=== PATIENT | male | born 1955 | race American Indian/Alaskan Native ===

== ENCOUNTER 2022-01-26 22:58 | Inpatient (IN) | payer BC ==
--- NOTE | 2022-01-26 23:25 | Emergency Department Report ---
ED Shortness of Breath HPI - General Chief Complaint: Dyspnea/Respdistress Stated Complaint: SOB Source: patient Mode of arrival: Ambulatory Limitations: No Limitations - History of Present Illness Initial Comments: Patient is a 66-year-old male with history of chronic kidney disease not on dialysis brought in by family for evaluation of worsening shortness of breath over the past several days. He denies fever or chills. No past history of respiratory or cardiac issues. Satting 78% in triage. - Related Data Allergies Allergy/AdvReac Type Severity Reaction Status Date / Time No Known Allergies Allergy Verified 01/26/22 23:12 ED Review of Systems ROS: Stated complaint: SOB Other details as noted in HPI Comment: All other systems reviewed and negative Constitutional: denies: chills, fever Respiratory: shortness of breath. denies: cough Cardiovascular: denies: chest pain, palpitations Gastrointestinal: denies: abdominal pain, nausea, diarrhea Genitourinary: denies: urgency, dysuria Musculoskeletal: denies: back pain, joint swelling, arthralgia Skin: denies: rash, lesions Neurological: denies: headache, weakness, paresthesias Psychiatric: as per HPI ED Past Medical Hx - Past Medical History Previous Medical History?: No - Surgical History Past Surgical History?: No - Social History Smoking Status: Never Smoker Substance Use Type: None ED Physical Exam - General Limitations: No Limitations General appearance: alert, other (Appears uncomfortable) - Head Head exam: Present: atraumatic, normocephalic - Respiratory Respiratory exam: Present: normal lung sounds bilaterally, respiratory distress (Mild respiratory distress/tachypnea). Absent: wheezes, rales, rhonchi, stridor - Cardiovascular Cardiovascular Exam: Present: regular rate, normal rhythm, normal heart sounds - GI/Abdominal GI/Abdominal exam: Present: soft. Absent: distended, tenderness - Rectal Rectal exam: Present: deferred - Extremities Exam Extremities exam: Present: normal inspection. Absent: pedal edema - Neurological Exam Neurological exam: Present: alert, oriented X3 - Psychiatric Psychiatric exam: Present: normal affect, normal mood - Skin Skin exam: Present: warm, dry, intact, normal color ED Course Vital Signs 01/26/22 01/26/22 01/26/22 23:01 23:15 23:16 Temperature Pulse Rate 83 74 Respiratory 26 H 24 Rate Blood Pressure Blood Pressure 200/110 102/70 [Left] O2 Sat by Pulse 78 L 98 98 Oximetry O2 Sat by Pulse Oximetry [ Bilateral] 01/27/22 01/27/22 01/27/22 01:05 03:20 04:25 Temperature 96.8 F L Pulse Rate 82 77 72 Respiratory 20 10 L Rate Blood Pressure 149/70 180/92 Blood Pressure 120/55 [Left] O2 Sat by Pulse 100 100 Oximetry O2 Sat by Pulse 100 Oximetry [ Bilateral] 01/27/22 01/27/22 01/27/22 04:30 04:45 05:00 Temperature 97.0 F L Pulse Rate 97 H 102 H 54 L Respiratory 10 L Rate Blood Pressure 197/100 115/62 65/45 Blood Pressure [Left] O2 Sat by Pulse Oximetry O2 Sat by Pulse 92 Oximetry [ Bilateral] - Central Line Placement Left IJ Consent Obtained: emergent situation Time Out Performed: Yes Patient Placed on Monitor/Pulse Ox: Yes MD Prep: mask, gown, gloves Central Line Prep: Chlorhexidine scrub Ultrasound Used for Placement: Yes Central Line Lumen Inserted: triple Reason for Insertion: Emergency Venous Access Bloods Obtained for Lab: No Central Line Position: good blood return, all ports aspirated, flus, sutured in place with 2-0 Dressing Applied: Tegaderm Post Procedure X-Ray: tip of catheter in good p Patient Tolerated Procedure: well, no complications - Intubation Time Out Performed: No (Emergent procedure) Sedative: Etomidate Mg Given: 20 Paralytic: Rocuronium Mg Given: 100 Laryngoscope: fiberoptic video scope Size: 4 ET Tube Size: 7.5 Tube Secured Depth (cm): 26 Tube Secured Location: lips Tube Placement Confirmation: visualized tube passing t Patient Tolerated Procedure: well, no complications ED Medical Decision Making - Lab Data Result diagrams: 01/26/22 23:28 01/26/22 23:28 - EKG Data -: EKG Interpreted by Me - Medical Decision Making Patient presenting with complaint of shortness of breath. Chest x-ray unremarkable. Satting 78% on arrival and placed on 5 L nasal cannula with increased to 95%. ABG shows significant respiratory acidosis. Decision was made to intubate. Serum potassium 9. Bicarb 3. Unable to establish peripheral IV access therefore central line was placed. I contacted on-call nephrology who agreed to perform emergent dialysis. ICU attending was also contacted to place Vas-Cath. Patient given Kayexalate through NG tube along with IV calcium gluconate, D50, insulin and sodium bicarb. Patient became hypotensive and bradycardic shortly after initiation of dialysis. Decision made to discontinue dialysis. I discussed patient's condition and prognosis with the who states that she does not want any CPR performed however is unsure about other critical care measures/treatment. States she will consult with her family and let us know. Will admit to hospitalist. Patient to receive ICU bed this morning. Critical Care Time: Yes Critical care time in (mins) excluding proc time.: 120 Critical care attestation.: If time is entered above; I have spent that time in minutes in the direct care of this critically ill patient, excluding procedure time. ED Disposition Clinical Impression: Acute respiratory failure, Acute on chronic kidney failure, Hyperkalemia Disposition: ADMITTED INPATIENT Is pt being admited?: Yes Condition: Stable Referrals: PRIMARY CARE, [Primary Care Provider] - 3-5 Days
[2022-01-27] LABS: Hematocrit 23.5 % (35.5-45.6); Hemoglobin 7.6 gm/dl (11.8-15.2); Mean Corpuscular HGB Conc 33 % (32-34); Mean Corpuscular Volume 90 fl (84-94); Platelet Count 269 K/mm3 (140-440); Red Blood Count 2.62 M/mm3 (3.65-5.03); Red Cell Distribution Width 14.2 % (13.2-15.2)
--- NOTE | 2022-01-27 00:33 | XRay Report ---
XR chest 1V ap INDICATION / CLINICAL INFORMATION: Dyspnea. COMPARISON: None available. FINDINGS: SUPPORT DEVICES: None. HEART /PULMONARY VASCULATURE: No significant abnormality. LUNGS / PLEURA: No significant pulmonary or pleural abnormality. No pneumothorax. ADDITIONAL FINDINGS: No significant additional findings. IMPRESSION: 1. No acute findings. Signer Name: Taye Poole MD Signed: 01/27/2022 12:24 AM Workstation Name: [id number]
[2022-01-27 01:12] LABS: Alanine Aminotransferase 19 units/L (7-56); Albumin 3.9 g/dL (3.9-5); Calcium 9.5 mg/dL (8.4-10.2); Hemolysis Index 0
[2022-01-27 01:14] LABS: Band Neutrophils # (Manual) 0.2 K/mm3; Basophils % (Manual) 0 % (0.0-1.8); Eosinophils % (Manual) 0 % (0.0-4.3); Myelocytes # (Manual) 0.1 K/mm3; Total Cells Counted 100
[2022-01-27 01:15] LABS: Hypochromasia 2+; Platelet Estimate Consistent w Auto; Target Cells Few
[2022-01-27 01:40] LABS: BUN/Creatinine Ratio 10; Blood Urea Nitrogen 308 mg/dL (9-20)
[2022-01-27] MEDS ORDERED: SODIUM POLYSTYRENE 15 GM/60 ML ORAL LIQD PO ONE (01:46)
[2022-01-27] MEDS ORDERED: DEXTROSE 50% IN WATER (25GM) 50 ML SYRINGE IV ONE (01:47)
[2022-01-27] MEDS ORDERED: INSULIN REGULAR, HUMAN 100 UNITS/1 ML IV ONE (01:47)
[2022-01-27] MEDS ORDERED: SODIUM BICARB 8.4% 50 MEQ/50 ML SYRINGE IV ONE (01:54)
[2022-01-27 01:55] LABS: ABG Base Excess -24.8 mmol/L (-2.0-3.0); ABG HCO3 2.7 mmol/L (20.0-26.0); ABG Methemoglobin 0.7 % (0.0-1.5); ABG Oxygen Saturation 98.6 % (95.0-99.0); ABG PCO2 9.1 mm Hg
[2022-01-27] MEDS ORDERED: EPOETIN ALFA-EPBX 10,000 UNIT/1 ML VIAL IV PRN (02:08)
[2022-01-27] MEDS ORDERED: SODIUM CHLORIDE 0.9% 100 ML IV PRN ×2 (02:08→12:25)
[2022-01-27] MEDS ORDERED: HEPARIN 10,000 UNIT/1 ML VIAL IV PRN (02:08)
[2022-01-27] MEDS: CALC GLUCONATE 1GM/NS 100 ML 1 GM/100 ML BAG IV SCH ×2 (02:10→18:42)
[2022-01-27 02:15] LABS: ABG PH 7.094 pH Units (7.350-7.450)
--- NOTE | 2022-01-27 02:17 | Event Note ---
Date: 01/27/22 Called about [facility] who presented in Kidney failure with Hyperkalemia with EKG changes. Medical management for hyperkalemia started but Patient also needs urgent dialysis. Will order dialtsis. ED Physician discussing with Meat Grading Machine Operator for Vas cath placement urgently. Will ask nursing staff to call in Dialysos team once line placed. Full consult to follow
[2022-01-27] MEDS ORDERED: ETOMIDATE 20 MG/10 ML INJ IV ONE (02:31)
[2022-01-27] MEDS ORDERED: ROCURONIUM 50 MG/5 ML INJ IV ONE (02:31)
--- NOTE | 2022-01-27 04:05 | Procedure Note ---
Date of procedure: 01/27/22 Pre-op diagnosis: Severe Hyperkalemia; SILVIA Post-op diagnosis: same Procedure: RIJ TRIALYSIS CATHETER PLACEMENT (Full dictation # [id number]) Please see dictated notes for full details
[2022-01-27 04:06] LABS: Hepatitis B Surface Antigen Non-Reactive (Negative); Hepatitis C Virus Antibody Reactive (NonReactive)
--- NOTE | 2022-01-27 04:18 | XRay Report ---
XR chest 1V ap INDICATION / CLINICAL INFORMATION: Tube/line placement. COMPARISON: 01/26/2022 FINDINGS: SUPPORT DEVICES: Right IJ central venous catheter projects over the SVC. Enteric catheter extends bel ow the diaphragm. Side-port is located at the GE junction. HEART /PULMONARY VASCULATURE: Stable. LUNGS / PLEURA: No acute pulmonary or pleural abnormality. No pneumothorax. ADDITIONAL FINDINGS: No significant additional findings. IMPRESSION: 1. Right IJ central venous catheter projects over the SVC. 2. Enteric catheter extends below the diaphragm. Side-port is located at the GE junction. Consider sl ight advancement for more optimal placement. 3. No acute chest findings. Signer Name: Taye Poole MD Signed: 01/27/2022 4:14 AM Workstation Name: [id number]
--- NOTE | 2022-01-27 04:29 | Operative Report ---
DATE OF SURGERY: 01/27/2022 PULMONARY PROCEDURE NOTE PROCEDURE: Right internal jugular Trialysis catheter placement. INDICATIONS: Acute kidney injury, acute hypoxemic respiratory failure, on mechanical ventilatory support. COMPLICATIONS: No immediate procedural complications. PROCEDURE DETAILS: As follows: This was done as an emergent procedure. The patient had come into the Emergency Room with shortness of breath, abnormal EKG changes consistent with severe hyperkalemia. Serum potassium came back at about 9.0 and a decision was made to emergently dialyze after consultation with the store lead. The area of the right upper anterior triangle of the neck was sterilely prepped and draped using chlorhexidine. Strict sterile technique was used throughout the procedure including sterile gloves, hat, mask, gown and full barrier drape. Generous local anesthetic agent was used. Ultrasound guidance was used for the procedure. After locating an easily compressible right internal jugular vein under ultrasound and after the application of local anesthesia, the central line needle provided was used to assess the right internal jugular vein under ultrasound guidance. The patient was in Trendelenburg position for the whole procedure. Good venous looking blood return was obtained. Wire was threaded through the needle. Catheter was then advanced over the wire after dilatation with dilators provided. Catheter was sutured in place after flushing the lines. Blood loss was minimal. Post-procedure chest x-ray shows adequate placement without any pneumothorax. Vas-Cath has been cleared to use. TID: [id number] RECEIPT: [id number] [id number]
[2022-01-27] MEDS ORDERED: NORepinephrine/NS 8 MG-250 ML 8 MG/250 ML INFUS..BTL IV ONE ×2 (04:46→18:11)
[2022-01-27] MEDS ORDERED: SODIUM CHLORIDE 0.9% 1000 ML 1,000 ML IV ONE ×2 (05:10)
[2022-01-27] MEDS ORDERED: MAGNESIUM HYDROXIDE (MOM) ORAL LIQD UDC PO PRN (05:44)
[2022-01-27] MEDS ORDERED: ACETAMINOPHEN 650 MG RECT SUPP PR PRN (05:44)
[2022-01-27] MEDS ORDERED: MORPHINE 4 MG/1 ML INJ IV PRN (05:44)
[2022-01-27] MEDS ORDERED: MORPHINE 2 MG/1 ML INJ IV PRN (05:44)
[2022-01-27] MEDS ORDERED: SODIUM CHLORIDE 0.9% 1000 ML 1,000 ML IV SCH (05:45)
[2022-01-27 05:50] LABS: ABG Base Excess -18.2 mmol/L (-2.0-3.0); ABG HCO3 6.6 mmol/L (20.0-26.0); ABG Methemoglobin 0.4 % (0.0-1.5); ABG Oxygen Saturation 99.6 % (95.0-99.0); ABG PCO2 13.4 mm Hg; ABG PH 7.312 pH Units (7.350-7.450)
--- NOTE | 2022-01-27 05:53 | History and Physical Report ---
History of Present Illness Date of examination: 01/27/22 Date of admission: 01/27/2022 Chief complaint: Shortness of breath History of present illness: 66-year-old -[place] male with known history of chronic kidney disease brought in by family today for evaluation of worsening shortness of breath which has been ongoing for the past few days. Patient is currently intubated and sedated and therefore most of the history was gotten by who was by the bed side. indicates that patient has not been following up regularly with any primary care physician or unit secy due to insurance issues. Upon arrival in the emergency room put on hold, work-up was significant for hyperkalemia of 9.0, CO2 of 3.0, BUN of 308 and creatinine of 31. 6. BNP of 10 829. Magnesium 2.6. EKG was significant for peaked T waves. [employer] Radar Operator/Navigator on-call was notified by the ER physician and dialysis was to be initiated. Patient became hypotensive during the course of dialysis and had to be put on hold. Clock And Watch Assembler and nephrology service has been promptly informed by the ER physician. Past History Past Medical History: other (Chronic kidney disease) Past Surgical History: No surgical history Social history: no significant social history Medications and Allergies Allergies Allergy/AdvReac Type Severity Reaction Status Date / Time No Known Allergies Allergy Verified 01/26/22 23:12 Active Meds: Active Medications Epoetin Connor-epbx (Epoetin Connor-Epbx 10,000 Unit/1 Ml Vial) 10,000 unit IV PATRICK PRN PRN Reason: hemodialysis Heparin Sodium (Porcine) (Heparin 10,000 Unit/1 Ml Vial) 5,000 unit IV PATRICK PRN PRN Reason: hemodialysis Sodium Chloride (Nacl 0.9%) 100 mls @ 999 mls/hr IV PATRICK PRN PRN Reason: Hypotension Sodium Bicarbonate 100 meq/ (Sterile Water) 1,100 mls @ 100 mls/hr IV DIRECT DOMINIC Sodium Chloride (Nacl 0.9% 1000 Ml) 1,000 mls @ 999 mls/hr IV BOLUS ONE Stop: 01/27/22 06:10 Sodium Chloride (Nacl 0.9% 1000 Ml) 1,000 mls @ 999 mls/hr IV BOLUS ONE Stop: 01/27/22 06:10 Sodium Bicarbonate 50 meq/ (Sodium Chloride) 1,050 mls @ 100 mls/hr IV DIRECT DOMINIC Review of Systems ROS unobtainable: due to endotracheal tube Exam - Constitutional Vitals: Temp Pulse Resp BP Pulse Ox 97.0 F L 54 L 10 L 65/45 92 01/27/22 05:00 01/27/22 05:00 01/27/22 05:00 01/27/22 05:00 01/27/22 05:00 General appearance: Present: well-nourished, other (Currently intubated and sedated) - EENT Eyes: Present: PERRL, EOM intact. Absent: scleral icterus ENT: hearing intact, clear oral mucosa, dentition normal - Neck Neck: Present: supple, normal ROM - Respiratory Respiratory effort: normal Respiratory: bilateral: CTA - Cardiovascular Rhythm: regular Heart Sounds: Present: S1 & S2. Absent: gallop, systolic murmur, diastolic murmur, rub, click - Extremities Extremities: no ischemia, pulses intact, pulses symmetrical, No edema, normal temperature, normal color, Full ROM Peripheral Pulses: within normal limits - Abdominal General gastrointestinal: Present: soft, non-tender, non-distended, normal bowel sounds. Absent: mass - Integumentary Integumentary: Present: clear, warm, dry, normal turgor. Absent: rash - Musculoskeletal Musculoskeletal: other (Intubated and sedated) - Psychiatric Psychiatric: cooperative - Neurologic Neurologic: no focal deficits, other (Patient currently intubated and sedated) HEART Score - HEART Score Troponin: Troponin T < 0.010 ng/mL (0.00-0.029) 01/26/22 23:28 Results - Labs CBC & Chem 7: 01/26/22 23:28 01/26/22 23:28 Labs: Abnormal lab results 01/26/22 01/26/22 01/26/22 Range/Units 01:45 23:28 23:28 RBC 2.62 L (3.65-5.03) M/mm3 Hgb 7.6 L (11.8-15.2) gm/dl Hct 23.5 L (35.5-45.6) % Seg Neuts % (Manual) 94.0 H (40.0-70.0) % Lymphocytes % (Manual) 2.0 L (13.4-35.0) % Nucleated RBC % 3.0 H (0.0-0.9) % Seg Neutrophils # Man 8.3 H (1.8-7.7) K/mm3 Lymphocytes # (Manual) 0.2 L (1.2-5.4) K/mm3 ABG pH 7.094 L* (7.350-7.450) pH Units ABG pO2 162.0 H (80.0-90.0) mm Hg ABG HCO3 2.7 L (20.0-26.0) mmol/L ABG Base Excess -24.8 L (-2.0-3.0) mmol/L ABG Hemoglobin 7.7 L (14.0-18.0) gm/dl Sodium 148 H (137-145) mmol/L Potassium 9.0 H* (3.6-5.0) mmol/L Chloride 113.1 H (98-107) mmol/L Carbon Dioxide 3 L* (22-30) mmol/L BUN 308 H (9-20) mg/dL Creatinine 31.6 H (0.8-1.3) mg/dL Glucose 104 H (75-100) mg/dL Magnesium (1.7-2.3) mg/dL NT-Pro-B Natriuret Pep (0-900) pg/mL Hepatitis C Antibody (NonReactive) 01/26/22 01/27/22 01/27/22 Range/Units 23:28 01:57 03:31 RBC (3.65-5.03) M/mm3 Hgb (11.8-15.2) gm/dl Hct (35.5-45.6) % Seg Neuts % (Manual) (40.0-70.0) % Lymphocytes % (Manual) (13.4-35.0) % Nucleated RBC % (0.0-0.9) % Seg Neutrophils # Man (1.8-7.7) K/mm3 Lymphocytes # (Manual) (1.2-5.4) K/mm3 ABG pH (7.350-7.450) pH Units ABG pO2 (80.0-90.0) mm Hg ABG HCO3 (20.0-26.0) mmol/L ABG Base Excess (-2.0-3.0) mmol/L ABG Hemoglobin (14.0-18.0) gm/dl Sodium (137-145) mmol/L Potassium (3.6-5.0) mmol/L Chloride (98-107) mmol/L Carbon Dioxide (22-30) mmol/L BUN (9-20) mg/dL Creatinine (0.8-1.3) mg/dL Glucose (75-100) mg/dL Magnesium 2.60 H (1.7-2.3) mg/dL NT-Pro-B Natriuret Pep 56621 H (0-900) pg/mL Hepatitis C Antibody Reactive A (NonReactive) Assessment and Plan Assessment: 1. Acute respiratory failure 2. Acute on chronic kidney failure 3. Hyperkalemia 4. Metabolic acidosis Plan: 1. Patient intubated and sedated 2. Patient will be undergoing dialysis. 3. Placed on sodium bicarbonate drip 4. Continue to monitor chemistry. DVT prophylaxis: Subcutaneous heparin CODE STATUS: Full code NB: Prognosis appears poor Condition regarding CODE STATUS discussed fully with who was by the bedside.
[2022-01-27] MEDS ORDERED: SODIUM BICARBONATE 50 MEQ in SODIUM CHLORIDE 0.9% 1000 ML 1,000 ML IV SCH (06:00)
[2022-01-27 06:03] LABS: ABG PO2 595.3 mm Hg (80.0-90.0)
[2022-01-27 08:14] LABS: Bacteria,Urine 1+ /HPF (Negative)
[2022-01-27 08:20] LABS: Color,Urine Yellow (Yellow)
[2022-01-27 08:21] LABS: Bilirubin,Urine Negative (Negative); Blood,Urine Large (Negative)
[2022-01-27 12:00] LABS: Creatinine,Urine 144.3 mg/dL (0.1-20.0)
[2022-01-27] MEDS: FAMOTIDINE 20 MG/2 ML INJ IV SCH (12:11)
--- NOTE | 2022-01-27 13:03 | Progress Note ---
<SHOBHA KENNEDY - Last Filed: 01/27/22 19:42> Assessment and Plan Assessment and plan: This is a 66-year-old male with known past medical history of HTN and chronic kidney disease admitted for severe metabolic acidosis 2/2 worsen chronic kidney disease and acute hypoxic respiratory failure requiring ventilatory support. Hospital Course to Date: 01/27: Intubated and responsive not on any sedation. Did not tolerated HD this am due to bradycardia and hypotension. Currently in SR with peak-T wave on the monitor, VSS. Patient received Kayexalate, IV calcium gluconate, D50, insulin and sodium bicarb in the ED. Stat BMP pending. Continue Bcarb gtt per CCM. Awaiting on Nephro final recommendations. Throughout discussion with patient's and son at the bedside. All questions and concerns were addressed at this time. Patient remains a FULL code status. Assessment and Plan #Acute Hypoxic Respiratory Failure - most like secondary to severe acidosis - Intubated on 01/27 in the ED - Vent setting: PRVC- 50%,6,30,450 - AM ABG noted - CCM consulted, appreciate recommendations - VAP bundle addressed - Aspiration precaution HOB above 30 - Daily SBT trials as tolerated - Daily ABG and CXR - Continue SPO2 monitoring for SPO2 goal above 92% #Acute on Chronic Kidney Injury #Hyperkalemia #Azotemia #Severe Metabolic Acidosis - reported that patient has not been following up regularly with any primary care physician or ems educator due to insurance issues - Presented with K of 9.0, BUN 308, and Scr. 31.2 - EKG was significant for peaked T waves. - Nephrology on consult, appreciated recommendation - Trialysis Cath inserted and iHD initiated - patient did not tolerate iHD due to bradycardia and hypotension - Kayexalate, IV calcium gluconate, D50, insulin and sodium bicarb in the ED. - Stat BMP pending - Currently on bcarb gtt - Strict intake and output - Avoid nephrotoxic medications; Renally dose medications - Roth in place - Monitor and replace electrolytes as needed #Acute Metabolic Encephalopathy - most likely secondary to azotemia - Intubated and unresponsive not on any sedation - Patient did not tolerate initial iHD this am - Continue HD per Nephro - Possible CT head if patient remains unresponsive and if stabilized - Avoid sedative agents - PRN Analgesia for CPOT greater than 3 - Maintenance of sleep-wake cycle #Anemia of Chronic Disease - most likely due to chronic kidney disease - H&H stable - Epogen with iHD per Nephro - Transfuse if Hgb less than 7 #Hypertension - BP stable - Resume home meds once list is available - Continue blood pressure monitor per protocol - Maintain SBP less than 160 #GI/DVT Prophylaxis - PPI- Pepcid - Heparin SubQ - SCDs to bilateral lower extremities while in bed #Advance Care Planning - Disease education data, care plan, diagnoses, and prognosis were discussed with patient's and son at the bedside. All questions and concerns were addressed at this time. Patient family acknowledged understanding and agreement with current care plan. Patient remains a FULL code status at this time +CCT 60minutes History Interval history: Patient seen and examined in the ED. Intubated and unresponsive, not on any sedation. Pupils are round and reactive, with weak cough/gag. Bicarb gtt running. Per nursing staff, patient did not toerlated HD this morning. Treatment was aborted due to bradycardia and hypotesion. SR with peak T-wave noted on the monitor, VSS. Patient not on any pressures Hospitalist Physical - Constitutional Vitals: Temp Pulse Resp BP Pulse Ox 97.0 F L 111 H 22 108/73 100 01/27/22 05:00 01/27/22 12:30 01/27/22 12:30 01/27/22 12:30 01/27/22 12:30 General appearance: Present: no acute distress, well-nourished, other (Intubated and unresponsive, not on any sedation) - EENT Eyes: Present: PERRL - Respiratory Respiratory effort: normal Respiratory: bilateral: diminished - Cardiovascular Rhythm: regular Heart Sounds: Present: S1 & S2 - Extremities Extremities: no ischemia, pulses intact, pulses symmetrical Peripheral Pulses: within normal limits - Abdominal General gastrointestinal: soft, non-distended, normal bowel sounds - Integumentary Integumentary: Present: warm, dry - Psychiatric Psychiatric: other (Intubated and unresponsive, not on any sedation) - Neurologic Neurologic: other (Intubated and unresponsive, not on any sedation) - Allied Health Allied health notes reviewed: nursing HEART Score - HEART Score Troponin: Troponin T < 0.010 ng/mL (0.00-0.029) 01/26/22 23:28 Results - Labs CBC & Chem 7: 01/26/22 23:28 01/27/22 Unknown Labs: Laboratory Last Values WBC 8.8 K/mm3 (4.5-11.0) 01/26/22 23: RBC 2.62 M/mm3 (3.65-5.03) L 01/26/22 23:28 Hgb 7.6 gm/dl (11.8-15.2) L 01/26/22 23: Hct 23.5 % (35.5-45.6) L 01/26/22 23: MCV 90 fl (84-94) 01/26/22 23: MCH 29 pg (28-32) 01/26/22 23: MCHC 33 % (32-34) 01/26/22 23: RDW 14.2 % (13.2-15.2) 01/26/22 23: Plt Count 269 K/mm3 (140-440) 01/26/22 23:28 Add Manual Diff Complete 01/26/22 23: Total Counted 100 01/26/22 23: Seg Neutrophils % Gas Pumper 01/26/22 23:28 Seg Neuts % (Manual) 94.0 % (40.0-70.0) H 01/26/22 23: Band Neutrophils % 2.0 % 01/26/22 23: Lymphocytes % (Manual) 2.0 % (13.4-35.0) L 01/26/22 23:28 Reactive Lymphs % (Man) 0 % 01/26/22 23: Monocytes % (Manual) 1.0 % (0.0-7.3) 01/26/22 23:28 Eosinophils % (Manual) 0 % (0.0-4.3) 01/26/22 23:28 Basophils % (Manual) 0 % (0.0-1.8) 01/26/22 23:28 Metamyelocytes % 0 % 01/26/22 23:28 Myelocytes % 1.0 % 01/26/22 23:28 Promyelocytes % 0 % 01/26/22 23:28 Blast Cells % 0 % 01/26/22 23:28 Nucleated RBC % 3.0 % (0.0-0.9) H 01/26/22 23:28 Seg Neutrophils # Man 8.3 K/mm3 (1.8-7.7) H 01/26/22 23:28 Band Neutrophils # 0.2 K/mm3 01/26/22 23:28 Lymphocytes # (Manual) 0.2 K/mm3 (1.2-5.4) L 01/26/22 23:28 Abs React Lymphs (Man) 0.0 K/mm3 01/26/22 23:28 Monocytes # (Manual) 0.1 K/mm3 (0.0-0.8) 01/26/22 23:28 Eosinophils # (Manual) 0.0 K/mm3 (0.0-0.4) 01/26/22 23:28 Basophils # (Manual) 0.0 K/mm3 (0.0-0.1) 01/26/22 23:28 Metamyelocytes # 0.0 K/mm3 01/26/22 23:28 Myelocytes # 0.1 K/mm3 01/26/22 23:28 Promyelocytes # 0.0 K/mm3 01/26/22 23:28 Blast Cells # 0.0 K/mm3 01/26/22 23:28 WBC Morphology Not Reportable 01/26/22 23:28 Hypersegmented Neuts Not Reportable 01/26/22 23:28 Hyposegmented Neuts Not Reportable 01/26/22 23:28 Hypogranular Neuts Not Reportable 01/26/22 23:28 Smudge Cells Not Reportable 01/26/22 23:28 Toxic Granulation Not Reportable 01/26/22 23:28 Toxic Vacuolation Not Reportable 01/26/22 23:28 Dohle Bodies Not Reportable 01/26/22 23:28 Pelger-Huet Anomaly Not Reportable 01/26/22 23:28 Sofia Rods Not Reportable 01/26/22 23:28 Platelet Estimate Consistent w auto 01/26/22 23:28 Clumped Platelets Not Reportable 01/26/22 23:28 Plt Clumps, EDTA Not Reportable 01/26/22 23:28 Large Platelets Not Reportable 01/26/22 23:28 Giant Platelets Not Reportable 01/26/22 23:28 Platelet Satelliting Not Reportable 01/26/22 23:28 Plt Morphology Comment Not Reportable 01/26/22 23:28 RBC Morphology Not Reportable 01/26/22 23:28 Dimorphic RBCs Not Reportable 01/26/22 23:28 Polychromasia Not Reportable 01/26/22 23:28 Hypochromasia 2+ 01/26/22 23:28 Poikilocytosis Not Reportable 01/26/22 23:28 Anisocytosis Not Reportable 01/26/22 23:28 Microcytosis Not Reportable 01/26/22 23:28 Macrocytosis Not Reportable 01/26/22 23:28 Spherocytes Not Reportable 01/26/22 23:28 Pappenheimer Bodies Not Reportable 01/26/22 23:28 Sickle Cells Not Reportable 01/26/22 23:28 Target Cells Few 01/26/22 23:28 Tear Drop Cells Not Reportable 01/26/22 23:28 Ovalocytes Not Reportable 01/26/22 23:28 Helmet Cells Not Reportable 01/26/22 23:28 [place] Bodies Not Reportable 01/26/22 23:28 [place] Rings Not Reportable 01/26/22 23:28 Kim Cells Not Reportable 01/26/22 23:28 Bite Cells Not Reportable 01/26/22 23:28 Crenated Cell Not Reportable 01/26/22 23:28 Elliptocytes Not Reportable 01/26/22 23:28 Acanthocytes (Spur) Not Reportable 01/26/22 23:28 Rouleaux Not Reportable 01/26/22 23:28 Hemoglobin C Crystals Not Reportable 01/26/22 23:28 Schistocytes Not Reportable 01/26/22 23:28 Malaria parasites Not Reportable 01/26/22 23:28 Jan Bodies Not Reportable 01/26/22 23:28 Hem Pathologist Commnt No 01/26/22 23:28 ABG pH 7.312 pH Units (7.350-7.450) L 01/27/22 05:30 ABG pCO2 13.4 mm Hg 01/27/22 05:30 ABG pO2 595.3 mm Hg (80.0-90.0) H 01/27/22 05:30 ABG HCO3 6.6 mmol/L (20.0-26.0) L 01/27/22 05:30 ABG O2 Saturation 99.6 % (95.0-99.0) H 01/27/22 05:30 ABG O2 Content 8.4 (0.0-44) 01/27/22 05:30 ABG Base Excess -18.2 mmol/L (-2.0-3.0) L 01/27/22 05:30 ABG Hemoglobin 5.0 gm/dl (14.0-18.0) L 01/27/22 05:30 ABG Carboxyhemoglobin 0.5 % (0.0-5.0) 01/27/22 05:30 ABG Methemoglobin 0.4 % (0.0-1.5) 01/27/22 05:30 Oxyhemoglobin 98.8 % (95.0-99.0) 01/27/22 05:30 FiO2 100 % 01/27/22 05:30 Sodium 147 mmol/L (137-145) H 01/27/22 Unknown Potassium 5.2 mmol/L (3.6-5.0) H D 01/27/22 Unknown Chloride 111.6 mmol/L (98-107) H 01/27/22 Unknown Carbon Dioxide 6 mmol/L (22-30) L* 01/27/22 Unknown Anion Gap 35 mmol/L 01/27/22 Unknown BUN 235 mg/dL (9-20) H 01/27/22 Unknown Creatinine 21.2 mg/dL (0.8-1.3) H 01/27/22 Unknown Estimated GFR 3 ml/min 01/27/22 Unknown BUN/Creatinine Ratio 11 % 01/27/22 Unknown Glucose 74 mg/dL (75-100) L 01/27/22 Unknown Calcium 8.0 mg/dL (8.4-10.2) L D 01/27/22 Unknown Magnesium 2.60 mg/dL (1.7-2.3) H 01/27/22 01:57 Total Bilirubin 0.40 mg/dL (0.1-1.2) 01/26/22 23:28 AST 21 units/L (5-40) 01/26/22 23:28 ALT 19 units/L (7-56) 01/26/22 23:28 Alkaline Phosphatase 64 units/L (35-129) 01/26/22 23:28 Troponin T < 0.010 ng/mL (0.00-0.029) 01/26/22 23:28 NT-Pro-B Natriuret Pep 32495 pg/mL (0-900) H 01/26/22 23:28 Total Protein 7.9 g/dL (6.3-8.2) 01/26/22 23:28 Albumin 3.9 g/dL (3.9-5) 01/26/22 23:28 Albumin/Globulin Ratio 1.0 % 01/26/22 23:28 Urine Color Yellow (Yellow) 01/27/22 07:45 Urine Turbidity Clear (Clear) 01/27/22 07:45 Urine pH 5.0 (5.0-7.0) 01/27/22 07:45 Ur Specific [place] 1.015 (1.003-1.030) 01/27/22 07:45 Urine Protein 100 mg/dl mg/dL (Negative) 01/27/22 07:45 Urine Glucose (UA) Negative mg/dL (Negative) 01/27/22 07:45 Urine Ketones Negative mg/dL (Negative) 01/27/22 07:45 Urine Blood Large (Negative) A 01/27/22 07:45 Urine Nitrite Negative (Negative) 01/27/22 07:45 Ur Reducing Substances Not Reportable 01/27/22 07:45 Urine Bilirubin Negative (Negative) 01/27/22 07:45 Urine Ictotest Not Reportable 01/27/22 07:45 Urine Urobilinogen 0.0 mg/dL (<2.0) 01/27/22 07:45 Ur Leukocyte Esterase Small (Negative) 01/27/22 07:45 Urine WBC (Auto) 11.0 /HPF (0.0-6.0) H 01/27/22 07:45 Urine RBC (Auto) 5.0 /HPF (0.0-6.0) 01/27/22 07:45 Urine Bacteria (Auto) 1+ /HPF (Negative) 01/27/22 07:45 Urine WBC Clumps Few /HPF 01/27/22 07:45 Urine Creatinine 144.3 mg/dL (0.1-20.0) H 01/27/22 07:45 Urine Sodium 36 mmol/L 01/27/22 07:45 Urine Total Protein 154 mg/dL (5-11.8) H 01/27/22 07:45 Hepatitis A IgM Ab Non-reactive (NonReactive) 01/27/22 03:31 Hep Bs Antigen Non-reactive (Negative) 01/27/22 03:31 Hep B Core IgM Ab Non-reactive (NonReactive) 01/27/22 03:31 Hepatitis C Antibody Reactive (NonReactive) A 01/27/22 03:31 Active Medications - Current Medications Current Medications: Generic Name Dose Route Start Last Admin Trade Name Freq PRN Reason Stop Dose Admin Acetaminophen 650 mg 01/27/22 05:44 Acetaminophen 650 Mg Rect Supp NC Q6H PRN Pain MILD(1-3)/Fever >100.5/WILLIAM Epoetin Connor-epbx 10,000 unit 01/27/22 02:08 Epoetin Connor-Epbx 10,000 Unit/1 Ml Vial IV PATRICK PRN hemodialysis Famotidine 20 mg 01/27/22 10:00 01/27/22 12:11 Famotidine 20 Mg/2 Ml Inj IV 20 mg QDAY DOMINIC Administration Heparin Sodium (Porcine) 5,000 unit 01/27/22 02:08 Heparin 10,000 Unit/1 Ml Vial IV PATRICK PRN hemodialysis Heparin Sodium (Porcine) 5,000 unit 01/27/22 06:00 Heparin 5,000 Unit/1 Ml Vial SUB-Q Q8HR [facility] Sodium Bicarbonate 100 meq/ 1,100 mls @ 100 mls/hr 01/27/22 03:00 Sterile Water IV DIRECT DOMINIC Sodium Chloride 100 mls @ 999 mls/hr 01/27/22 12:25 Nacl 0.9% IV PATRICK PRN Hypotension Magnesium Hydroxide 30 ml 01/27/22 05:44 Magnesium Hydroxide (Mom) Oral Liqd Udc PO Q4H PRN Constipation Morphine Sulfate 2 mg 01/27/22 05:44 Morphine 2 Mg/1 Ml Inj IV Q4H PRN Pain, Moderate (4-6) Morphine Sulfate 4 mg 01/27/22 05:44 Morphine 4 Mg/1 Ml Inj IV Q4H PRN Pain , Severe (7-10) Sodium Chloride 10 ml 01/27/22 10:00 01/27/22 11:23 Sodium Chloride 0.9% 10 Ml Flush Syringe IV 10 ml BID DOMINIC Administration Sodium Chloride 10 ml 01/27/22 05:44 Sodium Chloride 0.9% 10 Ml Flush Syringe IV PRN PRN LINE FLUSH <ALAYNA MARRERO - Last Filed: 01/28/22 07:17> Assessment and Plan Assessment and plan: I saw and evaluated the patient. I agree with the findings and the plan of care as documented in the Nurse Practitioner's~note, with the following corrections and additions. On my initial examination of the patient. He was breathing 45 breaths per minute and on BiPAP, was noxious with each removal of the BiPAP mask and desaturated. I discussed with the who told me that he has been in the situation for quite some time since presentation to the ED. We immediately contacted the trim sawyer and decision was made to intubate the patient. The ER physician was pressures enough to intubate the patient after fully explaining the risk and benefits to the family. Advanced care planning was discussed with the patient for 35 minutes. CODE STATUS remains full code. We also initiated diuresis for the patient while monitoring her renal function which had taken a slight bump. Cardiology was consulted with his primary fruit sorter and case was discussed with them. Patient's clinical condition remains guarded Hospitalist Physical - Constitutional Vitals: Temp Pulse Resp BP Pulse Ox 98.2 F 118 H 30 H 87/66 100 01/28/22 04:30 01/28/22 06:40 01/28/22 06:40 01/28/22 06:40 01/28/22 06:40 HEART Score - HEART Score Troponin: Troponin T < 0.010 ng/mL (0.00-0.029) 01/26/22 23:28 Results - Labs CBC & Chem 7: 01/28/22 04:00 01/28/22 04:00 Labs: Laboratory Last Values WBC 5.9 K/mm3 (4.5-11.0) 01/28/22 04:00 RBC 1.97 M/mm3 (3.65-5.03) L 01/28/22 04:00 Hgb 5.7 gm/dl (11.8-15.2) L* 01/28/22 04:00 Hct 16.7 % (35.5-45.6) L* D 01/28/22 04:00 MCV 85 fl (84-94) 01/28/22 04:00 MCH 29 pg (28-32) 01/28/22 04:00 MCHC 34 % (32-34) 01/28/22 04:00 RDW 13.6 % (13.2-15.2) 01/28/22 04:00 Plt Count 195 K/mm3 (140-440) 01/28/22 04:00 Lymph % (Auto) 6.1 % (13.4-35.0) L 01/28/22 04:00 Pender % (Auto) 9.0 % (0.0-7.3) H 01/28/22 04:00 Eos % (Auto) 0.0 % (0.0-4.3) 01/28/22 04:00 Baso % (Auto) 0.0 % (0.0-1.8) 01/28/22 04:00 Lymph # (Auto) 0.4 K/mm3 (1.2-5.4) L 01/28/22 04:00 Pender # (Auto) 0.5 K/mm3 (0.0-0.8) 01/28/22 04:00 Eos # (Auto) 0.0 K/mm3 (0.0-0.4) 01/28/22 04:00 Baso # (Auto) 0.0 K/mm3 (0.0-0.1) 01/28/22 04:00 Add Manual Diff Complete 01/26/22 23:28 Total Counted 100 01/26/22 23:28 Seg Neutrophils % 84.9 % (40.0-70.0) H 01/28/22 04:00 Seg Neuts % (Manual) 94.0 % (40.0-70.0) H 01/26/22 23:28 Band Neutrophils % 2.0 % 01/26/22 23:28 Lymphocytes % (Manual) 2.0 % (13.4-35.0) L 01/26/22 23:28 Reactive Lymphs % (Man) 0 % 01/26/22 23:28 Monocytes % (Manual) 1.0 % (0.0-7.3) 01/26/22 23:28 Eosinophils % (Manual) 0 % (0.0-4.3) 01/26/22 23:28 Basophils % (Manual) 0 % (0.0-1.8) 01/26/22 23:28 Metamyelocytes % 0 % 01/26/22 23:28 Myelocytes % 1.0 % 01/26/22 23:28 Promyelocytes % 0 % 01/26/22 23:28 Blast Cells % 0 % 01/26/22 23:28 Nucleated RBC % 3.0 % (0.0-0.9) H 01/26/22 23:28 Seg Neutrophils # 5.0 K/mm3 (1.8-7.7) 01/28/22 04:00 Seg Neutrophils # Man 8.3 K/mm3 (1.8-7.7) H 01/26/22 23:28 Band Neutrophils # 0.2 K/mm3 01/26/22 23:28 Lymphocytes # (Manual) 0.2 K/mm3 (1.2-5.4) L 01/26/22 23:28 Abs React Lymphs (Man) 0.0 K/mm3 01/26/22 23:28 Monocytes # (Manual) 0.1 K/mm3 (0.0-0.8) 01/26/22 23:28 Eosinophils # (Manual) 0.0 K/mm3 (0.0-0.4) 01/26/22 23:28 Basophils # (Manual) 0.0 K/mm3 (0.0-0.1) 01/26/22 23:28 Metamyelocytes # 0.0 K/mm3 01/26/22 23:28 Myelocytes # 0.1 K/mm3 01/26/22 23:28 Promyelocytes # 0.0 K/mm3 01/26/22 23:28 Blast Cells # 0.0 K/mm3 01/26/22 23:28 WBC Morphology Not Reportable 01/26/22 23:28 Hypersegmented Neuts Not Reportable 01/26/22 23:28 Hyposegmented Neuts Not Reportable 01/26/22 23:28 Hypogranular Neuts Not Reportable 01/26/22 23:28 Smudge Cells Not Reportable 01/26/22 23:28 Toxic Granulation Not Reportable 01/26/22 23:28 Toxic Vacuolation Not Reportable 01/26/22 23:28 Dohle Bodies Not Reportable 01/26/22 23:28 Pelger-Huet Anomaly Not Reportable 01/26/22 23:28 Sofia Rods Not Reportable 01/26/22 23:28 Platelet Estimate Consistent w auto 01/26/22 23:28 Clumped Platelets Not Reportable 01/26/22 23:28 Plt Clumps, EDTA Not Reportable 01/26/22 23:28 Large Platelets Not Reportable 01/26/22 23:28 Giant Platelets Not Reportable 01/26/22 23:28 Platelet Satelliting Not Reportable 01/26/22 23:28 Plt Morphology Comment Not Reportable 01/26/22 23:28 RBC Morphology Not Reportable 01/26/22 23:28 Dimorphic RBCs Not Reportable 01/26/22 23:28 Polychromasia Not Reportable 01/26/22 23:28 Hypochromasia 2+ 01/26/22 23:28 Poikilocytosis Not Reportable 01/26/22 23:28 Anisocytosis Not Reportable 01/26/22 23:28 Microcytosis Not Reportable 01/26/22 23:28 Macrocytosis Not Reportable 01/26/22 23:28 Spherocytes Not Reportable 01/26/22 23:28 Pappenheimer Bodies Not Reportable 01/26/22 23:28 Sickle Cells Not Reportable 01/26/22 23:28 Target Cells Few 01/26/22 23:28 Tear Drop Cells Not Reportable 01/26/22 23:28 Ovalocytes Not Reportable 01/26/22 23:28 Helmet Cells Not Reportable 01/26/22 23:28 [place] Bodies Not Reportable 01/26/22 23:28 [place] Rings Not Reportable 01/26/22 23:28 Kim Cells Not Reportable 01/26/22 23:28 Bite Cells Not Reportable 01/26/22 23:28 Crenated Cell Not Reportable 01/26/22 23:28 Elliptocytes Not Reportable 01/26/22 23:28 Acanthocytes (Spur) Not Reportable 01/26/22 23:28 Rouleaux Not Reportable 01/26/22 23:28 Hemoglobin C Crystals Not Reportable 01/26/22 23:28 Schistocytes Not Reportable 01/26/22 23:28 Malaria parasites Not Reportable 01/26/22 23:28 Jan Bodies Not Reportable 01/26/22 23:28 Hem Pathologist Commnt No 01/26/22 23:28 ABG pH 7.360 pH Units (7.350-7.450) 01/28/22 05:05 ABG pCO2 19.2 mm Hg 01/28/22 05:05 ABG pO2 197.7 mm Hg (80.0-90.0) H 01/28/22 05:05 ABG HCO3 10.6 mmol/L (20.0-26.0) L 01/28/22 05:05 ABG O2 Saturation 99.2 % (95.0-99.0) H 01/28/22 05:05 ABG O2 Content 7.9 (0.0-44) 01/28/22 05:05 ABG Base Excess -13.7 mmol/L (-2.0-3.0) L 01/28/22 05:05 ABG Hemoglobin 5.3 gm/dl (14.0-18.0) L 01/28/22 05:05 ABG Carboxyhemoglobin 0.7 % (0.0-5.0) 01/28/22 05:05 ABG Methemoglobin 0.4 % (0.0-1.5) 01/28/22 05:05 Oxyhemoglobin 98.2 % (95.0-99.0) 01/28/22 05:05 FiO2 40 % 01/28/22 05:05 Sodium 141 mmol/L (137-145) 01/28/22 04:00 Potassium 4.7 mmol/L (3.6-5.0) 01/28/22 04:00 Chloride 104.4 mmol/L (98-107) 01/28/22 04:00 Carbon Dioxide 12 mmol/L (22-30) L 01/28/22 04:00 Anion Gap 29 mmol/L 01/28/22 04:00 BUN 216 mg/dL (9-20) H 01/28/22 04:00 Creatinine 18.6 mg/dL (0.8-1.3) H 01/28/22 04:00 Estimated GFR 3 ml/min 01/28/22 04:00 BUN/Creatinine Ratio 12 % 01/28/22 04:00 Glucose 92 mg/dL (75-100) 01/28/22 04:00 POC Glucose 73 mg/dL (70-105) 01/28/22 04:40 Lactic Acid 1.40 mmol/L (0.7-2.0) 01/27/22 23:25 Calcium 7.1 mg/dL (8.4-10.2) L 01/28/22 04:00 Magnesium 2.60 mg/dL (1.7-2.3) H 01/27/22 01:57 Total Bilirubin 0.40 mg/dL (0.1-1.2) 01/26/22 23:28 AST 21 units/L (5-40) 01/26/22 23:28 ALT 19 units/L (7-56) 01/26/22 23:28 Alkaline Phosphatase 64 units/L (35-129) 01/26/22 23:28 Troponin T < 0.010 ng/mL (0.00-0.029) 01/26/22 23:28 NT-Pro-B Natriuret Pep 83320 pg/mL (0-900) H 01/26/22 23:28 Total Protein 7.9 g/dL (6.3-8.2) 01/26/22 23:28 Albumin 3.9 g/dL (3.9-5) 01/26/22 23:28 Albumin/Globulin Ratio 1.0 % 01/26/22 23:28 Urine Color Yellow (Yellow) 01/27/22 07:45 Urine Turbidity Clear (Clear) 01/27/22 07:45 Urine pH 5.0 (5.0-7.0) 01/27/22 07:45 Ur Specific [place] 1.015 (1.003-1.030) 01/27/22 07:45 Urine Protein 100 mg/dl mg/dL (Negative) 01/27/22 07:45 Urine Glucose (UA) Negative mg/dL (Negative) 01/27/22 07:45 Urine Ketones Negative mg/dL (Negative) 01/27/22 07:45 Urine Blood Large (Negative) A 01/27/22 07:45 Urine Nitrite Negative (Negative) 01/27/22 07:45 Ur Reducing Substances Not Reportable 01/27/22 07:45 Urine Bilirubin Negative (Negative) 01/27/22 07:45 Urine Ictotest Not Reportable 01/27/22 07:45 Urine Urobilinogen 0.0 mg/dL (<2.0) 01/27/22 07:45 Ur Leukocyte Esterase Small (Negative) 01/27/22 07:45 Urine WBC (Auto) 11.0 /HPF (0.0-6.0) H 01/27/22 07:45 Urine RBC (Auto) 5.0 /HPF (0.0-6.0) 01/27/22 07:45 Urine Bacteria (Auto) 1+ /HPF (Negative) 01/27/22 07:45 Urine WBC Clumps Few /HPF 01/27/22 07:45 Urine Creatinine 144.3 mg/dL (0.1-20.0) H 01/27/22 07:45 Urine Sodium 36 mmol/L 01/27/22 07:45 Urine Total Protein 154 mg/dL (5-11.8) H 01/27/22 07:45 Hepatitis A IgM Ab Non-reactive (NonReactive) 01/27/22 03:31 Hep Bs Antigen Non-reactive (Negative) 01/27/22 03:31 Hep B Core IgM Ab Non-reactive (NonReactive) 01/27/22 03:31 Hepatitis C Antibody Reactive (NonReactive) A 01/27/22 03:31 Blood Type A POSITIVE 01/28/22 06:00 Antibody Screen Negative 01/28/22 06:00 Crossmatch See Detail 01/28/22 06:00 Roth/IV: Voiding Method Indwelling Catheter Active Medications - Current Medications Current Medications: Generic Name Dose Route Start Last Admin Trade Name Freq PRN Reason Stop Dose Admin Acetaminophen 650 mg 01/27/22 05:44 Acetaminophen 650 Mg Rect Supp NC Q6H PRN Pain MILD(1-3)/Fever >100.5/WILLIAM Epoetin Connor-epbx 10,000 unit 01/27/22 02:08 Epoetin Connor-Epbx 10,000 Unit/1 Ml Vial IV PATRICK PRN hemodialysis Famotidine 20 mg 01/27/22 10:00 01/27/22 12:11 Famotidine 20 Mg/2 Ml Inj IV 20 mg QDAY DOMINIC Administration Fentanyl 50 mcg 01/27/22 18:00 Fentanyl 100 Mcg/2 Ml Inj IV Q10MIN PRN ANALGESIA Heparin Sodium (Porcine) 5,000 unit 01/27/22 02:08 Heparin 10,000 Unit/1 Ml Vial IV PATRICK PRN hemodialysis Heparin Sodium (Porcine) 5,000 unit 01/27/22 06:00 01/28/22 05:14 Heparin 5,000 Unit/1 Ml Vial SUB-Q 5,000 unit Q8HR DOMINIC Administration Hydrophilic Ointment 1 applic 01/27/22 18:00 Lip Therapy Vaseline TP Q2HR PRN Dry Lips Sodium Bicarbonate 100 meq/ 1,100 mls @ 100 mls/hr 01/27/22 03:00 01/28/22 03:53 Sterile Water IV 100 mls/hr DIRECT DOMINIC Administration Sodium Chloride 100 mls @ 999 mls/hr 01/27/22 12:25 Nacl 0.9% IV PATRICK PRN Hypotension Fentanyl Citrate 2,000 mcg in 100 mls @ 3.402 mls/hr 01/27/22 18:00 Fentanyl Drip Premix IV TITR DOMINIC Protocol 1 MCG/KG/HR Propofol 1,000 mg in 100 mls @ 2.041 mls/hr 01/27/22 18:00 01/28/22 04:40 Diprivan 10 Mg/Ml IV 25 mcg/kg/min TITR DOMINIC 10.206 mls/hr Administration Protocol 5 MCG/KG/MIN NORepinephrine/NS 8 MG-250 ML 8 mg in 250 mls @ 3.75 mls/hr 01/27/22 19:00 01/28/22 00:44 Norepinephrine/Ns 8 Mg-250 Ml (Double Conc) IV 14 mcg/min TITRATE DOMINIC 26.25 mls/hr Titration Protocol 2 MCG/MIN Magnesium Hydroxide 30 ml 01/27/22 05:44 Magnesium Hydroxide (Mom) Oral Liqd Udc PO Q4H PRN Constipation Morphine Sulfate 2 mg 01/27/22 05:44 Morphine 2 Mg/1 Ml Inj IV Q4H PRN Pain, Moderate (4-6) Morphine Sulfate 4 mg 01/27/22 05:44 Morphine 4 Mg/1 Ml Inj IV Q4H PRN Pain , Severe (7-10) Multi-Ingred Cream/Lotion/Oil/Oint 1 applic 01/27/22 18:00 Mineral Oil/Petrolatum, White Ophth Oint 3.5 Gm OU Q4HR PRN Dry Eye(s) Senna/Docusate Sodium 1 tab 01/27/22 22:00 01/27/22 22:56 Sennosides/Docusate Sodium 8.6/50 Mg Tab FEEDTUBE Not Given BID DOMINIC Sodium Chloride 10 ml 01/27/22 10:00 01/27/22 23:00 Sodium Chloride 0.9% 10 Ml Flush Syringe IV 10 ml BID DOMINIC Administration Sodium Chloride 10 ml 01/27/22 05:44 Sodium Chloride 0.9% 10 Ml Flush Syringe IV PRN PRN LINE FLUSH
--- NOTE | 2022-01-27 13:17 | Ultrasound Report ---
ULTRASOUND RENAL INDICATION / CLINICAL INFORMATION: Acute kidney injury. COMPARISON: None available. FINDINGS: RIGHT KIDNEY: Length = 9.2 cm. - Echogenicity: Moderately echogenic. - Parenchymal Thickness: Normal. - Hydronephrosis: None. - Cyst / Mass: There is a 9 mm complicated cyst in the upper pole of the right kidney. - Stones: None seen. LEFT KIDNEY: Length = 9 cm. - Echogenicity: Moderately echogenic. - Parenchymal Thickness: Normal. - Hydronephrosis: None. - Cyst / Mass: There are 2 cysts in the upper pole measuring 13 mm and 2.4 cm respectively. There is some mural calcification in the 2.4 cm cyst. - Stones: None seen. URINARY BLADDER: No significant abnormality. FREE FLUID: None. ADDITIONAL FINDINGS: None. IMPRESSION: 1. There is increased echogenicity in the kidneys characteristic of medical renal disease. There is n o hydronephrosis. 2. There is a 9 mm complicated cyst in the upper pole the right kidney. There are 2 cysts in the uppe r pole the left kidney. Signer Name: Jose Elias Bailon MD Signed: 01/27/2022 1:13 PM Workstation Name: [id number]
--- NOTE | 2022-01-27 14:06 | Consultation ---
History of Present Illness - Reason for Consult acute renal failure, hyperkalemia - History of Present Illness 66-year-old -[place] male with past medical history of hypertension and chronic kidney disease, presented to the emergency room department secondary to worsening shortness of breath and weakness over the last several weeks along with weight loss noted per who is at bedside at this time. Patient was emergently intubated because of worsening shortness of breath and mentation. Chest x-ray did not show any evidence of pulmonary edema. Labs were markedly abnormal including potassium of greater than 9 and significant renal failure. Nephrology was contacted yesterday and patient underwent emergent hemodialysis secondary to the hyperkalemia and EKG changes. He unfortunately only underwent dialysis for approximately 45 minutes after which treatment had to be terminated secondary to worsening hypotension and tachycardia. Per at bedside patient had seen a refrigerating machine operator in the past and was told in June because of worsening kidney injury that he likely required a kidney biopsy for further elucidation of renal insufficiency. He unfortunately, per did not follow- up with the refrigerating machine operator since then. Past History Past Medical History: other (Chronic kidney disease) Past Surgical History: No surgical history Social history: no significant social history Medications and Allergies Allergies Allergy/AdvReac Type Severity Reaction Status Date / Time No Known Allergies Allergy Verified 01/26/22 23:12 Active Meds: Active Medications Acetaminophen (Acetaminophen 650 Mg Rect Supp) 650 mg AL Q6H PRN PRN Reason: Pain MILD(1-3)/Fever >100.5/WILLIAM Epoetin Connor-epbx (Epoetin Connor-Epbx 10,000 Unit/1 Ml Vial) 10,000 unit IV PATRICK PRN PRN Reason: hemodialysis Famotidine (Famotidine 20 Mg/2 Ml Inj) 20 mg IV QDAY [facility] Last Admin: 01/27/22 12:11 Dose: 20 mg Heparin Sodium (Porcine) (Heparin 10,000 Unit/1 Ml Vial) 5,000 unit IV PATRICK PRN PRN Reason: hemodialysis Heparin Sodium (Porcine) (Heparin 5,000 Unit/1 Ml Vial) 5,000 unit SUB-Q Q8HR [facility] Sodium Bicarbonate 100 meq/ (Sterile Water) 1,100 mls @ 100 mls/hr IV DIRECT [facility] Sodium Chloride (Nacl 0.9%) 100 mls @ 999 mls/hr IV PATRICK PRN PRN Reason: Hypotension Magnesium Hydroxide (Magnesium Hydroxide (Mom) Oral Liqd Udc) 30 ml PO Q4H PRN PRN Reason: Constipation Morphine Sulfate (Morphine 2 Mg/1 Ml Inj) 2 mg IV Q4H PRN PRN Reason: Pain, Moderate (4-6) Morphine Sulfate (Morphine 4 Mg/1 Ml Inj) 4 mg IV Q4H PRN PRN Reason: Pain , Severe (7-10) Sodium Chloride (Sodium Chloride 0.9% 10 Ml Flush Syringe) 10 ml IV BID [facility]IN[facility] Last Admin: 01/27/22 11:23 Dose: 10 ml Sodium Chloride (Sodium Chloride 0.9% 10 Ml Flush Syringe) 10 ml IV PRN PRN PRN Reason: LINE FLUSH Review of Systems ROS unobtainable: due to endotracheal tube Exam - Vital Signs Vital signs: Vital Signs Pulse Resp BP Pulse Ox 83 26 H 200/110 78 L 01/26/22 23:01 01/26/22 23:01 01/26/22 23:01 01/26/22 23:01 - General Appearance General appearance: appears stated age, sedated on ventilator, intubated, comatose EENT: ATNC Neck: Present: neck supple Respiratory: Decreased Breath Sounds Heart: tachycardia Gastrointestinal: Present: normal Integumentary: no rash Musculoskeletal: Present: deferred Results - Lab Results 01/26/22 23:28 01/27/22 Unknown Most recent lab results ABG pH 7.312 pH Units (7.350-7.450) L 01/27/22 05:30 ABG pCO2 13.4 mm Hg 01/27/22 05:30 ABG pO2 595.3 mm Hg (80.0-90.0) H 01/27/22 05:30 ABG HCO3 6.6 mmol/L (20.0-26.0) L 01/27/22 05:30 ABG O2 Saturation 99.6 % (95.0-99.0) H 01/27/22 05:30 Calcium 8.0 mg/dL (8.4-10.2) L D 01/27/22 Unknown Magnesium 2.60 mg/dL (1.7-2.3) H 01/27/22 01:57 Urine Creatinine 144.3 mg/dL (0.1-20.0) H 01/27/22 07:45 Urine Sodium 36 mmol/L 01/27/22 07:45 Urine Total Protein 154 mg/dL (5-11.8) H 01/27/22 07:45 Assessment and Plan - Patient Problems (1) Hyperkalemia Current Visit: Yes Status: Acute Plan to address problem: we will correct hyperkalemia with hemodialysis. Serum potassium levels have improved this morning. (2) Acute on chronic kidney failure Current Visit: Yes Status: Acute Plan to address problem: unclear what his baseline kidney function is but per patient's at bedside he had been seeing a refrigerating machine operator. I am concerned that this is likely a worsening of his chronic kidney disease at this point. Symptoms are concerning for worsening uremia. Patient will be receiving dialysis today with goal of clearance. We will avoid fluid removal at this time. (3) Hypotension Current Visit: Yes Status: Acute Plan to address problem: unclear etiology of hypotension. May be secondary to underlying sepsis. discussed with primary team and pressors may need to be started for dialysis purposes. We will continue to monitor closely. Holding off on all blood pressu re medicine at this time. (4) Acute respiratory failure Current Visit: Yes Status: Acute Plan to address problem: ventilator management per ICU team..
[2022-01-27] MEDS: HEPARIN 5,000 UNIT/1 ML VIAL SUB-Q SCH ×3 (14:30→23:00)
--- NOTE | 2022-01-27 15:55 | Consultation ---
History of Present Illness Consult date: 01/27/22 Requesting physician: THOMAS LAGUNAS Reason for consult: other (Resp failure on MVS; severe hyperkalemia; uremia with acute metabolic encephalopathy; SILVIA on CKD) History of present illness: This is a 66-year-old male with known past medical history of HTN and chronic kidney disease admitted for severe metabolic acidosis , hyperkalemia and metabolic encephalopathy 2/2 worsening chronic kidney disease and acute hypoxic respiratory failure requiring ventilatory support. A critical care consult was placed. Patient was seen and examined. Vitals, albs, medications, chart and imaging reviewed. He is orally intubated, on Propofol, a RIJ Trialysis catheter. at the bedside when I saw the patient in the ED. History per medical records 66-year-old -[place] male with known history of chronic kidney disease brought in by family today for evaluation of worsening shortness of breath which has been ongoing for the past few days. Patient is currently intubated and sedated and therefore most of the history was gotten by who was by the bedside. indicates that patient has not been following up regularly with any primary care physician or elementary secretary due to insurance issues. Upon arrival in the emergency room put on hold, work-up was significant for hyperkalemia of 9.0, CO2 of 3.0, BUN of 308 and creatinine of 31. 6. BNP of 10 829. Magnesium 2.6. EKG was significant for peaked T waves. Sales Assistant [employer]plays on-call was notified by the ER physician and dialysis was to be initiated. Patient became hypotensive during the course of dialysis and had to be put on hold. Past History Past Medical History: other (Chronic kidney disease) Past Surgical History: No surgical history Social history: no significant social history Medications and Allergies Allergies Allergy/AdvReac Type Severity Reaction Status Date / Time No Known Allergies Allergy Verified 01/26/22 23:12 Home Medications Medication Instructions Recorded Confirmed Last Taken Type No Known Home Medications [No 01/27/22 01/27/22 Unknown History Reported Home Medications] Active Meds: Active Medications Acetaminophen (Acetaminophen 650 Mg Rect Supp) 650 mg AL Q6H PRN PRN Reason: Pain MILD(1-3)/Fever >100.5/WILLIAM Epoetin Connor-epbx (Epoetin Connor-Epbx 10,000 Unit/1 Ml Vial) 10,000 unit IV PATRICK PRN PRN Reason: hemodialysis Famotidine (Famotidine 20 Mg/2 Ml Inj) 20 mg IV QDAY [facility] Last Admin: 01/27/22 12:11 Dose: 20 mg Heparin Sodium (Porcine) (Heparin 10,000 Unit/1 Ml Vial) 5,000 unit IV PATRICK PRN PRN Reason: hemodialysis Heparin Sodium (Porcine) (Heparin 5,000 Unit/1 Ml Vial) 5,000 unit SUB-Q Q8HR [facility] Last Admin: 01/27/22 14:30 Dose: 5,000 unit Sodium Bicarbonate 100 meq/ (Sterile Water) 1,100 mls @ 100 mls/hr IV DIRECT [facility] Sodium Chloride (Nacl 0.9%) 100 mls @ 999 mls/hr IV PATRICK PRN PRN Reason: Hypotension Magnesium Hydroxide (Magnesium Hydroxide (Mom) Oral Liqd Udc) 30 ml PO Q4H PRN PRN Reason: Constipation Morphine Sulfate (Morphine 2 Mg/1 Ml Inj) 2 mg IV Q4H PRN PRN Reason: Pain, Moderate (4-6) Morphine Sulfate (Morphine 4 Mg/1 Ml Inj) 4 mg IV Q4H PRN PRN Reason: Pain , Severe (7-10) Sodium Chloride (Sodium Chloride 0.9% 10 Ml Flush Syringe) 10 ml IV BID [facility] Last Admin: 01/27/22 11:23 Dose: 10 ml Sodium Chloride (Sodium Chloride 0.9% 10 Ml Flush Syringe) 10 ml IV PRN PRN PRN Reason: LINE FLUSH Review of Systems ROS unobtainable: due to endotracheal tube, due to mental status Physical Examination Vital signs: Vital Signs Pulse Resp BP Pulse Ox 83 26 H 200/110 78 L 01/26/22 23:01 01/26/22 23:01 01/26/22 23:01 01/26/22 23:01 General appearance: Present: well-nourished, other (Currently intubated and sedated) - EENT Eyes: Present: PERRL, EOM intact. Absent: scleral icterus ENT: hearing intact, clear oral mucosa, dentition normal - Neck Neck: Present: supple, normal ROM - Respiratory Respiratory effort: normal Respiratory: bilateral: CTA - Cardiovascular Rhythm: regular Heart Sounds: Present: S1 & S2. Absent: gallop, systolic murmur, diastolic murmur, rub, click - Extremities Extremities: no ischemia, pulses intact, pulses symmetrical, No edema, normal temperature, normal color, Full ROM Peripheral Pulses: within normal limits - Abdominal General gastrointestinal: Present: soft, non-tender, non-distended, normal bowel sounds. Absent: mass - Integumentary Integumentary: Present: clear, warm, dry, normal turgor. Absent: rash - Musculoskeletal Musculoskeletal: other (Intubated and sedated) - Psychiatric Psychiatric: cooperative - Neurologic Neurologic: no focal deficits, other (Patient currently intubated and sedated) Results - Laboratory Findings CBC and BMP: 01/30/22 14:30 01/31/22 04:32 ABG ABG pH 7.312 pH Units (7.350-7.450) L 01/27/22 05:30 ABG pCO2 13.4 mm Hg 01/27/22 05:30 ABG pO2 595.3 mm Hg (80.0-90.0) H 01/27/22 05:30 ABG O2 Saturation 99.6 % (95.0-99.0) H 01/27/22 05:30 Abnormal lab findings: Abnormal Labs 01/26/22 01/26/22 01/26/22 01:45 23:28 23:28 RBC 2.62 L Hgb 7.6 L Hct 23.5 L Seg Neuts % (Manual) 94.0 H Lymphocytes % (Manual) 2.0 L Nucleated RBC % 3.0 H Seg Neutrophils # Man 8.3 H Lymphocytes # (Manual) 0.2 L ABG pH 7.094 L* ABG pO2 162.0 H ABG HCO3 2.7 L ABG O2 Saturation ABG Base Excess -24.8 L ABG Hemoglobin 7.7 L Sodium 148 H Potassium 9.0 H* Chloride 113.1 H Carbon Dioxide 3 L* BUN 308 H Creatinine 31.6 H Glucose 104 H Calcium Magnesium NT-Pro-B Natriuret Pep Urine Blood Urine WBC (Auto) Urine Creatinine Urine Total Protein Hepatitis C Antibody 01/26/22 01/27/22 01/27/22 23:28 01:57 03:31 RBC Hgb Hct Seg Neuts % (Manual) Lymphocytes % (Manual) Nucleated RBC % Seg Neutrophils # Man Lymphocytes # (Manual) ABG pH ABG pO2 ABG HCO3 ABG O2 Saturation ABG Base Excess ABG Hemoglobin Sodium Potassium Chloride Carbon Dioxide BUN Creatinine Glucose Calcium Magnesium 2.60 H NT-Pro-B Natriuret Pep 85586 H Urine Blood Urine WBC (Auto) Urine Creatinine Urine Total Protein Hepatitis C Antibody Reactive A 01/27/22 01/27/22 01/27/22 05:30 07:45 07:45 RBC Hgb Hct Seg Neuts % (Manual) Lymphocytes % (Manual) Nucleated RBC % Seg Neutrophils # Man Lymphocytes # (Manual) ABG pH 7.312 L ABG pO2 595.3 H ABG HCO3 6.6 L ABG O2 Saturation 99.6 H ABG Base Excess -18.2 L ABG Hemoglobin 5.0 L Sodium Potassium Chloride Carbon Dioxide BUN Creatinine Glucose Calcium Magnesium NT-Pro-B Natriuret Pep Urine Blood Large A Urine WBC (Auto) 11.0 H Urine Creatinine 144.3 H Urine Total Protein 154 H Hepatitis C Antibody 01/27/22 Unknown RBC Hgb Hct Seg Neuts % (Manual) Lymphocytes % (Manual) Nucleated RBC % Seg Neutrophils # Man Lymphocytes # (Manual) ABG pH ABG pO2 ABG HCO3 ABG O2 Saturation ABG Base Excess ABG Hemoglobin Sodium 147 H Potassium 5.2 H D Chloride 111.6 H Carbon Dioxide 6 L* BUN 235 H Creatinine 21.2 H Glucose 74 L Calcium 8.0 L D Magnesium NT-Pro-B Natriuret Pep Urine Blood Urine WBC (Auto) Urine Creatinine Urine Total Protein Hepatitis C Antibody - Diagnostic Findings Chest x-ray: image reviewed Assessment and Plan Acute Hypoxic Respiratory Failure on mVS Acute on Chronic Kidney Injury on HD -Presented with K of 9.0, BUN 308, and Scr. 31.2 Hyperkalemia Azotemia Severe Metabolic Acidosis Acute Metabolic Encephalopathy-improving Anemia of Chronic Disease Hypotension H/o Hypertension -Wean vasopressor support for MAP>65 -Titrate supplemetnal oxygen oxygen for SpO2 89-92% -Supportive HD by Renal service, patient did not tolerate it today secondary to hypotension and arrythmias -Medical management of hyperkalemia -Continue with bicarbonate infusion -Adjust minute ventilation for better gas exchange -Lung protective strategies,ARDS net protocol -Monitoring airway pressures -CXR, ABG as clinically indicated. -Daily assessment for readiness to wean. Daily SAT,SBT -Empiric antibiotics therapy, de-escalate based on culture data and clinical response -Propofol infusion, titrate to CPOT 0-3 -Monitoring renal function, hemodynamics and electrolyte profile -Roth catheter in this critically ill patient requiring strict intake and output monitoring. Daily assessment for ongoing need for Roth catheter -Replete electrolytes as clinically indicated -Accuchecks with glycemic control, target blood glucose 140-180 mg/dL. Avoid hypoglycemia -VTE prophylaxis- Heparin -Avoid nephrotoxins and renally dose all medications -Stress ulcer prophylaxis-Famotidine -Mobility, frequent turning, off loading per facility protocol to prevent pressure ulcers -Maintain sleep wake cycle, avoid benzodiazepines. -Limit delirium -Supportive blood transfusion, keep HgB>7g/dL Advance Care Planning - Disease education data, care plan, diagnoses, and prognosis were discussed with patient's at the bedside. All questions and concerns were addressed at this time. Patient family acknowledged understanding and agreement with current care plan. Patient remains a FULL code status at this time CONDITION:CRITICAL PROGNOSIS: GUARDED CODE STATUS; FULL CODE The high probability of a clinically significant, sudden or life threatening deterioration of the respiratory, cardiovascular, neurology and renal systems required my full and direct attention, intervention and personal management. The aggregate critical care time was [75] minutes. This time is in addition to time spent performing reported procedures but includes the following: [x] Data Review and interpretation [x] Patient assessment and monitoring of vital signs [x] Documentation [x] Medication orders and management
[2022-01-27] MEDS ORDERED: MINERAL OIL/PETROLATUM, WHITE OPHTH OINT 3.5 GM OU PRN (18:00)
[2022-01-27] MEDS ORDERED: LIP THERAPY VASELINE TP PRN (18:00)
[2022-01-27] MEDS ORDERED: fentaNYL DRIP Premix 2,000 MCG/100 ML BAG IV SCH (18:00)
[2022-01-27] MEDS: SODIUM BICARBONATE 100 MEQ in WATER FOR INJECTION (PF) 1,000 ML IV SCH (18:01)
[2022-01-27] MEDS: NORepinephrine/NS 8 MG-250 ML 8 MG/250 ML INFUS..BTL IV SCH (18:10)
[2022-01-27] MEDS ORDERED: NORepinephrine/NS 8 MG-250 ML 8 MG/250 ML INFUS..BTL IV SCH (19:00)
[2022-01-27] MEDS: SENNOSIDES/DOCUSATE SODIUM 8.6/50 MG TAB FEEDTUBE SCH (22:56)
[2022-01-28] MEDS ORDERED: SODIUM CHLORIDE 0.9% 250ML 250 ML IV ONE ×2 (01:00→11:15)
[2022-01-28] MEDS ORDERED: DEXTROSE 50% IN WATER (25GM) 50 ML SYRINGE IV STA (02:10)
[2022-01-28] MEDS ORDERED: ETOMIDATE 20 MG/10 ML INJ IV ONE (02:40)
[2022-01-28] MEDS ORDERED: ROCURONIUM 50 MG/5 ML INJ IV ONE (02:40)
[2022-01-28] MEDS: SODIUM BICARBONATE 100 MEQ in WATER FOR INJECTION (PF) 1,000 ML IV SCH ×2 (03:53→15:06)
[2022-01-28 04:53] LABS: Lymphocytes # (Auto) 0.4 K/mm3 (1.2-5.4); Lymphocytes % (Auto) 6.1 % (13.4-35.0); Mean Corpuscular HGB Conc 34 % (32-34); Mean Corpuscular Volume 85 fl (84-94); Monocytes # (Auto) 0.5 K/mm3 (0.0-0.8); Platelet Count 195 K/mm3 (140-440); Red Cell Distribution Width 13.6 % (13.2-15.2)
[2022-01-28 05:05] LABS: Red Blood Count 1.97 M/mm3 (3.65-5.03)
[2022-01-28 05:06] LABS: Calcium 7.1 mg/dL (8.4-10.2)
[2022-01-28 05:08] LABS: Hematocrit 16.7 % (35.5-45.6); Hemoglobin 5.7 gm/dl (11.8-15.2)
[2022-01-28] MEDS: HEPARIN 5,000 UNIT/1 ML VIAL SUB-Q SCH ×3 (05:14→21:43)
[2022-01-28] MEDS ORDERED: SODIUM CHLORIDE 0.9% 500 ML 500 ML IV ONE (05:22)
[2022-01-28 05:35] LABS: ABG Base Excess -13.7 mmol/L (-2.0-3.0); ABG HCO3 10.6 mmol/L (20.0-26.0); ABG Methemoglobin 0.4 % (0.0-1.5); ABG Oxygen Saturation 99.2 % (95.0-99.0); ABG PCO2 19.2 mm Hg; ABG PH 7.36 pH Units (7.350-7.450); ABG PO2 197.7 mm Hg (80.0-90.0)
[2022-01-28] MEDS ORDERED: SODIUM CHLORIDE 0.9% 500 ML 500 ML ONE ×2 (07:33→10:58)
--- NOTE | 2022-01-28 07:59 | Progress Note ---
Assessment and Plan - Patient Problems (1) Hyperkalemia Current Visit: Yes Status: Acute Plan to address problem: we will correct hyperkalemia with hemodialysis. Serum potassium levels have improved this morning. (2) Acute on chronic kidney failure Current Visit: Yes Status: Acute Plan to address problem: unclear what his baseline kidney function is but per patient's at bedside he had been seeing a private duty aide. I am concerned that this is likely a worsening of his chronic kidney disease at this point. Symptoms are concerning for worsening uremia. Patient will be receiving dialysis again today with goal of clearance. Difficult to remove fluid at this time given his tenuous hemodynamics. Her urine analysis studies are showing evidence of microscopic hematuria and proteinuria concerning for a glomerulonephritis process. He is too unstable for biopsy at this point. We will continue to monitor closely. We will add serologic studies to include PARKER, double-stranded DNA, complement levels, along with ANCA vasculitis studies. Given his severe acute kidney injury without previous baseline, will start on pulse dose steroids x3 doses. (3) Hypotension Current Visit: Yes Status: Acute Plan to address problem: unclear etiology of hypotension. May be secondary to underlying sepsis. discussed with primary team and pressors may need to be started for dialysis purposes. We will continue to monitor closely. Holding off on all blood pr essure medicine at this time. (4) Acute respiratory failure Current Visit: Yes Status: Acute Plan to address problem: ventilator management per ICU team.. (5) Anemia in CKD (chronic kidney disease) Current Visit: Yes Status: Acute Plan to address problem: Transfuse to maintain hemoglobin above 7. Subjective Date of service: 01/28/22 Interval history: Worsening hypotension and tachycardia prevented patient from receiving full dialysis treatment yesterday. Treatment had to be cut short and patient's pressor requirements have gone up as he is on an increased dose of Levophed this morning. Pending transfusion of 2 units of blood this morning. Will attempt hemodialysis later today after she receives her blood transfusions. Objective - Vital Signs Vital signs: Vital Signs - 12hr 01/27/22 01/27/22 01/27/22 20:00 20:10 20:14 Temperature 96.6 F L Pulse Rate 95 H 94 H Respiratory 30 H 30 H Rate Blood Pressure 102/73 92/61 O2 Sat by Pulse 100 100 Oximetry O2 Sat by Pulse Oximetry [ Bilateral] 01/27/22 01/27/2222 20:20 20:27 20:30 Temperature Pulse Rate 92 H 95 H 97 H Respiratory 27 H 32 H Rate Blood Pressure 96/67 98/67 98/67 O2 Sat by Pulse 100 100 100 Oximetry O2 Sat by Pulse Oximetry [ Bilateral] 01/27/22 01/27/22 01/27/22 20:40 20:50 21:00 Temperature Pulse Rate 92 H 96 H 97 H Respiratory 31 H 32 H 33 H Rate Blood Pressure 102/73 104/64 107/62 O2 Sat by Pulse 100 100 Oximetry O2 Sat by Pulse Oximetry [ Bilateral] 01/27/22 01/27/22 01/27/22 21:10 21:14 21:20 Temperature 96.6 F L Pulse Rate 100 H 101 H Respiratory 33 H 33 H Rate Blood Pressure 107/62 101/61 O2 Sat by Pulse 100 100 Oximetry O2 Sat by Pulse Oximetry [ Bilateral] 01/27/22 01/27/22 01/27/22 21:30 21:40 21:50 Temperature Pulse Rate 102 H 102 H 105 H Respiratory 30 H 32 H 36 H Rate Blood Pressure 109/67 109/67 97/64 O2 Sat by Pulse 100 100 100 Oximetry O2 Sat by Pulse Oximetry [ Bilateral] 01/27/22 01/27/22 01/27/22 22:00 22:10 22:20 Temperature Pulse Rate 106 H 107 H 108 H Respiratory 28 H 30 H 32 H Rate Blood Pressure 97/65 109/67 98/59 O2 Sat by Pulse 100 100 100 Oximetry O2 Sat by Pulse Oximetry [ Bilateral] 01/27/22 01/27/22 01/27/22 22:30 22:40 22:50 Temperature Pulse Rate 108 H 110 H 108 H Respiratory 31 H 34 H 48 H Rate Blood Pressure 96/59 96/59 99/67 O2 Sat by Pulse 100 100 100 Oximetry O2 Sat by Pulse Oximetry [ Bilateral] 01/27/22 01/27/22 01/27/22 23:00 23:10 23:14 Temperature 97.4 F L Pulse Rate 111 H 109 H Respiratory 41 H 49 H Rate Blood Pressure 98/65 96/65 O2 Sat by Pulse 100 100 Oximetry O2 Sat by Pulse Oximetry [ Bilateral] 01/27/22 01/27/22 01/27/22 23:20 23:30 23:40 Temperature Pulse Rate 111 H 109 H 109 H Respiratory 40 H 51 H 50 H Rate Blood Pressure 106/63 95/63 95/62 O2 Sat by Pulse 100 100 100 Oximetry O2 Sat by Pulse Oximetry [ Bilateral] 01/27/22 01/27/22 01/28/22 23:50 23:59 00:00 Temperature Pulse Rate 106 H 108 H 107 H Respiratory 45 H 50 H Rate Blood Pressure 89/56 99/60 99/60 O2 Sat by Pulse 100 100 100 Oximetry O2 Sat by Pulse Oximetry [ Bilateral] 01/28/22 01/28/22 01/28/22 00:10 00:14 00:20 Temperature 98.2 F Pulse Rate 106 H 106 H Respiratory 33 H 45 H Rate Blood Pressure 90/60 91/64 O2 Sat by Pulse 100 100 Oximetry O2 Sat by Pulse Oximetry [ Bilateral] 01/28/22 01/28/22 01/28/22 00:30 00:40 00:50 Temperature 99.5 F Pulse Rate 100 H 89 93 H Respiratory 36 H 38 H 38 H Rate Blood Pressure 93/54 67/36 76/48 O2 Sat by Pulse 100 100 100 Oximetry O2 Sat by Pulse 100 Oximetry [ Bilateral] 01/28/22 01/28/22 01/28/22 00:57 01:00 01:05 Temperature Pulse Rate 97 H 96 H 96 H Respiratory 34 H Rate Blood Pressure 117/63 117/63 107/67 O2 Sat by Pulse 100 Oximetry O2 Sat by Pulse Oximetry [ Bilateral] 01/28/22 01/28/22 01/28/22 01:10 01:15 01:20 Temperature 98.6 F Pulse Rate 91 H 149 H Respiratory 31 H 32 H 34 H Rate Blood Pressure 91/64 117/72 O2 Sat by Pulse 100 100 100 Oximetry O2 Sat by Pulse Oximetry [ Bilateral] 01/28/22 01/28/22 01/28/22 01:25 01:30 01:40 Temperature Pulse Rate 148 H 146 H 140 H Respiratory 36 H 36 H Rate Blood Pressure 115/75 118/76 114/75 O2 Sat by Pulse 100 100 Oximetry O2 Sat by Pulse Oximetry [ Bilateral] 01/28/22 01/28/22 01/28/22 01:50 02:00 02:10 Temperature Pulse Rate 144 H 133 H 141 H Respiratory 33 H 35 H 34 H Rate Blood Pressure 113/72 97/71 112/72 O2 Sat by Pulse 100 100 100 Oximetry O2 Sat by Pulse Oximetry [ Bilateral] 01/28/22 01/28/22 01/28/22 02:20 02:21 02:30 Temperature Pulse Rate 148 H 141 H 139 H Respiratory 31 H 32 H 22 Rate Blood Pressure 109/70 112/69 O2 Sat by Pulse 100 100 100 Oximetry O2 Sat by Pulse Oximetry [ Bilateral] 01/28/22 01/28/22 01/28/22 02:40 02:50 03:00 Temperature Pulse Rate 130 H 130 H 144 H Respiratory 30 H 30 H 30 H Rate Blood Pressure 106/68 95/62 89/60 O2 Sat by Pulse 100 100 Oximetry O2 Sat by Pulse Oximetry [ Bilateral] 01/28/22 01/28/22 01/28/22 03:10 03:20 03:30 Temperature Pulse Rate 131 H 133 H 124 H Respiratory 30 H 30 H 30 H Rate Blood Pressure 96/55 105/70 95/61 O2 Sat by Pulse 100 100 100 Oximetry O2 Sat by Pulse Oximetry [ Bilateral] 01/28/22 01/28/22 01/28/22 03:40 03:50 03:54 Temperature Pulse Rate 146 H 130 H 136 H Respiratory 30 H 30 H Rate Blood Pressure 93/59 95/51 95/59 O2 Sat by Pulse 100 100 100 Oximetry O2 Sat by Pulse Oximetry [ Bilateral] 01/28/22 01/28/22 01/28/22 04:00 04:10 04:20 Temperature Pulse Rate 127 H 131 H 128 H Respiratory 30 H 29 H 30 H Rate Blood Pressure 95/62 91/59 O2 Sat by Pulse 100 100 100 Oximetry O2 Sat by Pulse Oximetry [ Bilateral] 01/28/22 01/28/22 01/28/22 04:30 04:41 04:50 Temperature 98.2 F Pulse Rate 126 H 135 H 127 H Respiratory 31 H 30 H 30 H Rate Blood Pressure 91/60 95/59 101/62 O2 Sat by Pulse 100 100 100 Oximetry O2 Sat by Pulse Oximetry [ Bilateral] 01/28/22 01/28/22 01/28/22 05:00 05:10 05:20 Temperature Pulse Rate 132 H 124 H 129 H Respiratory 29 H 31 H 31 H Rate Blood Pressure 106/56 98/63 82/51 O2 Sat by Pulse 100 100 100 Oximetry O2 Sat by Pulse Oximetry [ Bilateral] 01/28/22 01/28/22 01/28/22 05:30 05:40 05:50 Temperature Pulse Rate 141 H 137 H 116 H Respiratory 30 H 20 29 H Rate Blood Pressure 101/63 105/68 101/59 O2 Sat by Pulse 100 100 100 Oximetry O2 Sat by Pulse Oximetry [ Bilateral] 01/28/22 01/28/22 01/28/22 05:56 06:00 06:01 Temperature Pulse Rate 126 H Respiratory 32 H 30 H Rate Blood Pressure 99/61 O2 Sat by Pulse 100 100 100 Oximetry O2 Sat by Pulse Oximetry [ Bilateral] 01/28/22 01/28/22 01/28/22 06:10 06:20 06:30 Temperature Pulse Rate 134 H 120 H 111 H Respiratory 30 H 30 H 31 H Rate Blood Pressure 96/64 100/63 98/58 O2 Sat by Pulse 100 100 100 Oximetry O2 Sat by Pulse Oximetry [ Bilateral] 01/28/22 01/28/22 01/28/22 06:40 06:50 07:00 Temperature Pulse Rate 118 H 122 H 111 H Respiratory 30 H 30 H 30 H Rate Blood Pressure 87/66 92/60 98/65 O2 Sat by Pulse 100 100 100 Oximetry O2 Sat by Pulse Oximetry [ Bilateral] 01/28/22 01/28/22 07:10 07:20 Temperature Pulse Rate 109 H 141 H Respiratory 30 H 30 H Rate Blood Pressure 96/59 89/62 O2 Sat by Pulse 100 100 Oximetry O2 Sat by Pulse Oximetry [ Bilateral] - General Appearance General appearance: sedated on ventilator, intubated, comatose EENT: ATNC Neck: no JVD, no thyromegaly Respiratory: Present: Clear to Ascultation Cardiology: regular Gastrointestinal: normal Integumentary: no rash Neurologic: other (Intubated and sedated at this time) Musculoskeletal: deferred - Lab 01/28/22 04:00 01/28/22 04:00 Most recent lab results ABG pH 7.360 pH Units (7.350-7.450) 01/28/22 05:05 ABG pCO2 19.2 mm Hg 01/28/22 05:05 ABG pO2 197.7 mm Hg (80.0-90.0) H 01/28/22 05:05 ABG HCO3 10.6 mmol/L (20.0-26.0) L 01/28/22 05:05 ABG O2 Saturation 99.2 % (95.0-99.0) H 01/28/22 05:05 Calcium 7.1 mg/dL (8.4-10.2) L 01/28/22 04:00 Magnesium 2.60 mg/dL (1.7-2.3) H 01/27/22 01:57 Urine Creatinine 144.3 mg/dL (0.1-20.0) H 01/27/22 07:45 Urine Sodium 36 mmol/L 01/27/22 07:45 Urine Total Protein 154 mg/dL (5-11.8) H 01/27/22 07:45 - Allied health notes Allied health notes reviewed: nursing Medications & Allergies - Medications Allergies/Adverse Reactions: Allergies No Known Allergies Allergy (Verified 01/26/22 23:12) Home Medications: Home Medications Medication Instructions Recorded Confirmed Last Taken Type No Known Home Medications [No 01/27/22 01/27/22 Unknown History Reported Home Medications] Active Medications: Generic Name Dose Route Start Last Admin Trade Name Freq PRN Reason Stop Dose Admin Acetaminophen 650 mg 01/27/22 05:44 Acetaminophen 650 Mg Rect Supp ND Q6H PRN Pain MILD(1-3)/Fever >100.5/WILLIAM Epoetin Connor-epbx 10,000 unit 01/27/22 02:08 Epoetin Connor-Epbx 10,000 Unit/1 Ml Vial IV PATRICK PRN hemodialysis Famotidine 20 mg 01/27/22 10:00 01/27/22 12:11 Famotidine 20 Mg/2 Ml Inj IV 20 mg QDAY DOMINIC Administration Fentanyl 50 mcg 01/27/22 18:00 Fentanyl 100 Mcg/2 Ml Inj IV Q10MIN PRN ANALGESIA Heparin Sodium (Porcine) 5,000 unit 01/27/22 02:08 Heparin 10,000 Unit/1 Ml Vial IV PATRICK PRN hemodialysis Heparin Sodium (Porcine) 5,000 unit 01/27/22 06:00 01/28/22 05:14 Heparin 5,000 Unit/1 Ml Vial SUB-Q 5,000 unit Q8HR DOMINIC Administration Hydrophilic Ointment 1 applic 01/27/22 18:00 Lip Therapy Vaseline TP Q2HR PRN Dry Lips Sodium Bicarbonate 100 meq/ 1,100 mls @ 100 mls/hr 01/27/22 03:00 01/28/22 03:53 Sterile Water IV 100 mls/hr DIRECT DOMINIC Administration Sodium Chloride 100 mls @ 999 mls/hr 01/27/22 12:25 Nacl 0.9% IV PATRICK PRN Hypotension Fentanyl Citrate 2,000 mcg in 100 mls @ 3.402 mls/hr 01/27/22 18:00 Fentanyl Drip Premix IV TITR DOMINIC Protocol 1 MCG/KG/HR Propofol 1,000 mg in 100 mls @ 2.041 mls/hr 01/27/22 18:00 01/28/22 04:40 Diprivan 10 Mg/Ml IV 25 mcg/kg/min TITR DOMINIC 10.206 mls/hr Administration Protocol 5 MCG/KG/MIN NORepinephrine/NS 8 MG-250 ML 8 mg in 250 mls @ 3.75 mls/hr 01/27/22 19:00 01/28/22 00:52 Norepinephrine/Ns 8 Mg-250 Ml (Double Conc) IV 12 mcg/min TITRATE DOMINIC 22.5 mls/hr Titration Protocol 2 MCG/MIN Magnesium Hydroxide 30 ml 01/27/22 05:44 Magnesium Hydroxide (Mom) Oral Liqd Udc PO Q4H PRN Constipation Morphine Sulfate 2 mg 01/27/22 05:44 Morphine 2 Mg/1 Ml Inj IV Q4H PRN Pain, Moderate (4-6) Morphine Sulfate 4 mg 01/27/22 05:44 Morphine 4 Mg/1 Ml Inj IV Q4H PRN Pain , Severe (7-10) Multi-Ingred Cream/Lotion/Oil/Oint 1 applic 01/27/22 18:00 Mineral Oil/Petrolatum, White Ophth Oint 3.5 Gm OU Q4HR PRN Dry Eye(s) Senna/Docusate Sodium 1 tab 01/27/22 22:00 01/27/22 22:56 Sennosides/Docusate Sodium 8.6/50 Mg Tab FEEDTUBE Not Given BID DOMINIC Sodium Chloride 10 ml 01/27/22 10:00 01/27/22 23:00 Sodium Chloride 0.9% 10 Ml Flush Syringe IV 10 ml BID DOMINIC Administration Sodium Chloride 10 ml 01/27/22 05:44 Sodium Chloride 0.9% 10 Ml Flush Syringe IV PRN PRN LINE FLUSH
[2022-01-28] MEDS ORDERED: SODIUM CHLORIDE 0.9% 100 ML IV PRN (08:04)
[2022-01-28] MEDS: NORepinephrine/NS 8 MG-250 ML 8 MG/250 ML INFUS..BTL IV SCH (08:09)
--- NOTE | 2022-01-28 09:15 | XRay Report ---
CHEST - 1 VIEW 0748 hours INDICATION: follow up respiratory failure COMPARISON: Yesterday FINDINGS: Support devices: Stable support device positioning. Heart: Stable cardiomediastinal silhouette. Lungs/pleura: The lungs are clear with no evidence for infiltrate, pleural effusion or pneumothorax. Additional findings: None. IMPRESSION: Unchanged exam. No acute process identified. Signer Name: Paras Hoff Jr, MD Signed: 01/28/2022 9:11 AM Workstation Name: [id number]
--- NOTE | 2022-01-28 09:16 | XRay Report ---
ABDOMEN 1 VIEW(S) INDICATION / CLINICAL INFORMATION: confirm oral gastric tube. COMPARISON: None available. FINDINGS: TUBES / LINES: The sidehole in distal tip of the nasogastric tube terminates in the mid stomach. BOWEL GAS PATTERN: No significant abnormality. FREE AIR / EXTRALUMINAL GAS: None seen. ADDITIONAL FINDINGS: No significant additional findings. IMPRESSION: Adequate nasogastric tube placement. Signer Name: Paras Hoff Jr, MD Signed: 01/28/2022 9:11 AM Workstation Name: [id number]
[2022-01-28] MEDS: FAMOTIDINE 20 MG/2 ML INJ IV SCH (10:38)
[2022-01-28] MEDS: SENNOSIDES/DOCUSATE SODIUM 8.6/50 MG TAB FEEDTUBE SCH ×2 (10:38→21:43)
[2022-01-28] MEDS: methylPREDNISolone Sod Suc 500 MG in SODIUM CHLORIDE 0.9% 100 ML IV SCH (10:38)
--- NOTE | 2022-01-28 12:59 | Progress Note ---
<SHOBHA KENNEDY - Last Filed: 01/28/22 20:51> Assessment and Plan Assessment and plan: This is a 66-year-old male with known past medical history of HTN and chronic kidney disease admitted for severe metabolic acidosis 2/2 worsen chronic kidney disease and acute hypoxic respiratory failure requiring ventilatory support. Hospital Course to Date: 01/27: Intubated and responsive not on any sedation. Did not tolerated HD this am due to bradycardia and hypotension. Currently in SR with peak-T wave on the monitor, VSS. Patient received Kayexalate, IV calcium gluconate, D50, insulin and sodium bicarb in the ED. Stat BMP pending. Continue Bcarb gtt per CCM. Awaiting on Nephro final recommendations. Throughout discussion with patient's and son at the bedside. All questions and concerns were addressed at this time. Patient remains a FULL code status. 01/28: Stable on the vent, on low dose sedation, following commands. iHD attempted overnight, aborted due to SVT and hypotension. ST, HR in the 140 noted on the monitor this am, probably due to hypovolemia. Low H&H this am, 2units of PRBCs, repeat H&H per protocol. Will check Echo to evaluate LV function and cardiology was also consulted. K normalized and renal function improved this am. 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 31.2 - Initial EKG was significant for peaked T waves. - S/p Kayexalate, IV calcium gluconate, D50, insulin and sodium bicarb in the ED. - Nephrology on consult, appreciated recommendation - Trialysis Cath inserted and iHD initiated - patient did not tolerate iHD due to SVT and hypotension overnight - K wnr this am, renal function imrpved - Currently on bcarb gtt - Continue HD per nephrp - Strict intake and output - Avoid nephrotoxic medications; Renally dose medications - Roth in place - Monitor and replace electrolytes as needed #Acute Metabolic Encephalopathy-improved - most likely secondary to azotemia - Intubated and on low sedation, following commands - Continue HD per Nephro - Possible CT head if patient remains unresponsive and if stabilized - Avoid sedative agents - PRN Analgesia for CPOT greater than 3 - Maintenance of sleep-wake cycle #Anemia of Chronic Disease - most likely due to chronic kidney disease - H&H dropped this am - No s/s of any active bleeding - 2units of PRBCs ordered - Epogen with iHD per Nephro - Transfuse if Hgb less than 7 #Hypotension #H/o Hypertension - Hypotensive this am, now on pressors - Probably 2/2 to hypovolemia, H&H dropped this am - Continue blood pressure monitor per protocol - Titrate pressors to maintain MAP above 65 - Resume home meds once list is available #GI/DVT Prophylaxis - PPI- Pepcid - Heparin SubQ - SCDs to bilateral lower extremities while in bed #Advance Care Planning - Disease education data, care plan, diagnoses, and prognosis were discussed with patient's and son at the bedside. All questions and concerns were addressed at this time. Patient family acknowledged understanding and agreement with current care plan. Patient remains a FULL code status at this time The high probability of a clinically significant, sudden or life threatening deterioration of the [multiple] system(s) required my full and direct attention, intervention and personal management. The aggregate critical care time was [60] minutes. This time is in addition to time spent performing reported procedures but includes the following: [x] Data Review and interpretation [x] Patient assessment and monitoring of vital signs [x] Documentation [x] Medication orders and management Disposition Plan: ICU Total Time Spent with Patient (Minutes): 60 History Interval history: Patient seen and examined in at the bedside. Intubated and on low dose sedation, following commands. Patient is currently on Levophed and Bicarb gtts. iHD attempted overnight but was aborted due to SVT, HR in the 160, with worsen hypotension. HR remains in the 140s this am, ST on the monitor. Low H&H this am, no s/s of any active bleeding, 2 units of PRBCs ordered. Hospitalist Physical - Constitutional Vitals: Temp Pulse Resp BP Pulse Ox 98.4 F 83 30 H 113/77 100 01/28/22 12:34 01/28/22 12:34 01/28/22 12:34 01/28/22 12:34 01/28/22 12:34 General appearance: Present: no acute distress, well-nourished, other (Intubated, on low sedation. Following simple commands) - EENT Eyes: Present: PERRL ENT: hearing intact - Respiratory Respiratory effort: normal Respiratory: bilateral: diminished - Cardiovascular Rhythm: regular Heart Sounds: Present: S1 & S2 - Extremities Extremities: no ischemia, pulses intact, pulses symmetrical Peripheral Pulses: within normal limits - Abdominal General gastrointestinal: soft, non-distended, normal bowel sounds - Integumentary Integumentary: Present: warm, dry - Psychiatric Psychiatric: other (Intubated, on low sedation. Following simple commands) - Neurologic Neurologic: moves all extremities, other (Intubated, on low sedation. Following simple commands) - Allied Health Allied health notes reviewed: nursing, case management HEART Score - HEART Score Troponin: Troponin T < 0.010 ng/mL (0.00-0.029) 01/26/22 23:28 Results - Labs CBC & Chem 7: 01/28/22 15:25 01/28/22 04:00 Labs: Laboratory Last Values WBC 5.9 K/mm3 (4.5-11.0) 01/28/22 04:00 RBC 1.97 M/mm3 (3.65-5.03) L 01/28/22 04:00 Hgb 5.7 gm/dl (11.8-15.2) L* 01/28/22 04:00 Hct 16.7 % (35.5-45.6) L* D 01/28/22 04:00 MCV 85 fl (84-94) 01/28/22 04:00 MCH 29 pg (28-32) 01/28/22 04:00 MCHC 34 % (32-34) 01/28/22 04:00 RDW 13.6 % (13.2-15.2) 01/28/22 04:00 Plt Count 195 K/mm3 (140-440) 01/28/22 04:00 Lymph % (Auto) 6.1 % (13.4-35.0) L 01/28/22 04:00 [place] % (Auto) 9.0 % (0.0-7.3) H 01/28/22 04:00 Eos % (Auto) 0.0 % (0.0-4.3) 01/28/22 04:00 Baso % (Auto) 0.0 % (0.0-1.8) 01/28/22 04:00 Lymph # (Auto) 0.4 K/mm3 (1.2-5.4) L 01/28/22 04:00 [place] # (Auto) 0.5 K/mm3 (0.0-0.8) 01/28/22 04:00 Eos # (Auto) 0.0 K/mm3 (0.0-0.4) 01/28/22 04:00 Baso # (Auto) 0.0 K/mm3 (0.0-0.1) 01/28/22 04:00 Add Manual Diff Complete 01/26/22 23:28 Total Counted 100 01/26/22 23:28 Seg Neutrophils % 84.9 % (40.0-70.0) H 01/28/22 04:00 Seg Neuts % (Manual) 94.0 % (40.0-70.0) H 01/26/22 23:28 Band Neutrophils % 2.0 % 01/26/22 23:28 Lymphocytes % (Manual) 2.0 % (13.4-35.0) L 01/26/22 23:28 Reactive Lymphs % (Man) 0 % 01/26/22 23:28 Monocytes % (Manual) 1.0 % (0.0-7.3) 01/26/22 23:28 Eosinophils % (Manual) 0 % (0.0-4.3) 01/26/22 23:28 Basophils % (Manual) 0 % (0.0-1.8) 01/26/22 23:28 Metamyelocytes % 0 % 01/26/22 23:28 Myelocytes % 1.0 % 01/26/22 23:28 Promyelocytes % 0 % 01/26/22 23:28 Blast Cells % 0 % 01/26/22 23:28 Nucleated RBC % 3.0 % (0.0-0.9) H 01/26/22 23:28 Seg Neutrophils # 5.0 K/mm3 (1.8-7.7) 01/28/22 04:00 Seg Neutrophils # Man 8.3 K/mm3 (1.8-7.7) H 01/26/22 23:28 Band Neutrophils # 0.2 K/mm3 01/26/22 23:28 Lymphocytes # (Manual) 0.2 K/mm3 (1.2-5.4) L 01/26/22 23:28 Abs React Lymphs (Man) 0.0 K/mm3 01/26/22 23:28 Monocytes # (Manual) 0.1 K/mm3 (0.0-0.8) 01/26/22 23:28 Eosinophils # (Manual) 0.0 K/mm3 (0.0-0.4) 01/26/22 23:28 Basophils # (Manual) 0.0 K/mm3 (0.0-0.1) 01/26/22 23:28 Metamyelocytes # 0.0 K/mm3 01/26/22 23:28 Myelocytes # 0.1 K/mm3 01/26/22 23:28 Promyelocytes # 0.0 K/mm3 01/26/22 23:28 Blast Cells # 0.0 K/mm3 01/26/22 23:28 WBC Morphology Not Reportable 01/26/22 23:28 Hypersegmented Neuts Not Reportable 01/26/22 23:28 Hyposegmented Neuts Not Reportable 01/26/22 23:28 Hypogranular Neuts Not Reportable 01/26/22 23:28 Smudge Cells Not Reportable 01/26/22 23:28 Toxic Granulation Not Reportable 01/26/22 23:28 Toxic Vacuolation Not Reportable 01/26/22 23:28 Dohle Bodies Not Reportable 01/26/22 23:28 Pelger-Huet Anomaly Not Reportable 01/26/22 23:28 Sofia Rods Not Reportable 01/26/22 23:28 Platelet Estimate Consistent w auto 01/26/22 23:28 Clumped Platelets Not Reportable 01/26/22 23:28 Plt Clumps, EDTA Not Reportable 01/26/22 23:28 Large Platelets Not Reportable 01/26/22 23:28 Giant Platelets Not Reportable 01/26/22 23:28 Platelet Satelliting Not Reportable 01/26/22 23:28 Plt Morphology Comment Not Reportable 01/26/22 23:28 RBC Morphology Not Reportable 01/26/22 23:28 Dimorphic RBCs Not Reportable 01/26/22 23:28 Polychromasia Not Reportable 01/26/22 23:28 Hypochromasia 2+ 01/26/22 23:28 Poikilocytosis Not Reportable 01/26/22 23:28 Anisocytosis Not Reportable 01/26/22 23:28 Microcytosis Not Reportable 01/26/22 23:28 Macrocytosis Not Reportable 01/26/22 23:28 Spherocytes Not Reportable 01/26/22 23:28 Pappenheimer Bodies Not Reportable 01/26/22 23:28 Sickle Cells Not Reportable 01/26/22 23:28 Target Cells Few 01/26/22 23:28 Tear Drop Cells Not Reportable 01/26/22 23:28 Ovalocytes Not Reportable 01/26/22 23:28 Helmet Cells Not Reportable 01/26/22 23:28 [place] Bodies Not Reportable 01/26/22 23:28 Panacea Rings Not Reportable 01/26/22 23:28 Pilot Cells Not Reportable 01/26/22 23:28 Bite Cells Not Reportable 01/26/22 23:28 Crenated Cell Not Reportable 01/26/22 23:28 Elliptocytes Not Reportable 01/26/22 23:28 Acanthocytes (Spur) Not Reportable 01/26/22 23:28 Rouleaux Not Reportable 01/26/22 23:28 Hemoglobin C Crystals Not Reportable 01/26/22 23:28 Schistocytes Not Reportable 01/26/22 23:28 Malaria parasites Not Reportable 01/26/22 23:28 Jan Bodies Not Reportable 01/26/22 23:28 Hem Pathologist Commnt No 01/26/22 23:28 ABG pH 7.360 pH Units (7.350-7.450) 01/28/22 05:05 ABG pCO2 19.2 mm Hg 01/28/22 05:05 ABG pO2 197.7 mm Hg (80.0-90.0) H 01/28/22 05:05 ABG HCO3 10.6 mmol/L (20.0-26.0) L 01/28/22 05:05 ABG O2 Saturation 99.2 % (95.0-99.0) H 01/28/22 05:05 ABG O2 Content 7.9 (0.0-44) 01/28/22 05:05 ABG Base Excess -13.7 mmol/L (-2.0-3.0) L 01/28/22 05:05 ABG Hemoglobin 5.3 gm/dl (14.0-18.0) L 01/28/22 05:05 ABG Carboxyhemoglobin 0.7 % (0.0-5.0) 01/28/22 05:05 ABG Methemoglobin 0.4 % (0.0-1.5) 01/28/22 05:05 Oxyhemoglobin 98.2 % (95.0-99.0) 01/28/22 05:05 FiO2 40 % 01/28/22 05:05 Sodium 141 mmol/L (137-145) 01/28/22 04:00 Potassium 4.7 mmol/L (3.6-5.0) 01/28/22 04:00 Chloride 104.4 mmol/L (98-107) 01/28/22 04:00 Carbon Dioxide 12 mmol/L (22-30) L 01/28/22 04:00 Anion Gap 29 mmol/L 01/28/22 04:00 BUN 216 mg/dL (9-20) H 01/28/22 04:00 Creatinine 18.6 mg/dL (0.8-1.3) H 01/28/22 04:00 Estimated GFR 3 ml/min 01/28/22 04:00 BUN/Creatinine Ratio 12 % 01/28/22 04:00 Glucose 92 mg/dL (75-100) 01/28/22 04:00 POC Glucose 73 mg/dL (70-105) 01/28/22 04:40 Lactic Acid 1.40 mmol/L (0.7-2.0) 01/27/22 23:25 Calcium 7.1 mg/dL (8.4-10.2) L 01/28/22 04:00 Magnesium 2.60 mg/dL (1.7-2.3) H 01/27/22 01:57 Total Bilirubin 0.40 mg/dL (0.1-1.2) 01/26/22 23:28 AST 21 units/L (5-40) 01/26/22 23:28 ALT 19 units/L (7-56) 01/26/22 23:28 Alkaline Phosphatase 64 units/L (35-129) 01/26/22 23:28 Troponin T < 0.010 ng/mL (0.00-0.029) 01/26/22 23:28 NT-Pro-B Natriuret Pep 72182 pg/mL (0-900) H 01/26/22 23:28 Total Protein 7.9 g/dL (6.3-8.2) 01/26/22 23:28 Albumin 3.9 g/dL (3.9-5) 01/26/22 23: Albumin/Globulin Ratio 1.0 % 01/26/22 23:28 Urine Color Yellow (Yellow) 01/27/22 07:45 Urine Turbidity Clear (Clear) 01/27/22 07:45 Urine pH 5.0 (5.0-7.0) 01/27/22 07:45 Ur Specific [place] 1.015 (1.003-1.030) 01/27/22 07:45 Urine Protein 100 mg/dl mg/dL (Negative) 01/27/22 07:45 Urine Glucose (UA) Negative mg/dL (Negative) 01/27/22 07:45 Urine Ketones Negative mg/dL (Negative) 01/27/22 07:45 Urine Blood Large (Negative) A 01/27/22 07:45 Urine Nitrite Negative (Negative) 01/27/22 07:45 Ur Reducing Substances Not Reportable 01/27/22 07:45 Urine Bilirubin Negative (Negative) 01/27/22 07:45 Urine Ictotest Not Reportable 01/27/22 07:45 Urine Urobilinogen 0.0 mg/dL (<2.0) 01/27/22 07:45 Ur Leukocyte Esterase Small (Negative) 01/27/22 07:45 Urine WBC (Auto) 11.0 /HPF (0.0-6.0) H 01/27/22 07:45 Urine RBC (Auto) 5.0 /HPF (0.0-6.0) 01/27/22 07:45 Urine Bacteria (Auto) 1+ /HPF (Negative) 01/27/22 07:45 Urine WBC Clumps Few /HPF 01/27/22 07:45 Urine Creatinine 144.3 mg/dL (0.1-20.0) H 01/27/22 07:45 Urine Sodium 36 mmol/L 01/27/22 07:45 Urine Total Protein 154 mg/dL (5-11.8) H 01/27/22 07:45 Hepatitis A IgM Ab Non-reactive (NonReactive) 01/27/22 03:31 Hep Bs Antigen Non-reactive (Negative) 01/27/22 03:31 Hep B Core IgM Ab Non-reactive (NonReactive) 01/27/22 03:31 Hepatitis C Antibody Reactive (NonReactive) A 01/27/22 03:31 Blood Type A POSITIVE 01/28/22 06:00 Antibody Screen Negative 01/28/22 06:00 Crossmatch See Detail 01/28/22 06:00 Roth/IV: Voiding Method Indwelling Catheter Active Medications - Current Medications Current Medications: Generic Name Dose Route Start Last Admin Trade Name Freq PRN Reason Stop Dose Admin Acetaminophen 650 mg 01/27/22 05:44 Acetaminophen 650 Mg Rect Supp VT Q6H PRN Pain MILD(1-3)/Fever >100.5/WILLIAM Epoetin Connor-epbx 10,000 unit 01/27/22 02:08 Epoetin Connor-Epbx 10,000 Unit/1 Ml Vial IV PATRICK PRN hemodialysis Famotidine 20 mg 01/27/22 10:00 01/28/22 10:38 Famotidine 20 Mg/2 Ml Inj IV 20 mg QDAY DOMINIC Administration Fentanyl 50 mcg 01/27/22 18:00 Fentanyl 100 Mcg/2 Ml Inj IV Q10MIN PRN ANALGESIA Heparin Sodium (Porcine) 5,000 unit 01/27/22 02:08 Heparin 10,000 Unit/1 Ml Vial IV PATRICK PRN hemodialysis Heparin Sodium (Porcine) 5,000 unit 01/27/22 06:00 01/28/22 05:14 Heparin 5,000 Unit/1 Ml Vial SUB-Q 5,000 unit Q8HR DOMINIC Administration Hydrophilic Ointment 1 applic 01/27/22 18:00 Lip Therapy Vaseline TP Q2HR PRN Dry Lips Sodium Bicarbonate 100 meq/ 1,100 mls @ 100 mls/hr 01/27/22 03:00 01/28/22 03:53 Sterile Water IV 100 mls/hr DIRECT DOMINIC Administration Fentanyl Citrate 2,000 mcg in 100 mls @ 3.402 mls/hr 01/27/22 18:00 Fentanyl Drip Premix IV TITR DOMINIC Protocol 1 MCG/KG/HR Propofol 1,000 mg in 100 mls @ 2.041 mls/hr 01/27/22 18:00 01/28/22 10:46 Diprivan 10 Mg/Ml IV 15 mcg/kg/min TITR DOMINIC 6.124 mls/hr Titration Protocol 5 MCG/KG/MIN NORepinephrine/NS 8 MG-250 ML 8 mg in 250 mls @ 3.75 mls/hr 01/27/22 19:00 01/28/22 11:03 Norepinephrine/Ns 8 Mg-250 Ml (Double Conc) IV 4 mcg/min TITRATE DOMINIC 7.5 mls/hr Titration Protocol 2 MCG/MIN Methylprednisolone Sodium 100 mls @ 200 mls/hr 01/28/22 10:00 01/28/22 12:19 Succinate 500 mg/ Sodium IV 01/30/22 10:29 Infused Chloride Q24HR DOMINIC Infusion Sodium Chloride 100 mls @ 999 mls/hr 01/28/22 08:04 Nacl 0.9% IV PATRICK PRN Hypotension Magnesium Hydroxide 30 ml 01/27/22 05:44 Magnesium Hydroxide (Mom) Oral Liqd Udc PO Q4H PRN Constipation Morphine Sulfate 2 mg 01/27/22 05:44 Morphine 2 Mg/1 Ml Inj IV Q4H PRN Pain, Moderate (4-6) Multi-Ingred Cream/Lotion/Oil/Oint 1 applic 01/27/22 18:00 Mineral Oil/Petrolatum, White Ophth Oint 3.5 Gm OU Q4HR PRN Dry Eye(s) Senna/Docusate Sodium 1 tab 01/27/22 22:00 01/28/22 10:38 Sennosides/Docusate Sodium 8.6/50 Mg Tab FEEDTUBE 1 tab BID DOMINIC Administration Sodium Chloride 10 ml 01/27/22 10:00 01/28/22 10:38 Sodium Chloride 0.9% 10 Ml Flush Syringe IV 10 ml BID DOMINIC Administration Sodium Chloride 10 ml 01/27/22 05:44 Sodium Chloride 0.9% 10 Ml Flush Syringe IV PRN PRN LINE FLUSH Nutrition/Malnutrition Assess - Dietary Evaluation Nutrition/Malnutrition Findings: Nutrition Notes Start: 01/28/22 12:15 Freq: Status: Active Protocol: Document 01/28/22 12:16 ROSELYN (Rec: 01/28/22 12:49 ROSELYN [id number]) Nutrition Notes Need for Assessment generated from: MD Order Initial or Follow up Assessment Current Diagnosis Acute Kidney Injury,CKD (stage V CKD),Hypertension, Respiratory Failure Other Pertinent Diagnosis Metabolic Acidosis, Hypotension, Tachycardia, Anemia. Current Diet NPO (since 01/27 05:47), TF- Nepro w/CARBSTEADY @ 45 ml/hr (from D 01/28). Labs/Tests 01/28: CO2 12, BUN 216, Crea 18.6, Ca 7.1. Pertinent Medications 01/28: Propofol @ 6.124 ml/hr (162 Kcal), others nutritionally unremarkable. Height 5 ft 11 in Weight 68 kg [place] Body Weight (kg) 78.18 BMI 20.9 Intake Prior to Admission Poor Weight change and time frame Pt denies having loss body weight [employer] T[employer]. Weight Status Appropriate Subjective/Other Information RD consult for evaluate nutritional intake and write/ manage TF. Pt currently on NPO. Pt is on Mechanical Ventilation, O2 saturation @ 100%, according to Physical Assessment History notes. Pt has missing teeth, according to Physical Assessment History notes. Pt presents sacral decubitus ulcer, according to Physical Assessment History notes. Procedure on 01/27: R-IJV dyalisis catheter placement, well tolerated, according to Operative Report notes. I will prescribe TF to provide Pt with energy/protein needs during LOS. Percent of energy/protein needs met: Pt currently on NPO. Prescribed TF-Nepro w/ CARBSTEADY @ 45 ml/hr provides for energy/protein needs (1, 946 Kcal/88 g) during LOS, 92% Kcal; 100% AA. Including 162 Kcal from Propofol, 100% Kcal; 100% AA. Burn Absent Trauma Absent GI Symptoms None Food Allergy No Skin Integrity/Comment Sacral decubitus ulcer. 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 As Evidenced by Signs and Symptoms Pt is currently on NPO. Is patient on ventilator? Yes Is Patient Ambulatory and/or Out of Bed No REE-([facility]-confined to bed) 1789.980 Kcal/Kg value to use for calculation 31 Approximate Energy Requirements Using 2108 kcal/Kg Calculation Used for Recommendations Kcal/kg Additional Notes Protein: >1.2 g/Kg ABW; >82 g/ day. Fluids: 1 ml/Kcal, or as per MD. Nutrition Intervention Nutrition Support: Start TF-Nepro w/CARBSTEADY @ 45 ml/hr. Flkush: 220 ml water Q 4 hr, or as per MD. Kcal 1,946 Protein (gm) 88 Carbohydrates (gm) 174 Fat (gm) 104 Fluid (mL) 786 Fiber (gm) 14 % RDI: 92% Kcal; 100% AA. Goal #1 Provide at least 75% of energy /protein needs through Enteral Feeding during LOS. Follow-Up By: 01/30/22 Additional Comments Start monitoring TF tolerance and BM. <ALAYNA MARRERO - Last Filed: 01/29/22 07:10> Assessment and Plan Assessment and plan: I saw and evaluated the patient. I agree with the findings and the plan of care as documented in the Nurse Practitioner's~note, with the following corrections and additions. Family updated on overall medical condition Hospitalist Physical - Constitutional Vitals: Temp Pulse Resp BP Pulse Ox 98.0 F 72 26 H 105/71 100 01/29/22 04:01 01/29/22 06:11 01/29/22 06:11 01/29/22 06:11 01/29/22 06:11 HEART Score - HEART Score Troponin: Troponin T < 0.010 ng/mL (0.00-0.029) 01/26/22 23:28 Results - Labs CBC & Chem 7: 01/29/22 03:50 01/29/22 03:50 Labs: Laboratory Last Values WBC 6.0 K/mm3 (4.5-11.0) 01/29/22 03:50 RBC 2.53 M/mm3 (3.65-5.03) L 01/29/22 03:50 Hgb 7.6 gm/dl (11.8-15.2) L 01/29/22 03:50 Hct 21.6 % (35.5-45.6) L 01/29/22 03:50 MCV 85 fl (84-94) 01/29/22 03:50 MCH 30 pg (28-32) 01/29/22 03:50 MCHC 35 % (32-34) H 01/29/22 03:50 RDW 14.1 % (13.2-15.2) 01/29/22 03:50 Plt Count 135 K/mm3 (140-440) L 01/29/22 03:50 Lymph % (Auto) 6.1 % (13.4-35.0) L 01/28/22 04:00 [place] % (Auto) 9.0 % (0.0-7.3) H 01/28/22 04:00 Eos % (Auto) 0.0 % (0.0-4.3) 01/28/22 04:00 Baso % (Auto) 0.0 % (0.0-1.8) 01/28/22 04:00 Lymph # (Auto) 0.4 K/mm3 (1.2-5.4) L 01/28/22 04:00 [place] # (Auto) 0.5 K/mm3 (0.0-0.8) 01/28/22 04:00 Eos # (Auto) 0.0 K/mm3 (0.0-0.4) 01/28/22 04:00 Baso # (Auto) 0.0 K/mm3 (0.0-0.1) 01/28/22 04:00 Add Manual Diff Complete 01/26/22 23:28 Total Counted 100 01/26/22 23:28 Seg Neutrophils % 84.9 % (40.0-70.0) H 01/28/22 04:00 Seg Neuts % (Manual) 94.0 % (40.0-70.0) H 01/26/22 23:28 Band Neutrophils % 2.0 % 01/26/22 23:28 Lymphocytes % (Manual) 2.0 % (13.4-35.0) L 01/26/22 23:28 Reactive Lymphs % (Man) 0 % 01/26/22 23:28 Monocytes % (Manual) 1.0 % (0.0-7.3) 01/26/22 23:28 Eosinophils % (Manual) 0 % (0.0-4.3) 01/26/22 23:28 Basophils % (Manual) 0 % (0.0-1.8) 01/26/22 23:28 Metamyelocytes % 0 % 01/26/22 23:28 Myelocytes % 1.0 % 01/26/22 23:28 Promyelocytes % 0 % 01/26/22 23:28 Blast Cells % 0 % 01/26/22 23:28 Nucleated RBC % 3.0 % (0.0-0.9) H 01/26/22 23:28 Seg Neutrophils # 5.0 K/mm3 (1.8-7.7) 01/28/22 04:00 Seg Neutrophils # Man 8.3 K/mm3 (1.8-7.7) H 01/26/22 23:28 Band Neutrophils # 0.2 K/mm3 01/26/22 23:28 Lymphocytes # (Manual) 0.2 K/mm3 (1.2-5.4) L 01/26/22 23:28 Abs React Lymphs (Man) 0.0 K/mm3 01/26/22 23:28 Monocytes # (Manual) 0.1 K/mm3 (0.0-0.8) 01/26/22 23:28 Eosinophils # (Manual) 0.0 K/mm3 (0.0-0.4) 01/26/22 23:28 Basophils # (Manual) 0.0 K/mm3 (0.0-0.1) 01/26/22 23:28 Metamyelocytes # 0.0 K/mm3 01/26/22 23:28 Myelocytes # 0.1 K/mm3 01/26/22 23:28 Promyelocytes # 0.0 K/mm3 01/26/22 23:28 Blast Cells # 0.0 K/mm3 01/26/22 23:28 WBC Morphology Not Reportable 01/26/22 23:28 Hypersegmented Neuts Not Reportable 01/26/22 23:28 Hyposegmented Neuts Not Reportable 01/26/22 23:28 Hypogranular Neuts Not Reportable 01/26/22 23:28 Smudge Cells Not Reportable 01/26/22 23:28 Toxic Granulation Not Reportable 01/26/22 23:28 Toxic Vacuolation Not Reportable 01/26/22 23:28 Dohle Bodies Not Reportable 01/26/22 23:28 Pelger-Huet Anomaly Not Reportable 01/26/22 23:28 Sofia Rods Not Reportable 01/26/22 23:28 Platelet Estimate Consistent w auto 01/26/22 23:28 Clumped Platelets Not Reportable 01/26/22 23:28 Plt Clumps, EDTA Not Reportable 01/26/22 23:28 Large Platelets Not Reportable 01/26/22 23:28 Giant Platelets Not Reportable 01/26/22 23:28 Platelet Satelliting Not Reportable 01/26/22 23:28 Plt Morphology Comment Not Reportable 01/26/22 23:28 RBC Morphology Not Reportable 01/26/22 23:28 Dimorphic RBCs Not Reportable 01/26/22 23:28 Polychromasia Not Reportable 01/26/22 23:28 Hypochromasia 2+ 01/26/22 23:28 Poikilocytosis Not Reportable 01/26/22 23:28 Anisocytosis Not Reportable 01/26/22 23:28 Microcytosis Not Reportable 01/26/22 23:28 Macrocytosis Not Reportable 01/26/22 23:28 Spherocytes Not Reportable 01/26/22 23:28 Pappenheimer Bodies Not Reportable 01/26/22 23:28 Sickle Cells Not Reportable 01/26/22 23:28 Target Cells Few 01/26/22 23:28 Tear Drop Cells Not Reportable 01/26/22 23:28 Ovalocytes Not Reportable 01/26/22 23:28 Helmet Cells Not Reportable 01/26/22 23:28 [place] Bodies Not Reportable 01/26/22 23:28 Panacea Rings Not Reportable 01/26/22 23:28 Ikm Cells Not Reportable 01/26/22 23:28 Bite Cells Not Reportable 01/26/22 23:28 Crenated Cell Not Reportable 01/26/22 23:28 Elliptocytes Not Reportable 01/26/22 23:28 Acanthocytes (Spur) Not Reportable 01/26/22 23:28 Rouleaux Not Reportable 01/26/22 23:28 Hemoglobin C Crystals Not Reportable 01/26/22 23:28 Schistocytes Not Reportable 01/26/22 23:28 Malaria parasites Not Reportable 01/26/22 23:28 Jan Bodies Not Reportable 01/26/22 23:28 Hem Pathologist Commnt No 01/26/22 23:28 ABG pH 7.582 pH Units (7.350-7.450) H 01/29/22 03:15 ABG pCO2 21.5 mm Hg 01/29/22 03:15 ABG pO2 142.5 mm Hg (80.0-90.0) H 01/29/22 03:15 ABG HCO3 19.7 mmol/L (20.0-26.0) L 01/29/22 03:15 ABG O2 Saturation 99.0 % (95.0-99.0) 01/29/22 03:15 ABG O2 Content 10.5 (0.0-44) 01/29/22 03:15 ABG Base Excess -1.6 mmol/L (-2.0-3.0) 01/29/22 03:15 ABG Hemoglobin 7.4 gm/dl (14.0-18.0) L 01/29/22 03:15 ABG Carboxyhemoglobin 0.7 % (0.0-5.0) 01/29/22 03:15 ABG Methemoglobin 0.4 % (0.0-1.5) 01/29/22 03:15 Oxyhemoglobin 97.9 % (95.0-99.0) 01/29/22 03:15 FiO2 30 % 01/29/22 03:15 Sodium 135 mmol/L (137-145) L 01/29/22 03:50 Potassium 3.5 mmol/L (3.6-5.0) L D 01/29/22 03:50 Chloride 98.0 mmol/L (98-107) 01/29/22 03:50 Carbon Dioxide 21 mmol/L (22-30) L D 01/29/22 03:50 Anion Gap 20 mmol/L 01/29/22 03:50 BUN 105 mg/dL (9-20) H 01/29/22 03:50 Creatinine 9.2 mg/dL (0.8-1.3) H D 01/29/22 03:50 Estimated GFR 7 ml/min 01/29/22 03:50 BUN/Creatinine Ratio 11 % 01/29/22 03:50 Glucose 164 mg/dL (75-100) H 01/29/22 03:50 POC Glucose 123 mg/dL (70-105) H 01/28/22 18:17 Lactic Acid 1.40 mmol/L (0.7-2.0) 01/27/22 23:25 Calcium 6.9 mg/dL (8.4-10.2) L 01/29/22 03:50 Magnesium 2.60 mg/dL (1.7-2.3) H 01/27/22 01:57 Total Bilirubin 0.40 mg/dL (0.1-1.2) 01/26/22 23:28 AST 21 units/L (5-40) 01/26/22 23:28 ALT 19 units/L (7-56) 01/26/22 23:28 Alkaline Phosphatase 64 units/L (35-129) 01/26/22 23:28 Lactate Dehydrogenase 233 units/L (91-180) H 01/28/22 15:25 Troponin T < 0.010 ng/mL (0.00-0.029) 01/26/22 23:28 NT-Pro-B Natriuret Pep 93545 pg/mL (0-900) H 01/26/22 23:28 Total Protein 7.9 g/dL (6.3-8.2) 01/26/22 23:28 Albumin 3.9 g/dL (3.9-5) 01/26/22 23:28 Albumin/Globulin Ratio 1.0 % 01/26/22 23:28 Urine Color Yellow (Yellow) 01/27/22 07:45 Urine Turbidity Clear (Clear) 01/27/22 07:45 Urine pH 5.0 (5.0-7.0) 01/27/22 07:45 Ur Specific [place] 1.015 (1.003-1.030) 01/27/22 07:45 Urine Protein 100 mg/dl mg/dL (Negative) 01/27/22 07:45 Urine Glucose (UA) Negative mg/dL (Negative) 01/27/22 07:45 Urine Ketones Negative mg/dL (Negative) 01/27/22 07:45 Urine Blood Large (Negative) A 01/27/22 07:45 Urine Nitrite Negative (Negative) 01/27/22 07:45 Ur Reducing Substances Not Reportable 01/27/22 07:45 Urine Bilirubin Negative (Negative) 01/27/22 07:45 Urine Ictotest Not Reportable 01/27/22 07:45 Urine Urobilinogen 0.0 mg/dL (<2.0) 01/27/22 07:45 Ur Leukocyte Esterase Small (Negative) 01/27/22 07:45 Urine WBC (Auto) 11.0 /HPF (0.0-6.0) H 01/27/22 07:45 Urine RBC (Auto) 5.0 /HPF (0.0-6.0) 01/27/22 07:45 Urine Bacteria (Auto) 1+ /HPF (Negative) 01/27/22 07:45 Urine WBC Clumps Few /HPF 01/27/22 07:45 Urine Creatinine 144.3 mg/dL (0.1-20.0) H 01/27/22 07:45 Urine Sodium 36 mmol/L 01/27/22 07:45 Urine Total Protein 154 mg/dL (5-11.8) H 01/27/22 07:45 Hepatitis A IgM Ab Non-reactive (NonReactive) 01/27/22 03:31 Hep Bs Antigen Non-reactive (Negative) 01/27/22 03:31 Hep B Core IgM Ab Non-reactive (NonReactive) 01/27/22 03:31 Hepatitis C Antibody Reactive (NonReactive) A 01/27/22 03:31 Blood Type A POSITIVE 01/28/22 06:00 Antibody Screen Negative 01/28/22 06:00 Crossmatch See Detail 01/28/22 06:00 Microbiology: Microbiology 01/28/22 15:25 Peripheral/Venous Blood Culture - Preliminary Culture in Progress 01/28/22 15:25 Peripheral/Venous Blood Culture - Preliminary Culture in Progress 01/27/22 07:45 Urine,Clean Catch Urine Culture - Preliminary NO GROWTH AFTER 24 HOURS Roth/IV: Voiding Method Indwelling Catheter Active Medications - Current Medications Current Medications: Generic Name Dose Route Start Last Admin Trade Name Freq PRN Reason Stop Dose Admin Acetaminophen 650 mg 01/27/22 05:44 Acetaminophen 650 Mg Rect Supp [place] Q6H PRN Pain MILD(1-3)/Fever >100.5/WILLIAM Epoetin Connor-epbx 10,000 unit 01/27/22 02:08 Epoetin Connor-Epbx 10,000 Unit/1 Ml Vial IV PATRICK PRN hemodialysis Famotidine 20 mg 01/27/22 10:00 01/28/22 10:38 Famotidine 20 Mg/2 Ml Inj IV 20 mg QDAY DOMINIC Administration Fentanyl 50 mcg 01/27/22 18:00 Fentanyl 100 Mcg/2 Ml Inj IV Q10MIN PRN ANALGESIA Heparin Sodium (Porcine) 5,000 unit 01/27/22 02:08 Heparin 10,000 Unit/1 Ml Vial IV PATRICK PRN hemodialysis Heparin Sodium (Porcine) 5,000 unit 01/27/22 06:00 01/29/22 05:30 Heparin 5,000 Unit/1 Ml Vial SUB-Q 5,000 unit Q8HR DOMINIC Administration Hydrophilic Ointment 1 applic 01/27/22 18:00 Lip Therapy Vaseline TP Q2HR PRN Dry Lips Sodium Bicarbonate 100 meq/ 1,100 mls @ 100 mls/hr 01/27/22 03:00 01/29/22 02:05 Sterile Water IV 100 mls/hr DIRECT DOMINIC Administration Fentanyl Citrate 2,000 mcg in 100 mls @ 3.402 mls/hr 01/27/22 18:00 Fentanyl Drip Premix IV TITR DOMINIC Protocol 1 MCG/KG/HR Propofol 1,000 mg in 100 mls @ 2.041 mls/hr 01/27/22 18:00 01/29/22 04:55 Diprivan 10 Mg/Ml IV 15 mcg/kg/min TITR DOMINIC 6.124 mls/hr Titration Protocol 5 MCG/KG/MIN NORepinephrine/NS 8 MG-250 ML 8 mg in 250 mls @ 3.75 mls/hr 01/27/22 19:00 01/28/22 14:23 Norepinephrine/Ns 8 Mg-250 Ml (Double Conc) IV 0 mcg/min TITRATE DOMINIC 0 mls/hr Titration Protocol 2 MCG/MIN Methylprednisolone Sodium 100 mls @ 200 mls/hr 01/28/22 10:00 01/28/22 12:19 Succinate 500 mg/ Sodium IV 01/30/22 10:29 Infused Chloride Q24HR DOMINIC Infusion Sodium Chloride 100 mls @ 999 mls/hr 01/28/22 08:04 Nacl 0.9% IV PATRICK PRN Hypotension Amiodarone HCl 900 mg/ 500 mls @ 33.333 mls/hr 01/28/22 20:00 01/29/22 01:48 Dextrose IV 0.5 mg/min DIRECT DOMINIC 16.667 mls/hr Infusion Protocol 1 MG/MIN AMIODARONE 150 MG/100 ML-ED 150 mg in 100 mls @ 400 mls/hr 01/28/22 20:00 01/28/22 19:29 Amiodarone 150 Mg/100 Ml-Ed Only IV 400 mls/hr ONCE DOMINIC Administration Magnesium Hydroxide 30 ml 01/27/22 05:44 Magnesium Hydroxide (Mom) Oral Liqd Udc PO Q4H PRN Constipation Morphine Sulfate 2 mg 01/27/22 05:44 01/29/22 00:58 Morphine 2 Mg/1 Ml Inj IV 2 mg Q4H PRN Administration Pain, Moderate (4-6) Multi-Ingred Cream/Lotion/Oil/Oint 1 applic 01/27/22 18:00 Mineral Oil/Petrolatum, White Ophth Oint 3.5 Gm OU Q4HR PRN Dry Eye(s) Senna/Docusate Sodium 1 tab 01/27/22 22:00 01/28/22 21:43 Sennosides/Docusate Sodium 8.6/50 Mg Tab FEEDTUBE 1 tab BID DOMINIC Administration Sodium Chloride 10 ml 01/27/22 10:00 01/28/22 21:43 Sodium Chloride 0.9% 10 Ml Flush Syringe IV 10 ml BID DOMINIC Administration Sodium Chloride 10 ml 01/27/22 05:44 01/29/22 00:59 Sodium Chloride 0.9% 10 Ml Flush Syringe IV 10 ml PRN PRN Administration LINE FLUSH Nutrition/Malnutrition Assess - Dietary Evaluation Nutrition/Malnutrition Findings: Nutrition Notes Start: 01/28/22 12:15 Freq: Status: Active Protocol: Document 01/28/22 12:16 ROSELYN (Rec: 01/28/22 12:49 ROSELYN [id number]) Nutrition Notes Need for Assessment generated from: MD Order Initial or Follow up Assessment Current Diagnosis Acute Kidney Injury,CKD (stage V CKD),Hypertension, Respiratory Failure Other Pertinent Diagnosis Metabolic Acidosis, Hypotension, Tachycardia, Anemia. Current Diet NPO (since 01/27 05:47), TF- Nepro w/CARBSTEADY @ 45 ml/hr (from D 01/28). Labs/Tests 01/28: CO2 12, BUN 216, Crea 18.6, Ca 7.1. Pertinent Medications 01/28: Propofol @ 6.124 ml/hr (162 Kcal), others nutritionally unremarkable. Height 5 ft 11 in Weight 68 kg [place] Body Weight (kg) 78.18 BMI 20.9 Intake Prior to Admission Poor Weight change and time frame Pt denies having loss body weight [employer]. Weight Status Appropriate Subjective/Other Information RD consult for evaluate nutritional intake and write/ manage TF. Pt currently on NPO. Pt is on Mechanical Ventilation, O2 saturation @ 100%, according to Physical Assessment History notes. Pt has missing teeth, according to Physical Assessment History notes. Pt presents sacral decubitus ulcer, according to Physical Assessment History notes. Procedure on 01/27: R-IJV dyalisis catheter placement, well tolerated, according to Operative Report notes. I will prescribe TF to provide Pt with energy/protein needs during LOS. Percent of energy/protein needs met: Pt currently on NPO. Prescribed TF-Nepro w/ CARBSTEADY @ 45 ml/hr provides for energy/protein needs (1, 946 Kcal/88 g) during LOS, 92% Kcal; 100% AA. Including 162 Kcal from Propofol, 100% Kcal; 100% AA. Burn Absent Trauma Absent GI Symptoms None Food Allergy No Skin Integrity/Comment Sacral decubitus ulcer. 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 As Evidenced by Signs and Symptoms Pt is currently on NPO. Is patient on ventilator? Yes Is Patient Ambulatory and/or Out of Bed No REE-([facility] [place]-confined to bed) [phone] Kcal/Kg value to use for calculation 31 Approximate Energy Requirements Using 2108 kcal/Kg Calculation Used for Recommendations Kcal/kg Additional Notes Protein: >1.2 g/Kg ABW; >82 g/ day. Fluids: 1 ml/Kcal, or as per MD. Nutrition Intervention Nutrition Support: Start TF-Nepro w/CARBSTEADY @ 45 ml/hr. Flkush: 220 ml water Q 4 hr, or as per MD. Kcal 1,946 Protein (gm) 88 Carbohydrates (gm) 174 Fat (gm) 104 Fluid (mL) 786 Fiber (gm) 14 % RDI: 92% Kcal; 100% AA. Goal #1 Provide at least 75% of energy /protein needs through Enteral Feeding during LOS. Follow-Up By: 01/30/22 Additional Comments Start monitoring TF tolerance and BM.
--- NOTE | 2022-01-28 13:57 | Consultation ---
History of Present Illness Consult date: 01/28/22 Consult reason: arrhythmia History of present illness: Patient is a 66-year-old admitted 2 days ago with end-stage renal failure, vo lume overload, severe hyperkalemia and sepsis. He is currently unresponsive, on the vent in the ICU. Additional findings of severe anemia. During his course in the ICU, he has been noted with a recurrent, narrow complex tachycardia. A review of the telemetry strips and EKGs show likely atrial flutter with 2-1 AV conduction. ECG is when he returns to sinus rhythm show early repolarization ST changes, with no acute ischemia or infarction. My review of the chart does not reveal any significant past cardiac history. Chest x-ray on presentation does show a mild to moderate cardiomegaly, but clear lungs. Echocardiogram has been ordered and is pending. Past History Past Medical History: other (Chronic kidney disease) Past Surgical History: No surgical history Social history: no significant social history Medications and Allergies Allergies Allergy/AdvReac Type Severity Reaction Status Date / Time No Known Allergies Allergy Verified 01/26/22 23:12 Home Medications Medication Instructions Recorded Confirmed Last Taken Type No Known Home Medications [No 01/27/22 01/27/22 Unknown History Reported Home Medications] Active Meds: Active Medications Acetaminophen (Acetaminophen 650 Mg Rect Supp) 650 mg [place] Q6H PRN PRN Reason: Pain MILD(1-3)/Fever >100.5/WILLIAM Epoetin Connor-epbx (Epoetin Connor-Epbx 10,000 Unit/1 Ml Vial) 10,000 unit IV PTARICK PRN PRN Reason: hemodialysis Famotidine (Famotidine 20 Mg/2 Ml Inj) 20 mg IV QDAY [facility] Last Admin: 01/28/22 10:38 Dose: 20 mg Fentanyl (Fentanyl 100 Mcg/2 Ml Inj) 50 mcg IV Q10MIN PRN PRN Reason: ANALGESIA Heparin Sodium (Porcine) (Heparin 10,000 Unit/1 Ml Vial) 5,000 unit IV PATRICK PRN PRN Reason: hemodialysis Heparin Sodium (Porcine) (Heparin 5,000 Unit/1 Ml Vial) 5,000 unit SUB-Q Q8HR [facility] Last Admin: 01/28/22 13:46 Dose: 5,000 unit Hydrophilic Ointment (Lip Therapy Vaseline) 1 applic TP Q2HR PRN PRN Reason: Dry Lips Sodium Bicarbonate 100 meq/ (Sterile Water) 1,100 mls @ 100 mls/hr IV DIRECT DOMINIC Last Admin: 01/28/22 03:53 Dose: 100 mls/hr Fentanyl Citrate (Fentanyl Drip Premix) 2,000 mcg in 100 mls @ 3.402 mls/hr IV TITR DOMINIC; Protocol Propofol (Diprivan 10 Mg/Ml) 1,000 mg in 100 mls @ 2.041 mls/hr IV TITR DOMINIC; Protocol Last Titration: 01/28/22 13:49 Dose: 10 mcg/kg/min, 4.082 mls/hr NORepinephrine/NS 8 MG-250 ML (Norepinephrine/Ns 8 Mg-250 Ml (Double Conc)) 8 mg in 250 mls @ 3.75 mls/hr IV TITRATE DOMINIC; Protocol Last Titration: 01/28/22 13:49 Dose: 2 mcg/min, 3.75 mls/hr Methylprednisolone Sodium Succinate 500 mg/ Sodium Chloride 100 mls @ 200 mls/hr IV Q24HR DOMINIC Stop: 01/30/22 10:29 Last Infusion: 01/28/22 12:19 Dose: Infused Sodium Chloride (Nacl 0.9%) 100 mls @ 999 mls/hr IV PATRICK PRN PRN Reason: Hypotension Magnesium Hydroxide (Magnesium Hydroxide (Mom) Oral Liqd Udc) 30 ml PO Q4H PRN PRN Reason: Constipation Morphine Sulfate (Morphine 2 Mg/1 Ml Inj) 2 mg IV Q4H PRN PRN Reason: Pain, Moderate (4-6) Multi-Ingred Cream/Lotion/Oil/Oint (Mineral Oil/Petrolatum, White Ophth Oint 3.5 Gm) 1 applic OU Q4HR PRN PRN Reason: Dry Eye(s) Senna/Docusate Sodium (Sennosides/Docusate Sodium 8.6/50 Mg Tab) 1 tab FEEDTUBE BID DOMINIC Last Admin: 01/28/22 10:38 Dose: 1 tab Sodium Chloride (Sodium Chloride 0.9% 10 Ml Flush Syringe) 10 ml IV BID DOMINIC Last Admin: 01/28/22 10:38 Dose: 10 ml Sodium Chloride (Sodium Chloride 0.9% 10 Ml Flush Syringe) 10 ml IV PRN PRN PRN Reason: LINE FLUSH Review of Systems ROS unobtainable: due to endotracheal tube, due to mental status Physical Examination Vital Signs Pulse Resp BP Pulse Ox 83 26 H 200/110 78 L 01/26/22 23:01 01/26/22 23:01 01/26/22 23:01 01/26/22 23:01 General appearance: other (Unresponsive, on the vent) HEENT: Positive: Other (Pupils fixed) Neck: Positive: neck supple Cardiac: Positive: Reg Rate and Rhythm Lungs: Positive: Decreased Breath Sounds Neuro: Positive: Weakness (Unresponsive, on the vent) Abdomen: Positive: Soft Male genitourinary: Positive: deferred Skin: Positive: Clear Extremities: Absent: edema Results 01/28/22 15:25 01/28/22 04:00 CBC 01/28/22 Range/Units 04:00 WBC 5.9 (4.5-11.0) K/mm3 RBC 1.97 L (3.65-5.03) M/mm3 Hgb 5.7 L* (11.8-15.2) gm/dl Hct 16.7 L* D (35.5-45.6) % Plt Count 195 (140-440) K/mm3 Lymph # (Auto) 0.4 L (1.2-5.4) K/mm3 [place] # (Auto) 0.5 (0.0-0.8) K/mm3 Eos # (Auto) 0.0 (0.0-0.4) K/mm3 Baso # (Auto) 0.0 (0.0-0.1) K/mm3 Comprehensive Metabolic Panel 01/28/22 Range/Units 04:00 Sodium 141 (137-145) mmol/L Potassium 4.7 (3.6-5.0) mmol/L Chloride 104.4 (98-107) mmol/L Carbon Dioxide 12 L (22-30) mmol/L BUN 216 H (9-20) mg/dL Creatinine 18.6 H (0.8-1.3) mg/dL Glucose 92 (75-100) mg/dL Calcium 7.1 L (8.4-10.2) mg/dL EKG interpretations - Telemetry EKG Rhythm: Atrial Flutter (With 2-1 AV conduction) Assessment and Plan - Patient Problems (1) Paroxysmal atrial flutter Current Visit: Yes Status: Acute Plan to address problem: Patient admitted with acute renal failure, hyperkalemia, sepsis and severe anemia. In the setting of severe electrolyte and acid-base imbalance, he has developed paroxysmal atrial flutter. We will start amiodarone for management of paroxysmal atrial flutter. An echocardiogram is pending for left ventricular function assessment.
[2022-01-28 15:57] LABS: Hematocrit 24.3 % (35.5-45.6); Hemoglobin 8.3 gm/dl (11.8-15.2)
--- NOTE | 2022-01-28 17:00 | Progress Note ---
Assessment and Plan Acute Hypoxic Respiratory Failure on mVS Acute on Chronic Kidney Injury on HD -Presented with K of 9.0, BUN 308, and Scr. 31.2 Hyperkalemia Azotemia Severe Metabolic Acidosis Acute Metabolic Encephalopathy-improving Anemia of Chronic Disease Hypotension H/o Hypertension -Daily assessment for readiness to wean. Daily SAT,SBT- will conduct SBT today -continue to wean vasopressor support for MAP>65 -Titrate supplemental oxygen oxygen for SpO2 89-92% -Supportive HD by Renal service, on Solumedrol per Renal -continue with medical management of hyperkalemia -Continue with bicarbonate infusion -Lung protective strategies,ARDS net protocol -Monitoring airway pressures -CXR, ABG as clinically indicated. -Empiric antibiotics therapy, de-escalate based on culture data and clinical response( Levofloxacin) -Propofol infusion, titrate to CPOT 0-3 -Monitoring renal function, hemodynamics and electrolyte profile -Roth catheter in this critically ill patient requiring strict intake and output monitoring. Daily assessment for ongoing need for Roth catheter -Replete electrolytes as clinically indicated -Accuchecks with glycemic control, target blood glucose 140-180 mg/dL. Avoid hypoglycemia -VTE prophylaxis- Heparin -Avoid nephrotoxins and renally dose all medications -Stress ulcer prophylaxis-Famotidine -Mobility, frequent turning, off loading per facility protocol to prevent pressure ulcers -Maintain sleep wake cycle, avoid benzodiazepines. -Limit delirium -Supportive blood transfusion, keep HgB>7g/dL- transfuse 2 units PRBC today fro HgB 5 CONDITION:CRITICAL PROGNOSIS: GUARDED CODE STATUS; FULL CODE Discussed in interdisciplinary rounds The high probability of a clinically significant, sudden or life threatening deterioration of the respiratory, cardiovascular, neurology and renal systems required my full and direct attention, intervention and personal management. The aggregate critical care time was [35] minutes. This time is in addition to time spent performing reported procedures but includes the following: [x] Data Review and interpretation [x] Patient assessment and monitoring of vital signs [x] Documentation [x] Medication orders and management Subjective Date of service: 01/28/22 Interval history: F/UP for acute hypoxemic resp failure; severe hyperkalemia; SILVIA on CKD; Acute metabolic encephalopathy; Tachyarrthymia Seen and examined. Vitals, labs, medications, chart and imaging reviewed. No adverse overnight events reported. On going need for MVS, remains on vasopressor support. Discussed with respiratory and nursing care staff. MVS: PEEP +6/40% ; On Propofol iHD attempted overnight, aborted due to SVT and hypotension. ST, Tachycardia on cardiac telemetry Low H&H this am, 2units of PRBCs ordered Objective Vital Signs - 12hr 01/28/22 01/28/22 01/28/22 05:10 05:20 05:30 Temperature Pulse Rate 124 H 129 H 141 H Pulse Rate [ From Monitor] Respiratory 31 H 31 H 30 H Rate Blood Pressure 98/63 82/51 101/63 O2 Sat by Pulse 100 100 100 Oximetry 01/28/22 01/28/22 01/28/22 05:40 05:50 05:56 Temperature Pulse Rate 137 H 116 H Pulse Rate [ From Monitor] Respiratory 20 29 H 32 H Rate Blood Pressure 105/68 101/59 O2 Sat by Pulse 100 100 100 Oximetry 01/28/22 01/28/22 01/28/22 06:00 06:01 06:10 Temperature Pulse Rate 126 H 134 H Pulse Rate [ From Monitor] Respiratory 30 H 30 H Rate Blood Pressure 99/61 96/64 O2 Sat by Pulse 100 100 100 Oximetry 01/28/22 01/28/22 01/28/22 06:20 06:30 06:40 Temperature Pulse Rate 120 H 111 H 118 H Pulse Rate [ From Monitor] Respiratory 30 H 31 H 30 H Rate Blood Pressure 100/63 98/58 87/66 O2 Sat by Pulse 100 100 100 Oximetry 01/28/22 01/28/22 01/28/22 06:50 07:00 07:10 Temperature Pulse Rate 122 H 111 H 109 H Pulse Rate [ 141 H From Monitor] Respiratory 30 H 30 H 30 H Rate Blood Pressure 92/60 98/65 96/59 O2 Sat by Pulse 100 100 100 Oximetry 01/28/22 01/28/22 01/28/22 07:20 07:29 07:30 Temperature Pulse Rate 141 H 141 H 141 H Pulse Rate [ From Monitor] Respiratory 30 H 30 H 30 H Rate Blood Pressure 89/62 87/60 90/69 O2 Sat by Pulse 100 100 100 Oximetry 01/28/22 01/28/22 01/28/22 07:40 07:50 08:00 Temperature Pulse Rate 143 H 145 H 126 H Pulse Rate [ From Monitor] Respiratory 30 H 20 29 H Rate Blood Pressure 99/65 97/70 101/73 O2 Sat by Pulse 100 100 100 Oximetry 01/28/22 01/28/22 01/28/22 08:03 08:04 08:11 Temperature 97.7 F 97.9 F Pulse Rate 143 H 140 H Pulse Rate [ From Monitor] Respiratory 30 H 30 H Rate Blood Pressure 101/73 94/71 O2 Sat by Pulse 100 100 Oximetry 01/28/22 01/28/22 01/28/22 08:18 08:21 08:30 Temperature 97.9 F Pulse Rate 141 H 141 H 142 H Pulse Rate [ From Monitor] Respiratory 30 H 30 H 30 H Rate Blood Pressure 104/74 104/74 97/69 O2 Sat by Pulse 100 100 100 Oximetry 01/28/22 01/28/22 01/28/22 08:41 08:48 08:51 Temperature 98.4 F Pulse Rate 142 H 139 H 140 H Pulse Rate [ From Monitor] Respiratory 30 H 30 H 28 H Rate Blood Pressure 97/69 96/68 96/68 O2 Sat by Pulse 100 100 100 Oximetry 01/28/22 01/28/22 01/28/22 09:00 09:11 09:16 Temperature 98.6 F Pulse Rate 142 H 133 H 139 H Pulse Rate [ From Monitor] Respiratory 30 H 30 H 30 H Rate Blood Pressure 101/63 101/63 101/67 O2 Sat by Pulse 100 100 100 Oximetry 01/28/22 01/28/22 01/28/22 09:21 09:30 09:41 Temperature 98.4 F Pulse Rate 156 H 91 H 104 H Pulse Rate [ From Monitor] Respiratory 30 H 30 H 20 Rate Blood Pressure 101/67 113/75 113/75 O2 Sat by Pulse 100 100 100 Oximetry 01/28/22 01/28/22 01/28/22 09:48 09:51 10:00 Temperature 98.3 F Pulse Rate 91 H 91 H 95 H Pulse Rate [ From Monitor] Respiratory 30 H 29 H 29 H Rate Blood Pressure 117/77 117/77 117/82 O2 Sat by Pulse 100 100 Oximetry 01/28/22 01/28/22 01/28/22 10:11 10:18 10:21 Temperature 98.1 F Pulse Rate 97 H 95 H 95 H Pulse Rate [ From Monitor] Respiratory 31 H 30 H 30 H Rate Blood Pressure 117/82 117/77 117/77 O2 Sat by Pulse 100 100 100 Oximetry 01/28/22 01/28/22 01/28/22 10:30 10:41 10:48 Temperature 98.2 F Pulse Rate 97 H 137 H 145 H Pulse Rate [ From Monitor] Respiratory 31 H 14 30 H Rate Blood Pressure 120/75 120/75 117/81 O2 Sat by Pulse 100 100 100 Oximetry 01/28/22 01/28/22 01/28/22 10:51 11:01 11:11 Temperature Pulse Rate 150 H 149 H 143 H Pulse Rate [ From Monitor] Respiratory 30 H 29 H 29 H Rate Blood Pressure 117/81 78/42 78/42 O2 Sat by Pulse 100 100 100 Oximetry 01/28/22 01/28/22 01/28/22 11:21 11:30 11:41 Temperature Pulse Rate 145 H 146 H 146 H Pulse Rate [ From Monitor] Respiratory 30 H 29 H 22 Rate Blood Pressure 92/68 106/58 106/58 O2 Sat by Pulse 100 100 100 Oximetry 01/28/22 01/28/22 01/28/22 11:49 11:51 12:00 Temperature 98.2 F 98.1 F Pulse Rate 145 H 146 H 140 H Pulse Rate [ 146 H From Monitor] Respiratory 30 H 26 H 20 Rate Blood Pressure 109/71 109/71 105/76 O2 Sat by Pulse 100 100 100 Oximetry 01/28/22 01/28/22 01/28/22 12:04 12:11 12:21 Temperature 98.4 F Pulse Rate 148 H 147 H 146 H Pulse Rate [ From Monitor] Respiratory 30 H 16 30 H Rate Blood Pressure 113/77 114/74 103/73 O2 Sat by Pulse 100 100 100 Oximetry 01/28/22 01/28/22 01/28/22 12:30 12:34 12:41 Temperature 98.4 F Pulse Rate 84 83 82 Pulse Rate [ From Monitor] Respiratory 30 H 30 H 29 H Rate Blood Pressure 113/77 113/77 113/77 O2 Sat by Pulse 100 100 100 Oximetry 01/28/22 01/28/22 01/28/22 12:51 13:00 13:04 Temperature 98.4 F Pulse Rate 122 H 129 H 140 H Pulse Rate [ From Monitor] Respiratory 30 H 29 H 30 H Rate Blood Pressure 115/79 105/76 105/76 O2 Sat by Pulse 100 100 100 Oximetry 01/28/22 01/28/2201/28/22 13:11 13:21 13:30 Temperature Pulse Rate 139 H 141 H 120 H Pulse Rate [ From Monitor] Respiratory 30 H 30 H 30 H Rate Blood Pressure 105/76 113/72 109/72 O2 Sat by Pulse 100 100 100 Oximetry 01/28/22 01/28/22 01/28/22 13:34 13:41 13:50 Temperature 98.6 F 98.6 F Pulse Rate 115 H 121 H 95 H Pulse Rate [ From Monitor] Respiratory 30 H 30 H 30 H Rate Blood Pressure 109/72 109/72 113/78 O2 Sat by Pulse 100 100 100 Oximetry 01/28/22 01/28/22 01/28/22 13:51 14:00 14:11 Temperature Pulse Rate 109 H 114 H 80 Pulse Rate [ From Monitor] Respiratory 30 H 30 H 30 H Rate Blood Pressure 113/78 96/71 96/71 O2 Sat by Pulse 100 100 100 Oximetry 01/28/22 01/28/22 01/28/22 14:21 14:30 14:41 Temperature Pulse Rate 81 80 79 Pulse Rate [ From Monitor] Respiratory 29 H 30 H 15 Rate Blood Pressure 114/79 102/72 102/72 O2 Sat by Pulse 100 100 Oximetry 01/28/22 01/28/22 01/28/22 14:51 15:00 15:11 Temperature Pulse Rate 80 81 82 Pulse Rate [ From Monitor] Respiratory 30 H 30 H 30 H Rate Blood Pressure 100/72 103/73 103/73 O2 Sat by Pulse 100 100 100 Oximetry 01/28/22 01/28/22 01/28/22 15:21 15:30 15:41 Temperature Pulse Rate 81 78 80 Pulse Rate [ From Monitor] Respiratory 30 H 30 H 30 H Rate Blood Pressure 109/70 108/75 108/75 O2 Sat by Pulse 100 100 Oximetry 01/28/22 01/28/22 01/28/22 15:51 16:00 16:33 Temperature 98.1 F Pulse Rate 77 78 83 Pulse Rate [ 122 H From Monitor] Respiratory 30 H 30 H 30 H Rate Blood Pressure 105/72 111/72 111/72 O2 Sat by Pulse 100 100 100 Oximetry Constitutional: no acute distress, other (orally intuabted ETT at 26cm at the lip) Eyes: non-icteric ENT: oropharynx moist Neck: supple, no lymphadenopathy, other (RIJ HD catheter) Effort: mildly labored Ascultation: Bilateral: clear, diminished breath sounds Cardiovascular: regular rate and rhythm, other (Tachycardia) Gastrointestinal: normoactive bowel sounds, soft, non-tender, non-distended, other (Roth catheter) Integumentary: normal Extremities: no cyanosis, no edema Neurologic: non-focal exam (moves all extemities), other (follows simple commands) Psychiatric: mood appropriate, affect normal CBC and BMP: 01/30/22 14:30 01/31/22 04:32 ABG, PT/INR, D-dimer: ABG ABG pH 7.360 pH Units (7.350-7.450) 01/28/22 05:05 ABG pCO2 19.2 mm Hg 01/28/22 05:05 ABG pO2 197.7 mm Hg (80.0-90.0) H 01/28/22 05:05 ABG O2 Saturation 99.2 % (95.0-99.0) H 01/28/22 05:05 Abnormal lab findings: Abnormal Labs 01/26/22 01/26/22 01/26/22 01:45 23:28 23:28 RBC 2.62 L Hgb 7.6 L Hct 23.5 L Lymph % (Auto) Emanuel % (Auto) Lymph # (Auto) Seg Neutrophils % Seg Neuts % (Manual) 94.0 H Lymphocytes % (Manual) 2.0 L Nucleated RBC % 3.0 H Seg Neutrophils # Man 8.3 H Lymphocytes # (Manual) 0.2 L ABG pH 7.094 L* ABG pO2 162.0 H ABG HCO3 2.7 L ABG O2 Saturation ABG Base Excess -24.8 L ABG Hemoglobin 7.7 L Sodium 148 H Potassium 9.0 H* Chloride 113.1 H Carbon Dioxide 3 L* BUN 308 H Creatinine 31.6 H Glucose 104 H POC Glucose Calcium Magnesium Lactate Dehydrogenase NT-Pro-B Natriuret Pep Urine Blood Urine WBC (Auto) Urine Creatinine Urine Total Protein Hepatitis C Antibody Crossmatch 01/26/22 01/27/22 01/27/22 23:28 01:57 03:31 RBC Hgb Hct Lymph % (Auto) Emanuel % (Auto) Lymph # (Auto) Seg Neutrophils % Seg Neuts % (Manual) Lymphocytes % (Manual) Nucleated RBC % Seg Neutrophils # Man Lymphocytes # (Manual) ABG pH ABG pO2 ABG HCO3 ABG O2 Saturation ABG Base Excess ABG Hemoglobin Sodium Potassium Chloride Carbon Dioxide BUN Creatinine Glucose POC Glucose Calcium Magnesium 2.60 H Lactate Dehydrogenase NT-Pro-B Natriuret Pep 11952 H Urine Blood Urine WBC (Auto) Urine Creatinine Urine Total Protein Hepatitis C Antibody Reactive A Crossmatch 01/27/22 01/27/22 01/27/22 05:30 07:45 07:45 RBC Hgb Hct Lymph % (Auto) Emanuel % (Auto) Lymph # (Auto) Seg Neutrophils % Seg Neuts % (Manual) Lymphocytes % (Manual) Nucleated RBC % Seg Neutrophils # Man Lymphocytes # (Manual) ABG pH 7.312 L ABG pO2 595.3 H ABG HCO3 6.6 L ABG O2 Saturation 99.6 H ABG Base Excess -18.2 L ABG Hemoglobin 5.0 L Sodium Potassium Chloride Carbon Dioxide BUN Creatinine Glucose POC Glucose Calcium Magnesium Lactate Dehydrogenase NT-Pro-B Natriuret Pep Urine Blood Large A Urine WBC (Auto) 11.0 H Urine Creatinine 144.3 H Urine Total Protein 154 H Hepatitis C Antibody Crossmatch 01/27/22 01/28/22 01/28/22 Unknown 02:08 04:00 RBC 1.97 L Hgb 5.7 L* Hct 16.7 L* D Lymph % (Auto) 6.1 L Emanuel % (Auto) 9.0 H Lymph # (Auto) 0.4 L Seg Neutrophils % 84.9 H Seg Neuts % (Manual) Lymphocytes % (Manual) Nucleated RBC % Seg Neutrophils # Man Lymphocytes # (Manual) ABG pH ABG pO2 ABG HCO3 ABG O2 Saturation ABG Base Excess ABG Hemoglobin Sodium 147 H Potassium 5.2 H D Chloride 111.6 H Carbon Dioxide 6 L* BUN 235 H Creatinine 21.2 H Glucose 74 L POC Glucose 60 L Calcium 8.0 L D Magnesium Lactate Dehydrogenase NT-Pro-B Natriuret Pep Urine Blood Urine WBC (Auto) Urine Creatinine Urine Total Protein Hepatitis C Antibody Crossmatch 01/28/22 01/28/22 01/28/22 04:00 05:05 06:00 RBC Hgb Hct Lymph % (Auto) Emanuel % (Auto) Lymph # (Auto) Seg Neutrophils % Seg Neuts % (Manual) Lymphocytes % (Manual) Nucleated RBC % Seg Neutrophils # Man Lymphocytes # (Manual) ABG pH ABG pO2 197.7 H ABG HCO3 10.6 L ABG O2 Saturation 99.2 H ABG Base Excess -13.7 L ABG Hemoglobin 5.3 L Sodium Potassium Chloride Carbon Dioxide 12 L BUN 216 H Creatinine 18.6 H Glucose POC Glucose Calcium 7.1 L Magnesium Lactate Dehydrogenase NT-Pro-B Natriuret Pep Urine Blood Urine WBC (Auto) Urine Creatinine Urine Total Protein Hepatitis C Antibody Crossmatch See Detail 01/28/22 01/28/22 15:25 15:25 RBC Hgb 8.3 L Hct 24.3 L D Lymph % (Auto) Emanuel % (Auto) Lymph # (Auto) Seg Neutrophils % Seg Neuts % (Manual) Lymphocytes % (Manual) Nucleated RBC % Seg Neutrophils # Man Lymphocytes # (Manual) ABG pH ABG pO2 ABG HCO3 ABG O2 Saturation ABG Base Excess ABG Hemoglobin Sodium Potassium Chloride Carbon Dioxide BUN Creatinine Glucose POC Glucose Calcium Magnesium Lactate Dehydrogenase 233 H NT-Pro-B Natriuret Pep Urine Blood Urine WBC (Auto) Urine Creatinine Urine Total Protein Hepatitis C Antibody Crossmatch Chest x-ray: image reviewed Allied health notes reviewed: nursing
--- NOTE | 2022-01-28 17:42 | Electrocardiograph Report ---
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
--- NOTE | 2022-01-28 17:58 | Electrocardiograph Report ---
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
[2022-01-28] MEDS ORDERED: SODIUM CHLORIDE 0.9% 1000 ML 1,000 ML IV ONE (18:16)
[2022-01-28] MEDS ORDERED: AMIODARONE 150 MG in DEXTROSE 5% IN WATER 97 ML IV ONE (19:06)
[2022-01-28] MEDS: AMIODARONE 900 MG in DEXTROSE 5% IN WATER 482 ML IV SCH (19:48)
[2022-01-28] MEDS ORDERED: AMIODARONE 150 MG/100 ML-ED 150 MG/100 ML BAG IV SCH (20:00)
[2022-01-29] MEDS: SODIUM BICARBONATE 100 MEQ in WATER FOR INJECTION (PF) 1,000 ML IV SCH ×2 (02:05→12:46)
[2022-01-29 03:37] LABS: ABG Base Excess -1.6 mmol/L (-2.0-3.0); ABG HCO3 19.7 mmol/L (20.0-26.0); ABG Methemoglobin 0.4 % (0.0-1.5); ABG PCO2 21.5 mm Hg; ABG PH 7.582 pH Units (7.350-7.450); ABG PO2 142.5 mm Hg (80.0-90.0)
[2022-01-29 04:05] LABS: Hematocrit 21.6 % (35.5-45.6); Hemoglobin 7.6 gm/dl (11.8-15.2); Mean Corpuscular HGB Conc 35 % (32-34); Mean Corpuscular Volume 85 fl (84-94); Platelet Count 135 K/mm3 (140-440); Red Blood Count 2.53 M/mm3 (3.65-5.03); Red Cell Distribution Width 14.1 % (13.2-15.2)
[2022-01-29 04:26] LABS: Calcium 6.9 mg/dL (8.4-10.2)
--- NOTE | 2022-01-29 05:28 | XRay Report ---
XR chest 1V ap INDICATION / CLINICAL INFORMATION: follow up respiratory failure. COMPARISON: Radiograph from yesterday. FINDINGS: SUPPORT DEVICES: Stable support device positioning. HEART /PULMONARY VASCULATURE: Unchanged. LUNGS / PLEURA: Lungs are clear. No pleural effusion. No pneumothorax. IMPRESSION: 1. No significant interval change. No acute findings. Signer Name: Taye Poole MD Signed: 01/29/2022 5:24 AM Workstation Name: [id number]
[2022-01-29] MEDS: HEPARIN 5,000 UNIT/1 ML VIAL SUB-Q SCH ×3 (05:30→21:17)
[2022-01-29] MEDS ORDERED: SODIUM CHLORIDE 0.9% 100 ML IV PRN (08:21)
--- NOTE | 2022-01-29 08:59 | Progress Note ---
Assessment and Plan Acute Hypoxic Respiratory Failure on mVS Acute on Chronic Kidney Injury on HD -Presented with K of 9.0, BUN 308, and Scr. 31.2 Hyperkalemia Azotemia Severe Metabolic Acidosis Acute Metabolic Encephalopathy-improving Anemia of Chronic Disease Hypotension H/o Hypertension Tolerating SBT, will get weaning parameters with goal to liberate if his parameters are within acceptable range -Titrate supplemental oxygen oxygen for SpO2 89-92% -Supportive HD by Renal service, on Solumedrol per Renal to complete 3 doses -Lung protective strategies,ARDS net protocol -CXR, ABG as clinically indicated. -Monitoring renal function, hemodynamics and electrolyte profile -Roth catheter in this critically ill patient requiring strict intake and output monitoring. Daily assessment for ongoing need for Roth catheter -Replete electrolytes as clinically indicated -Accuchecks with glycemic control, target blood glucose 140-180 mg/dL. Avoid hypoglycemia -VTE prophylaxis- Heparin -Avoid nephrotoxins and renally dose all medications -Stress ulcer prophylaxis-Famotidine -Mobility, frequent turning, off loading per facility protocol to prevent pressure ulcers -Maintain sleep wake cycle, avoid benzodiazepines. -Limit delirium -Supportive blood transfusion, keep HgB>7g/dL-s/p 2 units PRBC with stable hemoglobin CONDITION:CRITICAL PROGNOSIS: GUARDED CODE STATUS; FULL CODE Discussed in interdisciplinary rounds The high probability of a clinically significant, sudden or life threatening deterioration of the respiratory, cardiovascular, neurology and renal systems required my full and direct attention, intervention and personal management. The aggregate critical care time was [33] minutes. This time is in addition to time spent performing reported procedures but includes the following: [x] Data Review and interpretation [x] Patient assessment and monitoring of vital signs [x] Documentation [x] Medication orders and management Subjective Date of service: 01/29/22 Interval history: F/UP for acute hypoxemic resp failure; severe hyperkalemia; SILVIA on CKD; Acute metabolic encephalopathy; Tachyarrthymia Seen and examined. Vitals, labs, medications, chart and imaging reviewed. No adverse overnight events reported. On going need for MVS, off vasopressor support. Discussed with respiratory and nursing care staff. MVS: PEEP +6/40% ; On Propofol 6/7 Tolerating SBT this am. Amiodarone infusion Objective - Exam Narrative Exam: Constitutional: no acute distress, other (orally intuabted ETT at 26cm at the lip) Eyes: non-icteric ENT: oropharynx moist Neck: supple, no lymphadenopathy, other (RIJ HD catheter) Effort: mildly labored Ascultation: Bilateral: clear, diminished breath sounds Cardiovascular: regular rate and rhythm, other (Tachycardia) Gastrointestinal: normoactive bowel sounds, soft, non-tender, non-distended, other (Roth catheter) Integumentary: normal Extremities: no cyanosis, no edema Neurologic: non-focal exam (moves all extemities), other (follows simple commands) Psychiatric: mood appropriate, affect normal Vital Signs - 12hr 01/28/22 01/28/22 01/28/22 21:00 21:11 21:15 Temperature Pulse Rate 73 71 74 Respiratory 27 H 30 H Rate Blood Pressure 106/74 108/75 109/76 O2 Sat by Pulse 100 100 Oximetry O2 Sat by Pulse Oximetry [ Bilateral] 01/28/22 01/28/22 01/28/22 21:21 21:30 21:40 Temperature Pulse Rate 71 72 Respiratory 22 20 30 H Rate Blood Pressure 109/76 104/74 O2 Sat by Pulse 100 100 Oximetry O2 Sat by Pulse Oximetry [ Bilateral] 01/28/22 01/28/22 01/28/22 21:41 21:45 21:51 Temperature Pulse Rate 71 76 75 Respiratory 22 20 Rate Blood Pressure 109/76 113/78 113/78 O2 Sat by Pulse 100 100 Oximetry O2 Sat by Pulse Oximetry [ Bilateral] 01/28/22 01/28/22 01/28/22 22:00 22:11 22:15 Temperature 97.2 F L Pulse Rate 80 83 82 Respiratory 19 26 H Rate Blood Pressure 126/80 104/74 117/78 O2 Sat by Pulse 100 Oximetry O2 Sat by Pulse 100 Oximetry [ Bilateral] 01/28/22 01/28/22 01/28/22 22:21 22:30 22:40 Temperature Pulse Rate 82 82 84 Respiratory 30 H 27 H 28 H Rate Blood Pressure 117/78 111/85 111/85 O2 Sat by Pulse 100 100 Oximetry O2 Sat by Pulse Oximetry [ Bilateral] 01/28/22 01/28/22 01/28/22 22:45 22:50 22:51 Temperature Pulse Rate 83 81 84 Respiratory 29 H Rate Blood Pressure 116/85 125/83 O2 Sat by Pulse 100 Oximetry O2 Sat by Pulse Oximetry [ Bilateral] 01/28/22 01/28/22 01/28/22 23:00 23:10 23:11 Temperature 97.0 F L Pulse Rate 81 82 Respiratory 28 H 30 H 21 Rate Blood Pressure 126/80 116/85 O2 Sat by Pulse 100 100 100 Oximetry O2 Sat by Pulse Oximetry [ Bilateral] 01/28/22 01/28/22 01/28/22 23:21 23:30 23:39 Temperature Pulse Rate 78 80 79 Respiratory 23 18 Rate Blood Pressure 124/89 125/90 125/90 O2 Sat by Pulse 100 100 100 Oximetry O2 Sat by Pulse Oximetry [ Bilateral] 01/28/22 01/28/22 01/29/22 23:41 23:51 00:00 Temperature Pulse Rate 79 81 78 Respiratory 20 17 28 H Rate Blood Pressure 125/90 126/87 131/81 O2 Sat by Pulse 100 100 100 Oximetry O2 Sat by Pulse Oximetry [ Bilateral] 01/29/22 01/29/22 01/29/22 00:11 00:21 00:30 Temperature Pulse Rate 80 79 79 Respiratory 16 24 30 H Rate Blood Pressure 131/81 136/84 128/83 O2 Sat by Pulse 100 100 100 Oximetry O2 Sat by Pulse Oximetry [ Bilateral] 01/29/22 01/29/22 01/29/22 00:41 00:51 00:53 Temperature 98.2 F Pulse Rate 78 78 78 Respiratory 30 H 30 H 30 H Rate Blood Pressure 128/83 123/84 O2 Sat by Pulse 100 100 100 Oximetry O2 Sat by Pulse Oximetry [ Bilateral] 01/29/22 01/29/22 01/29/22 00:58 01:00 01:11 Temperature Pulse Rate 75 78 Respiratory 30 H 30 H 30 H Rate Blood Pressure 125/80 123/84 O2 Sat by Pulse 100 Oximetry O2 Sat by Pulse Oximetry [ Bilateral] 01/29/22 01/29/22 01/29/22 01:21 01:28 01:30 Temperature Pulse Rate 80 78 Respiratory 29 H 30 H 30 H Rate Blood Pressure 114/78 111/76 O2 Sat by Pulse 100 Oximetry O2 Sat by Pulse Oximetry [ Bilateral] 01/29/22 01/29/22 01/29/22 01:41 01:45 01:51 Temperature Pulse Rate 76 76 Respiratory 30 H 30 H 30 H Rate Blood Pressure 114/78 109/74 O2 Sat by Pulse 100 100 100 Oximetry O2 Sat by Pulse Oximetry [ Bilateral] 01/29/22 01/29/22 01/29/22 02:00 02:11 02:21 Temperature Pulse Rate 73 76 76 Respiratory 30 H 30 H 26 H Rate Blood Pressure 115/79 115/79 120/78 O2 Sat by Pulse 100 100 100 Oximetry O2 Sat by Pulse Oximetry [ Bilateral] 01/29/22 01/29/22 01/29/22 02:31 02:41 02:50 Temperature 98.0 F Pulse Rate 78 79 Respiratory 13 10 L 30 H Rate Blood Pressure 102/69 102/69 O2 Sat by Pulse 100 100 100 Oximetry O2 Sat by Pulse Oximetry [ Bilateral] 01/29/22 01/29/22 01/29/22 02:51 03:01 03:11 Temperature Pulse Rate 76 102 H 74 Respiratory 30 H 30 H 30 H Rate Blood Pressure 120/82 104/77 104/77 O2 Sat by Pulse 100 100 100 Oximetry O2 Sat by Pulse Oximetry [ Bilateral] 01/29/22 01/29/22 01/29/22 03:21 03:30 03:41 Temperature Pulse Rate 73 74 71 Respiratory 30 H 30 H 30 H Rate Blood Pressure 121/84 116/80 116/80 O2 Sat by Pulse 100 99 99 Oximetry O2 Sat by Pulse Oximetry [ Bilateral] 01/29/22 01/29/22 01/29/22 03:51 04:00 04:01 Temperature 98.0 F Pulse Rate 72 71 Respiratory 30 H 30 H Rate Blood Pressure 116/79 113/77 O2 Sat by Pulse 99 Oximetry O2 Sat by Pulse Oximetry [ Bilateral] 01/29/22 01/29/22 01/29/22 04:02 04:11 04:16 Temperature Pulse Rate 71 91 H 91 H Respiratory 30 H 30 H Rate Blood Pressure 113/77 113/77 O2 Sat by Pulse 100 99 99 Oximetry O2 Sat by Pulse Oximetry [ Bilateral] 01/29/22 01/29/22 01/29/22 04:21 04:31 04:41 Temperature Pulse Rate 104 H 68 73 Respiratory 30 H 30 H 26 H Rate Blood Pressure 117/73 108/74 108/74 O2 Sat by Pulse 99 100 99 Oximetry O2 Sat by Pulse Oximetry [ Bilateral] 01/29/22 01/29/22 01/29/22 04:51 05:00 05:11 Temperature Pulse Rate 74 72 73 Respiratory 26 H 26 H 26 H Rate Blood Pressure 117/73 107/76 107/76 O2 Sat by Pulse 100 100 Oximetry O2 Sat by Pulse Oximetry [ Bilateral] 01/29/22 01/29/22 01/29/22 05:21 05:30 05:39 Temperature Pulse Rate 73 72 72 Respiratory 26 H 26 H 30 H Rate Blood Pressure 104/73 105/72 O2 Sat by Pulse 100 100 Oximetry O2 Sat by Pulse Oximetry [ Bilateral] 01/29/22 01/29/22 01/29/22 05:41 05:51 06:00 Temperature Pulse Rate 72 72 70 Respiratory 26 H 26 H 26 H Rate Blood Pressure 105/72 107/76 105/71 O2 Sat by Pulse 100 100 Oximetry O2 Sat by Pulse Oximetry [ Bilateral] 01/29/22 06:11 Temperature Pulse Rate 72 Respiratory 26 H Rate Blood Pressure 105/71 O2 Sat by Pulse 100 Oximetry O2 Sat by Pulse Oximetry [ Bilateral] CBC and BMP: 01/30/22 14:30 01/31/22 04:32 ABG, PT/INR, D-dimer: ABG ABG pH 7.582 pH Units (7.350-7.450) H 01/29/22 03:15 ABG pCO2 21.5 mm Hg 01/29/22 03:15 ABG pO2 142.5 mm Hg (80.0-90.0) H 01/29/22 03:15 ABG O2 Saturation 99.0 % (95.0-99.0) 01/29/22 03:15 Abnormal lab findings: Abnormal Labs 01/26/22 01/26/22 01/26/22 01:45 23:28 23:28 RBC 2.62 L Hgb 7.6 L Hct 23.5 L MCHC Plt Count Lymph % (Auto) Reagan % (Auto) Lymph # (Auto) Seg Neutrophils % Seg Neuts % (Manual) 94.0 H Lymphocytes % (Manual) 2.0 L Nucleated RBC % 3.0 H Seg Neutrophils # Man 8.3 H Lymphocytes # (Manual) 0.2 L ABG pH 7.094 L* ABG pO2 162.0 H ABG HCO3 2.7 L ABG O2 Saturation ABG Base Excess -24.8 L ABG Hemoglobin 7.7 L Sodium 148 H Potassium 9.0 H* Chloride 113.1 H Carbon Dioxide 3 L* BUN 308 H Creatinine 31.6 H Glucose 104 H POC Glucose Calcium Magnesium Lactate Dehydrogenase NT-Pro-B Natriuret Pep Urine Blood Urine WBC (Auto) Urine Creatinine Urine Total Protein Hepatitis C Antibody Crossmatch 01/26/22 01/27/22 01/27/22 23:28 01:57 03:31 RBC Hgb Hct MCHC Plt Count Lymph % (Auto) Reagan % (Auto) Lymph # (Auto) Seg Neutrophils % Seg Neuts % (Manual) Lymphocytes % (Manual) Nucleated RBC % Seg Neutrophils # Man Lymphocytes # (Manual) ABG pH ABG pO2 ABG HCO3 ABG O2 Saturation ABG Base Excess ABG Hemoglobin Sodium Potassium Chloride Carbon Dioxide BUN Creatinine Glucose POC Glucose Calcium Magnesium 2.60 H Lactate Dehydrogenase NT-Pro-B Natriuret Pep 18218 H Urine Blood Urine WBC (Auto) Urine Creatinine Urine Total Protein Hepatitis C Antibody Reactive A Crossmatch 01/27/22 01/27/22 01/27/22 05:30 07:45 07:45 RBC Hgb Hct MCHC Plt Count Lymph % (Auto) Reagan % (Auto) Lymph # (Auto) Seg Neutrophils % Seg Neuts % (Manual) Lymphocytes % (Manual) Nucleated RBC % Seg Neutrophils # Man Lymphocytes # (Manual) ABG pH 7.312 L ABG pO2 595.3 H ABG HCO3 6.6 L ABG O2 Saturation 99.6 H ABG Base Excess -18.2 L ABG Hemoglobin 5.0 L Sodium Potassium Chloride Carbon Dioxide BUN Creatinine Glucose POC Glucose Calcium Magnesium Lactate Dehydrogenase NT-Pro-B Natriuret Pep Urine Blood Large A Urine WBC (Auto) 11.0 H Urine Creatinine 144.3 H Urine Total Protein 154 H Hepatitis C Antibody Crossmatch 01/27/22 01/28/22 01/28/22 Unknown 02:08 04:00 RBC 1.97 L Hgb 5.7 L* Hct 16.7 L* D MCHC Plt Count Lymph % (Auto) 6.1 L Reagan % (Auto) 9.0 H Lymph # (Auto) 0.4 L Seg Neutrophils % 84.9 H Seg Neuts % (Manual) Lymphocytes % (Manual) Nucleated RBC % Seg Neutrophils # Man Lymphocytes # (Manual) ABG pH ABG pO2 ABG HCO3 ABG O2 Saturation ABG Base Excess ABG Hemoglobin Sodium 147 H Potassium 5.2 H D Chloride 111.6 H Carbon Dioxide 6 L* BUN 235 H Creatinine 21.2 H Glucose 74 L POC Glucose 60 L Calcium 8.0 L D Magnesium Lactate Dehydrogenase NT-Pro-B Natriuret Pep Urine Blood Urine WBC (Auto) Urine Creatinine Urine Total Protein Hepatitis C Antibody Crossmatch 01/28/22 01/28/22 01/28/22 04:00 05:05 06:00 RBC Hgb Hct MCHC Plt Count Lymph % (Auto) Reagan % (Auto) Lymph # (Auto) Seg Neutrophils % Seg Neuts % (Manual) Lymphocytes % (Manual) Nucleated RBC % Seg Neutrophils # Man Lymphocytes # (Manual) ABG pH ABG pO2 197.7 H ABG HCO3 10.6 L ABG O2 Saturation 99.2 H ABG Base Excess -13.7 L ABG Hemoglobin 5.3 L Sodium Potassium Chloride Carbon Dioxide 12 L BUN 216 H Creatinine 18.6 H Glucose POC Glucose Calcium 7.1 L Magnesium Lactate Dehydrogenase NT-Pro-B Natriuret Pep Urine Blood Urine WBC (Auto) Urine Creatinine Urine Total Protein Hepatitis C Antibody Crossmatch See Detail 01/28/22 01/28/22 01/28/22 15:25 15:25 18:17 RBC Hgb 8.3 L Hct 24.3 L D MCHC Plt Count Lymph % (Auto) Reagan % (Auto) Lymph # (Auto) Seg Neutrophils % Seg Neuts % (Manual) Lymphocytes % (Manual) Nucleated RBC % Seg Neutrophils # Man Lymphocytes # (Manual) ABG pH ABG pO2 ABG HCO3 ABG O2 Saturation ABG Base Excess ABG Hemoglobin Sodium Potassium Chloride Carbon Dioxide BUN Creatinine Glucose POC Glucose 123 H Calcium Magnesium Lactate Dehydrogenase 233 H NT-Pro-B Natriuret Pep Urine Blood Urine WBC (Auto) Urine Creatinine Urine Total Protein Hepatitis C Antibody Crossmatch 01/29/22 01/29/22 01/29/22 03:15 03:50 03:50 RBC 2.53 L Hgb 7.6 L Hct 21.6 L MCHC 35 H Plt Count 135 L Lymph % (Auto) Reagan % (Auto) Lymph # (Auto) Seg Neutrophils % Seg Neuts % (Manual) Lymphocytes % (Manual) Nucleated RBC % Seg Neutrophils # Man Lymphocytes # (Manual) ABG pH 7.582 H ABG pO2 142.5 H ABG HCO3 19.7 L ABG O2 Saturation ABG Base Excess ABG Hemoglobin 7.4 L Sodium 135 L Potassium 3.5 L D Chloride Carbon Dioxide 21 L D BUN 105 H Creatinine 9.2 H D Glucose 164 H POC Glucose Calcium 6.9 L Magnesium Lactate Dehydrogenase NT-Pro-B Natriuret Pep Urine Blood Urine WBC (Auto) Urine Creatinine Urine Total Protein Hepatitis C Antibody Crossmatch Chest x-ray: image reviewed Allied health notes reviewed: RT
--- NOTE | 2022-01-29 09:52 | Progress Note ---
Assessment and Plan - Patient Problems (1) Hyperkalemia Current Visit: Yes Status: Acute Plan to address problem: we will correct hyperkalemia with hemodialysis. Serum potassium levels have improved this morning. 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 I am concerned that this is likely a worsening of his chronic kidney disease at this point. Symptoms are concerning for worsening uremia. Patient will be receiving dialysis again today with goal of clearance. Difficult to remove fluid at this time given his tenuous hemodynamics. Her urine analysis studies are showing evidence of microscopic hematuria and proteinuria concerning for a glomerulonephritis process. He is too unstable for biopsy at this point. We will continue to monitor closely. We will add serologic studies to include PARKER, double-stranded DNA, complement levels, along with ANCA vasculitis studies. Given his severe acute kidney injury without previous baseline, we start on pulse dose steroids x3 doses, with his second dose due today. When more stable I do think he would benefit from a kidney biopsy. Pending serologic studies that were drawn yesterday. Plan for another dialysis treatment today. (3) Hypotension Current Visit: Yes Status: Acute Plan to address problem: unclear etiology of hypotension. May be secondary to underlying sepsis. discussed with primary team and pressors requirements have decreased and in fact he has been taken off all pressors at this time. (4) Acute respiratory failure Current Visit: Yes Status: Acute Plan to address problem: ventilator management per ICU team.. (5) Anemia in CKD (chronic kidney disease) Current Visit: Yes Status: Acute Plan to address problem: Transfuse to maintain hemoglobin above 7. Subjective Date of service: 01/29/22 Interval history: No acute issues overnight. Patient was able to have full dialysis treatment yesterday without any issues. Off pressor support at this time. Did receive two units of PRBC. Serologic studies are pending. Received first dose of pulse dose steroids yesterday, due for 2 more doses as we await lab results. If more stable, may need to consider a kidney biopsy. Objective - Vital Signs Vital signs: Vital Signs - 12hr 01/28/22 01/28/22 01/28/22 21:51 22:00 22:11 Temperature 97.2 F L Pulse Rate 75 80 83 Respiratory 20 19 26 H Rate Blood Pressure 113/78 126/80 104/74 O2 Sat by Pulse 100 100 Oximetry O2 Sat by Pulse 100 Oximetry [ Bilateral] 01/28/22 01/28/22 01/28/22 22:15 22:21 22:30 Temperature Pulse Rate 82 82 82 Respiratory 30 H 27 H Rate Blood Pressure 117/78 117/78 111/85 O2 Sat by Pulse 100 Oximetry O2 Sat by Pulse Oximetry [ Bilateral] 01/28/22 01/28/22 01/28/22 22:40 22:45 22:50 Temperature Pulse Rate 84 83 81 Respiratory 28 H Rate Blood Pressure 111/85 116/85 125/83 O2 Sat by Pulse 100 Oximetry O2 Sat by Pulse Oximetry [ Bilateral] 01/28/22 01/28/22 01/28/22 22:51 23:00 23:10 Temperature 97.0 F L Pulse Rate 84 81 Respiratory 29 H 28 H 30 H Rate Blood Pressure 126/80 O2 Sat by Pulse 100 100 100 Oximetry O2 Sat by Pulse Oximetry [ Bilateral] 01/28/22 01/28/22 01/28/22 23:11 23:21 23:30 Temperature Pulse Rate 82 78 80 Respiratory 21 23 18 Rate Blood Pressure 116/85 124/89 125/90 O2 Sat by Pulse 100 100 100 Oximetry O2 Sat by Pulse Oximetry [ Bilateral] 01/28/22 01/28/22 01/28/22 23:39 23:41 23:51 Temperature Pulse Rate 79 79 81 Respiratory 20 17 Rate Blood Pressure 125/90 125/90 126/87 O2 Sat by Pulse 100 100 100 Oximetry O2 Sat by Pulse Oximetry [ Bilateral] 01/29/22 01/29/22 01/29/22 00:00 00:11 00:21 Temperature Pulse Rate 78 80 79 Respiratory 28 H 16 24 Rate Blood Pressure 131/81 131/81 136/84 O2 Sat by Pulse 100 100 100 Oximetry O2 Sat by Pulse Oximetry [ Bilateral] 01/29/22 01/29/22 01/29/22 00:30 00:41 00:51 Temperature Pulse Rate 79 78 78 Respiratory 30 H 30 H 30 H Rate Blood Pressure 128/83 128/83 123/84 O2 Sat by Pulse 100 100 100 Oximetry O2 Sat by Pulse Oximetry [ Bilateral] 01/29/22 01/29/22 01/29/22 00:53 00:58 01:00 Temperature 98.2 F Pulse Rate 78 75 Respiratory 30 H 30 H 30 H Rate Blood Pressure 125/80 O2 Sat by Pulse 100 Oximetry O2 Sat by Pulse Oximetry [ Bilateral] 01/29/22 01/29/22 01/29/22 01:11 01:21 01:28 Temperature Pulse Rate 78 80 Respiratory 30 H 29 H 30 H Rate Blood Pressure 123/84 114/78 O2 Sat by Pulse 100 100 Oximetry O2 Sat by Pulse Oximetry [ Bilateral] 01/29/22 01/29/22 01/29/22 01:30 01:41 01:45 Temperature Pulse Rate 78 76 Respiratory 30 H 30 H 30 H Rate Blood Pressure 111/76 114/78 O2 Sat by Pulse 100 100 Oximetry O2 Sat by Pulse Oximetry [ Bilateral] 01/29/22 01/29/22 01/29/22 01:51 02:00 02:11 Temperature Pulse Rate 76 73 76 Respiratory 30 H 30 H 30 H Rate Blood Pressure 109/74 115/79 115/79 O2 Sat by Pulse 100 100 100 Oximetry O2 Sat by Pulse Oximetry [ Bilateral] 01/29/22 01/29/22 01/29/22 02:21 02:31 02:41 Temperature Pulse Rate 76 78 79 Respiratory 26 H 13 10 L Rate Blood Pressure 120/78 102/69 102/69 O2 Sat by Pulse 100 100 100 Oximetry O2 Sat by Pulse Oximetry [ Bilateral] 01/29/22 01/29/22 01/29/22 02:50 02:51 03:01 Temperature 98.0 F Pulse Rate 76 102 H Respiratory 30 H 30 H 30 H Rate Blood Pressure 120/82 104/77 O2 Sat by Pulse 100 100 100 Oximetry O2 Sat by Pulse Oximetry [ Bilateral] 01/29/22 01/29/22 01/29/22 03:11 03:21 03:30 Temperature Pulse Rate 74 73 74 Respiratory 30 H 30 H 30 H Rate Blood Pressure 104/77 121/84 116/80 O2 Sat by Pulse 100 100 99 Oximetry O2 Sat by Pulse Oximetry [ Bilateral] 01/29/22 01/29/22 01/29/22 03:41 03:51 04:00 Temperature Pulse Rate 71 72 71 Respiratory 30 H 30 H 30 H Rate Blood Pressure 116/80 116/79 113/77 O2 Sat by Pulse 99 99 Oximetry O2 Sat by Pulse Oximetry [ Bilateral] 01/29/22 01/29/22 01/29/22 04:01 04:02 04:11 Temperature 98.0 F Pulse Rate 71 91 H Respiratory 30 H 30 H Rate Blood Pressure 113/77 O2 Sat by Pulse 100 99 Oximetry O2 Sat by Pulse Oximetry [ Bilateral] 01/29/22 01/29/22 01/29/22 04:16 04:21 04:31 Temperature Pulse Rate 91 H 104 H 68 Respiratory 30 H 30 H Rate Blood Pressure 113/77 117/73 108/74 O2 Sat by Pulse 99 99 100 Oximetry O2 Sat by Pulse Oximetry [ Bilateral] 01/29/22 01/29/22 01/29/22 04:41 04:51 05:00 Temperature Pulse Rate 73 74 72 Respiratory 26 H 26 H 26 H Rate Blood Pressure 108/74 117/73 107/76 O2 Sat by Pulse 99 100 Oximetry O2 Sat by Pulse Oximetry [ Bilateral] 01/29/22 01/29/22 01/29/22 05:11 05:21 05:30 Temperature Pulse Rate 73 73 72 Respiratory 26 H 26 H 26 H Rate Blood Pressure 107/76 104/73 105/72 O2 Sat by Pulse 100 100 Oximetry O2 Sat by Pulse Oximetry [ Bilateral] 01/29/22 01/29/22 01/29/22 05:39 05:41 05:51 Temperature Pulse Rate 72 72 72 Respiratory 30 H 26 H 26 H Rate Blood Pressure 105/72 107/76 O2 Sat by Pulse 100 100 100 Oximetry O2 Sat by Pulse Oximetry [ Bilateral] 01/29/22 01/29/22 01/29/22 06:00 06:11 09:23 Temperature Pulse Rate 70 72 75 Respiratory 26 H 26 H Rate Blood Pressure 105/71 105/71 119/82 O2 Sat by Pulse 100 100 Oximetry O2 Sat by Pulse Oximetry [ Bilateral] 01/29/22 09:28 Temperature Pulse Rate 77 Respiratory 14 Rate Blood Pressure 119/82 O2 Sat by Pulse 110 H Oximetry O2 Sat by Pulse Oximetry [ Bilateral] - General Appearance General appearance: intubated EENT: ATNC Neck: no JVD, no thyromegaly Respiratory: Present: Clear to Ascultation Cardiology: regular Gastrointestinal: normal Integumentary: no rash Musculoskeletal: deferred Psychiatric: cooperative - Lab 01/29/22 03:50 01/29/22 03:50 Most recent lab results ABG pH 7.582 pH Units (7.350-7.450) H 01/29/22 03:15 ABG pCO2 21.5 mm Hg 01/29/22 03:15 ABG pO2 142.5 mm Hg (80.0-90.0) H 01/29/22 03:15 ABG HCO3 19.7 mmol/L (20.0-26.0) L 01/29/22 03:15 ABG O2 Saturation 99.0 % (95.0-99.0) 01/29/22 03:15 Calcium 6.9 mg/dL (8.4-10.2) L 01/29/22 03:50 Magnesium 2.60 mg/dL (1.7-2.3) H 01/27/22 01:57 Urine Creatinine 144.3 mg/dL (0.1-20.0) H 01/27/22 07:45 Urine Sodium 36 mmol/L 01/27/22 07:45 Urine Total Protein 154 mg/dL (5-11.8) H 01/27/22 07:45 - Imaging Chest x-ray: report reviewed, image reviewed - Allied health notes Allied health notes reviewed: nursing Medications & Allergies - Medications Allergies/Adverse Reactions: Allergies No Known Allergies Allergy (Verified 01/26/22 23:12) Home Medications: Home Medications Medication Instructions Recorded Confirmed Last Taken Type No Known Home Medications [No 01/27/22 01/27/22 Unknown History Reported Home Medications] Active Medications: Generic Name Dose Route Start Last Admin Trade Name Freq PRN Reason Stop Dose Admin Acetaminophen 650 mg 01/27/22 05:44 Acetaminophen 650 Mg Rect Supp OR Q6H PRN Pain MILD(1-3)/Fever >100.5/WILLIAM Epoetin Connor-epbx 10,000 unit 01/27/22 02:08 Epoetin Connor-Epbx 10,000 Unit/1 Ml Vial IV PATRICK PRN hemodialysis Famotidine 20 mg 01/27/22 10:00 01/28/22 10:38 Famotidine 20 Mg/2 Ml Inj IV 20 mg QDAY DOMINIC Administration Fentanyl 50 mcg 01/27/22 18:00 Fentanyl 100 Mcg/2 Ml Inj IV Q10MIN PRN ANALGESIA Heparin Sodium (Porcine) 5,000 unit 01/27/22 02:08 Heparin 10,000 Unit/1 Ml Vial IV PATRICK PRN hemodialysis Heparin Sodium (Porcine) 5,000 unit 01/27/22 06:00 01/29/22 05:30 Heparin 5,000 Unit/1 Ml Vial SUB-Q 5,000 unit Q8HR DOMINIC Administration Hydrophilic Ointment 1 applic 01/27/22 18:00 Lip Therapy Vaseline TP Q2HR PRN Dry Lips Sodium Bicarbonate 100 meq/ 1,100 mls @ 100 mls/hr 01/27/22 03:00 01/29/22 02:05 Sterile Water IV 100 mls/hr DIRECT DOMINIC Administration Fentanyl Citrate 2,000 mcg in 100 mls @ 3.402 mls/hr 01/27/22 18:00 Fentanyl Drip Premix IV TITR DOMINIC Protocol 1 MCG/KG/HR Propofol 1,000 mg in 100 mls @ 2.041 mls/hr 01/27/22 18:00 01/29/22 08:53 Diprivan 10 Mg/Ml IV 10 mcg/kg/min TITR DOMINIC 4.082 mls/hr Titration Protocol 5 MCG/KG/MIN NORepinephrine/NS 8 MG-250 ML 8 mg in 250 mls @ 3.75 mls/hr 01/27/22 19:00 01/28/22 14:23 Norepinephrine/Ns 8 Mg-250 Ml (Double Conc) IV 0 mcg/min TITRATE DOMINIC 0 mls/hr Titration Protocol 2 MCG/MIN Methylprednisolone Sodium 100 mls @ 200 mls/hr 01/28/22 10:00 01/28/22 12:19 Succinate 500 mg/ Sodium IV 01/30/22 10:29 Infused Chloride Q24HR DOMINIC Infusion Sodium Chloride 100 mls @ 999 mls/hr 01/28/22 08:04 Nacl 0.9% IV PATRICK PRN Hypotension Amiodarone HCl 900 mg/ 500 mls @ 33.333 mls/hr 01/28/22 20:00 01/29/22 01:48 Dextrose IV 0.5 mg/min DIRECT DOMINIC 16.667 mls/hr Infusion Protocol 1 MG/MIN AMIODARONE 150 MG/100 ML-ED 150 mg in 100 mls @ 400 mls/hr 01/28/22 20:00 01/28/22 19:29 Amiodarone 150 Mg/100 Ml-Ed Only IV 400 mls/hr ONCE DOMINIC Administration Sodium Chloride 100 mls @ 999 mls/hr 01/29/22 08:21 Nacl 0.9% IV PATRICK PRN Hypotension Magnesium Hydroxide 30 ml 01/27/22 05:44 Magnesium Hydroxide (Mom) Oral Liqd Udc PO Q4H PRN Constipation Morphine Sulfate 2 mg 01/27/22 05:44 01/29/22 00:58 Morphine 2 Mg/1 Ml Inj IV 2 mg Q4H PRN Administration Pain, Moderate (4-6) Multi-Ingred Cream/Lotion/Oil/Oint 1 applic 01/27/22 18:00 Mineral Oil/Petrolatum, White Ophth Oint 3.5 Gm OU Q4HR PRN Dry Eye(s) Senna/Docusate Sodium 1 tab 01/27/22 22:00 01/28/22 21:43 Sennosides/Docusate Sodium 8.6/50 Mg Tab FEEDTUBE 1 tab BID DOMINIC Administration Sodium Chloride 10 ml 01/27/22 10:00 01/28/22 21:43 Sodium Chloride 0.9% 10 Ml Flush Syringe IV 10 ml BID DOMINIC Administration Sodium Chloride 10 ml 01/27/22 05:44 01/29/22 00:59 Sodium Chloride 0.9% 10 Ml Flush Syringe IV 10 ml PRN PRN Administration LINE FLUSH
[2022-01-29] MEDS: SENNOSIDES/DOCUSATE SODIUM 8.6/50 MG TAB FEEDTUBE SCH ×2 (09:58→22:20)
[2022-01-29] MEDS: methylPREDNISolone Sod Suc 500 MG in SODIUM CHLORIDE 0.9% 100 ML IV SCH (09:58)
[2022-01-29] MEDS: FAMOTIDINE 20 MG/2 ML INJ IV SCH (09:58)
--- NOTE | 2022-01-29 11:35 | Progress Note ---
<SHOBHA KENNEDY - Last Filed: 01/29/22 17:18> Assessment and Plan Assessment and plan: This is a 66-year-old male with known past medical history of HTN and chronic kidney disease admitted for severe metabolic acidosis 2/2 worsen chronic kidney disease and acute hypoxic respiratory failure requiring ventilatory support. Hospital Course to Date: 01/27: Intubated and responsive not on any sedation. Did not tolerated HD this am due to bradycardia and hypotension. Currently in SR with peak-T wave on the monitor, VSS. Patient received Kayexalate, IV calcium gluconate, D50, insulin and sodium bicarb in the ED. Stat BMP pending. Continue Bcarb gtt per CCM. Awaiting on Nephro final recommendations. Throughout discussion with patient's and son at the bedside. All questions and concerns were addressed at this time. Patient remains a FULL code status. 01/28: Stable on the vent, on low dose sedation, following commands. iHD attempted overnight, aborted due to SVT and hypotension. ST, HR in the 140 noted on the monitor this am, probably due to hypovolemia. Low H&H this am, 2units of PRBCs, repeat H&H per protocol. Will check Echo to evaluate LV function and cardiology was also consulted. K normalized and renal function improved this am. Nephrology is following. 01/29: Tolerating PST this am. Continue vent wean as tolerated for possible extubation per CCM. Off pressors this am, now on Amiodarone gtt per Cardio for Aflutter. H&H stable this morning, continue to trend CBC. Plan for HD today per Nephro. 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 31.2 - Initial EKG was significant for peaked T waves. - S/p Kayexalate, IV calcium gluconate, D50, insulin and sodium bicarb in the ED. - Nephrology on consult, appreciated recommendation - Trialysis Cath inserted and iHD initiated - patient did not tolerate iHD due to SVT and hypotension overnight - K wnr this am, renal function imrpved - Currently on bcarb gtt - Continue HD per nephrp - Strict intake and output - Avoid nephrotoxic medications; Renally dose medications - Roth in place - Monitor and replace electrolytes as needed #Supraventricular Tachycardia - HR as high as 160 - [address], with no significant ST-changes - Cardiology consulted, appreciated recommendations - Per Cardio initial ECG showed narrow complex tachycardia - Amiodarone gtt initiated - SR noted on the monitor, HR 80-90s - On VTE phrop- Heparin SubQ #Acute Metabolic Encephalopathy-improved - most likely secondary to azotemia - Intubated and on low sedation, following commands - Continue HD per Nephro - Possible CT head if patient remains unresponsive and if stabilized - Avoid sedative agents - PRN Analgesia for CPOT greater than 3 - Maintenance of sleep-wake cycle #Anemia of Chronic Disease - most likely due to chronic kidney disease - S/p 2units of PRBCs - H&H stable this am - No s/s of any active bleeding - Epogen with iHD per Nephro - Transfuse if Hgb less than 7 #Hypotension-improved #H/o Hypertension - s/p vasopressors, off this a, - Probably 2/2 to hypovolemia, H&H dropped this am - Continue blood pressure monitor per protocol - Titrate pressors to maintain MAP above 65 - Hold home meds for now #GI/DVT Prophylaxis - PPI- Pepcid - Heparin SubQ - SCDs to bilateral lower extremities while in bed #Advance Care Planning - Disease education data, care plan, diagnoses, and prognosis were discussed with patient's and son at the bedside. All questions and concerns were addressed at this time. Patient family acknowledged understanding and agreement with current care plan. Patient remains a FULL code status at this time The high probability of a clinically significant, sudden or life threatening de terioration of the [multiple] system(s) required my full and direct attention, intervention and personal management. The aggregate critical care time was [60] minutes. This time is in addition to time spent performing reported procedures but includes the following: [x] Data Review and interpretation [x] Patient assessment and monitoring of vital signs [x] Documentation [x] Medication orders and management Disposition Plan: ICU Total Time Spent with Patient (Minutes): 60 History Interval history: Patient seen and examined in at the bedside. Remains stable on the vent, on low dose sedation. Tolerating PSV trial this am. Awake and following commands. Off pressors this am, remains on bcarb gtt now on Amiodarone gtt per Cardio for Aflutter. SR noted on the monitor this am, HR in the 80-90s. LILA overnight Hospitalist Physical - Constitutional Vitals: Temp Pulse Resp BP Pulse Ox 97.5 F L 93 H 24 131/78 98 01/29/22 10:35 01/29/22 11:30 01/29/22 10:35 01/29/22 11:30 01/29/22 10:35 General appearance: Present: no acute distress, well-nourished, other (Intubated, on low sedation. Following simple commands) - EENT Eyes: Present: PERRL ENT: hearing intact - Neck Neck: Present: normal ROM - Respiratory Respiratory effort: normal Respiratory: bilateral: rhonchi - Cardiovascular Rhythm: regular Heart Sounds: Present: S1 & S2 - Extremities Extremities: no ischemia, pulses intact, pulses symmetrical Peripheral Pulses: within normal limits - Abdominal General gastrointestinal: soft, non-distended, normal bowel sounds - Integumentary Integumentary: Present: warm, dry - Psychiatric Psychiatric: appropriate mood/affect, cooperative, other (Intubated, on low sedation. Following simple commands) - Neurologic Neurologic: moves all extremities, other (Intubated, on low sedation. Following simple commands) - Allied Health Allied health notes reviewed: nursing, case management HEART Score - HEART Score Troponin: Troponin T < 0.010 ng/mL (0.00-0.029) 01/26/22 23:28 Results - Labs CBC & Chem 7: 01/29/22 03:50 01/29/22 03:50 Labs: Laboratory Last Values WBC 6.0 K/mm3 (4.5-11.0) 01/29/22 03:50 RBC 2.53 M/mm3 (3.65-5.03) L 01/29/22 03:50 Hgb 7.6 gm/dl (11.8-15.2) L 01/29/22 03:50 Hct 21.6 % (35.5-45.6) L 01/29/22 03:50 MCV 85 fl (84-94) 01/29/22 03:50 MCH 30 pg (28-32) 01/29/22 03:50 MCHC 35 % (32-34) H 01/29/22 03:50 RDW 14.1 % (13.2-15.2) 01/29/22 03:50 Plt Count 135 K/mm3 (140-440) L 01/29/22 03:50 Lymph % (Auto) 6.1 % (13.4-35.0) L 01/28/22 04:00 Cocke % (Auto) 9.0 % (0.0-7.3) H 01/28/22 04:00 Eos % (Auto) 0.0 % (0.0-4.3) 01/28/22 04:00 Baso % (Auto) 0.0 % (0.0-1.8) 01/28/22 04:00 Lymph # (Auto) 0.4 K/mm3 (1.2-5.4) L 01/28/22 04:00 Cocke # (Auto) 0.5 K/mm3 (0.0-0.8) 01/28/22 04:00 Eos # (Auto) 0.0 K/mm3 (0.0-0.4) 01/28/22 04:00 Baso # (Auto) 0.0 K/mm3 (0.0-0.1) 01/28/22 04:00 Add Manual Diff Complete 01/26/22 23:28 Total Counted 100 01/26/22 23:28 Seg Neutrophils % 84.9 % (40.0-70.0) H 01/28/22 04:00 Seg Neuts % (Manual) 94.0 % (40.0-70.0) H 01/26/22 23:28 Band Neutrophils % 2.0 % 01/26/22 23:28 Lymphocytes % (Manual) 2.0 % (13.4-35.0) L 01/26/22 23:28 Reactive Lymphs % (Man) 0 % 01/26/22 23:28 Monocytes % (Manual) 1.0 % (0.0-7.3) 01/26/22 23:28 Eosinophils % (Manual) 0 % (0.0-4.3) 01/26/22 23:28 Basophils % (Manual) 0 % (0.0-1.8) 01/26/22 23:28 Metamyelocytes % 0 % 01/26/22 23:28 Myelocytes % 1.0 % 01/26/22 23:28 Promyelocytes % 0 % 01/26/22 23:28 Blast Cells % 0 % 01/26/22 23:28 Nucleated RBC % 3.0 % (0.0-0.9) H 01/26/22 23:28 Seg Neutrophils # 5.0 K/mm3 (1.8-7.7) 01/28/22 04:00 Seg Neutrophils # Man 8.3 K/mm3 (1.8-7.7) H 01/26/22 23:28 Band Neutrophils # 0.2 K/mm3 01/26/22 23:28 Lymphocytes # (Manual) 0.2 K/mm3 (1.2-5.4) L 01/26/22 23:28 Abs React Lymphs (Man) 0.0 K/mm3 01/26/22 23:28 Monocytes # (Manual) 0.1 K/mm3 (0.0-0.8) 01/26/22 23:28 Eosinophils # (Manual) 0.0 K/mm3 (0.0-0.4) 01/26/22 23:28 Basophils # (Manual) 0.0 K/mm3 (0.0-0.1) 01/26/22 23:28 Metamyelocytes # 0.0 K/mm3 01/26/22 23:28 Myelocytes # 0.1 K/mm3 01/26/22 23:28 Promyelocytes # 0.0 K/mm3 01/26/22 23:28 Blast Cells # 0.0 K/mm3 01/26/22 23:28 WBC Morphology Not Reportable 01/26/22 23:28 Hypersegmented Neuts Not Reportable 01/26/22 23:28 Hyposegmented Neuts Not Reportable 01/26/22 23:28 Hypogranular Neuts Not Reportable 01/26/22 23:28 Smudge Cells Not Reportable 01/26/22 23:28 Toxic Granulation Not Reportable 01/26/22 23:28 Toxic Vacuolation Not Reportable 01/26/22 23:28 Dohle Bodies Not Reportable 01/26/22 23:28 Pelger-Huet Anomaly Not Reportable 01/26/22 23:28 Sofia Rods Not Reportable 01/26/22 23:28 Platelet Estimate Consistent w auto 01/26/22 23:28 Clumped Platelets Not Reportable 01/26/22 23:28 Plt Clumps, EDTA Not Reportable 01/26/22 23:28 Large Platelets Not Reportable 01/26/22 23:28 Giant Platelets Not Reportable 01/26/22 23:28 Platelet Satelliting Not Reportable 01/26/22 23:28 Plt Morphology Comment Not Reportable 01/26/22 23:28 RBC Morphology Not Reportable 01/26/22 23:28 Dimorphic RBCs Not Reportable 01/26/22 23:28 Polychromasia Not Reportable 01/26/22 23:28 Hypochromasia 2+ 01/26/22 23:28 Poikilocytosis Not Reportable 01/26/22 23:28 Anisocytosis Not Reportable 01/26/22 23:28 Microcytosis Not Reportable 01/26/22 23:28 Macrocytosis Not Reportable 01/26/22 23:28 Spherocytes Not Reportable 01/26/22 23:28 Pappenheimer Bodies Not Reportable 01/26/22 23:28 Sickle Cells Not Reportable 01/26/22 23:28 Target Cells Few 01/26/22 23:28 Tear Drop Cells Not Reportable 01/26/22 23:28 Ovalocytes Not Reportable 01/26/22 23:28 Helmet Cells Not Reportable 01/26/22 23:28 [place] Bodies Not Reportable 01/26/22 23:28 [place] Rings Not Reportable 01/26/22 23:28 Kim Cells Not Reportable 01/26/22 23:28 Bite Cells Not Reportable 01/26/22 23:28 Crenated Cell Not Reportable 01/26/22 23:28 Elliptocytes Not Reportable 01/26/22 23:28 Acanthocytes (Spur) Not Reportable 01/26/22 23:28 Rouleaux Not Reportable 01/26/22 23:28 Hemoglobin C Crystals Not Reportable 01/26/22 23:28 Schistocytes Not Reportable 01/26/22 23:28 Malaria parasites Not Reportable 01/26/22 23:28 Jan Bodies Not Reportable 01/26/22 23:28 Hem Pathologist Commnt No 01/26/22 23:28 ABG pH 7.582 pH Units (7.350-7.450) H 01/29/22 03:15 ABG pCO2 21.5 mm Hg 01/29/22 03:15 ABG pO2 142.5 mm Hg (80.0-90.0) H 01/29/22 03:15 ABG HCO3 19.7 mmol/L (20.0-26.0) L 01/29/22 03:15 ABG O2 Saturation 99.0 % (95.0-99.0) 01/29/22 03:15 ABG O2 Content 10.5 (0.0-44) 01/29/22 03:15 ABG Base Excess -1.6 mmol/L (-2.0-3.0) 01/29/22 03:15 ABG Hemoglobin 7.4 gm/dl (14.0-18.0) L 01/29/22 03:15 ABG Carboxyhemoglobin 0.7 % (0.0-5.0) 01/29/22 03:15 ABG Methemoglobin 0.4 % (0.0-1.5) 01/29/22 03:15 Oxyhemoglobin 97.9 % (95.0-99.0) 01/29/22 03:15 FiO2 30 % 01/29/22 03:15 Sodium 135 mmol/L (137-145) L 01/29/22 03:50 Potassium 3.5 mmol/L (3.6-5.0) L D 01/29/22 03:50 Chloride 98.0 mmol/L (98-107) 01/29/22 03:50 Carbon Dioxide 21 mmol/L (22-30) L D 01/29/22 03:50 Anion Gap 20 mmol/L 01/29/22 03:50 BUN 105 mg/dL (9-20) H 01/29/22 03:50 Creatinine 9.2 mg/dL (0.8-1.3) H D 01/29/22 03:50 Estimated GFR 7 ml/min 01/29/22 03:50 BUN/Creatinine Ratio 11 % 01/29/22 03:50 Glucose 164 mg/dL (75-100) H 01/29/22 03:50 POC Glucose 123 mg/dL (70-105) H 01/28/22 18:17 Lactic Acid 1.40 mmol/L (0.7-2.0) 01/27/22 23:25 Calcium 6.9 mg/dL (8.4-10.2) L 01/29/22 03:50 Magnesium 2.60 mg/dL (1.7-2.3) H 01/27/22 01:57 Total Bilirubin 0.40 mg/dL (0.1-1.2) 01/26/22 23:28 AST 21 units/L (5-40) 01/26/22 23:28 ALT 19 units/L (7-56) 01/26/22 23:28 Alkaline Phosphatase 64 units/L (35-129) 01/26/22 23:28 Lactate Dehydrogenase 233 units/L (91-180) H 01/28/22 15:25 Troponin T < 0.010 ng/mL (0.00-0.029) 01/26/22 23:28 NT-Pro-B Natriuret Pep 54868 pg/mL (0-900) H 01/26/22 23:28 Total Protein 7.9 g/dL (6.3-8.2) 01/26/22 23:28 Albumin 3.9 g/dL (3.9-5) 01/26/22 23:28 Albumin/Globulin Ratio 1.0 % 01/26/22 23:28 Urine Color Yellow (Yellow) 01/27/22 07:45 Urine Turbidity Clear (Clear) 01/27/22 07:45 Urine pH 5.0 (5.0-7.0) 01/27/22 07:45 Ur Specific [place] 1.015 (1.003-1.030) 01/27/22 07:45 Urine Protein 100 mg/dl mg/dL (Negative) 01/27/22 07:45 Urine Glucose (UA) Negative mg/dL (Negative) 01/27/22 07:45 Urine Ketones Negative mg/dL (Negative) 01/27/22 07:45 Urine Blood Large (Negative) A 01/27/22 07:45 Urine Nitrite Negative (Negative) 01/27/22 07:45 Ur Reducing Substances Not Reportable 01/27/22 07:45 Urine Bilirubin Negative (Negative) 01/27/22 07:45 Urine Ictotest Not Reportable 01/27/22 07:45 Urine Urobilinogen 0.0 mg/dL (<2.0) 01/27/22 07:45 Ur Leukocyte Esterase Small (Negative) 01/27/22 07:45 Urine WBC (Auto) 11.0 /HPF (0.0-6.0) H 01/27/22 07:45 Urine RBC (Auto) 5.0 /HPF (0.0-6.0) 01/27/22 07:45 Urine Bacteria (Auto) 1+ /HPF (Negative) 01/27/22 07:45 Urine WBC Clumps Few /HPF 01/27/22 07:45 Urine Creatinine 144.3 mg/dL (0.1-20.0) H 01/27/22 07:45 Urine Sodium 36 mmol/L 01/27/22 07:45 Urine Total Protein 154 mg/dL (5-11.8) H 01/27/22 07:45 Hepatitis A IgM Ab Non-reactive (NonReactive) 01/27/22 03:31 Hep Bs Antigen Non-reactive (Negative) 01/27/22 03:31 Hep B Core IgM Ab Non-reactive (NonReactive) 01/27/22 03:31 Hepatitis C Antibody Reactive (NonReactive) A 01/27/22 03:31 Blood Type A POSITIVE 01/28/22 06:00 Antibody Screen Negative 01/28/22 06:00 Crossmatch See Detail 01/28/22 06:00 Microbiology: Microbiology 01/28/22 15:25 Peripheral/Venous Blood Culture - Preliminary Culture in Progress 01/28/22 15:25 Peripheral/Venous Blood Culture - Preliminary Culture in Progress 01/27/22 07:45 Urine,Clean Catch Urine Culture - Preliminary NO GROWTH AFTER 24 HOURS Roth/IV: Voiding Method Indwelling Catheter Active Medications - Current Medications Current Medications: Generic Name Dose Route Start Last Admin Trade Name Freq PRN Reason Stop Dose Admin Acetaminophen 650 mg 01/27/22 05:44 Acetaminophen 650 Mg Rect Supp OR Q6H PRN Pain MILD(1-3)/Fever >100.5/WILLIAM Epoetin Connor-epbx 10,000 unit 01/27/22 02:08 Epoetin Connor-Epbx 10,000 Unit/1 Ml Vial IV PATRICK PRN hemodialysis Famotidine 20 mg 01/30/22 10:00 Famotidine 20 Mg Tab FEEDTUBE DAILY DOMINIC Fentanyl 50 mcg 01/27/22 18:00 Fentanyl 100 Mcg/2 Ml Inj IV Q10MIN PRN ANALGESIA Heparin Sodium (Porcine) 5,000 unit 01/27/22 02:08 Heparin 10,000 Unit/1 Ml Vial IV PATRICK PRN hemodialysis Heparin Sodium (Porcine) 5,000 unit 01/27/22 06:00 01/29/22 05:30 Heparin 5,000 Unit/1 Ml Vial SUB-Q 5,000 unit Q8HR DOMINIC Administration Hydrophilic Ointment 1 applic 01/27/22 18:00 Lip Therapy Vaseline TP Q2HR PRN Dry Lips Sodium Bicarbonate 100 meq/ 1,100 mls @ 100 mls/hr 01/27/22 03:00 01/29/22 02:05 Sterile Water IV 100 mls/hr DIRECT DOMINIC Administration Fentanyl Citrate 2,000 mcg in 100 mls @ 3.402 mls/hr 01/27/22 18:00 Fentanyl Drip Premix IV TITR DOMINIC Protocol 1 MCG/KG/HR Propofol 1,000 mg in 100 mls @ 2.041 mls/hr 01/27/22 18:00 01/29/22 08:53 Diprivan 10 Mg/Ml IV 10 mcg/kg/min TITR DOMINIC 4.082 mls/hr Titration Protocol 5 MCG/KG/MIN NORepinephrine/NS 8 MG-250 ML 8 mg in 250 mls @ 3.75 mls/hr 01/27/22 19:00 01/28/22 14:23 Norepinephrine/Ns 8 Mg-250 Ml (Double Conc) IV 0 mcg/min TITRATE DOMINIC 0 mls/hr Titration Protocol 2 MCG/MIN Methylprednisolone Sodium 100 mls @ 200 mls/hr 01/28/22 10:00 01/29/22 09:58 Succinate 500 mg/ Sodium IV 01/30/22 10:29 200 mls/hr Chloride Q24HR DOMINIC Administration Amiodarone HCl 900 mg/ 500 mls @ 33.333 mls/hr 01/28/22 20:00 01/29/22 01:48 Dextrose IV 0.5 mg/min DIRECT DOMINIC 16.667 mls/hr Infusion Protocol 1 MG/MIN Sodium Chloride 100 mls @ 999 mls/hr 01/29/22 08:21 Nacl 0.9% IV PATRICK PRN Hypotension Magnesium Hydroxide 30 ml 01/27/22 05:44 Magnesium Hydroxide (Mom) Oral Liqd Udc PO Q4H PRN Constipation Morphine Sulfate 2 mg 01/27/22 05:44 01/29/22 00:58 Morphine 2 Mg/1 Ml Inj IV 2 mg Q4H PRN Administration Pain, Moderate (4-6) Multi-Ingred Cream/Lotion/Oil/Oint 1 applic 01/27/22 18:00 Mineral Oil/Petrolatum, White Ophth Oint 3.5 Gm OU Q4HR PRN Dry Eye(s) Senna/Docusate Sodium 1 tab 01/27/22 22:00 01/29/22 09:58 Sennosides/Docusate Sodium 8.6/50 Mg Tab FEEDTUBE 1 tab BID DOMINIC Administration Sodium Chloride 10 ml 01/27/22 10:00 01/29/22 09:58 Sodium Chloride 0.9% 10 Ml Flush Syringe IV 10 ml BID DOMINIC Administration Sodium Chloride 10 ml 01/27/22 05:44 01/29/22 00:59 Sodium Chloride 0.9% 10 Ml Flush Syringe IV 10 ml PRN PRN Administration LINE FLUSH Nutrition/Malnutrition Assess - Dietary Evaluation Nutrition/Malnutrition Findings: Nutrition Notes Start: 01/28/22 12:15 Freq: Status: Active Protocol: Document 01/28/22 12:16 ROSELYN (Rec: 01/28/22 12:49 ROSELYN [id number]) Nutrition Notes Need for Assessment generated from: MD Order Initial or Follow up Assessment Current Diagnosis Acute Kidney Injury,CKD (stage V CKD),Hypertension, Respiratory Failure Other Pertinent Diagnosis Metabolic Acidosis, Hypotension, Tachycardia, Anemia. Current Diet NPO (since 01/27 05:47), TF- Nepro w/CARBSTEADY @ 45 ml/hr (from D 01/28). Labs/Tests 01/28: CO2 12, BUN 216, Crea 18.6, Ca 7.1. Pertinent Medications 01/28: Propofol @ 6.124 ml/hr (162 Kcal), others nutritionally unremarkable. Height 5 ft 11 in Weight 68 kg Finger Body Weight (kg) 78.18 BMI 20.9 Intake Prior to Admission Poor Weight change and time frame Pt denies having loss body weight [employer]. Weight Status Appropriate Subjective/Other Information RD consult for evaluate nutritional intake and write/ manage TF. Pt currently on NPO. Pt is on Mechanical Ventilation, O2 saturation @ 100%, according to Physical Assessment History notes. Pt has missing teeth, according to Physical Assessment History notes. Pt presents sacral decubitus ulcer, according to Physical Assessment History notes. Procedure on 01/27: R-IJV dyalisis catheter placement, well tolerated, according to Operative Report notes. I will prescribe TF to provide Pt with energy/protein needs during LOS. Percent of energy/protein needs met: Pt currently on NPO. Prescribed TF-Nepro w/ CARBSTEADY @ 45 ml/hr provides for energy/protein needs (1, 946 Kcal/88 g) during LOS, 92% Kcal; 100% AA. Including 162 Kcal from Propofol, 100% Kcal; 100% AA. Burn Absent Trauma Absent GI Symptoms None Food Allergy No Skin Integrity/Comment Sacral decubitus ulcer. Current % PO Other Minimum of two criteria No Fluid Accumulation N/A Reduced Defect Cutter Strength N/A (non-severe) Protein-Calorie Malnutrition N\A #1 Nutrition Diagnosis Inadequate oral intake Etiology Pt is on Mechanical Ventilation. As Evidenced by Signs and Symptoms Pt is currently on NPO. Is patient on ventilator? Yes Is Patient Ambulatory and/or Out of Bed No REE-([facility]-confined to bed) 1789.980 Kcal/Kg value to use for calculation 31 Approximate Energy Requirements Using 2108 kcal/Kg Calculation Used for Recommendations Kcal/kg Additional Notes Protein: >1.2 g/Kg ABW; >82 g/ day. Fluids: 1 ml/Kcal, or as per MD. Nutrition Intervention Nutrition Support: Start TF-Nepro w/CARBSTEADY @ 45 ml/hr. Flkush: 220 ml water Q 4 hr, or as per MD. Kcal 1,946 Protein (gm) 88 Carbohydrates (gm) 174 Fat (gm) 104 Fluid (mL) 786 Fiber (gm) 14 % RDI: 92% Kcal; 100% AA. Goal #1 Provide at least 75% of energy /protein needs through Enteral Feeding during LOS. Follow-Up By: 01/30/22 Additional Comments Start monitoring TF tolerance and BM. <ALAYNA MARRERO E - Last Filed: 01/30/22 07:05> Assessment and Plan Assessment and plan: I saw and evaluated the patient. I agree with the findings and the plan of care as documented in the Nurse Practitioner's~note, with the following corrections and additions. Hospitalist Physical - Constitutional Vitals: Temp Pulse Resp BP Pulse Ox 98.0 F 66 20 128/79 100 01/30/22 06:41 01/30/22 07:00 01/30/22 07:00 01/30/22 07:00 01/30/22 07:00 HEART Score - HEART Score Troponin: Troponin T < 0.010 ng/mL (0.00-0.029) 01/26/22 23:28 Results - Labs CBC & Chem 7: 01/30/22 04:00 01/30/22 04:00 Labs: Laboratory Last Values WBC 7.1 K/mm3 (4.5-11.0) 01/30/22 04:00 RBC 2.27 M/mm3 (3.65-5.03) L 01/30/22 04:00 Hgb 6.8 gm/dl (11.8-15.2) L 01/30/22 04:00 Hct 19.9 % (35.5-45.6) L* 01/30/22 04:00 MCV 88 fl (84-94) 01/30/22 04:00 MCH 30 pg (28-32) 01/30/22 04:00 MCHC 34 % (32-34) 01/30/22 04:00 RDW 13.9 % (13.2-15.2) 01/30/22 04:00 Plt Count 131 K/mm3 (140-440) L 01/30/22 04:00 Lymph % (Auto) 6.1 % (13.4-35.0) L 01/28/22 04:00 [place] % (Auto) 9.0 % (0.0-7.3) H 01/28/22 04:00 Eos % (Auto) 0.0 % (0.0-4.3) 01/28/22 04:00 Baso % (Auto) 0.0 % (0.0-1.8) 01/28/22 04:00 Lymph # (Auto) 0.4 K/mm3 (1.2-5.4) L 01/28/22 04:00 [place] # (Auto) 0.5 K/mm3 (0.0-0.8) 01/28/22 04:00 Eos # (Auto) 0.0 K/mm3 (0.0-0.4) 01/28/22 04:00 Baso # (Auto) 0.0 K/mm3 (0.0-0.1) 01/28/22 04:00 Add Manual Diff Complete 01/26/22 23:28 Total Counted 100 01/26/22 23:28 Seg Neutrophils % 84.9 % (40.0-70.0) H 01/28/22 04:00 Seg Neuts % (Manual) 94.0 % (40.0-70.0) H 01/26/22 23:28 Band Neutrophils % 2.0 % 01/26/22 23:28 Lymphocytes % (Manual) 2.0 % (13.4-35.0) L 01/26/22 23:28 Reactive Lymphs % (Man) 0 % 01/26/22 23:28 Monocytes % (Manual) 1.0 % (0.0-7.3) 01/26/22 23:28 Eosinophils % (Manual) 0 % (0.0-4.3) 01/26/22 23:28 Basophils % (Manual) 0 % (0.0-1.8) 01/26/22 23:28 Metamyelocytes % 0 % 01/26/22 23:28 Myelocytes % 1.0 % 01/26/22 23:28 Promyelocytes % 0 % 01/26/22 23:28 Blast Cells % 0 % 01/26/22 23:28 Nucleated RBC % 3.0 % (0.0-0.9) H 01/26/22 23:28 Seg Neutrophils # 5.0 K/mm3 (1.8-7.7) 01/28/22 04:00 Seg Neutrophils # Man 8.3 K/mm3 (1.8-7.7) H 01/26/22 23:28 Band Neutrophils # 0.2 K/mm3 01/26/22 23:28 Lymphocytes # (Manual) 0.2 K/mm3 (1.2-5.4) L 01/26/22 23:28 Abs React Lymphs (Man) 0.0 K/mm3 01/26/22 23:28 Monocytes # (Manual) 0.1 K/mm3 (0.0-0.8) 01/26/22 23:28 Eosinophils # (Manual) 0.0 K/mm3 (0.0-0.4) 01/26/22 23:28 Basophils # (Manual) 0.0 K/mm3 (0.0-0.1) 01/26/22 23:28 Metamyelocytes # 0.0 K/mm3 01/26/22 23:28 Myelocytes # 0.1 K/mm3 01/26/22 23:28 Promyelocytes # 0.0 K/mm3 01/26/22 23:28 Blast Cells # 0.0 K/mm3 01/26/22 23:28 WBC Morphology Not Reportable 01/26/22 23:28 Hypersegmented Neuts Not Reportable 01/26/22 23:28 Hyposegmented Neuts Not Reportable 01/26/22 23:28 Hypogranular Neuts Not Reportable 01/26/22 23:28 Smudge Cells Not Reportable 01/26/22 23:28 Toxic Granulation Not Reportable 01/26/22 23:28 Toxic Vacuolation Not Reportable 01/26/22 23:28 Dohle Bodies Not Reportable 01/26/22 23:28 Pelger-Huet Anomaly Not Reportable 01/26/22 23:28 Sofia Rods Not Reportable 01/26/22 23:28 Platelet Estimate Consistent w auto 01/26/22 23:28 Clumped Platelets Not Reportable 01/26/22 23:28 Plt Clumps, EDTA Not Reportable 01/26/22 23:28 Large Platelets Not Reportable 01/26/22 23:28 Giant Platelets Not Reportable 01/26/22 23:28 Platelet Satelliting Not Reportable 01/26/22 23:28 Plt Morphology Comment Not Reportable 01/26/22 23:28 RBC Morphology Not Reportable 01/26/22 23:28 Dimorphic RBCs Not Reportable 01/26/22 23:28 Polychromasia Not Reportable 01/26/22 23:28 Hypochromasia 2+ 01/26/22 23:28 Poikilocytosis Not Reportable 01/26/22 23:28 Anisocytosis Not Reportable 01/26/22 23:28 Microcytosis Not Reportable 01/26/22 23:28 Macrocytosis Not Reportable 01/26/22 23:28 Spherocytes Not Reportable 01/26/22 23:28 Pappenheimer Bodies Not Reportable 01/26/22 23:28 Sickle Cells Not Reportable 01/26/22 23:28 Target Cells Few 01/26/22 23:28 Tear Drop Cells Not Reportable 01/26/22 23:28 Ovalocytes Not Reportable 01/26/22 23:28 Helmet Cells Not Reportable 01/26/22 23:28 [place] Bodies Not Reportable 01/26/22 23:28 [place] Rings Not Reportable 01/26/22 23:28 Kim Cells Not Reportable 01/26/22 23:28 Bite Cells Not Reportable 01/26/22 23:28 Crenated Cell Not Reportable 01/26/22 23:28 Elliptocytes Not Reportable 01/26/22 23:28 Acanthocytes (Spur) Not Reportable 01/26/22 23:28 Rouleaux Not Reportable 01/26/22 23:28 Hemoglobin C Crystals Not Reportable 01/26/22 23:28 Schistocytes Not Reportable 01/26/22 23:28 Malaria parasites Not Reportable 01/26/22 23:28 Jan Bodies Not Reportable 01/26/22 23:28 Hem Pathologist Commnt No 01/26/22 23:28 ABG pH 7.586 pH Units (7.350-7.450) H 01/30/22 04:00 ABG pCO2 27.3 mm Hg 01/30/22 04:00 ABG pO2 103.6 mm Hg (80.0-90.0) H 01/30/22 04:00 ABG HCO3 25.3 mmol/L (20.0-26.0) 01/30/22 04:00 ABG O2 Saturation 98.2 % (95.0-99.0) 01/30/22 04:00 ABG O2 Content 9.1 (0.0-44) 01/30/22 04:00 ABG Base Excess 3.3 mmol/L (-2.0-3.0) H 01/30/22 04:00 ABG Hemoglobin 6.5 gm/dl (14.0-18.0) L 01/30/22 04:00 ABG Carboxyhemoglobin 0.9 % (0.0-5.0) 01/30/22 04:00 ABG Methemoglobin 0.3 % (0.0-1.5) 01/30/22 04:00 Oxyhemoglobin 97.1 % (95.0-99.0) 01/30/22 04:00 FiO2 28 % 01/30/22 04:00 Sodium 133 mmol/L (137-145) L 01/30/22 04:00 Potassium 3.9 mmol/L (3.6-5.0) 01/30/22 04:00 Chloride 93.3 mmol/L (98-107) L 01/30/22 04:00 Carbon Dioxide 25 mmol/L (22-30) 01/30/22 04:00 Anion Gap 19 mmol/L 01/30/22 04:00 BUN 75 mg/dL (9-20) H 01/30/22 04:00 Creatinine 5.9 mg/dL (0.8-1.3) H 01/30/22 04:00 Estimated GFR 12 ml/min 01/30/22 04:00 BUN/Creatinine Ratio 13 % 01/30/22 04:00 Glucose 149 mg/dL (75-100) H 01/30/22 04:00 POC Glucose 155 mg/dL (70-105) H 01/30/22 05:48 Lactic Acid 1.40 mmol/L (0.7-2.0) 01/27/22 23:25 Calcium 7.2 mg/dL (8.4-10.2) L 01/30/22 04:00 Phosphorus 4.20 mg/dL (2.5-4.5) 01/30/22 04:00 Magnesium 1.50 mg/dL (1.7-2.3) L 01/30/22 04:00 Total Bilirubin 0.40 mg/dL (0.1-1.2) 01/26/22 23:28 AST 21 units/L (5-40) 01/26/22 23:28 ALT 19 units/L (7-56) 01/26/22 23:28 Alkaline Phosphatase 64 units/L (35-129) 01/26/22 23:28 Lactate Dehydrogenase 233 units/L (91-180) H 01/28/22 15:25 Troponin T < 0.010 ng/mL (0.00-0.029) 01/26/22 23:28 NT-Pro-B Natriuret Pep 44472 pg/mL (0-900) H 01/26/22 23:28 Total Protein 7.9 g/dL (6.3-8.2) 01/26/22 23:28 Albumin 3.9 g/dL (3.9-5) 01/26/22 23:28 Albumin/Globulin Ratio 1.0 % 01/26/22 23:28 Urine Color Yellow (Yellow) 01/27/22 07:45 Urine Turbidity Clear (Clear) 01/27/22 07:45 Urine pH 5.0 (5.0-7.0) 01/27/22 07:45 Ur Specific [place] 1.015 (1.003-1.030) 01/27/22 07:45 Urine Protein 100 mg/dl mg/dL (Negative) 01/27/22 07:45 Urine Glucose (UA) Negative mg/dL (Negative) 01/27/22 07:45 Urine Ketones Negative mg/dL (Negative) 01/27/22 07:45 Urine Blood Large (Negative) A 01/27/22 07:45 Urine Nitrite Negative (Negative) 01/27/22 07:45 Ur Reducing Substances Not Reportable 01/27/22 07:45 Urine Bilirubin Negative (Negative) 01/27/22 07:45 Urine Ictotest Not Reportable 01/27/22 07:45 Urine Urobilinogen 0.0 mg/dL (<2.0) 01/27/22 07:45 Ur Leukocyte Esterase Small (Negative) 01/27/22 07:45 Urine WBC (Auto) 11.0 /HPF (0.0-6.0) H 01/27/22 07:45 Urine RBC (Auto) 5.0 /HPF (0.0-6.0) 01/27/22 07:45 Urine Bacteria (Auto) 1+ /HPF (Negative) 01/27/22 07:45 Urine WBC Clumps Few /HPF 01/27/22 07:45 Urine Creatinine 144.3 mg/dL (0.1-20.0) H 01/27/22 07:45 Urine Sodium 36 mmol/L 01/27/22 07:45 Urine Total Protein 154 mg/dL (5-11.8) H 01/27/22 07:45 Coronavirus (PCR) Negative (Negative) 01/28/22 16:48 Hepatitis A IgM Ab Non-reactive (NonReactive) 01/27/22 03:31 Hep Bs Antigen Non-reactive (Negative) 01/27/22 03:31 Hep B Core IgM Ab Non-reactive (NonReactive) 01/27/22 03:31 Hepatitis C Antibody Reactive (NonReactive) A 01/27/22 03:31 Blood Type A POSITIVE 01/28/22 06:00 Antibody Screen Negative 01/28/22 06:00 Crossmatch See Detail 01/28/22 06:00 Microbiology: Microbiology 01/28/22 15:25 Peripheral/Venous Blood Culture - Preliminary NO GROWTH AFTER 24 HOURS 01/28/22 15:25 Peripheral/Venous Blood Culture - Preliminary NO GROWTH AFTER 24 HOURS 01/27/22 07:45 Urine,Clean Catch Urine Culture - Final NO GROWTH AFTER 48 HOURS Roth/IV: Voiding Method Indwelling Catheter Active Medications - Current Medications Current Medications: Generic Name Dose Route Start Last Admin Trade Name Freq PRN Reason Stop Dose Admin Acetaminophen 650 mg 01/27/22 05:44 Acetaminophen 650 Mg Rect Supp OR Q6H PRN Pain MILD(1-3)/Fever >100.5/WILLIAM Epoetin Connor-epbx 10,000 unit 01/27/22 02:08 Epoetin Connor-Epbx 10,000 Unit/1 Ml Vial IV PATRICK PRN hemodialysis Famotidine 20 mg 01/30/22 10:00 Famotidine 20 Mg Tab FEEDTUBE DAILY DOMINIC Fentanyl 50 mcg 01/27/22 18:00 01/30/22 02:12 Fentanyl 100 Mcg/2 Ml Inj IV 50 mcg Q10MIN PRN Administration ANALGESIA Heparin Sodium (Porcine) 5,000 unit 01/27/22 02:08 Heparin 10,000 Unit/1 Ml Vial IV PATRICK PRN hemodialysis Heparin Sodium (Porcine) 5,000 unit 01/27/22 06:00 01/30/22 05:58 Heparin 5,000 Unit/1 Ml Vial SUB-Q 5,000 unit Q8HR DOMINIC Administration Hydrophilic Ointment 1 applic 01/27/22 18:00 Lip Therapy Vaseline TP Q2HR PRN Dry Lips Sodium Bicarbonate 100 meq/ 1,100 mls @ 100 mls/hr 01/27/22 03:00 01/29/22 12:46 Sterile Water IV 100 mls/hr DIRECT DOMINIC Administration Fentanyl Citrate 2,000 mcg in 100 mls @ 3.402 mls/hr 01/27/22 18:00 Fentanyl Drip Premix IV TITR DOMINIC Protocol 1 MCG/KG/HR Propofol 1,000 mg in 100 mls @ 2.041 mls/hr 01/27/22 18:00 01/30/22 05:58 Diprivan 10 Mg/Ml IV 15 mcg/kg/min TITR DOMINIC 6.124 mls/hr Administration Protocol 5 MCG/KG/MIN NORepinephrine/NS 8 MG-250 ML 8 mg in 250 mls @ 3.75 mls/hr 01/27/22 19:00 01/29/22 16:32 Norepinephrine/Ns 8 Mg-250 Ml (Double Conc) IV 0 mcg/min TITRATE DOMINIC 0 mls/hr Titration Protocol 2 MCG/MIN Methylprednisolone Sodium 100 mls @ 200 mls/hr 01/28/22 10:00 01/29/22 09:58 Succinate 500 mg/ Sodium IV 01/30/22 10:29 200 mls/hr Chloride Q24HR DOMINIC Administration Amiodarone HCl 900 mg/ 500 mls @ 33.333 mls/hr 01/28/22 20:00 01/29/22 17:45 Dextrose IV 0.5 mg/min DIRECT DOMINIC 16.667 mls/hr Administration Protocol 1 MG/MIN Sodium Chloride 100 mls @ 999 mls/hr 01/29/22 08:21 Nacl 0.9% IV PATRICK PRN Hypotension Insulin Human Lispro 0 unit 01/29/22 18:45 01/30/22 06:26 Insulin Lispro 100 Unit/Ml SUB-Q 1 unit Q6HR DOMINIC Administration Protocol Magnesium Hydroxide 30 ml 01/27/22 05:44 Magnesium Hydroxide (Mom) Oral Liqd Udc PO Q4H PRN Constipation Morphine Sulfate 2 mg 01/27/22 05:44 01/29/22 00:58 Morphine 2 Mg/1 Ml Inj IV 2 mg Q4H PRN Administration Pain, Moderate (4-6) Multi-Ingred Cream/Lotion/Oil/Oint 1 applic 01/27/22 18:00 Mineral Oil/Petrolatum, White Ophth Oint 3.5 Gm OU Q4HR PRN Dry Eye(s) Senna/Docusate Sodium 1 tab 01/27/22 22:00 01/29/22 22:20 Sennosides/Docusate Sodium 8.6/50 Mg Tab FEEDTUBE Not Given BID DOMINIC Sodium Chloride 10 ml 01/27/22 10:00 01/29/22 21:17 Sodium Chloride 0.9% 10 Ml Flush Syringe IV 10 ml BID DOMINIC Administration Sodium Chloride 10 ml 01/27/22 05:44 01/29/22 00:59 Sodium Chloride 0.9% 10 Ml Flush Syringe IV 10 ml PRN PRN Administration LINE FLUSH Nutrition/Malnutrition Assess - Dietary Evaluation Nutrition/Malnutrition Findings: Nutrition Notes Start: 01/28/22 12:15 Freq: Status: Active Protocol: Document 01/28/22 12:16 ROSELYN (Rec: 01/28/22 12:49 ROSELYN [id number]) Nutrition Notes Need for Assessment generated from: MD Order Initial or Follow up Assessment Current Diagnosis Acute Kidney Injury,CKD (stage V CKD),Hypertension, Respiratory Failure Other Pertinent Diagnosis Metabolic Acidosis, Hypotension, Tachycardia, Anemia. Current Diet NPO (since 01/27 05:47), TF- Nepro w/CARBSTEADY @ 45 ml/hr (from D 01/28). Labs/Tests 01/28: CO2 12, BUN 216, Crea 18.6, Ca 7.1. Pertinent Medications 01/28: Propofol @ 6.124 ml/hr (162 Kcal), others nutritionally unremarkable. Height 5 ft 11 in Weight 68 kg Finger Body Weight (kg) 78.18 BMI 20.9 Intake Prior to Admission Poor Weight change and time frame Pt denies having loss body weight [employer]. Weight Status Appropriate Subjective/Other Information RD consult for evaluate nutritional intake and write/ manage TF. Pt currently on NPO. Pt is on Mechanical Ventilation, O2 saturation @ 100%, according to Physical Assessment History notes. Pt has missing teeth, according to Physical Assessment History notes. Pt presents sacral decubitus ulcer, according to Physical Assessment History notes. Procedure on 01/27: R-IJV dyalisis catheter placement, well tolerated, according to Operative Report notes. I will prescribe TF to provide Pt with energy/protein needs during LOS. Percent of energy/protein needs met: Pt currently on NPO. Prescribed TF-Nepro w/ CARBSTEADY @ 45 ml/hr provides for energy/protein needs (1, 946 Kcal/88 g) during LOS, 92% Kcal; 100% AA. Including 162 Kcal from Propofol, 100% Kcal; 100% AA. Burn Absent Trauma Absent GI Symptoms None Food Allergy No Skin Integrity/Comment Sacral decubitus ulcer. Current % PO Other Minimum of two criteria No Fluid Accumulation N/A Reduced Defect Cutter Strength N/A (non-severe) Protein-Calorie Malnutrition N\A #1 Nutrition Diagnosis Inadequate oral intake Etiology Pt is on Mechanical Ventilation. As Evidenced by Signs and Symptoms Pt is currently on NPO. Is patient on ventilator? Yes Is Patient Ambulatory and/or Out of Bed No REE-([place]-confined to bed) 1789.980 Kcal/Kg value to use for calculation 31 Approximate Energy Requirements Using 2108 kcal/Kg Calculation Used for Recommendations Kcal/kg Additional Notes Protein: >1.2 g/Kg ABW; >82 g/ day. Fluids: 1 ml/Kcal, or as per MD. Nutrition Intervention Nutrition Support: Start TF-Nepro w/CARBSTEADY @ 45 ml/hr. Flkush: 220 ml water Q 4 hr, or as per MD. Kcal 1,946 Protein (gm) 88 Carbohydrates (gm) 174 Fat (gm) 104 Fluid (mL) 786 Fiber (gm) 14 % RDI: 92% Kcal; 100% AA. Goal #1 Provide at least 75% of energy /protein needs through Enteral Feeding during LOS. Follow-Up By: 01/30/22 Additional Comments Start monitoring TF tolerance and BM.
[2022-01-29] MEDS: NORepinephrine/NS 8 MG-250 ML 8 MG/250 ML INFUS..BTL IV SCH (12:38)
--- NOTE | 2022-01-29 13:32 | Progress Note ---
Assessment and Plan - Patient Problems (1) Paroxysmal atrial flutter Current Visit: Yes Status: Acute Plan to address problem: Patient admitted with acute renal failure, hyperkalemia, sepsis and severe anemia. In the setting of severe electrolyte and acid-base imbalance, he has developed paroxysmal atrial flutter. We will continue intravenous amiodarone for management of paroxysmal atrial flutter. An echocardiogram is pending for left ventricular function assessment. Subjective Date of service: 01/29/22 Principal diagnosis: Paroxysmal atrial flutter Interval history: Patient is sedated, on the vent. Currently undergoing dialysis. On quality assurance monitor final, there is a stable sinus rhythm at 99. Patient is tolerating intravenous amiodarone. Objective Vital Signs Temp Pulse Pulse Resp BP Pulse Ox Pulse Ox 01/29/22 13:15 102 H 154/91 01/29/22 13:00 100 H 30 H 146/83 98 01/29/22 12:51 97 H 24 133/85 97 01/29/22 12:45 96 H 133/85 01/29/22 12:41 85 26 H 87/57 92 01/29/22 12:30 83 26 H 85/55 93 01/29/22 12:21 90 25 H 114/74 91 01/29/22 12:15 94 H 114/74 01/29/22 12:11 98 H 30 H 133/85 97 01/29/22 12:00 98.1 F 104 H 29 H 133/85 95 01/29/22 11:51 104 H 29 H 149/86 98 01/29/22 11:45 102 H 149/86 01/29/22 11:41 98 H 16 131/78 99 01/29/22 11:30 94 H 24 131/78 96 01/29/22 11:21 93 H 26 H 130/82 96 01/29/22 11:15 94 H 130/82 01/29/22 11:11 91 H 27 H 138/85 98 01/29/22 11:01 100 H 26 H 138/85 98 01/29/22 11:00 100 H 138/85 01/29/22 10:51 99 H 28 H 134/87 96 01/29/22 10:45 100 H 134/87 01/29/22 10:41 97 H 18 132/87 97 01/29/22 10:35 97.5 F L 97 H 24 132/87 98 01/29/22 10:31 97 H 27 H 132/87 98 01/29/22 10:21 92 H 24 133/73 99 01/29/22 10:11 94 H 28 H 112/79 100 01/29/22 10:01 88 22 121/81 100 01/29/22 09:51 85 23 121/81 99 01/29/22 09:41 82 17 115/77 99 01/29/22 09:30 78 12 115/77 99 01/29/22 09:28 77 14 119/82 110 H 01/29/22 09:23 75 119/82 100 01/29/22 09:21 81 16 119/82 100 01/29/22 09:11 81 11 L 99/68 100 01/29/22 09:00 70 26 H 99/68 01/29/22 08:51 69 26 H 102/66 98 01/29/22 08:41 70 26 H 98/66 98 01/29/22 08:30 70 26 H 98/66 01/29/22 08:21 70 26 H 97/66 98 01/29/22 08:11 70 26 H 102/68 98 01/29/22 08:00 97.4 F L 69 69 26 H 102/68 98 01/29/22 07:51 70 26 H 97/67 98 01/29/22 07:41 70 26 H 102/70 98 01/29/22 07:30 69 26 H 102/70 01/29/22 07:21 70 26 H 106/70 98 01/29/22 07:11 71 26 H 103/71 99 01/29/22 07:00 70 26 H 103/71 01/29/22 06:51 71 26 H 101/71 98 01/29/22 06:41 72 26 H 101/72 98 07 06:30 71 26 H 101/72 07 06:21 74 19 107/73 100 01/29/22 06:11 72 26 H 105/71 100 01/29/22 06:00 70 26 H 105/71 01/29/22 05:51 72 26 H 107/76 100 01/29/22 05:41 72 26 H 105/72 100 01/29/22 05:39 72 30 H 100 01/29/22 05:30 72 26 H 105/72 01/29/22 05:21 73 26 H 104/73 100 01/29/22 05:11 73 26 H 107/76 100 01/29/22 05:00 72 26 H 107/76 01/29/22 04:51 74 26 H 117/73 100 01/29/22 04:41 73 26 H 108/74 99 01/29/22 04:31 68 30 H 108/74 100 01/29/22 04:21 104 H 30 H 117/73 99 01/29/22 04:16 91 H 113/77 99 01/29/22 04:11 91 H 30 H 113/77 99 01/29/22 04:02 71 30 H 100 01/29/22 04:01 98.0 F 01/29/22 04:00 71 30 H 113/77 01/29/22 03:51 72 30 H 116/79 99 01/29/22 03:41 71 30 H 116/80 99 01/29/22 03:30 74 30 H 116/80 99 01/29/22 03:21 73 30 H 121/84 100 01/29/22 03:11 74 30 H 104/77 100 01/29/22 03:01 102 H 30 H 104/77 100 01/29/22 02:51 76 30 H 120/82 100 01/29/22 02:50 98.0 F 30 H 100 01/29/22 02:41 79 10 L 102/69 100 01/29/22 02:31 78 13 102/69 100 01/29/22 02:21 76 26 H 120/78 100 01/29/22 02:11 76 30 H 115/79 100 01/29/22 02:00 73 30 H 115/79 100 01/29/22 01:51 76 30 H 109/74 100 01/29/22 01:45 30 H 100 01/29/22 01:41 76 30 H 114/78 100 01/29/22 01:30 78 30 H 111/76 01/29/22 01:28 30 H 01/29/22 01:21 80 29 H 114/78 100 01/29/22 01:11 78 30 H 123/84 100 01/29/22 01:00 75 30 H 125/80 01/29/22 00:58 30 H 01/29/22 00:53 98.2 F 78 30 H 100 01/29/22 00:51 78 30 H 123/84 100 01/29/22 00:41 78 30 H 128/83 100 01/29/22 00:30 79 30 H 128/83 100 01/29/22 00:21 79 24 136/84 100 01/29/22 00:11 80 16 131/81 100 01/29/22 00:00 78 28 H 131/81 100 01/28/22 23:51 81 17 126/87 100 01/28/22 23:41 79 20 125/90 100 01/28/22 23:39 79 125/90 100 01/28/22 23:30 80 18 125/90 100 01/28/22 23:21 78 23 124/89 100 01/28/22 23:11 82 21 116/85 100 01/28/22 23:10 97.0 F L 30 H 100 01/28/22 23:00 81 28 H 126/80 100 01/28/22 22:51 84 29 H 100 01/28/22 22:50 81 125/83 01/28/22 22:45 83 116/85 01/28/22 22:40 84 28 H 111/85 100 01/28/22 22:30 82 27 H 111/85 01/28/22 22:21 82 30 H 117/78 100 01/28/22 22:15 82 117/78 01/28/22 22:11 83 26 H 104/74 100 01/28/22 22:00 97.2 F L 80 19 126/80 100 01/28/22 21:51 75 20 113/78 100 01/28/22 21:45 76 113/78 01/28/22 21:41 71 22 109/76 100 01/28/22 21:40 30 H 100 01/28/22 21:30 72 20 104/74 01/28/22 21:21 71 22 109/76 100 01/28/22 21:15 74 109/76 01/28/22 21:11 71 30 H 108/75 100 01/28/22 21:00 73 27 H 106/74 100 01/28/22 20:51 75 30 H 108/75 100 01/28/22 20:45 75 108/75 01/28/22 20:41 79 30 H 107/75 100 01/28/22 20:35 75 01/28/22 20:34 97.4 F L 01/28/22 20:30 74 27 H 104/74 100 01/28/22 20:21 70 30 H 107/75 100 01/28/22 20:15 70 107/75 01/28/22 20:11 70 30 H 104/76 100 01/28/22 20:00 97.3 F L 69 30 H 104/76 100 100 01/28/22 19:51 88 30 H 96/67 100 01/28/22 19:41 85 30 H 111/70 100 01/28/22 19:30 129 H 30 H 111/70 100 01/28/22 19:21 116 H 19 106/70 100 01/28/22 19:20 97.4 F L 129 H 30 H 100 01/28/22 19:11 96 H 30 H 105/67 100 01/28/22 19:00 117 H 30 H 105/67 100 01/28/22 18:51 118 H 21 91/70 100 01/28/22 18:41 79 19 89/74 100 01/28/22 18:30 135 H 17 89/74 100 01/28/22 18:21 117 H 24 98/66 100 01/28/22 18:11 116 H 28 H 103/71 100 01/28/22 18:00 121 H 18 103/71 100 01/28/22 17:51 112 H 13 113/70 100 01/28/22 17:41 80 18 105/79 100 01/28/22 17:30 143 H 22 105/79 100 01/28/22 17:21 86 16 112/76 100 01/28/22 17:11 83 12 107/75 100 01/28/22 17:00 80 30 H 107/75 01/28/22 16:51 78 27 H 109/73 100 01/28/22 16:41 78 30 H 107/71 100 01/28/22 16:33 83 30 H 111/72 100 01/28/22 16:30 82 30 H 107/71 100 01/28/22 16:21 83 30 H 104/73 100 01/28/22 16:11 81 30 H 111/72 100 01/28/22 16:00 98.1 F 78 122 H 30 H 111/72 100 01/28/22 15:51 77 30 H 105/72 100 01/28/22 15:41 80 30 H 108/75 100 01/28/22 15:30 78 30 H 108/75 01/28/22 15:21 81 30 H 109/70 01/28/22 15:11 82 30 H 103/73 100 01/28/22 15:00 81 30 H 103/73 01/28/22 14:51 80 30 H 100/72 01/28/22 14:41 79 15 102/72 01/28/22 14:30 80 30 H 102/72 01/28/22 14:21 81 29 H 114/79 01/28/22 14:11 80 30 H 96/71 01/28/22 14:00 114 H 30 H 96/71 01/28/22 13:51 109 H 30 H 113/78 01/28/22 13:50 98.6 F 95 H 30 H 113/78 01/28/22 13:41 121 H 30 H 109/72 01/28/22 13:34 98.6 F 115 H 30 H 109/72 100 - Physical Examination General: Other (Unresponsive, on the vent) HEENT: Positive: Other (Pupils fixed) Neck: Positive: neck supple Cardiac: Positive: Reg Rate and Rhythm Lungs: Positive: Decreased Breath Sounds Neuro: Positive: Weakness (Unresponsive, on the vent) Abdomen: Positive: Soft Skin: Positive: Clear Extremities: Absent: edema - Labs and Meds Cardiac Enzymes 01/28/22 Range/Units 15:25 Lactate Dehydrogenase 233 H (91-180) units/L CBC 01/28/22 01/29/22 Range/Units 15:25 03:50 WBC 6.0 (4.5-11.0) K/mm3 RBC 2.53 L (3.65-5.03) M/mm3 Hgb 8.3 L 7.6 L (11.8-15.2) gm/dl Hct 24.3 L D 21.6 L (35.5-45.6) % Plt Count 135 L (140-440) K/mm3 Comprehensive Metabolic Panel 01/29/22 Range/Units 03:50 Sodium 135 L (137-145) mmol/L Potassium 3.5 L D (3.6-5.0) mmol/L Chloride 98.0 (98-107) mmol/L Carbon Dioxide 21 L D (22-30) mmol/L BUN 105 H (9-20) mg/dL Creatinine 9.2 H D (0.8-1.3) mg/dL Glucose 164 H (75-100) mg/dL Calcium 6.9 L (8.4-10.2) mg/dL - Allied health notes Allied health notes reviewed: nursing
[2022-01-29] MEDS: fentaNYL 100 MCG/2 ML INJ IV PRN ×2 (17:42→21:17)
[2022-01-29] MEDS: AMIODARONE 900 MG in DEXTROSE 5% IN WATER 482 ML IV SCH (17:45)
[2022-01-29] MEDS: INSULIN LISPRO 100 UNIT/ML SUB-Q SCH (18:55)
[2022-01-30] MEDS: INSULIN LISPRO 100 UNIT/ML SUB-Q SCH ×4 (00:20→18:05)
[2022-01-30] MEDS: fentaNYL 100 MCG/2 ML INJ IV PRN ×3 (02:12→09:37)
[2022-01-30 04:17] LABS: Hemoglobin 6.8 gm/dl (11.8-15.2); Mean Corpuscular HGB Conc 34 % (32-34); Mean Corpuscular Volume 88 fl (84-94); Platelet Count 131 K/mm3 (140-440); Red Blood Count 2.27 M/mm3 (3.65-5.03); Red Cell Distribution Width 13.9 % (13.2-15.2)
[2022-01-30 04:19] LABS: Hematocrit 19.9 % (35.5-45.6)
[2022-01-30] MEDS ORDERED: SODIUM CHLORIDE 0.9% 500 ML 500 ML IV ONE (04:23)
[2022-01-30 04:37] LABS: Calcium 7.2 mg/dL (8.4-10.2)
[2022-01-30 04:39] LABS: ABG Base Excess 3.3 mmol/L (-2.0-3.0); ABG HCO3 25.3 mmol/L (20.0-26.0); ABG Methemoglobin 0.3 % (0.0-1.5); ABG Oxygen Saturation 98.2 % (95.0-99.0); ABG PCO2 27.3 mm Hg; ABG PH 7.586 pH Units (7.350-7.450); ABG PO2 103.6 mm Hg (80.0-90.0)
[2022-01-30] MEDS: HEPARIN 5,000 UNIT/1 ML VIAL SUB-Q SCH ×2 (05:58→14:31)
--- NOTE | 2022-01-30 07:04 | XRay Report ---
XR chest 1V ap INDICATION / CLINICAL INFORMATION: follow up respiratory failure. COMPARISON: Radiograph from yesterday. FINDINGS: SUPPORT DEVICES: Unchanged. HEART /PULMONARY VASCULATURE: Unchanged. LUNGS / PLEURA: Lungs are clear. No pleural effusion. No pneumothorax. IMPRESSION: 1. No significant interval change. No acute findings. Signer Name: Taye Poole MD Signed: 01/30/2022 6:59 AM Workstation Name: [id number]
--- NOTE | 2022-01-30 08:43 | Progress Note ---
Assessment and Plan - Patient Problems (1) Hyperkalemia Current Visit: Yes Status: Acute Plan to address problem: we will correct hyperkalemia with hemodialysis. Serum potassium levels have improved this morning. 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 I am concerned that this is likely a worsening of his chronic kidney disease at this point. Symptoms are concerning for worsening uremia. Patient will be receiving dialysis again today with goal of clearance. Difficult to remove fluid at this time given his tenuous hemodynamics. Her urine analysis studies are showing evidence of microscopic hematuria and proteinuria concerning for a glomerulonephritis process. He is too unstable for biopsy at this point. We will continue to monitor closely. We will add serologic studies to include PARKER, double-stranded DNA, complement levels, along with ANCA vasculitis studies. Given his severe acute kidney injury without previous baseline, we started on pulse dose steroids x3 doses, with his third dose due today. When more stable I do think he would benefit from a kidney biopsy. Pending serologic studies that have been drawn. Tolerated HD well yesterday without any issues. Plan for next HD session tomorrow. (3) Hypotension Current Visit: Yes Status: Acute Plan to address problem: unclear etiology of hypotension. May be secondary to underlying sepsis. discussed with primary team and pressors requirements have decreased and in fact he has been taken off all pressors at this time. (4) Acute respiratory failure Current Visit: Yes Status: Acute Plan to address problem: ventilator management per ICU team.. (5) Anemia in CKD (chronic kidney disease) Current Visit: Yes Status: Acute Plan to address problem: Transfuse to maintain hemoglobin above 7. Subjective Date of service: 01/30/22 Principal diagnosis: Paroxysmal atrial flutter Interval history: No acute changes, minimal vent settings. Remains oliguric. Tolerated HD treatment yesterday without any issues. Objective - Vital Signs Vital signs: Vital Signs - 12hr 01/29/22 01/29/22 01/29/22 20:51 21:00 21:11 Temperature Pulse Rate 95 H 97 H 87 Pulse Rate [ From Monitor] Respiratory 29 H 30 H 26 H Rate Blood Pressure 143/92 154/95 154/95 O2 Sat by Pulse 100 100 100 Oximetry 01/29/22 01/29/22 01/29/22 21:21 21:30 21:41 Temperature Pulse Rate 76 75 75 Pulse Rate [ From Monitor] Respiratory 26 H 26 H 26 H Rate Blood Pressure 119/66 94/61 143/92 O2 Sat by Pulse 100 100 100 Oximetry 01/29/22 01/29/22 01/29/22 21:51 22:00 22:11 Temperature Pulse Rate 73 74 71 Pulse Rate [ From Monitor] Respiratory 26 H 26 H 26 H Rate Blood Pressure 99/64 103/65 103/65 O2 Sat by Pulse 100 100 100 Oximetry 01/29/22 01/29/22 01/29/22 22:21 22:30 22:41 Temperature Pulse Rate 84 71 70 Pulse Rate [ From Monitor] Respiratory 15 26 H 26 H Rate Blood Pressure 100/64 109/67 109/67 O2 Sat by Pulse 100 100 100 Oximetry 01/29/22 01/29/22 01/29/22 22:51 23:00 23:11 Temperature Pulse Rate 70 71 70 Pulse Rate [ From Monitor] Respiratory 26 H 26 H 26 H Rate Blood Pressure 99/65 103/67 103/67 O2 Sat by Pulse 100 100 Oximetry 01/29/22 01/29/22 01/29/22 23:21 23:30 23:41 Temperature Pulse Rate 69 84 88 Pulse Rate [ From Monitor] Respiratory 26 H 20 25 H Rate Blood Pressure 105/67 114/76 114/76 O2 Sat by Pulse 100 100 100 Oximetry 01/29/22 01/29/22 01/29/22 23:51 23:56 23:57 Temperature 98.4 F Pulse Rate 74 74 Pulse Rate [ From Monitor] Respiratory 26 H Rate Blood Pressure 124/78 124/78 O2 Sat by Pulse 100 100 Oximetry 01/30/22 01/30/22 01/30/22 00:00 00:11 00:21 Temperature Pulse Rate 74 73 71 Pulse Rate [ 93 H From Monitor] Respiratory 26 H 24 24 Rate Blood Pressure 107/71 107/71 107/70 O2 Sat by Pulse 100 100 100 Oximetry 01/30/22 01/30/22 01/30/22 00:30 00:41 00:51 Temperature Pulse Rate 78 91 H 94 H Pulse Rate [ From Monitor] Respiratory 24 22 23 Rate Blood Pressure 116/75 116/75 121/82 O2 Sat by Pulse 100 100 Oximetry 01/30/22 01/30/2201/30/22 01:00 01:11 01:21 Temperature Pulse Rate 72 71 73 Pulse Rate [ From Monitor] Respiratory 24 24 24 Rate Blood Pressure 104/68 116/75 100/66 O2 Sat by Pulse 100 100 100 Oximetry 01/30/22 01/30/22 01/30/22 01:30 01:41 01:51 Temperature Pulse Rate 77 89 94 H Pulse Rate [ From Monitor] Respiratory 25 H 18 22 Rate Blood Pressure 107/71 107/71 123/84 O2 Sat by Pulse 100 100 100 Oximetry 01/30/22 01/30/22 01/30/22 02:01 02:11 02:21 Temperature Pulse Rate 91 H 95 H 74 Pulse Rate [ From Monitor] Respiratory 25 H 17 18 Rate Blood Pressure 130/82 123/84 106/72 O2 Sat by Pulse 100 100 100 Oximetry 01/30/22 01/30/22 01/30/22 02:30 02:41 02:51 Temperature Pulse Rate 72 71 69 Pulse Rate [ From Monitor] Respiratory 24 24 24 Rate Blood Pressure 102/67 106/72 97/65 O2 Sat by Pulse 99 99 Oximetry 01/30/22 01/30/22 01/30/22 03:00 03:11 03:21 Temperature Pulse Rate 71 68 69 Pulse Rate [ From Monitor] Respiratory 24 24 24 Rate Blood Pressure 97/62 97/65 97/62 O2 Sat by Pulse 98 98 Oximetry 01/30/22 01/30/22 01/30/22 03:31 03:41 03:51 Temperature Pulse Rate 83 67 70 Pulse Rate [ From Monitor] Respiratory 16 24 24 Rate Blood Pressure 95/62 97/62 96/62 O2 Sat by Pulse 99 100 100 Oximetry 01/30/22 01/30/22 01/30/22 04:00 04:11 04:21 Temperature 98.4 F Pulse Rate 79 67 70 Pulse Rate [ 93 H From Monitor] Respiratory 20 24 24 Rate Blood Pressure 96/62 103/68 95/61 O2 Sat by Pulse 99 100 100 Oximetry 01/30/22 01/30/22 01/30/22 04:30 04:41 04:51 Temperature Pulse Rate 71 78 68 Pulse Rate [ From Monitor] Respiratory 24 14 24 Rate Blood Pressure 96/66 96/66 106/71 O2 Sat by Pulse 100 100 Oximetry 01/30/22 01/30/22 01/30/22 04:55 05:00 05:11 Temperature Pulse Rate 70 71 70 Pulse Rate [ From Monitor] Respiratory 20 20 Rate Blood Pressure 106/71 89/61 89/61 O2 Sat by Pulse 100 98 99 Oximetry 01/30/22 01/30/22 01/30/22 05:21 05:26 05:30 Temperature 98.2 F Pulse Rate 68 70 70 Pulse Rate [ From Monitor] Respiratory 20 20 20 Rate Blood Pressure 92/59 92/89 91/58 O2 Sat by Pulse 99 99 98 Oximetry 01/30/22 01/30/22 01/30/22 05:41 05:51 06:00 Temperature 97.9 F Pulse Rate 80 67 66 Pulse Rate [ From Monitor] Respiratory 26 H 20 20 Rate Blood Pressure 91/58 109/89 135/79 O2 Sat by Pulse 100 98 97 Oximetry 01/30/22 01/30/22 01/30/22 06:11 06:21 06:30 Temperature 97.7 F Pulse Rate 67 65 68 Pulse Rate [ From Monitor] Respiratory 20 20 20 Rate Blood Pressure 135/79 109/89 128/76 O2 Sat by Pulse 99 100 99 Oximetry 01/30/22 01/30/22 01/30/22 06:41 06:51 07:00 Temperature 98.0 F Pulse Rate 67 66 66 Pulse Rate [ From Monitor] Respiratory 20 20 20 Rate Blood Pressure 128/76 126/80 128/79 O2 Sat by Pulse 100 99 100 Oximetry 01/30/22 01/30/22 01/30/22 07:11 07:13 07:21 Temperature 97.4 F L 97.9 F Pulse Rate 82 75 Pulse Rate [ From Monitor] Respiratory 16 20 Rate Blood Pressure 128/79 130/78 O2 Sat by Pulse 100 99 Oximetry 01/30/22 01/30/22 01/30/22 07:30 07:41 07:51 Temperature Pulse Rate 67 65 66 Pulse Rate [ From Monitor] Respiratory 20 20 20 Rate Blood Pressure 122/75 122/75 126/77 O2 Sat by Pulse 98 99 99 Oximetry 01/30/22 08:00 Temperature Pulse Rate 66 Pulse Rate [ 68 From Monitor] Respiratory 20 Rate Blood Pressure 119/73 O2 Sat by Pulse 99 Oximetry - General Appearance General appearance: sedated on ventilator, intubated EENT: ATNC Neck: no JVD Respiratory: Present: Clear to Ascultation Cardiology: regular Gastrointestinal: normal Integumentary: no rash Musculoskeletal: deferred - Lab 01/30/22 04:00 01/30/22 04:00 Most recent lab results ABG pH 7.586 pH Units (7.350-7.450) H 01/30/22 04:00 ABG pCO2 27.3 mm Hg 01/30/22 04:00 ABG pO2 103.6 mm Hg (80.0-90.0) H 01/30/22 04:00 ABG HCO3 25.3 mmol/L (20.0-26.0) 01/30/22 04:00 ABG O2 Saturation 98.2 % (95.0-99.0) 01/30/22 04:00 Calcium 7.2 mg/dL (8.4-10.2) L 01/30/22 04:00 Phosphorus 4.20 mg/dL (2.5-4.5) 01/30/22 04:00 Magnesium 1.50 mg/dL (1.7-2.3) L 01/30/22 04:00 Urine Creatinine 144.3 mg/dL (0.1-20.0) H 01/27/22 07:45 Urine Sodium 36 mmol/L 01/27/22 07:45 Urine Total Protein 154 mg/dL (5-11.8) H 01/27/22 07:45 - Allied health notes Allied health notes reviewed: nursing Medications & Allergies - Medications Allergies/Adverse Reactions: Allergies No Known Allergies Allergy (Verified 01/26/22 23:12) Home Medications: Home Medications Medication Instructions Recorded Confirmed Last Taken Type No Known Home Medications [No 01/27/22 01/27/22 Unknown History Reported Home Medications] Active Medications: Generic Name Dose Route Start Last Admin Trade Name Freq PRN Reason Stop Dose Admin Acetaminophen 650 mg 01/27/22 05:44 Acetaminophen 650 Mg Rect Supp MO Q6H PRN Pain MILD(1-3)/Fever >100.5/WILLIAM Epoetin Connor-epbx 10,000 unit 01/27/22 02:08 Epoetin Connor-Epbx 10,000 Unit/1 Ml Vial IV PATRICK PRN hemodialysis Famotidine 20 mg 01/30/22 10:00 Famotidine 20 Mg Tab FEEDTUBE DAILY DOMINIC Fentanyl 50 mcg 01/27/22 18:00 01/30/22 07:20 Fentanyl 100 Mcg/2 Ml Inj IV 50 mcg Q10MIN PRN Administration ANALGESIA Heparin Sodium (Porcine) 5,000 unit 01/27/22 02:08 Heparin 10,000 Unit/1 Ml Vial IV PATRICK PRN hemodialysis Heparin Sodium (Porcine) 5,000 unit 01/27/22 06:00 01/30/22 05:58 Heparin 5,000 Unit/1 Ml Vial SUB-Q 5,000 unit Q8HR DOMINIC Administration Hydrophilic Ointment 1 applic 01/27/22 18:00 Lip Therapy Vaseline TP Q2HR PRN Dry Lips Fentanyl Citrate 2,000 mcg in 100 mls @ 3.402 mls/hr 01/27/22 18:00 Fentanyl Drip Premix IV TITR DOMINIC Protocol 1 MCG/KG/HR Propofol 1,000 mg in 100 mls @ 2.041 mls/hr 01/27/22 18:00 01/30/22 07:30 Diprivan 10 Mg/Ml IV 20 mcg/kg/min TITR DOMINIC 8.165 mls/hr Titration Protocol 5 MCG/KG/MIN NORepinephrine/NS 8 MG-250 ML 8 mg in 250 mls @ 3.75 mls/hr 01/27/22 19:00 01/29/22 16:32 Norepinephrine/Ns 8 Mg-250 Ml (Double Conc) IV 0 mcg/min TITRATE DOMINIC 0 mls/hr Titration Protocol 2 MCG/MIN Methylprednisolone Sodium 100 mls @ 200 mls/hr 01/28/22 10:00 01/29/22 10:28 Succinate 500 mg/ Sodium IV 01/30/22 10:29 Infused Chloride Q24HR DOMINIC Infusion Amiodarone HCl 900 mg/ 500 mls @ 33.333 mls/hr 01/28/22 20:00 01/29/22 17:45 Dextrose IV 0.5 mg/min DIRECT DOMINIC 16.667 mls/hr Administration Protocol 1 MG/MIN Sodium Chloride 100 mls @ 999 mls/hr 01/29/22 08:21 Nacl 0.9% IV PATRICK PRN Hypotension Sodium Chloride 1,000 mls @ 75 mls/hr 01/30/22 08:45 Nacl 0.9% 1000 Ml IV DIRECT DOMINIC Insulin Human Lispro 0 unit 01/29/22 18:45 01/30/22 06:26 Insulin Lispro 100 Unit/Ml SUB-Q 1 unit Q6HR DOMINIC Administration Protocol Magnesium Hydroxide 30 ml 01/27/22 05:44 Magnesium Hydroxide (Mom) Oral Liqd Udc PO Q4H PRN Constipation Morphine Sulfate 2 mg 01/27/22 05:44 01/29/22 00:58 Morphine 2 Mg/1 Ml Inj IV 2 mg Q4H PRN Administration Pain, Moderate (4-6) Multi-Ingred Cream/Lotion/Oil/Oint 1 applic 01/27/22 18:00 Mineral Oil/Petrolatum, White Ophth Oint 3.5 Gm OU Q4HR PRN Dry Eye(s) Senna/Docusate Sodium 1 tab 01/27/22 22:00 01/29/22 22:20 Sennosides/Docusate Sodium 8.6/50 Mg Tab FEEDTUBE Not Given BID DOMINIC Sodium Chloride 10 ml 01/27/22 10:00 01/29/22 21:17 Sodium Chloride 0.9% 10 Ml Flush Syringe IV 10 ml BID DOMINIC Administration Sodium Chloride 10 ml 01/27/22 05:44 01/29/22 00:59 Sodium Chloride 0.9% 10 Ml Flush Syringe IV 10 ml PRN PRN Administration LINE FLUSH
[2022-01-30] MEDS ORDERED: SODIUM CHLORIDE 0.9% 1000 ML 1,000 ML IV SCH (09:00)
[2022-01-30] MEDS ORDERED: SODIUM CHLORIDE 0.9% 100 ML IV PRN (09:00)
[2022-01-30] MEDS ORDERED: MAGNESIUM SULFATE 4 GM/100 ML BAG IV ONE (09:30)
[2022-01-30] MEDS: methylPREDNISolone Sod Suc 500 MG in SODIUM CHLORIDE 0.9% 100 ML IV SCH (09:38)
[2022-01-30] MEDS: FAMOTIDINE 20 MG TAB FEEDTUBE SCH (09:43)
[2022-01-30] MEDS: SENNOSIDES/DOCUSATE SODIUM 8.6/50 MG TAB FEEDTUBE SCH ×2 (09:43→22:59)
--- NOTE | 2022-01-30 10:30 | Progress Note ---
<SHOBHA KENNEDY - Last Filed: 01/30/22 17:12> Assessment and Plan Assessment and plan: This is a 66-year-old male with known past medical history of HTN and chronic kidney disease admitted for severe metabolic acidosis 2/2 worsen chronic kidney disease and acute hypoxic respiratory failure requiring ventilatory support. Hospital Course to Date: 01/27: Intubated and responsive not on any sedation. Did not tolerated HD this am due to bradycardia and hypotension. Currently in SR with peak-T wave on the monitor, VSS. Patient received Kayexalate, IV calcium gluconate, D50, insulin and sodium bicarb in the ED. Stat BMP pending. Continue Bcarb gtt per CCM. Awaiting on Nephro final recommendations. Throughout discussion with patient's and son at the bedside. All questions and concerns were addressed at this time. Patient remains a FULL code status. 01/28: Stable on the vent, on low dose sedation, following commands. iHD attempted overnight, aborted due to SVT and hypotension. ST, HR in the 140 noted on the monitor this am, probably due to hypovolemia. Low H&H this am, 2units of PRBCs, repeat H&H per protocol. Will check Echo to evaluate LV function and cardiology was also consulted. K normalized and renal function improved this am. Nephrology is following. 01/29: Tolerating PST this am. Continue vent wean as tolerated for possible extubation per CCM. Off pressors this am, now on Amiodarone gtt per Cardio for Aflutter. H&H stable this morning, continue to trend CBC. Plan for HD today per Nephro. 01/30: Tolerated HD overnight, required short duration of pressor during HD. Pres sor is off this morning. Plan for PSV trial again today for possible extubation. Remains on Amio gtt, d/w Cardio plan to transition to D/C amio gtt today and transition on PO amio and low dose BB. Low H&H again this am, no s/s of any active bleeding. 1unit of PRBCs given overnight. Will check occult stools and hold AC-Heparin SubQ for now, continue to trend H&H. Renal function continue to improve, monitor and replete electrolytes. Assessment and Plan #Acute Hypoxic Respiratory Failure - most like secondary to severe acidosis - Intubated on 01/27 in the ED - Vent setting:PRVC-28%,6,20,450 - AM ABG noted - CCM consulted, appreciate recommendations - VAP bundle addressed - Aspiration precaution HOB above 30 - Daily SBT trials as tolerated - Plan for PSV trial again today for possible extubation. 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 31.2 - Initial EKG was significant for peaked T waves. - S/p Kayexalate, IV calcium gluconate, D50, insulin and sodium bicarb in the ED. - Nephrology on consult, appreciated recommendation - Trialysis Cath inserted and iHD initiated - K wnr this am, renal function imrpved - Continue HD per nephrp - Strict intake and output - Avoid nephrotoxic medications; Renally dose medications - Roth in place - Monitor and replace electrolytes as needed #Paroxysmal Atrial Flutter #Supraventricular Tachycardia - HR as high as 160 - [address], with no significant ST-changes - Cardiology consulted, appreciated recommendations - Per Cardio initial ECG showed narrow complex tachycardia - On Amiodarone gtt - SR noted on the monitor, HR 80-90s - d/w Cardio plan to transition to D/C amio gtt today and transition on PO amio and low dose BB - Heparin SubQ held due to anemia #Acute Metabolic Encephalopathy-improved - most likely secondary to azotemia - Intubated and on low sedation, following commands - Continue HD per Nephro - Possible CT head if patient remains unresponsive and if stabilized - Avoid sedative agents - PRN Analgesia for CPOT greater than 3 - Maintenance of sleep-wake cycle #Anemia of Chronic Disease - most likely due to chronic kidney disease - S/p 2units of PRBCs - H&H dropped again today, 1unit of PRBCs given - No s/s of any active bleeding - Epogen with iHD per Nephro - Transfuse if Hgb less than 7 - Will hold AC for now - stool occult pending #Hypotension-improved #H/o Hypertension - s/p vasopressors - Probably 2/2 to hypovolemia, H&H dropped this am - Continue blood pressure monitor per protocol - Maintain MAP above 65 - Hold home meds for now #GI/DVT Prophylaxis - PPI- Pepcid - SCDs to bilateral lower extremities while in bed #Advance Care Planning - Disease education data, care plan, diagnoses, and prognosis were discussed with patient's and son at the bedside. All questions and concerns were addressed at this time. Patient family acknowledged understanding and agreement with current care plan. Patient remains a FULL code status at this time The high probability of a clinically significant, sudden or life threatening deterioration of the [multiple] system(s) required my full and direct attention, intervention and personal management. The aggregate critical care time was [60] minutes. This time is in addition to time spent performing reported procedures but includes the following: [x] Data Review and interpretation [x] Patient assessment and monitoring of vital signs [x] Documentation [x] Medication orders and management Disposition Plan: ICU Total Time Spent with Patient (Minutes): 60 History Interval history: Patient seen and examined in at the bedside. Remains stable on the vent, on low dose sedation. Remains on Amiodarone gtt. SR noted on the monitor this am, HR in the 80-90s. Patient tolerated HD overnight, required short duration of pressors during HD. Pressor off this morning. LILA overnight Hospitalist Physical - Constitutional Vitals: Temp Pulse Resp BP Pulse Ox 97.9 F 67 20 107/67 98 01/30/22 07:13 01/30/22 10:00 01/30/22 10:00 01/30/22 10:00 01/30/22 10:00 General appearance: Present: no acute distress, well-nourished, other (Intubated, on low sedation. ) - EENT Eyes: Present: PERRL ENT: hearing intact - Neck Neck: Present: normal ROM - Respiratory Respiratory effort: normal Respiratory: bilateral: rhonchi - Cardiovascular Rhythm: regular Heart Sounds: Present: S1 & S2 - Extremities Extremities: no ischemia, pulses intact, pulses symmetrical Peripheral Pulses: within normal limits - Abdominal General gastrointestinal: soft, non-distended, normal bowel sounds - Integumentary Integumentary: Present: warm, dry - Psychiatric Psychiatric: other (Intubated, on low sedation. Restless) - Neurologic Neurologic: moves all extremities, other (Intubated, on low sedation. Restless) - Allied Health Allied health notes reviewed: nursing, case management HEART Score - HEART Score Troponin: Troponin T < 0.010 ng/mL (0.00-0.029) 01/26/22 23:28 Results - Labs CBC & Chem 7: 01/30/22 04:00 01/30/22 04:00 Labs: Laboratory Last Values WBC 7.1 K/mm3 (4.5-11.0) 01/30/22 04:00 RBC 2.27 M/mm3 (3.65-5.03) L 01/30/22 04:00 Hgb 6.8 gm/dl (11.8-15.2) L 01/30/22 04:00 Hct 19.9 % (35.5-45.6) L* 01/30/22 04:00 MCV 88 fl (84-94) 01/30/22 04:00 MCH 30 pg (28-32) 01/30/22 04:00 MCHC 34 % (32-34) 01/30/22 04:00 RDW 13.9 % (13.2-15.2) 01/30/22 04:00 Plt Count 131 K/mm3 (140-440) L 01/30/22 04:00 Lymph % (Auto) 6.1 % (13.4-35.0) L 01/28/22 04:00 [place] % (Auto) 9.0 % (0.0-7.3) H 01/28/22 04:00 Eos % (Auto) 0.0 % (0.0-4.3) 01/28/22 04:00 Baso % (Auto) 0.0 % (0.0-1.8) 01/28/22 04:00 Lymph # (Auto) 0.4 K/mm3 (1.2-5.4) L 01/28/22 04:00 [place] # (Auto) 0.5 K/mm3 (0.0-0.8) 01/28/22 04:00 Eos # (Auto) 0.0 K/mm3 (0.0-0.4) 01/28/22 04:00 Baso # (Auto) 0.0 K/mm3 (0.0-0.1) 01/28/22 04:00 Add Manual Diff Complete 01/26/22 23:28 Total Counted 100 01/26/22 23:28 Seg Neutrophils % 84.9 % (40.0-70.0) H 01/28/22 04:00 Seg Neuts % (Manual) 94.0 % (40.0-70.0) H 01/26/22 23:28 Band Neutrophils % 2.0 % 01/26/22 23:28 Lymphocytes % (Manual) 2.0 % (13.4-35.0) L 01/26/22 23:28 Reactive Lymphs % (Man) 0 % 01/26/22 23:28 Monocytes % (Manual) 1.0 % (0.0-7.3) 01/26/22 23:28 Eosinophils % (Manual) 0 % (0.0-4.3) 01/26/22 23: Basophils % (Manual) 0 % (0.0-1.8) 01/26/22 23: Metamyelocytes % 0 % 01/26/22 23: Myelocytes % 1.0 % 01/26/22 23: Promyelocytes % 0 % 01/26/22 23: Blast Cells % 0 % 01/26/22 23: Nucleated RBC % 3.0 % (0.0-0.9) H 01/26/22 23:28 Seg Neutrophils # 5.0 K/mm3 (1.8-7.7) 01/28/22 04:00 Seg Neutrophils # Man 8.3 K/mm3 (1.8-7.7) H 01/26/22 23:28 Band Neutrophils # 0.2 K/mm3 01/26/22 23:28 Lymphocytes # (Manual) 0.2 K/mm3 (1.2-5.4) L 01/26/22 23:28 Abs React Lymphs (Man) 0.0 K/mm3 01/26/22 23:28 Monocytes # (Manual) 0.1 K/mm3 (0.0-0.8) 01/26/22 23:28 Eosinophils # (Manual) 0.0 K/mm3 (0.0-0.4) 01/26/22 23:28 Basophils # (Manual) 0.0 K/mm3 (0.0-0.1) 01/26/22 23:28 Metamyelocytes # 0.0 K/mm3 01/26/22 23:28 Myelocytes # 0.1 K/mm3 01/26/22 23:28 Promyelocytes # 0.0 K/mm3 01/26/22 23:28 Blast Cells # 0.0 K/mm3 01/26/22 23:28 WBC Morphology Not Reportable 01/26/22 23:28 Hypersegmented Neuts Not Reportable 01/26/22 23:28 Hyposegmented Neuts Not Reportable 01/26/22 23:28 Hypogranular Neuts Not Reportable 01/26/22 23:28 Smudge Cells Not Reportable 01/26/22 23:28 Toxic Granulation Not Reportable 01/26/22 23:28 Toxic Vacuolation Not Reportable 01/26/22 23:28 Dohle Bodies Not Reportable 01/26/22 23:28 Pelger-Huet Anomaly Not Reportable 01/26/22 23:28 Sofia Rods Not Reportable 01/26/22 23:28 Platelet Estimate Consistent w auto 01/26/22 23:28 Clumped Platelets Not Reportable 01/26/22 23:28 Plt Clumps, EDTA Not Reportable 01/26/22 23:28 Large Platelets Not Reportable 01/26/22 23:28 Giant Platelets Not Reportable 01/26/22 23:28 Platelet Satelliting Not Reportable 01/26/22 23:28 Plt Morphology Comment Not Reportable 01/26/22 23:28 RBC Morphology Not Reportable 01/26/22 23:28 Dimorphic RBCs Not Reportable 01/26/22 23:28 Polychromasia Not Reportable 01/26/22 23:28 Hypochromasia 2+ 01/26/22 23:28 Poikilocytosis Not Reportable 01/26/22 23:28 Anisocytosis Not Reportable 01/26/22 23:28 Microcytosis Not Reportable 01/26/22 23:28 Macrocytosis Not Reportable 01/26/22 23:28 Spherocytes Not Reportable 01/26/22 23:28 Pappenheimer Bodies Not Reportable 01/26/22 23:28 Sickle Cells Not Reportable 01/26/22 23:28 Target Cells Few 01/26/22 23:28 Tear Drop Cells Not Reportable 01/26/22 23:28 Ovalocytes Not Reportable 01/26/22 23:28 Helmet Cells Not Reportable 01/26/22 23:28 Ly-Unicoi Bodies Not Reportable 01/26/22 23:28 [place] Rings Not Reportable 01/26/22 23:28 Kim Cells Not Reportable 01/26/22 23:28 Bite Cells Not Reportable 01/26/22 23:28 Crenated Cell Not Reportable 01/26/22 23:28 Elliptocytes Not Reportable 01/26/22 23:28 Acanthocytes (Spur) Not Reportable 01/26/22 23:28 Rouleaux Not Reportable 01/26/22 23:28 Hemoglobin C Crystals Not Reportable 01/26/22 23:28 Schistocytes Not Reportable 01/26/22 23:28 Malaria parasites Not Reportable 01/26/22 23:28 Jan Bodies Not Reportable 01/26/22 23:28 Hem Pathologist Commnt No 01/26/22 23:28 ABG pH 7.586 pH Units (7.350-7.450) H 01/30/22 04:00 ABG pCO2 27.3 mm Hg 01/30/22 04:00 ABG pO2 103.6 mm Hg (80.0-90.0) H 01/30/22 04:00 ABG HCO3 25.3 mmol/L (20.0-26.0) 01/30/22 04:00 ABG O2 Saturation 98.2 % (95.0-99.0) 01/30/22 04:00 ABG O2 Content 9.1 (0.0-44) 01/30/22 04:00 ABG Base Excess 3.3 mmol/L (-2.0-3.0) H 01/30/22 04:00 ABG Hemoglobin 6.5 gm/dl (14.0-18.0) L 01/30/22 04:00 ABG Carboxyhemoglobin 0.9 % (0.0-5.0) 01/30/22 04:00 ABG Methemoglobin 0.3 % (0.0-1.5) 01/30/22 04:00 Oxyhemoglobin 97.1 % (95.0-99.0) 01/30/22 04:00 FiO2 28 % 01/30/22 04:00 Sodium 133 mmol/L (137-145) L 01/30/22 04:00 Potassium 3.9 mmol/L (3.6-5.0) 01/30/22 04:00 Chloride 93.3 mmol/L (98-107) L 01/30/22 04:00 Carbon Dioxide 25 mmol/L (22-30) 01/30/22 04:00 Anion Gap 19 mmol/L 01/30/22 04:00 BUN 75 mg/dL (9-20) H 01/30/22 04:00 Creatinine 5.9 mg/dL (0.8-1.3) H 01/30/22 04:00 Estimated GFR 12 ml/min 01/30/22 04:00 BUN/Creatinine Ratio 13 % 01/30/22 04:00 Glucose 149 mg/dL (75-100) H 01/30/22 04:00 POC Glucose 155 mg/dL (70-105) H 01/30/22 05:48 Lactic Acid 1.40 mmol/L (0.7-2.0) 01/27/22 23:25 Calcium 7.2 mg/dL (8.4-10.2) L 01/30/22 04:00 Phosphorus 4.20 mg/dL (2.5-4.5) 01/30/22 04:00 Magnesium 1.50 mg/dL (1.7-2.3) L 01/30/22 04:00 Total Bilirubin 0.40 mg/dL (0.1-1.2) 01/26/22 23:28 AST 21 units/L (5-40) 01/26/22 23:28 ALT 19 units/L (7-56) 01/26/22 23:28 Alkaline Phosphatase 64 units/L (35-129) 01/26/22 23:28 Lactate Dehydrogenase 233 units/L (91-180) H 01/28/22 15:25 Troponin T < 0.010 ng/mL (0.00-0.029) 01/26/22 23:28 NT-Pro-B Natriuret Pep 69776 pg/mL (0-900) H 01/26/22 23:28 Total Protein 7.9 g/dL (6.3-8.2) 01/26/22 23:28 Albumin 3.9 g/dL (3.9-5) 01/26/22 23:28 Albumin/Globulin Ratio 1.0 % 01/26/22 23:28 Urine Color Yellow (Yellow) 01/27/22 07:45 Urine Turbidity Clear (Clear) 01/27/22 07:45 Urine pH 5.0 (5.0-7.0) 01/27/22 07:45 Ur Specific [place] 1.015 (1.003-1.030) 01/27/22 07:45 Urine Protein 100 mg/dl mg/dL (Negative) 01/27/22 07:45 Urine Glucose (UA) Negative mg/dL (Negative) 01/27/22 07:45 Urine Ketones Negative mg/dL (Negative) 01/27/22 07:45 Urine Blood Large (Negative) A 01/27/22 07:45 Urine Nitrite Negative (Negative) 01/27/22 07:45 Ur Reducing Substances Not Reportable 01/27/22 07:45 Urine Bilirubin Negative (Negative) 01/27/22 07:45 Urine Ictotest Not Reportable 01/27/22 07:45 Urine Urobilinogen 0.0 mg/dL (<2.0) 01/27/22 07:45 Ur Leukocyte Esterase Small (Negative) 01/27/22 07:45 Urine WBC (Auto) 11.0 /HPF (0.0-6.0) H 01/27/22 07:45 Urine RBC (Auto) 5.0 /HPF (0.0-6.0) 01/27/22 07:45 Urine Bacteria (Auto) 1+ /HPF (Negative) 01/27/22 07:45 Urine WBC Clumps Few /HPF 01/27/22 07:45 Urine Creatinine 144.3 mg/dL (0.1-20.0) H 01/27/22 07:45 Urine Sodium 36 mmol/L 01/27/22 07:45 Urine Total Protein 154 mg/dL (5-11.8) H 01/27/22 07:45 Coronavirus (PCR) Negative (Negative) 01/28/22 16:48 Hepatitis A IgM Ab Non-reactive (NonReactive) 01/27/22 03:31 Hep Bs Antigen Non-reactive (Negative) 01/27/22 03:31 Hep B Core IgM Ab Non-reactive (NonReactive) 01/27/22 03:31 Hepatitis C Antibody Reactive (NonReactive) A 01/27/22 03:31 Blood Type A POSITIVE 01/28/22 06:00 Antibody Screen Negative 01/28/22 06:00 Crossmatch See Detail 01/28/22 06:00 Microbiology: Microbiology 01/28/22 15:25 Peripheral/Venous Blood Culture - Preliminary NO GROWTH AFTER 24 HOURS 01/28/22 15:25 Peripheral/Venous Blood Culture - Preliminary NO GROWTH AFTER 24 HOURS 01/27/22 07:45 Urine,Clean Catch Urine Culture - Final NO GROWTH AFTER 48 HOURS Roth/IV: Voiding Method Indwelling Catheter Active Medications - Current Medications Current Medications: Generic Name Dose Route Start Last Admin Trade Name Freq PRN Reason Stop Dose Admin Acetaminophen 650 mg 01/27/22 05:44 Acetaminophen 650 Mg Rect Supp MI Q6H PRN Pain MILD(1-3)/Fever >100.5/WILLIAM Epoetin Connor-epbx 10,000 unit 01/27/22 02:08 Epoetin Connor-Epbx 10,000 Unit/1 Ml Vial IV PATRICK PRN hemodialysis Famotidine 20 mg 01/30/22 10:00 01/30/22 09:43 Famotidine 20 Mg Tab FEEDTUBE 20 mg DAILY DOMINIC Administration Heparin Sodium (Porcine) 5,000 unit 01/27/22 02:08 Heparin 10,000 Unit/1 Ml Vial IV PATRICK PRN hemodialysis Heparin Sodium (Porcine) 5,000 unit 01/27/22 06:00 01/30/22 05:58 Heparin 5,000 Unit/1 Ml Vial SUB-Q 5,000 unit Q8HR DOMINIC Administration Hydrophilic Ointment 1 applic 01/27/22 18:00 Lip Therapy Vaseline TP Q2HR PRN Dry Lips Fentanyl Citrate 2,000 mcg in 100 mls @ 3.402 mls/hr 01/27/22 18:00 Fentanyl Drip Premix IV TITR DOMINIC Protocol 1 MCG/KG/HR Propofol 1,000 mg in 100 mls @ 2.041 mls/hr 01/27/22 18:00 01/30/22 07:30 Diprivan 10 Mg/Ml IV 20 mcg/kg/min TITR DOMINIC 8.165 mls/hr Titration Protocol 5 MCG/KG/MIN NORepinephrine/NS 8 MG-250 ML 8 mg in 250 mls @ 3.75 mls/hr 01/27/22 19:00 01/29/22 16:32 Norepinephrine/Ns 8 Mg-250 Ml (Double Conc) IV 0 mcg/min TITRATE DOMINIC 0 mls/hr Titration Protocol 2 MCG/MIN Amiodarone HCl 900 mg/ 500 mls @ 33.333 mls/hr 01/28/22 20:00 01/29/22 17:45 Dextrose IV 0.5 mg/min DIRECT DOMINIC 16.667 mls/hr Administration Protocol 1 MG/MIN Sodium Chloride 1,000 mls @ 75 mls/hr 01/30/22 09:00 01/30/22 09:43 Nacl 0.9% 1000 Ml IV 75 mls/hr DIRECT DOMINIC Administration Magnesium Sulfate 4 gm in 100 mls @ 25 mls/hr 01/30/22 09:30 01/30/22 09:43 Magnesium Sulfate 4gm/100ml IV 01/30/22 13:29 25 mls/hr ONCE ONE Administration Sodium Chloride 100 mls @ 999 mls/hr 01/30/22 09:00 Nacl 0.9% IV PATRICK PRN Hypotension Insulin Human Lispro 0 unit 01/29/22 18:45 01/30/22 06:26 Insulin Lispro 100 Unit/Ml SUB-Q 1 unit Q6HR DOMINIC Administration Protocol Magnesium Hydroxide 30 ml 01/27/22 05:44 Magnesium Hydroxide (Mom) Oral Liqd Udc PO Q4H PRN Constipation Morphine Sulfate 2 mg 01/27/22 05:44 01/29/22 00:58 Morphine 2 Mg/1 Ml Inj IV 2 mg Q4H PRN Administration Pain, Moderate (4-6) Multi-Ingred Cream/Lotion/Oil/Oint 1 applic 01/27/22 18:00 Mineral Oil/Petrolatum, White Ophth Oint 3.5 Gm OU Q4HR PRN Dry Eye(s) Senna/Docusate Sodium 1 tab 01/27/22 22:00 01/30/22 09:43 Sennosides/Docusate Sodium 8.6/50 Mg Tab FEEDTUBE 1 tab BID DOMINIC Administration Sodium Chloride 10 ml 01/27/22 10:00 01/29/22 21:17 Sodium Chloride 0.9% 10 Ml Flush Syringe IV 10 ml BID DOMINIC Administration Sodium Chloride 10 ml 01/27/22 05:44 01/29/22 00:59 Sodium Chloride 0.9% 10 Ml Flush Syringe IV 10 ml PRN PRN Administration LINE FLUSH Nutrition/Malnutrition Assess - Dietary Evaluation Nutrition/Malnutrition Findings: Nutrition Notes Start: 01/28/22 12:15 Freq: Status: Active Protocol: Document 01/28/22 12:16 ROSELYN (Rec: 01/28/22 12:49 ROSELYN [id number]) Nutrition Notes Need for Assessment generated from: MD Order Initial or Follow up Assessment Current Diagnosis Acute Kidney Injury,CKD (stage V CKD),Hypertension, Respiratory Failure Other Pertinent Diagnosis Metabolic Acidosis, Hypotension, Tachycardia, Anemia. Current Diet NPO (since 01/27 05:47), TF- Nepro w/CARBSTEADY @ 45 ml/hr (from D 01/28). Labs/Tests 01/28: CO2 12, BUN 216, Crea 18.6, Ca 7.1. Pertinent Medications 01/28: Propofol @ 6.124 ml/hr (162 Kcal), others nutritionally unremarkable. 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 Weight Status Appropriate Subjective/Other Information RD consult for evaluate nutritional intake and write/ manage TF. Pt currently on NPO. Pt is on Mechanical Ventilation, O2 saturation @ 100%, according to Physical Assessment History notes. Pt has missing teeth, according to Physical Assessment History notes. Pt presents sacral decubitus ulcer, according to Physical Assessment History notes. Procedure on 01/27: R-IJV dyalisis catheter placement, well tolerated, according to Operative Report notes. I will prescribe TF to provide Pt with energy/protein needs during LOS. Percent of energy/protein needs met: Pt currently on NPO. Prescribed TF-Nepro w/ CARBSTEADY @ 45 ml/hr provides for energy/protein needs (1, 946 Kcal/88 g) during LOS, 92% Kcal; 100% AA. Including 162 Kcal from Propofol, 100% Kcal; 100% AA. Burn Absent Trauma Absent GI Symptoms None Food Allergy No Skin Integrity/Comment Sacral decubitus ulcer. 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 As Evidenced by Signs and Symptoms Pt is currently on NPO. Is patient on ventilator? Yes Is Patient Ambulatory and/or Out of Bed No REE-([place]-confined to bed) 1789.980 Kcal/Kg value to use for calculation 31 Approximate Energy Requirements Using 2108 kcal/Kg Calculation Used for Recommendations Kcal/kg Additional Notes Protein: >1.2 g/Kg ABW; >82 g/ day. Fluids: 1 ml/Kcal, or as per MD. Nutrition Intervention Nutrition Support: Start TF-Nepro w/CARBSTEADY @ 45 ml/hr. Flkush: 220 ml water Q 4 hr, or as per MD. Kcal 1,946 Protein (gm) 88 Carbohydrates (gm) 174 Fat (gm) 104 Fluid (mL) 786 Fiber (gm) 14 % RDI: 92% Kcal; 100% AA. Goal #1 Provide at least 75% of energy /protein needs through Enteral Feeding during LOS. Follow-Up By: 01/30/22 Additional Comments Start monitoring TF tolerance and BM. <ALAYNA MARRERO - Last Filed: 02/03/22 07:23> Assessment and Plan Assessment and plan: I saw and evaluated the patient. I agree with the findings and the plan of care as documented in the Nurse Practitioner's~note, with the following corrections a nd additions. Hospitalist Physical - Constitutional Vitals: Temp Pulse Resp BP Pulse Ox 98.7 F 91 H 16 128/87 95 02/03/22 03:48 02/03/22 05:50 02/03/22 03:48 02/03/22 05:50 02/03/22 03:48 HEART Score - HEART Score Troponin: Troponin T < 0.010 ng/mL (0.00-0.029) 01/26/22 23:28 Results - Labs CBC & Chem 7: 02/01/22 04:04 02/01/22 04:04 Labs: Laboratory Last Values WBC 8.3 K/mm3 (4.5-11.0) 02/01/22 04:04 RBC 2.98 M/mm3 (3.65-5.03) L 02/01/22 04:04 Hgb 9.0 gm/dl (11.8-15.2) L 02/01/22 04:04 Hct 27.2 % (35.5-45.6) L 02/01/22 04:04 MCV 91 fl (84-94) 02/01/22 04:04 MCH 30 pg (28-32) 02/01/22 04:04 MCHC 33 % (32-34) 02/01/22 04:04 RDW 14.5 % (13.2-15.2) 02/01/22 04:04 Plt Count 131 K/mm3 (140-440) L 02/01/22 04:04 Lymph % (Auto) 6.1 % (13.4-35.0) L 01/28/22 04:00 [place] % (Auto) 9.0 % (0.0-7.3) H 01/28/22 04:00 Eos % (Auto) 0.0 % (0.0-4.3) 01/28/22 04:00 Baso % (Auto) 0.0 % (0.0-1.8) 01/28/22 04:00 Lymph # (Auto) 0.4 K/mm3 (1.2-5.4) L 01/28/22 04:00 [place] # (Auto) 0.5 K/mm3 (0.0-0.8) 01/28/22 04:00 Eos # (Auto) 0.0 K/mm3 (0.0-0.4) 01/28/22 04:00 Baso # (Auto) 0.0 K/mm3 (0.0-0.1) 01/28/22 04:00 Add Manual Diff Complete 01/26/22 23:28 Total Counted 100 01/26/22 23:28 Seg Neutrophils % 84.9 % (40.0-70.0) H 01/28/22 04:00 Seg Neuts % (Manual) 94.0 % (40.0-70.0) H 01/26/22 23:28 Band Neutrophils % 2.0 % 01/26/22 23:28 Lymphocytes % (Manual) 2.0 % (13.4-35.0) L 01/26/22 23:28 Reactive Lymphs % (Man) 0 % 01/26/22 23:28 Monocytes % (Manual) 1.0 % (0.0-7.3) 01/26/22 23:28 Eosinophils % (Manual) 0 % (0.0-4.3) 01/26/22 23:28 Basophils % (Manual) 0 % (0.0-1.8) 01/26/22 23:28 Metamyelocytes % 0 % 01/26/22 23:28 Myelocytes % 1.0 % 01/26/22 23:28 Promyelocytes % 0 % 01/26/22 23:28 Blast Cells % 0 % 01/26/22 23:28 Nucleated RBC % 3.0 % (0.0-0.9) H 01/26/22 23:28 Seg Neutrophils # 5.0 K/mm3 (1.8-7.7) 01/28/22 04:00 Seg Neutrophils # Man 8.3 K/mm3 (1.8-7.7) H 01/26/22 23:28 Band Neutrophils # 0.2 K/mm3 01/26/22 23:28 Lymphocytes # (Manual) 0.2 K/mm3 (1.2-5.4) L 01/26/22 23:28 Abs React Lymphs (Man) 0.0 K/mm3 01/26/22 23:28 Monocytes # (Manual) 0.1 K/mm3 (0.0-0.8) 01/26/22 23:28 Eosinophils # (Manual) 0.0 K/mm3 (0.0-0.4) 01/26/22 23:28 Basophils # (Manual) 0.0 K/mm3 (0.0-0.1) 01/26/22 23:28 Metamyelocytes # 0.0 K/mm3 01/26/22 23:28 Myelocytes # 0.1 K/mm3 01/26/22 23:28 Promyelocytes # 0.0 K/mm3 01/26/22 23:28 Blast Cells # 0.0 K/mm3 01/26/22 23:28 WBC Morphology Not Reportable 01/26/22 23:28 Hypersegmented Neuts Not Reportable 01/26/22 23:28 Hyposegmented Neuts Not Reportable 01/26/22 23:28 Hypogranular Neuts Not Reportable 01/26/22 23:28 Smudge Cells Not Reportable 01/26/22 23:28 Toxic Granulation Not Reportable 01/26/22 23:28 Toxic Vacuolation Not Reportable 01/26/22 23:28 Dohle Bodies Not Reportable 01/26/22 23:28 Pelger-Huet Anomaly Not Reportable 01/26/22 23:28 Sofia Rods Not Reportable 01/26/22 23:28 Platelet Estimate Consistent w auto 01/26/22 23:28 Clumped Platelets Not Reportable 01/26/22 23:28 Plt Clumps, EDTA Not Reportable 01/26/22 23:28 Large Platelets Not Reportable 01/26/22 23:28 Giant Platelets Not Reportable 01/26/22 23:28 Platelet Satelliting Not Reportable 01/26/22 23:28 Plt Morphology Comment Not Reportable 01/26/22 23:28 RBC Morphology Not Reportable 01/26/22 23:28 Dimorphic RBCs Not Reportable 01/26/22 23:28 Polychromasia Not Reportable 01/26/22 23:28 Hypochromasia 2+ 01/26/22 23:28 Poikilocytosis Not Reportable 01/26/22 23:28 Anisocytosis Not Reportable 01/26/22 23:28 Microcytosis Not Reportable 01/26/22 23:28 Macrocytosis Not Reportable 01/26/22 23:28 Spherocytes Not Reportable 01/26/22 23:28 Pappenheimer Bodies Not Reportable 01/26/22 23:28 Sickle Cells Not Reportable 01/26/22 23:28 Target Cells Few 01/26/22 23:28 Tear Drop Cells Not Reportable 01/26/22 23:28 Ovalocytes Not Reportable 01/26/22 23:28 Helmet Cells Not Reportable 01/26/22 23:28 Ly-[place]i Bodies Not Reportable 01/26/22 23:28 [place] Rings Not Reportable 01/26/22 23:28 Kim Cells Not Reportable 01/26/22 23:28 Bite Cells Not Reportable 01/26/22 23:28 Crenated Cell Not Reportable 01/26/22 23:28 Elliptocytes Not Reportable 01/26/22 23:28 Acanthocytes (Spur) Not Reportable 01/26/22 23:28 Rouleaux Not Reportable 01/26/22 23:28 Hemoglobin C Crystals Not Reportable 01/26/22 23:28 Schistocytes Not Reportable 01/26/22 23:28 Malaria parasites Not Reportable 01/26/22 23:28 Jan Bodies Not Reportable 01/26/22 23:28 Haptoglobin 186 mg/dL (43-212) 01/28/22 15:25 Hem Pathologist Commnt No 01/26/22 23:28 ABG pH 7.586 pH Units (7.350-7.450) H 01/30/22 04:00 ABG pCO2 27.3 mm Hg 01/30/22 04:00 ABG pO2 103.6 mm Hg (80.0-90.0) H 01/30/22 04:00 ABG HCO3 25.3 mmol/L (20.0-26.0) 01/30/22 04:00 ABG O2 Saturation 98.2 % (95.0-99.0) 01/30/22 04:00 ABG O2 Content 9.1 (0.0-44) 01/30/22 04:00 ABG Base Excess 3.3 mmol/L (-2.0-3.0) H 01/30/22 04:00 ABG Hemoglobin 6.5 gm/dl (14.0-18.0) L 01/30/22 04:00 ABG Carboxyhemoglobin 0.9 % (0.0-5.0) 01/30/22 04:00 ABG Methemoglobin 0.3 % (0.0-1.5) 01/30/22 04:00 Oxyhemoglobin 97.1 % (95.0-99.0) 01/30/22 04:00 FiO2 28 % 01/30/22 04:00 Sodium 140 mmol/L (137-145) 02/01/22 04:04 Potassium 4.0 mmol/L (3.6-5.0) 02/01/22 04:04 Chloride 104.1 mmol/L (98-107) 02/01/22 04:04 Carbon Dioxide 26 mmol/L (22-30) 02/01/22 04:04 Anion Gap 14 mmol/L 02/01/22 04:04 BUN 53 mg/dL (9-20) H 02/01/22 04:04 Creatinine 3.9 mg/dL (0.8-1.3) H 02/01/22 04:04 Estimated GFR 19 ml/min 02/01/22 04:04 BUN/Creatinine Ratio 14 % 02/01/22 04:04 Glucose 82 mg/dL (75-100) 02/01/22 04:04 POC Glucose 74 mg/dL (70-105) 02/03/22 05:45 Lactic Acid 1.40 mmol/L (0.7-2.0) 01/27/22 23:25 Calcium 7.6 mg/dL (8.4-10.2) L 02/01/22 04:04 Phosphorus 5.70 mg/dL (2.5-4.5) H D 01/31/22 04:32 Magnesium 2.20 mg/dL (1.7-2.3) 01/31/22 04:32 Total Bilirubin 0.40 mg/dL (0.1-1.2) 01/26/22 23:28 AST 21 units/L (5-40) 01/26/22 23:28 ALT 19 units/L (7-56) 01/26/22 23:28 Alkaline Phosphatase 64 units/L (35-129) 01/26/22 23:28 Lactate Dehydrogenase 233 units/L (91-180) H 01/28/22 15:25 Troponin T < 0.010 ng/mL (0.00-0.029) 01/26/22 23:28 NT-Pro-B Natriuret Pep 65152 pg/mL (0-900) H 01/26/22 23:28 Total Protein 7.9 g/dL (6.3-8.2) 01/26/22 23:28 Albumin 3.9 g/dL (3.9-5) 01/26/22 23:28 Albumin/Globulin Ratio 1.0 % 01/26/22 23:28 TSH 1.090 mlU/mL (0.270-4.200) 01/31/22 18:40 Urine Color Yellow (Yellow) 01/27/22 07:45 Urine Turbidity Clear (Clear) 01/27/22 07:45 Urine pH 5.0 (5.0-7.0) 01/27/22 07:45 Ur Specific Union 1.015 (1.003-1.030) 01/27/22 07:45 Urine Protein 100 mg/dl mg/dL (Negative) 01/27/22 07:45 Urine Glucose (UA) Negative mg/dL (Negative) 01/27/22 07:45 Urine Ketones Negative mg/dL (Negative) 01/27/22 07:45 Urine Blood Large (Negative) A 01/27/22 07:45 Urine Nitrite Negative (Negative) 01/27/22 07:45 Ur Reducing Substances Not Reportable 01/27/22 07:45 Urine Bilirubin Negative (Negative) 01/27/22 07:45 Urine Ictotest Not Reportable 01/27/22 07:45 Urine Urobilinogen 0.0 mg/dL (<2.0) 01/27/22 07:45 Ur Leukocyte Esterase Small (Negative) 01/27/22 07:45 Urine WBC (Auto) 11.0 /HPF (0.0-6.0) H 01/27/22 07:45 Urine RBC (Auto) 5.0 /HPF (0.0-6.0) 01/27/22 07:45 Urine Bacteria (Auto) 1+ /HPF (Negative) 01/27/22 07:45 Urine WBC Clumps Few /HPF 01/27/22 07:45 Urine Creatinine 144.3 mg/dL (0.1-20.0) H 01/27/22 07:45 Urine Sodium 36 mmol/L 01/27/22 07:45 Urine Total Protein 154 mg/dL (5-11.8) H 01/27/22 07:45 Complement C3 69 mg/dL (82-185) L 01/28/22 15:25 Complement C4 29 mg/dL (15-53) 01/28/22 15:25 Coronavirus (PCR) Negative (Negative) 01/28/22 16:48 Hepatitis A IgM Ab Non-reactive (NonReactive) 01/27/22 03:31 Hep Bs Antigen Non-reactive (Negative) 01/27/22 03:31 Hep B Core IgM Ab Non-reactive (NonReactive) 01/27/22 03:31 Hepatitis C Antibody Reactive (NonReactive) A 01/27/22 03:31 Blood Type A POSITIVE 01/28/22 06:00 Antibody Screen Negative 01/28/22 06:00 Crossmatch See Detail 01/28/22 06:00 Microbiology: Microbiology 01/28/22 15:25 Peripheral/Venous Blood Culture - Final NO GROWTH AFTER 5 DAYS 01/28/22 15:25 Peripheral/Venous Blood Culture - Final NO GROWTH AFTER 5 DAYS Roth/IV: Voiding Method Condom Catheter Active Medications - Current Medications Current Medications: Generic Name Dose Route Start Last Admin Trade Name Freq PRN Reason Stop Dose Admin Acetaminophen 650 mg 01/27/22 05:44 Acetaminophen 650 Mg Rect Supp MI Q6H PRN Pain MILD(1-3)/Fever >100.5/WILLIAM Amiodarone HCl 200 mg 01/31/22 10:00 02/02/22 10:45 Amiodarone 200 Mg Tab PO 200 mg QDAY DOMINIC Administration Epoetin Connor-epbx 10,000 unit 01/27/22 02:08 Epoetin Connor-Epbx 10,000 Unit/1 Ml Vial IV PATRICK PRN hemodialysis Famotidine 20 mg 01/30/22 10:00 02/02/22 10:50 Famotidine 20 Mg Tab FEEDTUBE 20 mg DAILY DOMINIC Administration Heparin Sodium (Porcine) 5,000 unit 01/27/22 02:08 Heparin 10,000 Unit/1 Ml Vial IV PATRICK PRN hemodialysis Hydrophilic Ointment 1 applic 01/27/22 18:00 Lip Therapy Vaseline TP Q2HR PRN Dry Lips Sodium Chloride 100 mls @ 999 mls/hr 01/30/22 09:00 Nacl 0.9% IV PATRICK PRN Hypotension Ceftriaxone Sodium 1 gm in 50 mls @ 100 mls/hr 02/02/22 18:00 02/02/22 19:35 Rocephin/Ns 1 Gm/50 Ml IV 100 mls/hr Q24H [facility] Administration Protocol Insulin Human Lispro 0 unit 01/29/22 18:45 02/03/22 05:52 Insulin Lispro 100 Unit/Ml SUB-Q Not Given Q6HR [facility] Protocol Magnesium Hydroxide 30 ml 01/27/22 05:44 Magnesium Hydroxide (Mom) Oral Liqd Udc PO Q4H PRN Constipation Metoprolol Tartrate 25 mg 01/30/22 22:00 02/03/22 05:50 Metoprolol Tartrate 25 Mg Tab PO 25 mg Q8HR DOMINIC Administration Morphine Sulfate 2 mg 01/27/22 05:44 01/29/22 00:58 Morphine 2 Mg/1 Ml Inj IV 2 mg Q4H PRN Administration Pain, Moderate (4-6) Multi-Ingred Cream/Lotion/Oil/Oint 1 applic 01/27/22 18:00 Mineral Oil/Petrolatum, White Ophth Oint 3.5 Gm OU Q4HR PRN Dry Eye(s) Senna/Docusate Sodium 1 tab 01/27/22 22:00 02/02/22 23:00 Sennosides/Docusate Sodium 8.6/50 Mg Tab FEEDTUBE 1 tab BID DOMINIC Administration Sodium Chloride 10 ml 01/27/22 10:00 02/02/22 23:00 Sodium Chloride 0.9% 10 Ml Flush Syringe IV 10 ml BID DOMINIC Administration Sodium Chloride 10 ml 01/27/22 05:44 01/29/22 00:59 Sodium Chloride 0.9% 10 Ml Flush Syringe IV 10 ml PRN PRN Administration LINE FLUSH Nutrition/Malnutrition Assess - Dietary Evaluation Nutrition/Malnutrition Findings: Nutrition Notes Start: 01/28/22 12:15 Freq: Status: Active Protocol: Document 02/02/22 13:28 ROSA (Rec: 02/02/22 13:32 ROSA [id number]) Nutrition Notes Initial or Follow up Reassessment Other Pertinent Diagnosis Acute on chronic renal failure , Anemia Current Diet Regular Labs/Tests Reviewed Pertinent Medications Reviewed Height 5 ft 11 in Weight 68 kg [place] Body Weight (kg) 78.18 BMI 20.9 Weight Status Underweight Subjective/Other Information 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 Burn Absent Trauma Absent Minimum of two criteria No #1 Nutrition Diagnosis Inadequate oral intake As Evidenced by Signs and Symptoms diet advanced and pt tolerating PO intake Diagnosis Progress(for reassessment Improved documentation) Is patient on ventilator? No Is Patient Ambulatory and/or Out of Bed No REE-([facility]-confined to bed) 1789.980 Kcal/Kg value to use for calculation 30 Approximate Energy Requirements Using 2040 kcal/Kg Calculation Used for Recommendations Kcal/kg Additional Notes Pro needs >1.2g/kg: >82g/day Fluid needs 1-1.5L/day Nutrition Intervention Change Diet Order: Change diet order to Renal Goal #1 PO intake to meet at least 75% energy and pro needs Goal #2 Wt maintenance and/or gain Follow-Up By: 02/05/22 Additional Comments F/U: intakes, need for ONS
--- NOTE | 2022-01-30 14:08 | Progress Note ---
Assessment and Plan - Patient Problems (1) Paroxysmal atrial flutter Current Visit: Yes Status: Acute Plan to address problem: Patient admitted with acute renal failure, hyperkalemia, sepsis and severe anemia. In the setting of severe electrolyte and acid-base imbalance, he has developed paroxysmal atrial flutter, which prompted cardiac consultation. We have stabilized sinus rhythm with intravenous amiodarone, and will switch to oral amiodarone and metoprolol. Not a candidate for antiplatelet therapy or anticoagulation due to presenting severe anemia. Notably, the echocardiogram showed normal left ventricular systolic function, ejection fraction 55%, with increased calcification of the aortic valve apparatus and transaortic mean gradient of 9.9 mmHg consistent with mild aortic stenosis. The appearance of the aortic valve suggested a possible biopr osthesis, but the patient has no evidence of thoracotomy in the chest x-ray, and no suggestion of a transaortic valve replacement in his records. Continue conservative cardiac management. Subjective Date of service: 01/30/22 Principal diagnosis: Paroxysmal atrial flutter Interval history: Patient was extubated this morning, appears comfortable, awake, breathing room air. On personnel monitor, he has a stable sinus rhythm at 70. Notably, the echocardiogram showed normal left ventricular systolic function, ejection fraction 55%, with increased calcification of the aortic valve apparatus and transaortic mean gradient of 9.9 mmHg consistent with mild aortic stenosis. The appearance of the aortic valve suggested a possible bioprosthesis, but the patient has no evidence of thoracotomy in the chest x-ray, and no suggestion of a transaortic valve replacement in his records. Objective Vital Signs Temp Pulse Pulse Resp BP Pulse Ox 01/30/22 14:00 78 24 106/69 94 01/30/22 13:51 77 21 104/68 93 01/30/22 13:41 80 24 106/68 92 01/30/22 13:30 76 22 106/68 01/30/22 13:21 78 23 110/67 96 01/30/22 13:11 79 21 107/68 95 01/30/22 13:00 97.8 F 80 23 107/68 01/30/22 12:51 82 22 113/69 95 01/30/22 12:41 83 24 120/76 94 01/30/22 12:30 87 22 120/76 96 01/30/22 12:21 97 H 21 150/92 100 01/30/22 12:13 94 H 141/83 100 01/30/22 12:11 95 H 16 141/83 97 01/30/22 12:00 93 H 19 151/124 97 01/30/22 11:55 98.6 F 01/30/22 11:51 91 H 24 149/99 98 01/30/22 11:41 90 19 126/84 97 01/30/22 11:31 89 13 126/84 96 01/30/22 11:21 84 21 110/68 99 01/30/22 11:19 86 25 H 110/68 99 01/30/22 11:14 68 20 99 01/30/22 11:13 68 01/30/22 11:11 69 20 106/46 98 01/30/22 11:01 80 13 106/46 95 01/30/22 10:51 71 18 95/58 99 01/30/22 10:41 65 20 103/61 97 01/30/22 10:30 65 20 103/61 96 01/30/22 10:21 66 20 100/63 98 01/30/22 10:11 68 21 107/67 99 01/30/22 10:00 67 20 107/67 98 01/30/22 09:51 71 20 120/72 99 01/30/22 09:41 77 20 143/86 99 01/30/22 09:30 87 20 143/86 97 01/30/22 09:21 89 19 139/85 99 01/30/22 09:11 79 21 117/69 99 01/30/22 09:00 66 20 117/69 01/30/22 08:51 66 20 116/69 98 01/30/22 08:41 67 20 120/73 98 01/30/22 08:30 67 20 120/73 98 0822 08:21 67 20 123/75 98 08 08:11 67 20 119/73 98 08 08:00 65 68 20 116/69 98 08 07:51 66 20 126/77 99 08 07:41 65 20 122/75 99 0822 07:30 67 20 122/75 98 08 07:21 75 20 130/78 99 08 07:13 97.9 F 01/30/22 07:11 97.4 F L 82 16 128/79 100 01/30/22 07:00 66 20 128/79 100 01/30/22 06:51 66 20 126/80 99 01/30/22 06:41 98.0 F 67 20 128/76 100 08 06:30 68 20 128/76 99 01/30/22 06:21 65 20 109/89 100 01/30/22 06:11 97.7 F 67 20 135/79 99 08 06:00 66 20 135/79 97 08 05:51 67 20 109/89 98 01/30/22 05:41 97.9 F 80 26 H 91/58 100 01/30/22 05:30 70 20 91/58 98 01/30/22 05:26 98.2 F 70 20 92/89 99 01/30/22 05:21 68 20 92/59 99 01/30/22 05:11 70 20 89/61 99 01/30/22 05:00 71 20 89/61 98 01/30/22 04:55 70 106/71 100 01/30/22 04:51 68 24 106/71 100 01/30/22 04:41 78 14 96/66 100 01/30/22 04:30 71 24 96/66 01/30/22 04:21 70 24 95/61 100 01/30/22 04:11 67 24 103/68 100 01/30/22 04:00 98.4 F 79 93 H 20 96/62 99 01/30/22 03:51 70 24 96/62 100 01/30/22 03:41 67 24 97/62 100 01/30/22 03:31 83 16 95/62 99 01/30/22 03:21 69 24 97/62 98 01/30/22 03:11 68 24 97/65 98 01/30/22 03:00 71 24 97/62 01/30/22 02:51 69 24 97/65 99 01/30/22 02:41 71 24 106/72 99 01/30/22 02:30 72 24 102/67 01/30/22 02:21 74 18 106/72 100 01/30/22 02:11 95 H 17 123/84 100 01/30/22 02:01 91 H 25 H 130/82 100 01/30/22 01:51 94 H 22 123/84 100 01/30/22 01:41 89 18 107/71 100 01/30/22 01:30 77 25 H 107/71 100 01/30/22 01:21 73 24 100/66 100 01/30/22 01:11 71 24 116/75 100 01/30/22 01:00 72 24 104/68 100 01/30/22 00:51 94 H 23 121/82 100 01/30/22 00:41 91 H 22 116/75 100 01/30/22 00:30 78 24 116/75 01/30/22 00:21 71 24 107/70 100 01/30/22 00:11 73 24 107/71 100 01/30/22 00:00 74 93 H 26 H 107/71 100 01/29/22 23:57 98.4 F 01/29/22 23:56 74 124/78 100 01/29/22 23:51 74 26 H 124/78 100 01/29/22 23:41 88 25 H 114/76 100 01/29/22 23:30 84 20 114/76 100 01/29/22 23:21 69 26 H 105/67 100 01/29/22 23:11 70 26 H 103/67 100 01/29/22 23:00 71 26 H 103/67 01/29/22 22:51 70 26 H 99/65 100 01/29/22 22:41 70 26 H 109/67 100 01/29/22 22:30 71 26 H 109/67 100 01/29/22 22:21 84 15 100/64 100 01/29/22 22:11 71 26 H 103/65 100 01/29/22 22:00 74 26 H 103/65 100 01/29/22 21:51 73 26 H 99/64 100 01/29/22 21:41 75 26 H 143/92 100 01/29/22 21:30 75 26 H 94/61 100 01/29/22 21:21 76 26 H 119/66 100 01/29/22 21:11 87 26 H 154/95 100 01/29/22 21:00 97 H 30 H 154/95 100 01/29/22 20:51 95 H 29 H 143/92 100 01/29/22 20:40 96 H 25 H 126/87 100 01/29/22 20:30 94 H 19 126/87 100 01/29/22 20:21 89 22 126/82 100 01/29/22 20:11 87 26 H 123/77 100 01/29/22 20:07 85 103/68 100 01/29/22 20:00 99.3 F 73 93 H 26 H 103/68 99 01/29/22 19:51 76 26 H 105/67 100 01/29/22 19:41 75 26 H 107/67 100 01/29/22 19:31 86 22 123/77 100 01/29/22 19:21 75 26 H 107/67 100 01/29/22 19:11 74 26 H 116/73 100 01/29/22 19:00 81 26 H 116/73 97 01/29/22 18:51 73 26 H 85/51 96 01/29/22 18:41 75 26 H 85/50 97 01/29/22 18:30 75 26 H 85/50 97 01/29/22 18:21 75 26 H 76/48 98 01/29/22 18:11 76 26 H 86/54 98 01/29/22 18:01 77 26 H 86/54 99 01/29/22 17:51 86 26 H 163/90 100 01/29/22 17:41 100 H 17 161/99 100 01/29/22 17:30 95 H 36 H 147/95 100 01/29/22 17:21 102 H 15 161/99 100 01/29/22 17:11 103 H 19 161/99 97 01/29/22 17:01 99 H 29 H 161/99 98 01/29/22 16:51 102 H 23 144/99 100 01/29/22 16:41 102 H 17 149/101 100 01/29/22 16:30 103 H 28 H 149/101 100 01/29/22 16:21 101 H 16 149/91 100 01/29/22 16:11 94 H 20 151/89 100 01/29/22 16:00 99.1 F 91 H 93 H 26 H 151/89 99 01/29/22 15:51 91 H 27 H 149/92 99 01/29/22 15:41 91 H 26 H 142/89 100 01/29/22 15:30 84 26 H 142/89 100 01/29/22 15:21 77 26 H 126/79 97 01/29/22 15:11 75 26 H 121/77 98 01/29/22 15:00 74 26 H 121/77 01/29/22 14:51 75 26 H 127/77 97 01/29/22 14:41 78 26 H 134/83 97 01/29/22 14:30 85 26 H 134/83 95 01/29/22 14:21 93 H 25 H 145/87 98 01/29/22 14:11 92 H 19 157/94 97 - Physical Examination General: No Apparent Distress HEENT: Positive: Other (Pupils fixed) Neck: Positive: neck supple Cardiac: Positive: Reg Rate and Rhythm Lungs: Positive: Decreased Breath Sounds Neuro: Positive: Grossly Intact Abdomen: Positive: Soft Skin: Positive: Clear Extremities: Absent: edema - Labs and Meds CBC 01/30/22 Range/Units 04:00 WBC 7.1 (4.5-11.0) K/mm3 RBC 2.27 L (3.65-5.03) M/mm3 Hgb 6.8 L (11.8-15.2) gm/dl Hct 19.9 L* (35.5-45.6) % Plt Count 131 L (140-440) K/mm3 Comprehensive Metabolic Panel 01/30/22 Range/Units 04:00 Sodium 133 L (137-145) mmol/L Potassium 3.9 (3.6-5.0) mmol/L Chloride 93.3 L (98-107) mmol/L Carbon Dioxide 25 (22-30) mmol/L BUN 75 H (9-20) mg/dL Creatinine 5.9 H (0.8-1.3) mg/dL Glucose 149 H (75-100) mg/dL Calcium 7.2 L (8.4-10.2) mg/dL - Allied health notes Allied health notes reviewed: nursing
[2022-01-30 17:28] LABS: Hematocrit 25.4 % (35.5-45.6); Hemoglobin 8.5 gm/dl (11.8-15.2); Mean Corpuscular HGB Conc 33 % (32-34); Mean Corpuscular Volume 89 fl (84-94); Platelet Count 134 K/mm3 (140-440); Red Blood Count 2.86 M/mm3 (3.65-5.03)
--- NOTE | 2022-01-30 19:06 | Progress Note ---
Assessment and Plan Acute Hypoxic Respiratory Failure on mVS Acute on Chronic Kidney Injury on HD -Presented with K of 9.0, BUN 308, and Scr. 31.2 Hyperkalemia Azotemia Severe Metabolic Acidosis Acute Metabolic Encephalopathy-improving Anemia of Chronic Disease Hypotension H/o Hypertension Tolerating SBT, will get weaning parameters with goal to liberate if his parameters are within acceptable range Stop Propofol, 10 minutes prior to extubation- he is restless but is tolerating SBT on 10 mcg of Propofol Transfuse 1 unit PRBC, send stool for FOBT Stop antibiotics Updated his at the bedside Discussed with renal service, discussed wiht primary service -Titrate supplemental oxygen oxygen for SpO2 89-92% -Supportive HD by Renal service -Lung protective strategies,ARDS net protocol -CXR, ABG as clinically indicated. -Monitoring renal function, hemodynamics and electrolyte profile -Roth catheter in this critically ill patient requiring strict intake and output monitoring. Daily assessment for ongoing need for Roth catheter -Replete electrolytes as clinically indicated -Accuchecks with glycemic control, target blood glucose 140-180 mg/dL. Avoid hypoglycemia -VTE prophylaxis- Heparin -Avoid nephrotoxins and renally dose all medications -Stress ulcer prophylaxis-Famotidine -Mobility, frequent turning, off loading per facility protocol to prevent pressure ulcers -Maintain sleep wake cycle, avoid benzodiazepines. -Limit delirium -Enteric nutritional support at goal -Supportive blood transfusion, keep HgB>7g/dL-s/p 2 units PRBC with stable hemoglobin CONDITION:CRITICAL PROGNOSIS: GUARDED CODE STATUS; FULL CODE Discussed in interdisciplinary rounds The high probability of a clinically significant, sudden or life threatening deterioration of the respiratory, cardiovascular, neurology and renal systems required my full and direct attention, intervention and personal management. The aggregate critical care time was [33] minutes. This time is in addition to time spent performing reported procedures but includes the following: [x] Data Review and interpretation [x] Patient assessment and monitoring of vital signs [x] Documentation [x] Medication orders and management Subjective Date of service: 01/30/22 Principal diagnosis: Paroxysmal atrial flutter Interval history: F/UP for acute hypoxemic resp failure; severe hyperkalemia; SILVIA on CKD; Acute metabolic encephalopathy; Tachyarrthymia Seen and examined. Vitals, labs, medications, chart and imaging reviewed. No adverse overnight events reported. On going need for MVS, off vasopressor support. Discussed with respiratory and nursing care staff. MVS: PEEP +6/40% ; On Propofol 12/30 Tolerating SBT this am. Amiodarone infusion 12/31 Tolerated HD overnight, required short duration of intradialysis vasop ressor support Low hemoglobin Objective - Exam Narrative Exam: Constitutional: no acute distress, other (orally intuabted ETT at 26cm at the lip) Eyes: non-icteric ENT: oropharynx moist Neck: supple, no lymphadenopathy, other (RIJ HD catheter) Effort: mildly labored Ascultation: Bilateral: clear, diminished breath sounds Cardiovascular: regular rate and rhythm, other (Tachycardia) Gastrointestinal: normoactive bowel sounds, soft, non-tender, non-distended, other (Roth catheter) Integumentary: normal Extremities: no cyanosis, no edema Neurologic: non-focal exam (moves all extremities), other (follows simple commands) Psychiatric: mood appropriate, affect normal Vital Signs - 12hr 01/30/22 01/30/22 01/30/22 07:11 07:13 07:21 Temperature 97.4 F L 97.9 F Pulse Rate 82 75 Pulse Rate [ From Monitor] Respiratory 16 20 Rate Blood Pressure 128/79 130/78 O2 Sat by Pulse 100 99 Oximetry O2 Sat by Pulse Oximetry [ Bilateral] 01/30/22 01/30/22 01/30/22 07:30 07:41 07:51 Temperature Pulse Rate 67 65 66 Pulse Rate [ From Monitor] Respiratory 20 20 20 Rate Blood Pressure 122/75 122/75 126/77 O2 Sat by Pulse 98 99 99 Oximetry O2 Sat by Pulse Oximetry [ Bilateral] 01/30/22 01/30/22 01/30/22 08:00 08:11 08:21 Temperature Pulse Rate 65 67 67 Pulse Rate [ 68 From Monitor] Respiratory 20 20 20 Rate Blood Pressure 116/69 119/73 123/75 O2 Sat by Pulse 98 98 98 Oximetry O2 Sat by Pulse Oximetry [ Bilateral] 01/30/22 01/30/22 01/30/22 08:30 08:41 08:51 Temperature Pulse Rate 67 67 66 Pulse Rate [ From Monitor] Respiratory 20 20 20 Rate Blood Pressure 120/73 120/73 116/69 O2 Sat by Pulse 98 98 98 Oximetry O2 Sat by Pulse Oximetry [ Bilateral] 01/30/22 01/30/22 01/30/22 09:00 09:11 09:21 Temperature Pulse Rate 66 79 89 Pulse Rate [ From Monitor] Respiratory 20 21 19 Rate Blood Pressure 117/69 117/69 139/85 O2 Sat by Pulse 99 99 Oximetry O2 Sat by Pulse Oximetry [ Bilateral] 01/30/22 01/30/22 01/30/22 09:30 09:41 09:51 Temperature Pulse Rate 87 77 71 Pulse Rate [ From Monitor] Respiratory 20 20 20 Rate Blood Pressure 143/86 143/86 120/72 O2 Sat by Pulse 97 99 99 Oximetry O2 Sat by Pulse Oximetry [ Bilateral] 01/30/22 01/30/22 01/30/22 10:00 10:11 10:21 Temperature Pulse Rate 67 68 66 Pulse Rate [ From Monitor] Respiratory 20 21 20 Rate Blood Pressure 107/67 107/67 100/63 O2 Sat by Pulse 98 99 98 Oximetry O2 Sat by Pulse Oximetry [ Bilateral] 01/30/22 01/30/22 01/30/22 10:30 10:41 10:51 Temperature Pulse Rate 65 65 71 Pulse Rate [ From Monitor] Respiratory 20 20 18 Rate Blood Pressure 103/61 103/61 95/58 O2 Sat by Pulse 96 97 99 Oximetry O2 Sat by Pulse Oximetry [ Bilateral] 01/30/22 01/30/22 01/30/22 11:01 11:11 11:13 Temperature Pulse Rate 80 69 68 Pulse Rate [ From Monitor] Respiratory 13 20 Rate Blood Pressure 106/46 106/46 O2 Sat by Pulse 95 98 Oximetry O2 Sat by Pulse Oximetry [ Bilateral] 01/30/22 01/30/22 01/30/22 11:14 11:19 11:21 Temperature Pulse Rate 86 84 Pulse Rate [ 68 From Monitor] Respiratory 20 25 H 21 Rate Blood Pressure 110/68 110/68 O2 Sat by Pulse 99 99 99 Oximetry O2 Sat by Pulse Oximetry [ Bilateral] 01/30/22 01/30/22 01/30/22 11:31 11:41 11:51 Temperature Pulse Rate 89 90 91 H Pulse Rate [ From Monitor] Respiratory 13 19 24 Rate Blood Pressure 126/84 126/84 149/99 O2 Sat by Pulse 96 97 98 Oximetry O2 Sat by Pulse Oximetry [ Bilateral] 01/30/22 01/30/22 01/30/22 11:55 12:00 12:11 Temperature 98.6 F Pulse Rate 93 H 95 H Pulse Rate [ From Monitor] Respiratory 19 16 Rate Blood Pressure 151/124 141/83 O2 Sat by Pulse 97 97 Oximetry O2 Sat by Pulse Oximetry [ Bilateral] 01/30/22 01/30/22 01/30/22 12:13 12:21 12:30 Temperature Pulse Rate 94 H 97 H 87 Pulse Rate [ From Monitor] Respiratory Rate Blood Pressure 141/83 150/92 120/76 O2 Sat by Pulse 100 100 96 Oximetry O2 Sat by Pulse Oximetry [ Bilateral] 01/30/22 01/30/22 01/30/22 12:41 12:51 13:00 Temperature 97.8 F Pulse Rate 83 82 80 Pulse Rate [ From Monitor] Respiratory 23 Rate Blood Pressure 120/76 113/69 107/68 O2 Sat by Pulse 94 95 Oximetry O2 Sat by Pulse Oximetry [ Bilateral] 01/30/22 01/30/22 01/30/22 13:11 13:21 13:30 Temperature Pulse Rate 79 78 76 Pulse Rate [ From Monitor] Respiratory Rate Blood Pressure 107/68 110/67 106/68 O2 Sat by Pulse 95 96 Oximetry O2 Sat by Pulse Oximetry [ Bilateral] 01/30/22 01/30/22 01/30/22 13:41 13:51 14:00 Temperature Pulse Rate 80 77 78 Pulse Rate [ From Monitor] Respiratory 24 24 Rate Blood Pressure 106/68 104/68 106/69 O2 Sat by Pulse 92 93 94 Oximetry O2 Sat by Pulse Oximetry [ Bilateral] 01/30/22 01/30/22 01/30/22 14:11 14:21 14:30 Temperature Pulse Rate 75 75 77 Pulse Rate [ From Monitor] Respiratory 22 21 20 Rate Blood Pressure 106/69 109/67 112/73 O2 Sat by Pulse 96 97 97 Oximetry O2 Sat by Pulse Oximetry [ Bilateral] 01/30/22 01/30/22 01/30/22 14:41 14:51 15:00 Temperature Pulse Rate 74 73 73 Pulse Rate [ From Monitor] Respiratory 23 21 Rate Blood Pressure 112/73 110/74 115/74 O2 Sat by Pulse 98 98 Oximetry O2 Sat by Pulse Oximetry [ Bilateral] 01/30/22 01/30/22 01/30/22 15:11 15:21 15:24 Temperature 98.1 F Pulse Rate 72 74 Pulse Rate [ From Monitor] Respiratory 20 21 Rate Blood Pressure 115/74 114/70 O2 Sat by Pulse 99 98 Oximetry O2 Sat by Pulse Oximetry [ Bilateral] 01/30/22 01/30/22 01/30/22 15:30 15:41 15:51 Temperature Pulse Rate 78 81 78 Pulse Rate [ From Monitor] Respiratory 22 Rate Blood Pressure 117/75 117/75 114/72 O2 Sat by Pulse 99 98 Oximetry O2 Sat by Pulse Oximetry [ Bilateral] 01/30/22 01/30/22 01/30/22 15:54 16:00 16:11 Temperature Pulse Rate 79 78 76 Pulse Rate [ 78 From Monitor] Respiratory 22 Rate Blood Pressure 120/75 120/75 O2 Sat by Pulse 98 98 Oximetry O2 Sat by Pulse Oximetry [ Bilateral] 01/30/22 01/30/22 01/30/22 16:21 16:30 16:40 Temperature 98.1 F Pulse Rate 78 77 77 Pulse Rate [ From Monitor] Respiratory 24 22 20 Rate Blood Pressure 114/74 120/76 120/76 O2 Sat by Pulse 98 Oximetry O2 Sat by Pulse 100 Oximetry [ Bilateral] 01/30/22 01/30/22 01/30/22 16:41 16:45 16:51 Temperature Pulse Rate 79 80 78 Pulse Rate [ From Monitor] Respiratory 18 22 Rate Blood Pressure 120/76 124/77 124/77 O2 Sat by Pulse 97 98 Oximetry O2 Sat by Pulse Oximetry [ Bilateral] 01/30/22 01/30/22 01/30/22 17:00 17:10 17:15 Temperature Pulse Rate 74 73 74 Pulse Rate [ From Monitor] Respiratory 22 20 Rate Blood Pressure 118/78 119/74 119/74 O2 Sat by Pulse 99 100 Oximetry O2 Sat by Pulse Oximetry [ Bilateral] 01/30/22 01/30/22 01/30/22 17:20 17:30 17:40 Temperature Pulse Rate 75 75 74 Pulse Rate [ From Monitor] Respiratory 20 21 19 Rate Blood Pressure 123/74 112/69 112/71 O2 Sat by Pulse 99 Oximetry O2 Sat by Pulse Oximetry [ Bilateral] 01/30/22 01/30/22 01/30/22 17:45 17:50 18:00 Temperature Pulse Rate 76 76 78 Pulse Rate [ From Monitor] Respiratory 20 20 Rate Blood Pressure 120/77 120/77 133/79 O2 Sat by Pulse 100 Oximetry O2 Sat by Pulse Oximetry [ Bilateral] 01/30/22 01/30/22 18:15 18:30 Temperature Pulse Rate 78 76 Pulse Rate [ From Monitor] Respiratory Rate Blood Pressure 131/81 131/79 O2 Sat by Pulse Oximetry O2 Sat by Pulse Oximetry [ Bilateral] CBC and BMP: 01/30/22 14:30 01/31/22 04:32 ABG, PT/INR, D-dimer: ABG ABG pH 7.586 pH Units (7.350-7.450) H 01/30/22 04:00 ABG pCO2 27.3 mm Hg 01/30/22 04:00 ABG pO2 103.6 mm Hg (80.0-90.0) H 01/30/22 04:00 ABG O2 Saturation 98.2 % (95.0-99.0) 01/30/22 04:00 Abnormal lab findings: Abnormal Labs 01/26/22 01/26/22 01/26/22 01:45 23:28 23:28 RBC 2.62 L Hgb 7.6 L Hct 23.5 L MCHC Plt Count Lymph % (Auto) [place] % (Auto) Lymph # (Auto) Seg Neutrophils % Seg Neuts % (Manual) 94.0 H Lymphocytes % (Manual) 2.0 L Nucleated RBC % 3.0 H Seg Neutrophils # Man 8.3 H Lymphocytes # (Manual) 0.2 L ABG pH 7.094 L* ABG pO2 162.0 H ABG HCO3 2.7 L ABG O2 Saturation ABG Base Excess -24.8 L ABG Hemoglobin 7.7 L Sodium 148 H Potassium 9.0 H* Chloride 113.1 H Carbon Dioxide 3 L* BUN 308 H Creatinine 31.6 H Glucose 104 H POC Glucose Calcium Magnesium Lactate Dehydrogenase NT-Pro-B Natriuret Pep Urine Blood Urine WBC (Auto) Urine Creatinine Urine Total Protein Hepatitis C Antibody Crossmatch 01/26/22 01/27/22 01/27/22 23:28 01:57 03:31 RBC Hgb Hct MCHC Plt Count Lymph % (Auto) [place] % (Auto) Lymph # (Auto) Seg Neutrophils % Seg Neuts % (Manual) Lymphocytes % (Manual) Nucleated RBC % Seg Neutrophils # Man Lymphocytes # (Manual) ABG pH ABG pO2 ABG HCO3 ABG O2 Saturation ABG Base Excess ABG Hemoglobin Sodium Potassium Chloride Carbon Dioxide BUN Creatinine Glucose POC Glucose Calcium Magnesium 2.60 H Lactate Dehydrogenase NT-Pro-B Natriuret Pep 77281 H Urine Blood Urine WBC (Auto) Urine Creatinine Urine Total Protein Hepatitis C Antibody Reactive A Crossmatch 01/27/22 01/27/22 01/27/22 05:30 07:45 07:45 RBC Hgb Hct MCHC Plt Count Lymph % (Auto) [place] % (Auto) Lymph # (Auto) Seg Neutrophils % Seg Neuts % (Manual) Lymphocytes % (Manual) Nucleated RBC % Seg Neutrophils # Man Lymphocytes # (Manual) ABG pH 7.312 L ABG pO2 595.3 H ABG HCO3 6.6 L ABG O2 Saturation 99.6 H ABG Base Excess -18.2 L ABG Hemoglobin 5.0 L Sodium Potassium Chloride Carbon Dioxide BUN Creatinine Glucose POC Glucose Calcium Magnesium Lactate Dehydrogenase NT-Pro-B Natriuret Pep Urine Blood Large A Urine WBC (Auto) 11.0 H Urine Creatinine 144.3 H Urine Total Protein 154 H Hepatitis C Antibody Crossmatch 01/27/22 01/28/22 01/28/22 Unknown 02:08 04:00 RBC 1.97 L Hgb 5.7 L* Hct 16.7 L* D MCHC Plt Count Lymph % (Auto) 6.1 L [place] % (Auto) 9.0 H Lymph # (Auto) 0.4 L Seg Neutrophils % 84.9 H Seg Neuts % (Manual) Lymphocytes % (Manual) Nucleated RBC % Seg Neutrophils # Man Lymphocytes # (Manual) ABG pH ABG pO2 ABG HCO3 ABG O2 Saturation ABG Base Excess ABG Hemoglobin Sodium 147 H Potassium 5.2 H D Chloride 111.6 H Carbon Dioxide 6 L* BUN 235 H Creatinine 21.2 H Glucose 74 L POC Glucose 60 L Calcium 8.0 L D Magnesium Lactate Dehydrogenase NT-Pro-B Natriuret Pep Urine Blood Urine WBC (Auto) Urine Creatinine Urine Total Protein Hepatitis C Antibody Crossmatch 01/28/22 01/28/22 01/28/22 04:00 05:05 06:00 RBC Hgb Hct MCHC Plt Count Lymph % (Auto) [place] % (Auto) Lymph # (Auto) Seg Neutrophils % Seg Neuts % (Manual) Lymphocytes % (Manual) Nucleated RBC % Seg Neutrophils # Man Lymphocytes # (Manual) ABG pH ABG pO2 197.7 H ABG HCO3 10.6 L ABG O2 Saturation 99.2 H ABG Base Excess -13.7 L ABG Hemoglobin 5.3 L Sodium Potassium Chloride Carbon Dioxide 12 L BUN 216 H Creatinine 18.6 H Glucose POC Glucose Calcium 7.1 L Magnesium Lactate Dehydrogenase NT-Pro-B Natriuret Pep Urine Blood Urine WBC (Auto) Urine Creatinine Urine Total Protein Hepatitis C Antibody Crossmatch See Detail 01/28/22 01/28/22 01/28/22 15:25 15:25 18:17 RBC Hgb 8.3 L Hct 24.3 L D MCHC Plt Count Lymph % (Auto) [place] % (Auto) Lymph # (Auto) Seg Neutrophils % Seg Neuts % (Manual) Lymphocytes % (Manual) Nucleated RBC % Seg Neutrophils # Man Lymphocytes # (Manual) ABG pH ABG pO2 ABG HCO3 ABG O2 Saturation ABG Base Excess ABG Hemoglobin Sodium Potassium Chloride Carbon Dioxide BUN Creatinine Glucose POC Glucose 123 H Calcium Magnesium Lactate Dehydrogenase 233 H NT-Pro-B Natriuret Pep Urine Blood Urine WBC (Auto) Urine Creatinine Urine Total Protein Hepatitis C Antibody Crossmatch 01/29/22 01/29/22 01/29/22 03:15 03:50 03:50 RBC 2.53 L Hgb 7.6 L Hct 21.6 L MCHC 35 H Plt Count 135 L Lymph % (Auto) [place] % (Auto) Lymph # (Auto) Seg Neutrophils % Seg Neuts % (Manual) Lymphocytes % (Manual) Nucleated RBC % Seg Neutrophils # Man Lymphocytes # (Manual) ABG pH 7.582 H ABG pO2 142.5 H ABG HCO3 19.7 L ABG O2 Saturation ABG Base Excess ABG Hemoglobin 7.4 L Sodium 135 L Potassium 3.5 L D Chloride Carbon Dioxide 21 L D BUN 105 H Creatinine 9.2 H D Glucose 164 H POC Glucose Calcium 6.9 L Magnesium Lactate Dehydrogenase NT-Pro-B Natriuret Pep Urine Blood Urine WBC (Auto) Urine Creatinine Urine Total Protein Hepatitis C Antibody Crossmatch 01/30/22 01/30/22 01/30/22 04:00 04:00 04:00 RBC 2.27 L Hgb 6.8 L Hct 19.9 L* MCHC Plt Count 131 L Lymph % (Auto) [place] % (Auto) Lymph # (Auto) Seg Neutrophils % Seg Neuts % (Manual) Lymphocytes % (Manual) Nucleated RBC % Seg Neutrophils # Man Lymphocytes # (Manual) ABG pH 7.586 H ABG pO2 103.6 H ABG HCO3 ABG O2 Saturation ABG Base Excess 3.3 H ABG Hemoglobin 6.5 L Sodium 133 L Potassium Chloride 93.3 L Carbon Dioxide BUN 75 H Creatinine 5.9 H Glucose 149 H POC Glucose Calcium 7.2 L Magnesium 1.50 L Lactate Dehydrogenase NT-Pro-B Natriuret Pep Urine Blood Urine WBC (Auto) Urine Creatinine Urine Total Protein Hepatitis C Antibody Crossmatch 01/30/22 01/30/22 01/30/22 05:48 12:48 14:30 RBC 2.86 L Hgb 8.5 L Hct 25.4 L MCHC Plt Count 134 L Lymph % (Auto) [place] % (Auto) Lymph # (Auto) Seg Neutrophils % Seg Neuts % (Manual) Lymphocytes % (Manual) Nucleated RBC % Seg Neutrophils # Man Lymphocytes # (Manual) ABG pH ABG pO2 ABG HCO3 ABG O2 Saturation ABG Base Excess ABG Hemoglobin Sodium Potassium Chloride Carbon Dioxide BUN Creatinine Glucose POC Glucose 155 H 160 H Calcium Magnesium Lactate Dehydrogenase NT-Pro-B Natriuret Pep Urine Blood Urine WBC (Auto) Urine Creatinine Urine Total Protein Hepatitis C Antibody Crossmatch 01/30/22 16:28 RBC Hgb Hct MCHC Plt Count Lymph % (Auto) [place] % (Auto) Lymph # (Auto) Seg Neutrophils % Seg Neuts % (Manual) Lymphocytes % (Manual) Nucleated RBC % Seg Neutrophils # Man Lymphocytes # (Manual) ABG pH ABG pO2 ABG HCO3 ABG O2 Saturation ABG Base Excess ABG Hemoglobin Sodium Potassium Chloride Carbon Dioxide BUN Creatinine Glucose POC Glucose 143 H Calcium Magnesium Lactate Dehydrogenase NT-Pro-B Natriuret Pep Urine Blood Urine WBC (Auto) Urine Creatinine Urine Total Protein Hepatitis C Antibody Crossmatch Chest x-ray: image reviewed Allied health notes reviewed: RT
[2022-01-30] MEDS: METOPROLOL TARTRATE 25 MG TAB PO SCH (22:59)
[2022-01-31] MEDS: INSULIN LISPRO 100 UNIT/ML SUB-Q SCH ×4 (00:17→17:20)
[2022-01-31 06:03] LABS: Calcium 8.2 mg/dL (8.4-10.2)
[2022-01-31] MEDS: METOPROLOL TARTRATE 25 MG TAB PO SCH ×3 (06:31→23:40)
--- NOTE | 2022-01-31 08:21 | XRay Report ---
CHEST 1 VIEW 01/31/2022 7:45 AM INDICATION / CLINICAL INFORMATION: follow up respiratory failure. COMPARISON: One view of the chest from 01/30/2022. FINDINGS: SUPPORT DEVICES: Unchanged right internal jugular vein Vas-Cath. The esophagogastric tube has been re moved. HEART / MEDIASTINUM: Stable. LUNGS / PLEURA: There are increased bibasilar opacities. No other significant pulmonary abnormality. No significant pleural effusion. No pneumothorax. ADDITIONAL FINDINGS: No significant additional findings. IMPRESSION: 1. Interval removal of the esophagogastric tube with increased probable bibasilar atelectasis. 2. No other significant interval changes. Signer Name: Shankar Seymour MD Signed: 01/31/2022 8:17 AM Workstation Name: [id number]
[2022-01-31] MEDS: SENNOSIDES/DOCUSATE SODIUM 8.6/50 MG TAB FEEDTUBE SCH ×2 (10:17→23:41)
[2022-01-31] MEDS: FAMOTIDINE 20 MG TAB FEEDTUBE SCH (10:17)
[2022-01-31] MEDS: AMIODARONE 200 MG TAB PO SCH (10:17)
--- NOTE | 2022-01-31 12:19 | Progress Note ---
Assessment and Plan Assessment and plan: This is a 66-year-old male with known past medical history of HTN and chronic kidney disease admitted for severe metabolic acidosis 2/2 worsen chronic kidney disease and acute hypoxic respiratory failure requiring ventilatory support. Hospital Course to Date: 01/27: Intubated and responsive not on any sedation. Did not tolerated HD this am due to bradycardia and hypotension. Currently in SR with peak-T wave on the monitor, VSS. Patient received Kayexalate, IV calcium gluconate, D50, insulin and sodium bicarb in the ED. Stat BMP pending. Continue Bcarb gtt per CCM. Awaiting on Nephro final recommendations. Throughout discussion with patient's and son at the bedside. All questions and concerns were addressed at this time. Patient remains a FULL code status. 01/28: Stable on the vent, on low dose sedation, following commands. iHD attempted overnight, aborted due to SVT and hypotension. ST, HR in the 140 noted on the monitor this am, probably due to hypovolemia. Low H&H this am, 2units of PRBCs, repeat H&H per protocol. Will check Echo to evaluate LV function and cardiology was also consulted. K normalized and renal function improved this am. Nephrology is following. 01/29: Tolerating PST this am. Continue vent wean as tolerated for possible extubation per CCM. Off pressors this am, now on Amiodarone gtt per Cardio for Aflutter. H&H stable this morning, continue to trend CBC. Plan for HD today per Nephro. 01/30: Tolerated HD overnight, required short duration of pressor during HD. Pressor is off this morning. Plan for PSV trial again today for possible e xtubation. Remains on Amio gtt, d/w Cardio plan to transition to D/C amio gtt today and transition on PO amio and low dose BB. Low H&H again this am, no s/s of any active bleeding. 1unit of PRBCs given overnight. Will check occult stools and hold AC-Heparin SubQ for now, continue to trend H&H. Renal function continue to improve, monitor and replete electrolytes. 01/31: s/p extubation, AAO and stable on RA this am. Remains in SR, VSS, on PO Amio and BB. Renal function continue to improved, continue HD per Nephro. Patient is stable for transfer to the floor. 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 31.2 - Initial EKG was significant for peaked T waves. - S/p Kayexalate, IV calcium gluconate, D50, insulin and sodium bicarb in the ED. - Nephrology on consult, appreciated recommendation - Trialysis Cath inserted and iHD initiated - Continue HD per nephrp - Strict intake and output - Avoid nephrotoxic medications; Renally dose medications - Monitor and replace electrolytes as needed #Paroxysmal Atrial Flutter #Supraventricular Tachycardia - HR as high as 160 - [address], with no significant ST-changes - Cardiology consulted, appreciated recommendations - Per Cardio initial ECG showed narrow complex tachycardia - s/p Amiodarone gtt. SR noted on the monitor, HR 80-90s - on PO amio and BB - Heparin SubQ held due to anemia #Acute Metabolic Encephalopathy-resolved - most likely secondary to azotemia - Continue HD per Nephro - Avoid sedative agents - PRN Analgesia for CPOT greater than 3 - Maintenance of sleep-wake cycle #Anemia of Chronic Disease - most likely due to chronic kidney disease - S/p 3 units of PRBCs - H&H stable this am - No s/s of any active bleeding - Epogen with iHD per Nephro - Transfuse if Hgb less than 7 - Will hold AC for now - stool occult pending #Hypotension-improved #H/o Hypertension - s/p vasopressors - Probably 2/2 to hypovolemia, H&H dropped this am - Continue blood pressure monitor per protocol - Maintain MAP above 65 - Hold home meds for now #GI/DVT Prophylaxis - PPI- Pepcid - SCDs to bilateral lower extremities while in bed #Advance Care Planning - Disease education data, care plan, diagnoses, and prognosis were discussed with patient at the bedside. All questions and concerns were addressed at this time. Patient acknowledged understanding and agreement with current care plan. Patient remains a FULL code status at this time The high probability of a clinically significant, sudden or life threatening deterioration of the [multiple] system(s) required my full and direct attention, intervention and personal management. The aggregate critical care time was [60] minutes. This time is in addition to time spent performing reported procedures but includes the following: [x] Data Review and interpretation [x] Patient assessment and monitoring of vital signs [x] Documentation [x] Medication orders and management Disposition Plan: ICU Total Time Spent with Patient (Minutes): 60 History Interval history: Patient seen and examined in at the bedside. S/p Extubation, AAO, stable on RA. VSS. LILA overnight Hospitalist Physical - Constitutional Vitals: Temp Pulse Resp BP Pulse Ox 97.9 F 69 12 125/80 98 01/31/22 10:31 01/31/22 12:00 01/31/22 10:31 01/31/22 12:00 01/31/22 10:31 General appearance: Present: no acute distress, well-nourished, obese - EENT Eyes: Present: PERRL, EOM intact ENT: hearing intact - Neck Neck: Present: normal ROM - Respiratory Respiratory effort: normal Respiratory: bilateral: diminished - Cardiovascular Rhythm: regular Heart Sounds: Present: S1 & S2 - Extremities Extremities: no ischemia, pulses intact, pulses symmetrical Peripheral Pulses: within normal limits - Abdominal General gastrointestinal: soft, non-distended, normal bowel sounds - Integumentary Integumentary: Present: warm, dry - Psychiatric Psychiatric: appropriate mood/affect, cooperative - Neurologic Neurologic: moves all extremities - Allied Health Allied health notes reviewed: nursing, case management HEART Score - HEART Score Troponin: Troponin T < 0.010 ng/mL (0.00-0.029) 01/26/22 23:28 Results - Labs CBC & Chem 7: 01/30/22 14:30 01/31/22 04:32 Labs: Laboratory Last Values WBC 6.9 K/mm3 (4.5-11.0) 01/30/22 14:30 RBC 2.86 M/mm3 (3.65-5.03) L 01/30/22 14:30 Hgb 8.5 gm/dl (11.8-15.2) L 01/30/22 14:30 Hct 25.4 % (35.5-45.6) L 01/30/22 14:30 MCV 89 fl (84-94) 01/30/22 14:30 MCH 30 pg (28-32) 01/30/22 14:30 MCHC 33 % (32-34) 01/30/22 14:30 RDW 14.0 % (13.2-15.2) 01/30/22 14:30 Plt Count 134 K/mm3 (140-440) L 01/30/22 14:30 Lymph % (Auto) 6.1 % (13.4-35.0) L 01/28/22 04:00 [place] % (Auto) 9.0 % (0.0-7.3) H 01/28/22 04:00 Eos % (Auto) 0.0 % (0.0-4.3) 01/28/22 04:00 Baso % (Auto) 0.0 % (0.0-1.8) 01/28/22 04:00 Lymph # (Auto) 0.4 K/mm3 (1.2-5.4) L 01/28/22 04:00 [place] # (Auto) 0.5 K/mm3 (0.0-0.8) 01/28/22 04:00 Eos # (Auto) 0.0 K/mm3 (0.0-0.4) 01/28/22 04:00 Baso # (Auto) 0.0 K/mm3 (0.0-0.1) 01/28/22 04:00 Add Manual Diff Complete 01/26/22 23:28 Total Counted 100 01/26/22 23:28 Seg Neutrophils % 84.9 % (40.0-70.0) H 01/28/22 04:00 Seg Neuts % (Manual) 94.0 % (40.0-70.0) H 01/26/22 23:28 Band Neutrophils % 2.0 % 01/26/22 23:28 Lymphocytes % (Manual) 2.0 % (13.4-35.0) L 01/26/22 23:28 Reactive Lymphs % (Man) 0 % 01/26/22 23:28 Monocytes % (Manual) 1.0 % (0.0-7.3) 01/26/22 23:28 Eosinophils % (Manual) 0 % (0.0-4.3) 01/26/22 23:28 Basophils % (Manual) 0 % (0.0-1.8) 01/26/22 23:28 Metamyelocytes % 0 % 01/26/22 23:28 Myelocytes % 1.0 % 01/26/22 23:28 Promyelocytes % 0 % 01/26/22 23:28 Blast Cells % 0 % 01/26/22 23:28 Nucleated RBC % 3.0 % (0.0-0.9) H 01/26/22 23:28 Seg Neutrophils # 5.0 K/mm3 (1.8-7.7) 01/28/22 04:00 Seg Neutrophils # Man 8.3 K/mm3 (1.8-7.7) H 01/26/22 23:28 Band Neutrophils # 0.2 K/mm3 01/26/22 23:28 Lymphocytes # (Manual) 0.2 K/mm3 (1.2-5.4) L 01/26/22 23:28 Abs React Lymphs (Man) 0.0 K/mm3 01/26/22 23:28 Monocytes # (Manual) 0.1 K/mm3 (0.0-0.8) 01/26/22 23:28 Eosinophils # (Manual) 0.0 K/mm3 (0.0-0.4) 01/26/22 23:28 Basophils # (Manual) 0.0 K/mm3 (0.0-0.1) 01/26/22 23:28 Metamyelocytes # 0.0 K/mm3 01/26/22 23:28 Myelocytes # 0.1 K/mm3 01/26/22 23:28 Promyelocytes # 0.0 K/mm3 01/26/22 23:28 Blast Cells # 0.0 K/mm3 01/26/22 23:28 WBC Morphology Not Reportable 01/26/22 23:28 Hypersegmented Neuts Not Reportable 01/26/22 23:28 Hyposegmented Neuts Not Reportable 01/26/22 23:28 Hypogranular Neuts Not Reportable 01/26/22 23:28 Smudge Cells Not Reportable 01/26/22 23:28 Toxic Granulation Not Reportable 01/26/22 23:28 Toxic Vacuolation Not Reportable 01/26/22 23:28 Dohle Bodies Not Reportable 01/26/22 23:28 Pelger-Huet Anomaly Not Reportable 01/26/22 23:28 Sofia Rods Not Reportable 01/26/22 23:28 Platelet Estimate Consistent w auto 01/26/22 23:28 Clumped Platelets Not Reportable 01/26/22 23:28 Plt Clumps, EDTA Not Reportable 01/26/22 23:28 Large Platelets Not Reportable 01/26/22 23:28 Giant Platelets Not Reportable 01/26/22 23:28 Platelet Satelliting Not Reportable 01/26/22 23:28 Plt Morphology Comment Not Reportable 01/26/22 23:28 RBC Morphology Not Reportable 01/26/22 23:28 Dimorphic RBCs Not Reportable 01/26/22 23:28 Polychromasia Not Reportable 01/26/22 23:28 Hypochromasia 2+ 01/26/22 23:28 Poikilocytosis Not Reportable 01/26/22 23:28 Anisocytosis Not Reportable 01/26/22 23:28 Microcytosis Not Reportable 01/26/22 23:28 Macrocytosis Not Reportable 01/26/22 23:28 Spherocytes Not Reportable 01/26/22 23:28 Pappenheimer Bodies Not Reportable 01/26/22 23:28 Sickle Cells Not Reportable 01/26/22 23:28 Target Cells Few 01/26/22 23:28 Tear Drop Cells Not Reportable 01/26/22 23:28 Ovalocytes Not Reportable 01/26/22 23:28 Helmet Cells Not Reportable 01/26/22 23:28 [place] Bodies Not Reportable 01/26/22 23:28 [place] Rings Not Reportable 01/26/22 23:28 [place] Cells Not Reportable 01/26/22 23:28 Bite Cells Not Reportable 01/26/22 23:28 Crenated Cell Not Reportable 01/26/22 23:28 Elliptocytes Not Reportable 01/26/22 23:28 Acanthocytes (Spur) Not Reportable 01/26/22 23:28 Rouleaux Not Reportable 01/26/22 23:28 Hemoglobin C Crystals Not Reportable 01/26/22 23:28 Schistocytes Not Reportable 01/26/22 23:28 Malaria parasites Not Reportable 01/26/22 23:28 Jan Bodies Not Reportable 01/26/22 23:28 Hem Pathologist Commnt No 01/26/22 23:28 ABG pH 7.586 pH Units (7.350-7.450) H 01/30/22 04:00 ABG pCO2 27.3 mm Hg 01/30/22 04:00 ABG pO2 103.6 mm Hg (80.0-90.0) H 01/30/22 04:00 ABG HCO3 25.3 mmol/L (20.0-26.0) 01/30/22 04:00 ABG O2 Saturation 98.2 % (95.0-99.0) 01/30/22 04:00 ABG O2 Content 9.1 (0.0-44) 01/30/22 04:00 ABG Base Excess 3.3 mmol/L (-2.0-3.0) H 01/30/22 04:00 ABG Hemoglobin 6.5 gm/dl (14.0-18.0) L 01/30/22 04:00 ABG Carboxyhemoglobin 0.9 % (0.0-5.0) 01/30/22 04:00 ABG Methemoglobin 0.3 % (0.0-1.5) 01/30/22 04:00 Oxyhemoglobin 97.1 % (95.0-99.0) 01/30/22 04:00 FiO2 28 % 01/30/22 04:00 Sodium 138 mmol/L (137-145) 01/31/22 04:32 Potassium 4.6 mmol/L (3.6-5.0) 01/31/22 04:32 Chloride 100.8 mmol/L (98-107) 01/31/22 04:32 Carbon Dioxide 25 mmol/L (22-30) 01/31/22 04:32 Anion Gap 17 mmol/L 01/31/22 04:32 BUN 57 mg/dL (9-20) H 01/31/22 04:32 Creatinine 4.3 mg/dL (0.8-1.3) H 01/31/22 04:32 Estimated GFR 17 ml/min 01/31/22 04:32 BUN/Creatinine Ratio 13 % 01/31/22 04:32 Glucose 130 mg/dL (75-100) H 01/31/22 04:32 POC Glucose 132 mg/dL (70-105) H 01/30/22 23:52 Lactic Acid 1.40 mmol/L (0.7-2.0) 01/27/22 23:25 Calcium 8.2 mg/dL (8.4-10.2) L 01/31/22 04:32 Phosphorus 5.70 mg/dL (2.5-4.5) H D 01/31/22 04:32 Magnesium 2.20 mg/dL (1.7-2.3) 01/31/22 04:32 Total Bilirubin 0.40 mg/dL (0.1-1.2) 01/26/22 23:28 AST 21 units/L (5-40) 01/26/22 23:28 ALT 19 units/L (7-56) 01/26/22 23:28 Alkaline Phosphatase 64 units/L (35-129) 01/26/22 23:28 Lactate Dehydrogenase 233 units/L (91-180) H 01/28/22 15:25 Troponin T < 0.010 ng/mL (0.00-0.029) 01/26/22 23:28 NT-Pro-B Natriuret Pep 43771 pg/mL (0-900) H 01/26/22 23:28 Total Protein 7.9 g/dL (6.3-8.2) 01/26/22 23:28 Albumin 3.9 g/dL (3.9-5) 01/26/22 23:28 Albumin/Globulin Ratio 1.0 % 01/26/22 23:28 Urine Color Yellow (Yellow) 01/27/22 07:45 Urine Turbidity Clear (Clear) 01/27/22 07:45 Urine pH 5.0 (5.0-7.0) 01/27/22 07:45 Ur Specific [place] 1.015 (1.003-1.030) 01/27/22 07:45 Urine Protein 100 mg/dl mg/dL (Negative) 01/27/22 07:45 Urine Glucose (UA) Negative mg/dL (Negative) 01/27/22 07:45 Urine Ketones Negative mg/dL (Negative) 01/27/22 07:45 Urine Blood Large (Negative) A 01/27/22 07:45 Urine Nitrite Negative (Negative) 01/27/22 07:45 Ur Reducing Substances Not Reportable 01/27/22 07:45 Urine Bilirubin Negative (Negative) 01/27/22 07:45 Urine Ictotest Not Reportable 01/27/22 07:45 Urine Urobilinogen 0.0 mg/dL (<2.0) 01/27/22 07:45 Ur Leukocyte Esterase Small (Negative) 01/27/22 07:45 Urine WBC (Auto) 11.0 /HPF (0.0-6.0) H 01/27/22 07:45 Urine RBC (Auto) 5.0 /HPF (0.0-6.0) 01/27/22 07:45 Urine Bacteria (Auto) 1+ /HPF (Negative) 01/27/22 07:45 Urine WBC Clumps Few /HPF 01/27/22 07:45 Urine Creatinine 144.3 mg/dL (0.1-20.0) H 01/27/22 07:45 Urine Sodium 36 mmol/L 01/27/22 07:45 Urine Total Protein 154 mg/dL (5-11.8) H 01/27/22 07:45 Coronavirus (PCR) Negative (Negative) 01/28/22 16:48 Hepatitis A IgM Ab Non-reactive (NonReactive) 01/27/22 03:31 Hep Bs Antigen Non-reactive (Negative) 01/27/22 03:31 Hep B Core IgM Ab Non-reactive (NonReactive) 01/27/22 03:31 Hepatitis C Antibody Reactive (NonReactive) A 01/27/22 03:31 Blood Type A POSITIVE 01/28/22 06:00 Antibody Screen Negative 01/28/22 06:00 Crossmatch See Detail 01/28/22 06:00 Microbiology: Microbiology 01/28/22 15:25 Peripheral/Venous Blood Culture - Preliminary NO GROWTH AFTER 48 HOURS 01/28/22 15:25 Peripheral/Venous Blood Culture - Preliminary NO GROWTH AFTER 48 HOURS 01/29/22 17:55 Tracheal Aspirate Sputum Culture - Preliminary Roth/IV: Voiding Method Indwelling Catheter Active Medications - Current Medications Current Medications: Generic Name Dose Route Start Last Admin Trade Name Freq PRN Reason Stop Dose Admin Acetaminophen 650 mg 01/27/22 05:44 Acetaminophen 650 Mg Rect Supp ND Q6H PRN Pain MILD(1-3)/Fever >100.5/WILLIAM Amiodarone HCl 200 mg 01/31/22 10:00 01/31/22 10:17 Amiodarone 200 Mg Tab PO Not Given QDAY DOMINIC Epoetin Connor-epbx 10,000 unit 01/27/22 02:08 Epoetin Connor-Epbx 10,000 Unit/1 Ml Vial IV PATRICK PRN hemodialysis Famotidine 20 mg 01/30/22 10:00 01/31/22 10:17 Famotidine 20 Mg Tab FEEDTUBE Not Given DAILY DOMINIC Heparin Sodium (Porcine) 5,000 unit 01/27/22 02:08 Heparin 10,000 Unit/1 Ml Vial IV PATRICK PRN hemodialysis Hydrophilic Ointment 1 applic 01/27/22 18:00 Lip Therapy Vaseline TP Q2HR PRN Dry Lips Sodium Chloride 1,000 mls @ 75 mls/hr 01/30/22 09:00 01/30/22 09:43 Nacl 0.9% 1000 Ml IV 75 mls/hr DIRECT DOMINIC Administration Sodium Chloride 100 mls @ 999 mls/hr 01/30/22 09:00 Nacl 0.9% IV PATRICK PRN Hypotension Insulin Human Lispro 0 unit 01/29/22 18:45 01/31/22 06:31 Insulin Lispro 100 Unit/Ml SUB-Q Not Given Q6HR [facility] Protocol Magnesium Hydroxide 30 ml 01/27/22 05:44 Magnesium Hydroxide (Mom) Oral Liqd Udc PO Q4H PRN Constipation Metoprolol Tartrate 25 mg 01/30/22 22:00 01/31/22 06:31 Metoprolol Tartrate 25 Mg Tab PO Not Given Q8HR [facility] Morphine Sulfate 2 mg 01/27/22 05:44 01/29/22 00:58 Morphine 2 Mg/1 Ml Inj IV 2 mg Q4H PRN Administration Pain, Moderate (4-6) Multi-Ingred Cream/Lotion/Oil/Oint 1 applic 01/27/22 18:00 Mineral Oil/Petrolatum, White Ophth Oint 3.5 Gm OU Q4HR PRN Dry Eye(s) Senna/Docusate Sodium 1 tab 01/27/22 22:00 01/31/22 10:17 Sennosides/Docusate Sodium 8.6/50 Mg Tab FEEDTUBE Not Given BID DOMINIC Sodium Chloride 10 ml 01/27/22 10:00 01/31/22 10:17 Sodium Chloride 0.9% 10 Ml Flush Syringe IV 10 ml BID DOMINIC Administration Sodium Chloride 10 ml 01/27/22 05:44 01/29/22 00:59 Sodium Chloride 0.9% 10 Ml Flush Syringe IV 10 ml PRN PRN Administration LINE FLUSH Nutrition/Malnutrition Assess - Dietary Evaluation Nutrition/Malnutrition Findings: Nutrition Notes Start: 01/28/22 12:15 Freq: Status: Active Protocol: Document 01/31/22 10:38 [facility] (Rec: 01/31/22 10:38 [facility] [id number]) Nutrition Notes Initial or Follow up Brief Note Subjective/Other Information Awaiting [facility] evaluation. Nutrition Intervention Follow-Up By: 02/02/22 Additional Comments F/U: [facility] kim, POC
--- NOTE | 2022-01-31 13:51 | Progress Note ---
Assessment and Plan #Paroxysmal AF/AFL #ESRD on HD #Anemia, required transfusions #H/o HTN Patient is currently maintaining SR. Continue metoprolol and amiodarone. Will check TSH. [id number] is 2. However, due to severe transfusion-requiring anemia, anticoagulation deferred. Recommend out-patient EP follow up for long-term amiodarone management as well as possible [facility] evaluation. Subjective Date of service: 01/31/22 Principal diagnosis: Paroxysmal atrial flutter Interval history: No events. No complaints. Currently receiving HD. Tele - SR Objective Vital Signs Temp Pulse Pulse Resp BP Pulse Ox Pulse Ox 01/31/22 13:21 73 19 121/78 97 01/31/22 13:15 73 121/78 01/31/22 13:11 71 18 124/78 98 01/31/22 13:00 68 15 124/78 99 01/31/22 12:51 76 16 118/79 98 01/31/22 12:45 71 118/79 01/31/22 12:41 73 14 113/77 98 01/31/22 12:30 74 17 113/77 96 01/31/22 12:21 71 17 125/80 98 01/31/22 12:15 69 124/79 01/31/22 12:11 69 19 125/80 97 01/31/22 12:00 98 F 69 75 18 125/80 98 01/31/22 11:51 72 20 126/82 98 01/31/22 11:45 71 126/82 01/31/22 11:41 75 22 122/82 97 01/31/22 11:30 73 19 122/82 97 01/31/22 11:21 79 18 135/79 98 01/31/22 11:15 71 135/76 01/31/22 11:11 72 12 123/76 99 01/31/22 11:00 67 16 123/76 98 01/31/22 10:51 69 16 126/83 98 01/31/22 10:45 70 126/83 01/31/22 10:41 68 16 125/80 98 01/31/22 10:31 97.9 F 72 12 128/82 98 01/31/22 10:30 70 18 125/80 98 01/31/22 10:21 70 15 128/80 97 01/31/22 10:15 71 128/80 01/31/22 10:11 70 17 131/83 97 01/31/22 10:00 74 11 L 131/83 96 01/31/22 09:51 72 16 128/82 97 01/31/22 09:41 89 22 128/82 97 01/31/22 09:31 128/82 98 01/31/22 09:21 78 15 128/82 98 01/31/22 09:11 73 13 125/82 97 01/31/22 09:00 74 13 125/82 98 01/31/22 08:51 73 16 128/82 98 01/31/22 08:41 68 11 L 128/82 98 01/31/22 08:31 65 17 128/82 98 01/31/22 08:21 69 17 128/82 97 01/31/22 08:11 66 15 128/82 98 01/31/22 08:00 69 16 128/82 97 01/31/22 07:53 73 01/31/22 07:51 69 73 14 126/87 97 01/31/22 07:49 98.2 F 01/31/22 07:41 71 13 126/87 97 01/31/22 07:31 70 16 126/87 97 01/31/22 07:21 65 14 126/87 100 01/31/22 07:11 71 14 126/87 100 01/31/22 07:00 70 14 126/87 100 01/31/22 06:51 65 17 136/89 100 01/31/22 06:41 79 19 136/89 100 01/31/22 06:31 73 17 136/89 100 01/31/22 06:21 72 16 136/89 100 01/31/22 06:11 70 15 136/89 100 01/31/22 06:00 75 16 136/89 100 01/31/22 05:51 71 15 139/86 100 01/31/22 05:41 76 17 139/86 100 01/31/22 05:31 70 17 139/86 100 01/31/22 05:21 69 18 139/86 100 01/31/22 05:11 69 16 139/86 100 01/31/22 05:00 73 15 139/86 100 01/31/22 04:51 66 16 138/89 100 01/31/22 04:41 70 18 138/89 100 01/31/22 04:31 73 17 138/89 100 01/31/22 04:21 73 16 138/89 100 01/31/22 04:11 72 16 138/89 100 01/31/22 04:01 67 16 138/89 100 01/31/22 04:00 71 78 22 98 01/31/22 03:54 98.3 F 01/31/22 03:51 67 15 134/87 100 01/31/22 03:41 73 17 134/87 100 01/31/22 03:31 75 17 134/87 100 01/31/22 03:21 72 15 134/87 100 01/31/22 03:11 71 16 134/87 100 01/31/22 03:00 71 17 134/87 100 01/31/22 02:51 77 17 139/91 100 01/31/22 02:41 73 17 139/91 100 01/31/22 02:31 71 16 139/91 100 01/31/22 02:21 74 16 139/91 100 01/31/22 02:11 70 16 139/91 100 01/31/22 02:00 76 21 139/91 100 01/31/22 01:51 75 17 134/89 100 01/31/22 01:41 71 17 134/89 100 01/31/22 01:31 78 21 134/89 100 01/31/22 01:21 75 17 134/89 100 01/31/22 01:11 71 18 134/89 100 01/31/22 01:00 77 20 134/89 100 01/31/22 00:51 67 17 136/89 100 01/31/22 00:41 68 17 136/89 100 01/31/22 00:31 68 17 136/89 100 01/31/22 00:21 66 17 136/89 100 01/31/22 00:11 73 17 136/89 100 01/31/22 00:00 97.6 F 74 78 18 136/89 100 01/30/22 23:51 74 20 135/90 100 01/30/22 23:41 65 17 135/90 100 01/30/22 23:31 72 17 135/90 100 01/30/22 23:21 71 17 135/90 100 01/30/22 23:11 67 17 135/90 100 01/30/22 23:00 74 19 135/90 100 07/08/22 22:59 73 18 136/88 99 01/30/22 22:51 75 17 136/88 99 01/30/22 22:41 72 15 136/88 100 01/30/22 22:31 70 16 136/88 100 01/30/22 22:21 73 15 136/88 99 01/30/22 22:11 69 16 136/88 100 01/30/22 22:00 75 17 136/88 100 01/30/22 21:51 79 17 134/86 100 01/30/22 21:41 70 15 134/86 100 01/30/22 21:31 70 16 134/86 100 01/30/22 21:28 100 01/30/22 21:21 67 17 134/86 100 01/30/22 21:11 68 17 134/86 100 01/30/22 21:00 71 16 139/83 100 01/30/22 20:51 70 16 139/83 100 01/30/22 20:40 71 16 100 01/30/22 20:30 70 17 139/83 100 01/30/22 20:21 76 21 139/83 100 01/30/22 20:10 79 19 139/83 100 01/30/22 20:00 98.2 F 71 78 22 134/87 98 01/30/22 19:50 98.2 F 72 19 133/79 100 100 01/30/22 19:45 68 133/79 01/30/22 19:40 72 18 133/84 01/30/22 19:30 74 17 123/84 100 01/30/22 19:20 72 17 137/81 100 01/30/22 19:15 73 124/80 01/30/22 19:10 72 18 124/80 100 01/30/22 19:00 76 19 122/81 01/30/22 18:50 69 19 129/78 01/30/22 18:45 85 129/78 01/30/22 18:40 70 18 124/77 100 01/30/22 18:30 74 16 131/79 100 01/30/22 18:20 76 19 131/81 100 01/30/22 18:15 78 131/81 01/30/22 18:10 75 19 122/80 100 01/30/22 18:00 78 20 133/79 100 01/30/22 17:50 76 20 120/77 01/30/22 17:45 76 120/77 01/30/22 17:40 74 19 112/71 01/30/22 17:30 75 21 112/69 01/30/22 17:20 75 20 123/74 99 01/30/22 17:15 74 119/74 01/30/22 17:10 73 20 119/74 100 01/30/22 17:00 74 22 118/78 99 01/30/22 16:51 78 22 124/77 98 01/30/22 16:45 80 124/77 01/30/22 16:41 79 18 120/76 97 01/30/22 16:40 98.1 F 77 20 120/76 100 01/30/22 16:30 77 22 120/76 01/30/22 16:21 78 24 114/74 98 01/30/22 16:11 76 22 120/75 98 01/30/22 16:00 78 22 120/75 01/30/22 15:54 79 78 22 98 01/30/22 15:51 78 22 114/72 98 01/30/22 15:41 81 23 117/75 99 01/30/22 15:30 78 24 117/75 01/30/22 15:24 98.1 F 01/30/22 15:21 74 21 114/70 98 01/30/22 15:11 72 20 115/74 99 01/30/22 15:00 73 21 115/74 01/30/22 14:51 73 23 110/74 98 01/30/22 14:41 74 23 112/73 98 01/30/22 14:30 77 20 112/73 97 01/30/22 14:21 75 21 109/67 97 01/30/22 14:11 75 22 106/69 96 01/30/22 14:00 78 24 106/69 94 01/30/22 13:51 77 21 104/68 93 - Physical Examination General: No Apparent Distress HEENT: Positive: Other (Pupils fixed) Neck: Positive: neck supple Cardiac: Positive: Reg Rate and Rhythm Lungs: Positive: clear to auscultation Neuro: Positive: Grossly Intact Abdomen: Positive: Soft Skin: Positive: Clear Extremities: Absent: edema - Labs and Meds CBC 01/30/22 Range/Units 14:30 WBC 6.9 (4.5-11.0) K/mm3 RBC 2.86 L (3.65-5.03) M/mm3 Hgb 8.5 L (11.8-15.2) gm/dl Hct 25.4 L (35.5-45.6) % Plt Count 134 L (140-440) K/mm3 Comprehensive Metabolic Panel 01/31/22 Range/Units 04:32 Sodium 138 (137-145) mmol/L Potassium 4.6 (3.6-5.0) mmol/L Chloride 100.8 (98-107) mmol/L Carbon Dioxide 25 (22-30) mmol/L BUN 57 H (9-20) mg/dL Creatinine 4.3 H (0.8-1.3) mg/dL Glucose 130 H (75-100) mg/dL Calcium 8.2 L (8.4-10.2) mg/dL - Allied health notes Allied health notes reviewed: nursing
--- NOTE | 2022-01-31 14:41 | Progress Note ---
Assessment and Plan - Patient Problems (1) Hyperkalemia Current Visit: Yes Status: Acute Plan to address problem: we will correct hyperkalemia with hemodialysis. Serum potassium levels have improved this morning. (2) Acute on chronic kidney failure Current Visit: Yes Status: Acute Plan to address problem: unclear what his baseline kidney function is but per patient's at bedside he had been seeing a senior art director. I am concerned that this is likely a worsening of his chronic kidney disease at this point. Symptoms are concerning for worsening uremia. Patient will be receiving dialysis again today with goal of clearance. Difficult to remove fluid at this time given his tenuous hemodynamics. Her urine analysis studies are showing evidence of microscopic hematuria and proteinuria concerning for a glomerulonephritis process. He is too unstable for biopsy at this point. We will continue to monitor closely. We will add serologic studies to include PARKER, double-stranded DNA, complement levels, along with ANCA vasculitis studies. Given his severe acute kidney injury without previous baseline, we started on pulse dose steroids x3 doses, with his third dose due today. When more stable I do think he would benefit from a kidney biopsy. Pending serologic studies that have been drawn. Tolerated HD well today and his mentation has improved. He is extubated and pending transfer to telemetry at this time. (3) Hypotension Current Visit: Yes Status: Acute Plan to address problem: Blood pressures have improved at this time. (4) Acute respiratory failure Current Visit: Yes Status: Acute Plan to address problem: Patient has now been extubated. Stable overall respiratory status. (5) Anemia in CKD (chronic kidney disease) Current Visit: Yes Status: Acute Plan to address problem: Transfuse to maintain hemoglobin above 7. Subjective Date of service: 01/31/22 Principal diagnosis: Paroxysmal atrial flutter Interval history: No acute issues, extubated. Tolerated HD this am without any issues. Objective - Vital Signs Vital signs: Vital Signs - 12hr 01/31/22 01/31/22 01/31/22 02:41 02:51 03:00 Temperature Pulse Rate 73 77 71 Pulse Rate [ From Monitor] Respiratory 17 17 17 Rate Blood Pressure 139/91 139/91 134/87 O2 Sat by Pulse 100 100 100 Oximetry O2 Sat by Pulse Oximetry [ Bilateral] 01/31/22 01/31/22 01/31/22 03:11 03:21 03:31 Temperature Pulse Rate 71 72 75 Pulse Rate [ From Monitor] Respiratory 16 15 17 Rate Blood Pressure 134/87 134/87 134/87 O2 Sat by Pulse 100 100 100 Oximetry O2 Sat by Pulse Oximetry [ Bilateral] 01/31/22 01/31/22 01/31/22 03:41 03:51 03:54 Temperature 98.3 F Pulse Rate 73 67 Pulse Rate [ From Monitor] Respiratory 17 15 Rate Blood Pressure 134/87 134/87 O2 Sat by Pulse 100 100 Oximetry O2 Sat by Pulse Oximetry [ Bilateral] 01/31/22 01/31/22 01/31/22 04:00 04:01 04:11 Temperature Pulse Rate 71 67 72 Pulse Rate [ 78 From Monitor] Respiratory 22 16 16 Rate Blood Pressure 138/89 138/89 O2 Sat by Pulse 98 100 100 Oximetry O2 Sat by Pulse Oximetry [ Bilateral] 01/31/22 01/31/22 01/31/22 04:21 04:31 04:41 Temperature Pulse Rate 73 73 70 Pulse Rate [ From Monitor] Respiratory 16 17 18 Rate Blood Pressure 138/89 138/89 138/89 O2 Sat by Pulse 100 100 100 Oximetry O2 Sat by Pulse Oximetry [ Bilateral] 01/31/22 01/31/22 01/31/22 04:51 05:00 05:11 Temperature Pulse Rate 66 73 69 Pulse Rate [ From Monitor] Respiratory 16 15 16 Rate Blood Pressure 138/89 139/86 139/86 O2 Sat by Pulse 100 100 100 Oximetry O2 Sat by Pulse Oximetry [ Bilateral] 01/31/22 01/31/22 01/31/22 05:21 05:31 05:41 Temperature Pulse Rate 69 70 76 Pulse Rate [ From Monitor] Respiratory 18 17 17 Rate Blood Pressure 139/86 139/86 139/86 O2 Sat by Pulse 100 100 100 Oximetry O2 Sat by Pulse Oximetry [ Bilateral] 01/31/22 01/31/22 01/31/22 05:51 06:00 06:11 Temperature Pulse Rate 71 75 70 Pulse Rate [ From Monitor] Respiratory 15 16 15 Rate Blood Pressure 139/86 136/89 136/89 O2 Sat by Pulse 100 100 100 Oximetry O2 Sat by Pulse Oximetry [ Bilateral] 01/31/22 01/31/22 01/31/22 06:21 06:31 06:41 Temperature Pulse Rate 72 73 79 Pulse Rate [ From Monitor] Respiratory 16 17 19 Rate Blood Pressure 136/89 136/89 136/89 O2 Sat by Pulse 100 100 100 Oximetry O2 Sat by Pulse Oximetry [ Bilateral] 01/31/22 01/31/22 01/31/22 06:51 07:00 07:11 Temperature Pulse Rate 65 70 71 Pulse Rate [ From Monitor] Respiratory 17 14 14 Rate Blood Pressure 136/89 126/87 126/87 O2 Sat by Pulse 100 100 100 Oximetry O2 Sat by Pulse Oximetry [ Bilateral] 01/31/22 01/31/22 01/31/22 07:21 07:31 07:41 Temperature Pulse Rate 65 70 71 Pulse Rate [ From Monitor] Respiratory 14 16 13 Rate Blood Pressure 126/87 126/87 126/87 O2 Sat by Pulse 100 97 97 Oximetry O2 Sat by Pulse Oximetry [ Bilateral] 01/31/22 01/31/22 01/31/22 07:49 07:51 07:53 Temperature 98.2 F Pulse Rate 69 73 Pulse Rate [ 73 From Monitor] Respiratory 14 Rate Blood Pressure 126/87 O2 Sat by Pulse 97 Oximetry O2 Sat by Pulse Oximetry [ Bilateral] 01/31/22 01/31/22 01/31/22 08:00 08:11 08:21 Temperature Pulse Rate 69 66 69 Pulse Rate [ From Monitor] Respiratory 16 15 17 Rate Blood Pressure 128/82 128/82 128/82 O2 Sat by Pulse 97 98 97 Oximetry O2 Sat by Pulse Oximetry [ Bilateral] 01/31/22 01/31/22 01/31/22 08:31 08:41 08:51 Temperature Pulse Rate 65 68 73 Pulse Rate [ From Monitor] Respiratory 17 11 L 16 Rate Blood Pressure 128/82 128/82 128/82 O2 Sat by Pulse 98 98 98 Oximetry O2 Sat by Pulse Oximetry [ Bilateral] 01/31/22 01/31/22 01/31/22 09:00 09:11 09:21 Temperature Pulse Rate 74 73 78 Pulse Rate [ From Monitor] Respiratory 13 13 15 Rate Blood Pressure 125/82 125/82 128/82 O2 Sat by Pulse 98 97 98 Oximetry O2 Sat by Pulse Oximetry [ Bilateral] 01/31/22 01/31/22 01/31/22 09:31 09:41 09:51 Temperature Pulse Rate 89 72 Pulse Rate [ From Monitor] Respiratory 22 16 Rate Blood Pressure 128/82 128/82 128/82 O2 Sat by Pulse 98 97 97 Oximetry O2 Sat by Pulse Oximetry [ Bilateral] 01/31/22 01/31/22 01/31/22 10:00 10:11 10:15 Temperature Pulse Rate 74 70 71 Pulse Rate [ From Monitor] Respiratory 11 L 17 Rate Blood Pressure 131/83 131/83 128/80 O2 Sat by Pulse 96 97 Oximetry O2 Sat by Pulse Oximetry [ Bilateral] 01/31/22 01/31/22 01/31/22 10:21 10:30 10:31 Temperature 97.9 F Pulse Rate 70 70 72 Pulse Rate [ From Monitor] Respiratory 15 18 12 Rate Blood Pressure 128/80 125/80 128/82 O2 Sat by Pulse 97 98 Oximetry O2 Sat by Pulse 98 Oximetry [ Bilateral] 01/31/22 01/31/22 01/31/22 10:41 10:45 10:51 Temperature Pulse Rate 68 70 69 Pulse Rate [ From Monitor] Respiratory 16 16 Rate Blood Pressure 125/80 126/83 126/83 O2 Sat by Pulse 98 98 Oximetry O2 Sat by Pulse Oximetry [ Bilateral] 01/31/22 01/31/22 01/31/22 11:00 11:11 11:15 Temperature Pulse Rate 67 72 71 Pulse Rate [ From Monitor] Respiratory 16 12 Rate Blood Pressure 123/76 123/76 135/76 O2 Sat by Pulse 98 99 Oximetry O2 Sat by Pulse Oximetry [ Bilateral] 01/31/22 01/31/22 01/31/22 11:21 11:30 11:41 Temperature Pulse Rate 79 73 75 Pulse Rate [ From Monitor] Respiratory 18 19 22 Rate Blood Pressure 135/79 122/82 122/82 O2 Sat by Pulse 98 97 97 Oximetry O2 Sat by Pulse Oximetry [ Bilateral] 01/31/22 01/31/22 01/31/22 11:45 11:51 12:00 Temperature 98 F Pulse Rate 71 72 69 Pulse Rate [ 75 From Monitor] Respiratory 20 18 Rate Blood Pressure 126/82 126/82 125/80 O2 Sat by Pulse 98 98 Oximetry O2 Sat by Pulse Oximetry [ Bilateral] 01/31/22 01/31/22 01/31/22 12:11 12:15 12:21 Temperature Pulse Rate 69 69 71 Pulse Rate [ From Monitor] Respiratory 19 17 Rate Blood Pressure 125/80 124/79 125/80 O2 Sat by Pulse 97 98 Oximetry O2 Sat by Pulse Oximetry [ Bilateral] 01/31/22 01/31/22 01/31/22 12:30 12:41 12:45 Temperature Pulse Rate 74 73 71 Pulse Rate [ From Monitor] Respiratory 17 14 Rate Blood Pressure 113/77 113/77 118/79 O2 Sat by Pulse 96 98 Oximetry O2 Sat by Pulse Oximetry [ Bilateral] 01/31/22 01/31/22 01/31/22 12:51 13:00 13:11 Temperature Pulse Rate 76 68 71 Pulse Rate [ From Monitor] Respiratory 16 15 18 Rate Blood Pressure 118/79 124/78 124/78 O2 Sat by Pulse 98 99 98 Oximetry O2 Sat by Pulse Oximetry [ Bilateral] 01/31/22 01/31/22 01/31/22 13:15 13:20 13:21 Temperature 97.7 F Pulse Rate 73 68 73 Pulse Rate [ From Monitor] Respiratory 20 19 Rate Blood Pressure 121/78 114/75 121/78 O2 Sat by Pulse 97 Oximetry O2 Sat by Pulse 98 Oximetry [ Bilateral] 01/31/22 14:12 Temperature Pulse Rate 82 Pulse Rate [ From Monitor] Respiratory Rate Blood Pressure 122/74 O2 Sat by Pulse Oximetry O2 Sat by Pulse Oximetry [ Bilateral] - General Appearance General appearance: well-developed EENT: ATNC Neck: no JVD, no thyromegaly Respiratory: Present: Clear to Ascultation Cardiology: regular, normal heart rate Gastrointestinal: normal Integumentary: no rash Neurologic: no focal deficit Musculoskeletal: deferred Psychiatric: cooperative - Lab 01/30/22 14:30 01/31/22 04:32 Most recent lab results ABG pH 7.586 pH Units (7.350-7.450) H 01/30/22 04:00 ABG pCO2 27.3 mm Hg 01/30/22 04:00 ABG pO2 103.6 mm Hg (80.0-90.0) H 01/30/22 04:00 ABG HCO3 25.3 mmol/L (20.0-26.0) 01/30/22 04:00 ABG O2 Saturation 98.2 % (95.0-99.0) 01/30/22 04:00 Calcium 8.2 mg/dL (8.4-10.2) L 01/31/22 04:32 Phosphorus 5.70 mg/dL (2.5-4.5) H D 01/31/22 04:32 Magnesium 2.20 mg/dL (1.7-2.3) 01/31/22 04:32 Urine Creatinine 144.3 mg/dL (0.1-20.0) H 01/27/22 07:45 Urine Sodium 36 mmol/L 01/27/22 07:45 Urine Total Protein 154 mg/dL (5-11.8) H 01/27/22 07:45 - Allied health notes Allied health notes reviewed: nursing Medications & Allergies - Medications Allergies/Adverse Reactions: Allergies No Known Allergies Allergy (Verified 01/26/22 23:12) Home Medications: Home Medications Medication Instructions Recorded Confirmed Last Taken Type No Known Home Medications [No 01/27/22 01/27/22 Unknown History Reported Home Medications] Active Medications: Generic Name Dose Route Start Last Admin Trade Name Freq PRN Reason Stop Dose Admin Acetaminophen 650 mg 01/27/22 05:44 Acetaminophen [address] Q6H PRN Pain MILD(1-3)/Fever >100.5/WILLIAM Amiodarone HCl 200 mg 01/31/22 10:00 01/31/22 10:17 Amiodarone 200 Mg Tab PO Not Given QDAY DOMINIC Epoetin Connor-epbx 10,000 unit 01/27/22 02:08 Epoetin Connor-Epbx 10,000 Unit/1 Ml Vial IV PATRICK PRN hemodialysis Famotidine 20 mg 01/30/22 10:00 01/31/22 10:17 Famotidine 20 Mg Tab FEEDTUBE Not Given DAILY COUNT INCLUDES THE [facility] Heparin Sodium (Porcine) 5,000 unit 01/27/22 02:08 Heparin 10,000 Unit/1 Ml Vial IV PATRICK PRN hemodialysis Hydrophilic Ointment 1 applic 01/27/22 18:00 Lip Therapy Vaseline TP Q2HR PRN Dry Lips Sodium Chloride 1,000 mls @ 75 mls/hr 01/30/22 09:00 01/31/22 14:37 Nacl 0.9% 1000 Ml IV Infused DIRECT DOMINIC Infusion Sodium Chloride 100 mls @ 999 mls/hr 01/30/22 09:00 Nacl 0.9% IV PATRICK PRN Hypotension Insulin Human Lispro 0 unit 01/29/22 18:45 01/31/22 12:27 Insulin Lispro 100 Unit/Ml SUB-Q Not Given Q6HR COUNT INCLUDES THE [facility] Protocol Magnesium Hydroxide 30 ml 01/27/22 05:44 Magnesium Hydroxide (Mom) Oral Liqd Udc PO Q4H PRN Constipation Metoprolol Tartrate 25 mg 01/30/22 22:00 01/31/22 14:12 Metoprolol Tartrate 25 Mg Tab PO 25 mg Q8HR DOMINIC Administration Morphine Sulfate 2 mg 01/27/22 05:44 01/29/22 00:58 Morphine 2 Mg/1 Ml Inj IV 2 mg Q4H PRN Administration Pain, Moderate (4-6) Multi-Ingred Cream/Lotion/Oil/Oint 1 applic 01/27/22 18:00 Mineral Oil/Petrolatum, White Ophth Oint 3.5 Gm OU Q4HR PRN Dry Eye(s) Senna/Docusate Sodium 1 tab 01/27/22 22:00 01/31/22 10:17 Sennosides/Docusate Sodium 8.6/50 Mg Tab FEEDTUBE Not Given BID DOMINIC Sodium Chloride 10 ml 01/27/22 10:00 01/31/22 10:17 Sodium Chloride 0.9% 10 Ml Flush Syringe IV 10 ml BID DOMINIC Administration Sodium Chloride 10 ml 01/27/22 05:44 01/29/22 00:59 Sodium Chloride 0.9% 10 Ml Flush Syringe IV 10 ml PRN PRN Administration LINE FLUSH
--- NOTE | 2022-01-31 16:41 | Progress Note ---
Assessment and Plan Acute Hypoxic Respiratory Failure s/p MVS Acute on Chronic Kidney Injury on HD -Presented with K of 9.0, BUN 308, and Scr. 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 -Monitoring renal function, hemodynamics and electrolyte profile -Replete electrolytes as clinically indicated -Accuchecks with glycemic control, target blood glucose 140-180 mg/dL. Avoid hypoglycemia -VTE prophylaxis- Heparin -Avoid nephrotoxins and renally dose all medications -Stress ulcer prophylaxis-Famotidine -Mobility, frequent turning, off loading per facility protocol to prevent pressure ulcers -Maintain sleep wake cycle, avoid benzodiazepines. -Limit delirium -Enteric nutritional support at goal -Supportive blood transfusion, keep HgB>7g/dL-s/p 2 units PRBC with stable hemoglobin CONDITION:FAIR PROGNOSIS: FAIR CODE STATUS; FULL CODE Discussed in interdisciplinary rounds Can transfer telemetry Subjective Date of service: 01/31/22 Principal diagnosis: Paroxysmal atrial flutter Interval history: F/UP for acute hypoxemic resp failure; severe hyperkalemia; SILVIA on CKD; Acute metabolic encephalopathy; Tachyarrthymia Seen and examined. Vitals, labs, medications, chart and imaging reviewed. Discussed with respiratory care and nursing staff. No adverse overnight events reported. s/p extubation and is doing well Objective - Exam Narrative Exam: General appearance: well-developed, well-nourished, appears stated age EENT: ATNC, PERRL, mucous membranes moist Neck: no JVD, tunneled HD catheter noted. Respiratory: Present: Clear to Ascultation Cardiology: regular, S1S2 Gastrointestinal: normoactive bowel sounds Integumentary: no rash, other (no edema ) Neurologic: no focal deficit, alert and oriented x3, strength 5/5, CN 3-12 intact Psychiatric: mood/affect appropriate, cooperative Vital Signs - 12hr 01/31/22 01/31/22 01/31/22 04:41 04:51 05:00 Temperature Pulse Rate 70 66 73 Pulse Rate [ From Monitor] Respiratory 18 16 15 Rate Blood Pressure 138/89 138/89 139/86 O2 Sat by Pulse 100 100 100 Oximetry O2 Sat by Pulse Oximetry [ Bilateral] 01/31/22 01/31/22 01/31/22 05:11 05:21 05:31 Temperature Pulse Rate 69 69 70 Pulse Rate [ From Monitor] Respiratory 16 18 17 Rate Blood Pressure 139/86 139/86 139/86 O2 Sat by Pulse 100 100 100 Oximetry O2 Sat by Pulse Oximetry [ Bilateral] 01/31/22 01/31/22 01/31/22 05:41 05:51 06:00 Temperature Pulse Rate 76 71 75 Pulse Rate [ From Monitor] Respiratory 17 15 16 Rate Blood Pressure 139/86 139/86 136/89 O2 Sat by Pulse 100 100 100 Oximetry O2 Sat by Pulse Oximetry [ Bilateral] 01/31/22 01/31/22 01/31/22 06:11 06:21 06:31 Temperature Pulse Rate 70 72 73 Pulse Rate [ From Monitor] Respiratory 15 16 17 Rate Blood Pressure 136/89 136/89 136/89 O2 Sat by Pulse 100 100 100 Oximetry O2 Sat by Pulse Oximetry [ Bilateral] 01/31/22 01/31/22 01/31/22 06:41 06:51 07:00 Temperature Pulse Rate 79 65 70 Pulse Rate [ From Monitor] Respiratory 19 17 14 Rate Blood Pressure 136/89 136/89 126/87 O2 Sat by Pulse 100 100 100 Oximetry O2 Sat by Pulse Oximetry [ Bilateral] 01/31/22 01/31/22 01/31/22 07:11 07:21 07:31 Temperature Pulse Rate 71 65 70 Pulse Rate [ From Monitor] Respiratory 14 14 16 Rate Blood Pressure 126/87 126/87 126/87 O2 Sat by Pulse 100 100 97 Oximetry O2 Sat by Pulse Oximetry [ Bilateral] 01/31/22 01/31/22 01/31/22 07:41 07:49 07:51 Temperature 98.2 F Pulse Rate 71 69 Pulse Rate [ 73 From Monitor] Respiratory 13 14 Rate Blood Pressure 126/87 126/87 O2 Sat by Pulse 97 97 Oximetry O2 Sat by Pulse Oximetry [ Bilateral] 01/31/22 01/31/22 01/31/22 07:53 08:00 08:11 Temperature Pulse Rate 73 69 66 Pulse Rate [ From Monitor] Respiratory 16 15 Rate Blood Pressure 128/82 128/82 O2 Sat by Pulse 97 98 Oximetry O2 Sat by Pulse Oximetry [ Bilateral] 01/31/22 01/31/22 01/31/22 08:21 08:31 08:41 Temperature Pulse Rate 69 65 68 Pulse Rate [ From Monitor] Respiratory 17 17 11 L Rate Blood Pressure 128/82 128/82 128/82 O2 Sat by Pulse 97 98 98 Oximetry O2 Sat by Pulse Oximetry [ Bilateral] 01/31/22 01/31/22 01/31/22 08:51 09:00 09:11 Temperature Pulse Rate 73 74 73 Pulse Rate [ From Monitor] Respiratory 16 13 13 Rate Blood Pressure 128/82 125/82 125/82 O2 Sat by Pulse 98 98 97 Oximetry O2 Sat by Pulse Oximetry [ Bilateral] 01/31/22 01/31/22 01/31/22 09:21 09:31 09:41 Temperature Pulse Rate 78 89 Pulse Rate [ From Monitor] Respiratory 15 22 Rate Blood Pressure 128/82 128/82 128/82 O2 Sat by Pulse 98 98 97 Oximetry O2 Sat by Pulse Oximetry [ Bilateral] 01/31/22 01/31/22 01/31/22 09:51 10:00 10:11 Temperature Pulse Rate 72 74 70 Pulse Rate [ From Monitor] Respiratory 16 11 L 17 Rate Blood Pressure 128/82 131/83 131/83 O2 Sat by Pulse 97 96 97 Oximetry O2 Sat by Pulse Oximetry [ Bilateral] 01/31/22 01/31/22 01/31/22 10:15 10:21 10:30 Temperature Pulse Rate 71 70 70 Pulse Rate [ From Monitor] Respiratory 15 18 Rate Blood Pressure 128/80 128/80 125/80 O2 Sat by Pulse 97 98 Oximetry O2 Sat by Pulse Oximetry [ Bilateral] 01/31/22 01/31/22 01/31/22 10:31 10:41 10:45 Temperature 97.9 F Pulse Rate 72 68 70 Pulse Rate [ From Monitor] Respiratory 12 16 Rate Blood Pressure 128/82 125/80 126/83 O2 Sat by Pulse 98 Oximetry O2 Sat by Pulse 98 Oximetry [ Bilateral] 01/31/22 01/31/22 01/31/22 10:51 11:00 11:11 Temperature Pulse Rate 69 67 72 Pulse Rate [ From Monitor] Respiratory 16 16 12 Rate Blood Pressure 126/83 123/76 123/76 O2 Sat by Pulse 98 98 99 Oximetry O2 Sat by Pulse Oximetry [ Bilateral] 01/31/22 01/31/22 01/31/22 11:15 11:21 11:30 Temperature Pulse Rate 71 79 73 Pulse Rate [ From Monitor] Respiratory 18 19 Rate Blood Pressure 135/76 135/79 122/82 O2 Sat by Pulse 98 97 Oximetry O2 Sat by Pulse Oximetry [ Bilateral] 01/31/22 01/31/22 01/31/22 11:41 11:45 11:51 Temperature Pulse Rate 75 71 72 Pulse Rate [ From Monitor] Respiratory 22 20 Rate Blood Pressure 122/82 126/82 126/82 O2 Sat by Pulse 97 98 Oximetry O2 Sat by Pulse Oximetry [ Bilateral] 01/31/22 01/31/22 01/31/22 12:00 12:11 12:15 Temperature 98 F Pulse Rate 69 69 69 Pulse Rate [ 75 From Monitor] Respiratory 18 19 Rate Blood Pressure 125/80 125/80 124/79 O2 Sat by Pulse 98 97 Oximetry O2 Sat by Pulse Oximetry [ Bilateral] 01/31/22 01/31/22 01/31/22 12:21 12:30 12:41 Temperature Pulse Rate 71 74 73 Pulse Rate [ From Monitor] Respiratory 17 17 14 Rate Blood Pressure 125/80 113/77 113/77 O2 Sat by Pulse 98 96 98 Oximetry O2 Sat by Pulse Oximetry [ Bilateral] 01/31/22 01/31/22 01/31/22 12:45 12:51 13:00 Temperature Pulse Rate 71 76 68 Pulse Rate [ From Monitor] Respiratory 16 15 Rate Blood Pressure 118/79 118/79 124/78 O2 Sat by Pulse 98 99 Oximetry O2 Sat by Pulse Oximetry [ Bilateral] 01/31/22 01/31/22 01/31/22 13:11 13:15 13:20 Temperature 97.7 F Pulse Rate 71 73 68 Pulse Rate [ From Monitor] Respiratory 18 20 Rate Blood Pressure 124/78 121/78 114/75 O2 Sat by Pulse 98 Oximetry O2 Sat by Pulse 98 Oximetry [ Bilateral] 01/31/22 01/31/22 01/31/22 13:21 13:30 13:41 Temperature Pulse Rate 73 112 H 82 Pulse Rate [ From Monitor] Respiratory 19 21 21 Rate Blood Pressure 121/78 111/76 111/76 O2 Sat by Pulse 97 97 95 Oximetry O2 Sat by Pulse Oximetry [ Bilateral] 01/31/22 01/31/22 01/31/22 13:51 14:00 14:11 Temperature Pulse Rate 81 83 81 Pulse Rate [ From Monitor] Respiratory 19 19 20 Rate Blood Pressure 111/76 122/74 122/74 O2 Sat by Pulse 96 96 96 Oximetry O2 Sat by Pulse Oximetry [ Bilateral] 01/31/22 01/31/22 01/31/22 14:12 14:21 14:31 Temperature Pulse Rate 82 76 81 Pulse Rate [ From Monitor] Respiratory 20 19 Rate Blood Pressure 122/74 122/74 122/74 O2 Sat by Pulse 97 Oximetry O2 Sat by Pulse Oximetry [ Bilateral] 01/31/22 01/31/22 01/31/22 14:41 14:51 15:00 Temperature Pulse Rate 70 67 67 Pulse Rate [ From Monitor] Respiratory 19 20 13 Rate Blood Pressure 122/74 122/74 120/77 O2 Sat by Pulse Oximetry O2 Sat by Pulse Oximetry [ Bilateral] CBC and BMP: 02/04/22 09:08 02/04/22 09:08 ABG, PT/INR, D-dimer: ABG ABG pH 7.586 pH Units (7.350-7.450) H 01/30/22 04:00 ABG pCO2 27.3 mm Hg 01/30/22 04:00 ABG pO2 103.6 mm Hg (80.0-90.0) H 01/30/22 04:00 ABG O2 Saturation 98.2 % (95.0-99.0) 01/30/22 04:00 Abnormal lab findings: Abnormal Labs 01/26/22 01/26/22 01/26/22 01:45 23:28 23:28 RBC 2.62 L Hgb 7.6 L Hct 23.5 L MCHC Plt Count Lymph % (Auto) [place] % (Auto) Lymph # (Auto) Seg Neutrophils % Seg Neuts % (Manual) 94.0 H Lymphocytes % (Manual) 2.0 L Nucleated RBC % 3.0 H Seg Neutrophils # Man 8.3 H Lymphocytes # (Manual) 0.2 L ABG pH 7.094 L* ABG pO2 162.0 H ABG HCO3 2.7 L ABG O2 Saturation ABG Base Excess -24.8 L ABG Hemoglobin 7.7 L Sodium 148 H Potassium 9.0 H* Chloride 113.1 H Carbon Dioxide 3 L* BUN 308 H Creatinine 31.6 H Glucose 104 H POC Glucose Calcium Phosphorus Magnesium Lactate Dehydrogenase NT-Pro-B Natriuret Pep Urine Blood Urine WBC (Auto) Urine Creatinine Urine Total Protein Hepatitis C Antibody Crossmatch 01/26/22 01/27/22 01/27/22 23:28 01:57 03:31 RBC Hgb Hct MCHC Plt Count Lymph % (Auto) [place] % (Auto) Lymph # (Auto) Seg Neutrophils % Seg Neuts % (Manual) Lymphocytes % (Manual) Nucleated RBC % Seg Neutrophils # Man Lymphocytes # (Manual) ABG pH ABG pO2 ABG HCO3 ABG O2 Saturation ABG Base Excess ABG Hemoglobin Sodium Potassium Chloride Carbon Dioxide BUN Creatinine Glucose POC Glucose Calcium Phosphorus Magnesium 2.60 H Lactate Dehydrogenase NT-Pro-B Natriuret Pep 21151 H Urine Blood Urine WBC (Auto) Urine Creatinine Urine Total Protein Hepatitis C Antibody Reactive A Crossmatch 01/27/22 01/27/22 01/27/22 05:30 07:45 07:45 RBC Hgb Hct MCHC Plt Count Lymph % (Auto) [place] % (Auto) Lymph # (Auto) Seg Neutrophils % Seg Neuts % (Manual) Lymphocytes % (Manual) Nucleated RBC % Seg Neutrophils # Man Lymphocytes # (Manual) ABG pH 7.312 L ABG pO2 595.3 H ABG HCO3 6.6 L ABG O2 Saturation 99.6 H ABG Base Excess -18.2 L ABG Hemoglobin 5.0 L Sodium Potassium Chloride Carbon Dioxide BUN Creatinine Glucose POC Glucose Calcium Phosphorus Magnesium Lactate Dehydrogenase NT-Pro-B Natriuret Pep Urine Blood Large A Urine WBC (Auto) 11.0 H Urine Creatinine 144.3 H Urine Total Protein 154 H Hepatitis C Antibody Crossmatch 01/27/22 01/28/22 01/28/22 Unknown 02:08 04:00 RBC 1.97 L Hgb 5.7 L* Hct 16.7 L* D MCHC Plt Count Lymph % (Auto) 6.1 L [place] % (Auto) 9.0 H Lymph # (Auto) 0.4 L Seg Neutrophils % 84.9 H Seg Neuts % (Manual) Lymphocytes % (Manual) Nucleated RBC % Seg Neutrophils # Man Lymphocytes # (Manual) ABG pH ABG pO2 ABG HCO3 ABG O2 Saturation ABG Base Excess ABG Hemoglobin Sodium 147 H Potassium 5.2 H D Chloride 111.6 H Carbon Dioxide 6 L* BUN 235 H Creatinine 21.2 H Glucose 74 L POC Glucose 60 L Calcium 8.0 L D Phosphorus Magnesium Lactate Dehydrogenase NT-Pro-B Natriuret Pep Urine Blood Urine WBC (Auto) Urine Creatinine Urine Total Protein Hepatitis C Antibody Crossmatch 01/28/22 01/28/22 01/28/22 04:00 05:05 06:00 RBC Hgb Hct MCHC Plt Count Lymph % (Auto) [place] % (Auto) Lymph # (Auto) Seg Neutrophils % Seg Neuts % (Manual) Lymphocytes % (Manual) Nucleated RBC % Seg Neutrophils # Man Lymphocytes # (Manual) ABG pH ABG pO2 197.7 H ABG HCO3 10.6 L ABG O2 Saturation 99.2 H ABG Base Excess -13.7 L ABG Hemoglobin 5.3 L Sodium Potassium Chloride Carbon Dioxide 12 L BUN 216 H Creatinine 18.6 H Glucose POC Glucose Calcium 7.1 L Phosphorus Magnesium Lactate Dehydrogenase NT-Pro-B Natriuret Pep Urine Blood Urine WBC (Auto) Urine Creatinine Urine Total Protein Hepatitis C Antibody Crossmatch See Detail 01/28/22 01/28/22 01/28/22 15:25 15:25 18:17 RBC Hgb 8.3 L Hct 24.3 L D MCHC Plt Count Lymph % (Auto) [place] % (Auto) Lymph # (Auto) Seg Neutrophils % Seg Neuts % (Manual) Lymphocytes % (Manual) Nucleated RBC % Seg Neutrophils # Man Lymphocytes # (Manual) ABG pH ABG pO2 ABG HCO3 ABG O2 Saturation ABG Base Excess ABG Hemoglobin Sodium Potassium Chloride Carbon Dioxide BUN Creatinine Glucose POC Glucose 123 H Calcium Phosphorus Magnesium Lactate Dehydrogenase 233 H NT-Pro-B Natriuret Pep Urine Blood Urine WBC (Auto) Urine Creatinine Urine Total Protein Hepatitis C Antibody Crossmatch 01/29/22 01/29/22 01/29/22 03:15 03:50 03:50 RBC 2.53 L Hgb 7.6 L Hct 21.6 L MCHC 35 H Plt Count 135 L Lymph % (Auto) [place] % (Auto) Lymph # (Auto) Seg Neutrophils % Seg Neuts % (Manual) Lymphocytes % (Manual) Nucleated RBC % Seg Neutrophils # Man Lymphocytes # (Manual) ABG pH 7.582 H ABG pO2 142.5 H ABG HCO3 19.7 L ABG O2 Saturation ABG Base Excess ABG Hemoglobin 7.4 L Sodium 135 L Potassium 3.5 L D Chloride Carbon Dioxide 21 L D BUN 105 H Creatinine 9.2 H D Glucose 164 H POC Glucose Calcium 6.9 L Phosphorus Magnesium Lactate Dehydrogenase NT-Pro-B Natriuret Pep Urine Blood Urine WBC (Auto) Urine Creatinine Urine Total Protein Hepatitis C Antibody Crossmatch 01/30/22 01/30/22 01/30/22 04:00 04:00 04:00 RBC 2.27 L Hgb 6.8 L Hct 19.9 L* MCHC Plt Count 131 L Lymph % (Auto) [place] % (Auto) Lymph # (Auto) Seg Neutrophils % Seg Neuts % (Manual) Lymphocytes % (Manual) Nucleated RBC % Seg Neutrophils # Man Lymphocytes # (Manual) ABG pH 7.586 H ABG pO2 103.6 H ABG HCO3 ABG O2 Saturation ABG Base Excess 3.3 H ABG Hemoglobin 6.5 L Sodium 133 L Potassium Chloride 93.3 L Carbon Dioxide BUN 75 H Creatinine 5.9 H Glucose 149 H POC Glucose Calcium 7.2 L Phosphorus Magnesium 1.50 L Lactate Dehydrogenase NT-Pro-B Natriuret Pep Urine Blood Urine WBC (Auto) Urine Creatinine Urine Total Protein Hepatitis C Antibody Crossmatch 01/30/22 01/30/22 01/30/22 05:48 12:48 14:30 RBC 2.86 L Hgb 8.5 L Hct 25.4 L MCHC Plt Count 134 L Lymph % (Auto) [place] % (Auto) Lymph # (Auto) Seg Neutrophils % Seg Neuts % (Manual) Lymphocytes % (Manual) Nucleated RBC % Seg Neutrophils # Man Lymphocytes # (Manual) ABG pH ABG pO2 ABG HCO3 ABG O2 Saturation ABG Base Excess ABG Hemoglobin Sodium Potassium Chloride Carbon Dioxide BUN Creatinine Glucose POC Glucose 155 H 160 H Calcium Phosphorus Magnesium Lactate Dehydrogenase NT-Pro-B Natriuret Pep Urine Blood Urine WBC (Auto) Urine Creatinine Urine Total Protein Hepatitis C Antibody Crossmatch 01/30/22 01/30/22 01/31/22 16:28 23:52 04:32 RBC Hgb Hct MCHC Plt Count Lymph % (Auto) [place] % (Auto) Lymph # (Auto) Seg Neutrophils % Seg Neuts % (Manual) Lymphocytes % (Manual) Nucleated RBC % Seg Neutrophils # Man Lymphocytes # (Manual) ABG pH ABG pO2 ABG HCO3 ABG O2 Saturation ABG Base Excess ABG Hemoglobin Sodium Potassium Chloride Carbon Dioxide BUN 57 H Creatinine 4.3 H Glucose 130 H POC Glucose 143 H 132 H Calcium 8.2 L Phosphorus 5.70 H D Magnesium Lactate Dehydrogenase NT-Pro-B Natriuret Pep Urine Blood Urine WBC (Auto) Urine Creatinine Urine Total Protein Hepatitis C Antibody Crossmatch 01/31/22 12:20 RBC Hgb Hct MCHC Plt Count Lymph % (Auto) [place] % (Auto) Lymph # (Auto) Seg Neutrophils % Seg Neuts % (Manual) Lymphocytes % (Manual) Nucleated RBC % Seg Neutrophils # Man Lymphocytes # (Manual) ABG pH ABG pO2 ABG HCO3 ABG O2 Saturation ABG Base Excess ABG Hemoglobin Sodium Potassium Chloride Carbon Dioxide BUN Creatinine Glucose POC Glucose 149 H Calcium Phosphorus Magnesium Lactate Dehydrogenase NT-Pro-B Natriuret Pep Urine Blood Urine WBC (Auto) Urine Creatinine Urine Total Protein Hepatitis C Antibody Crossmatch Allied health notes reviewed: nursing
[2022-02-01] MEDS: INSULIN LISPRO 100 UNIT/ML SUB-Q SCH ×4 (00:20→17:48)
[2022-02-01 05:09] LABS: Hematocrit 27.2 % (35.5-45.6); Mean Corpuscular HGB Conc 33 % (32-34); Mean Corpuscular Volume 91 fl (84-94); Platelet Count 131 K/mm3 (140-440); Red Blood Count 2.98 M/mm3 (3.65-5.03); Red Cell Distribution Width 14.5 % (13.2-15.2)
[2022-02-01 05:24] LABS: Calcium 7.6 mg/dL (8.4-10.2)
[2022-02-01] MEDS: METOPROLOL TARTRATE 25 MG TAB PO SCH ×3 (06:01→22:49)
[2022-02-01] MEDS: AMIODARONE 200 MG TAB PO SCH (09:50)
[2022-02-01] MEDS: SENNOSIDES/DOCUSATE SODIUM 8.6/50 MG TAB FEEDTUBE SCH ×2 (09:50→21:50)
[2022-02-01] MEDS: FAMOTIDINE 20 MG TAB FEEDTUBE SCH (09:50)
--- NOTE | 2022-02-01 11:26 | Progress Note ---
Assessment and Plan Assessment and plan: This is a 66-year-old male with known past medical history of HTN and chronic kidney disease admitted for severe metabolic acidosis 2/2 worsen chronic kidney disease and acute hypoxic respiratory failure requiring ventilatory support. 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 31.2 - Initial EKG was significant for peaked T waves. - S/p Kayexalate, IV calcium gluconate, D50, insulin and sodium bicarb in the ED. - Nephrology following, appreciated recommendation - Trialysis Cath inserted and iHD initiated - Continue HD per nephrology - Strict intake and output - Avoid nephrotoxic medications; Renally dose medications - Monitor and replace electrolytes as needed #Paroxysmal Atrial Flutter #Supraventricular Tachycardia - HR as high as 160 - [address], with no significant ST-changes - Cardiology consulted, appreciated recommendations - Per Cardio initial ECG showed narrow complex tachycardia - s/p Amiodarone gtt. SR noted on the monitor, HR 80-90s - on PO amio and BB - Heparin SubQ held due to anemia #Acute Metabolic Encephalopathy-resolved - most likely secondary to azotemia - Continue HD per Nephro - Avoid sedative agents - PRN Analgesia for CPOT greater than 3 - Maintenance of sleep-wake cycle #Anemia of Chronic Disease - most likely due to chronic kidney disease - S/p 3 units of PRBCs - H&H stable this am - No s/s of any active bleeding - Epogen with iHD per Nephro - Transfuse if Hgb less than 7 - Will hold AC for now - stool occult pending #Hypotension-improved #H/o Hypertension - s/p vasopressors - Probably 2/2 to hypovolemia, H&H dropped this am - Continue blood pressure monitor per protocol - Maintain MAP above 65 - Hold home meds for now Hospital Course to Date: 01/27: Intubated and responsive not on any sedation. Did not tolerated HD this am due to bradycardia and hypotension. Currently in SR with peak-T wave on the monitor, VSS. Patient received Kayexalate, IV calcium gluconate, D50, insulin and sodium bicarb in the ED. Stat BMP pending. Continue Bcarb gtt per CCM. Awaiting on Nephro final recommendations. Throughout discussion with patient's and son at the bedside. All questions and concerns were addressed at this time. Patient remains a FULL code status. 01/28: Stable on the vent, on low dose sedation, following commands. iHD attempted overnight, aborted due to SVT and hypotension. ST, HR in the 140 noted on the monitor this am, probably due to hypovolemia. Low H&H this am, 2units of PRBCs, repeat H&H per protocol. Will check Echo to evaluate LV function and cardiology was also consulted. K normalized and renal function improved this am. Nephrology is following. 01/29: Tolerating PST this am. Continue vent wean as tolerated for possible extubation per CCM. Off pressors this am, now on Amiodarone gtt per Cardio for A flutter. H&H stable this morning, continue to trend CBC. Plan for HD today per Nephro. 01/30: Tolerated HD overnight, required short duration of pressor during HD. Pressor is off this morning. Plan for PSV trial again today for possible extubation. Remains on Amio gtt, d/w Cardio plan to transition to D/C amio gtt today and transition on PO amio and low dose BB. Low H&H again this am, no s/s of any active bleeding. 1unit of PRBCs given overnight. Will check occult stools and hold AC-Heparin SubQ for now, continue to trend H&H. Renal function continue to improve, monitor and replete electrolytes. 01/31: s/p extubation, AAO and stable on RA this am. Remains in SR, VSS, on PO Amio and BB. Renal function continue to improved, continue HD per Nephro. Patient is stable for transfer to the floor. PT/OT/Speech ordered 02/01: Patient with saturations of 98% on room air. Heart rate controlled with amiodarone and beta-marta. Follow-up serologic studies of PARKER, double- stranded DNA, complement levels, along with ANCA vasculitis studies. Given his severe acute kidney injury without previous baseline, we started on pulse dose steroids x3 doses, with his third dose yesterday. PT evaluation recommending subacute rehab. History Interval history: No new issues overnight Hospitalist Physical - Constitutional Vitals: Temp Pulse Resp BP Pulse Ox 98.6 F 65 18 126/74 98 01/31/22 23:39 02/01/22 06:04 02/01/22 06:04 02/01/22 06:02 02/01/22 10:00 General appearance: Present: no acute distress, well-nourished, obese - EENT Eyes: Present: PERRL, EOM intact ENT: hearing intact, clear oral mucosa, dentition normal - Neck Neck: Present: supple, normal ROM - Respiratory Respiratory effort: normal Respiratory: bilateral: CTA - Cardiovascular Rhythm: regular Heart Sounds: Present: S1 & S2. Absent: gallop, rub - Extremities Extremities: no ischemia, No edema, Full ROM - Abdominal General gastrointestinal: soft, non-tender, non-distended, normal bowel sounds - Integumentary Integumentary: Present: clear, warm, dry - Neurologic Neurologic: CNII-XII intact, moves all extremities HEART Score - HEART Score Troponin: Troponin T < 0.010 ng/mL (0.00-0.029) 01/26/22 23:28 Results - Labs CBC & Chem 7: 02/01/22 04:04 02/01/22 04:04 Labs: Laboratory Last Values WBC 8.3 K/mm3 (4.5-11.0) 02/01/22 04:04 RBC 2.98 M/mm3 (3.65-5.03) L 02/01/22 04:04 Hgb 9.0 gm/dl (11.8-15.2) L 02/01/22 04:04 Hct 27.2 % (35.5-45.6) L 02/01/22 04:04 MCV 91 fl (84-94) 02/01/22 04:04 MCH 30 pg (28-32) 02/01/22 04:04 MCHC 33 % (32-34) 02/01/22 04:04 RDW 14.5 % (13.2-15.2) 02/01/22 04:04 Plt Count 131 K/mm3 (140-440) L 02/01/22 04:04 Lymph % (Auto) 6.1 % (13.4-35.0) L 01/28/22 04:00 [place] % (Auto) 9.0 % (0.0-7.3) H 01/28/22 04:00 Eos % (Auto) 0.0 % (0.0-4.3) 01/28/22 04:00 Baso % (Auto) 0.0 % (0.0-1.8) 01/28/22 04:00 Lymph # (Auto) 0.4 K/mm3 (1.2-5.4) L 01/28/22 04:00 [place] # (Auto) 0.5 K/mm3 (0.0-0.8) 01/28/22 04:00 Eos # (Auto) 0.0 K/mm3 (0.0-0.4) 01/28/22 04:00 Baso # (Auto) 0.0 K/mm3 (0.0-0.1) 01/28/22 04:00 Add Manual Diff Complete 01/26/22 23:28 Total Counted 100 01/26/22 23:28 Seg Neutrophils % 84.9 % (40.0-70.0) H 01/28/22 04:00 Seg Neuts % (Manual) 94.0 % (40.0-70.0) H 01/26/22 23:28 Band Neutrophils % 2.0 % 01/26/22 23:28 Lymphocytes % (Manual) 2.0 % (13.4-35.0) L 01/26/22 23:28 Reactive Lymphs % (Man) 0 % 01/26/22 23:28 Monocytes % (Manual) 1.0 % (0.0-7.3) 01/26/22 23:28 Eosinophils % (Manual) 0 % (0.0-4.3) 01/26/22 23:28 Basophils % (Manual) 0 % (0.0-1.8) 01/26/22 23:28 Metamyelocytes % 0 % 01/26/22 23:28 Myelocytes % 1.0 % 01/26/22 23:28 Promyelocytes % 0 % 01/26/22 23:28 Blast Cells % 0 % 01/26/22 23:28 Nucleated RBC % 3.0 % (0.0-0.9) H 01/26/22 23:28 Seg Neutrophils # 5.0 K/mm3 (1.8-7.7) 01/28/22 04:00 Seg Neutrophils # Man 8.3 K/mm3 (1.8-7.7) H 01/26/22 23:28 Band Neutrophils # 0.2 K/mm3 01/26/22 23:28 Lymphocytes # (Manual) 0.2 K/mm3 (1.2-5.4) L 01/26/22 23:28 Abs React Lymphs (Man) 0.0 K/mm3 01/26/22 23:28 Monocytes # (Manual) 0.1 K/mm3 (0.0-0.8) 01/26/22 23:28 Eosinophils # (Manual) 0.0 K/mm3 (0.0-0.4) 01/26/22 23:28 Basophils # (Manual) 0.0 K/mm3 (0.0-0.1) 01/26/22 23:28 Metamyelocytes # 0.0 K/mm3 01/26/22 23:28 Myelocytes # 0.1 K/mm3 01/26/22 23:28 Promyelocytes # 0.0 K/mm3 01/26/22 23:28 Blast Cells # 0.0 K/mm3 01/26/22 23:28 WBC Morphology Not Reportable 01/26/22 23:28 Hypersegmented Neuts Not Reportable 01/26/22 23:28 Hyposegmented Neuts Not Reportable 01/26/22 23:28 Hypogranular Neuts Not Reportable 01/26/22 23:28 Smudge Cells Not Reportable 01/26/22 23:28 Toxic Granulation Not Reportable 01/26/22 23:28 Toxic Vacuolation Not Reportable 01/26/22 23:28 Dohle Bodies Not Reportable 01/26/22 23:28 Pelger-Huet Anomaly Not Reportable 01/26/22 23:28 Sofia Rods Not Reportable 01/26/22 23:28 Platelet Estimate Consistent w auto 01/26/22 23:28 Clumped Platelets Not Reportable 01/26/22 23:28 Plt Clumps, EDTA Not Reportable 01/26/22 23:28 Large Platelets Not Reportable 01/26/22 23:28 Giant Platelets Not Reportable 01/26/22 23:28 Platelet Satelliting Not Reportable 01/26/22 23:28 Plt Morphology Comment Not Reportable 01/26/22 23:28 RBC Morphology Not Reportable 01/26/22 23:28 Dimorphic RBCs Not Reportable 01/26/22 23:28 Polychromasia Not Reportable 01/26/22 23:28 Hypochromasia 2+ 01/26/22 23:28 Poikilocytosis Not Reportable 01/26/22 23:28 Anisocytosis Not Reportable 01/26/22 23:28 Microcytosis Not Reportable 01/26/22 23:28 Macrocytosis Not Reportable 01/26/22 23:28 Spherocytes Not Reportable 01/26/22 23:28 Pappenheimer Bodies Not Reportable 01/26/22 23:28 Sickle Cells Not Reportable 01/26/22 23:28 Target Cells Few 01/26/22 23:28 Tear Drop Cells Not Reportable 01/26/22 23:28 Ovalocytes Not Reportable 01/26/22 23:28 Helmet Cells Not Reportable 01/26/22 23:28 Ly-Davenport Bodies Not Reportable 01/26/22 23:28 Leo Rings Not Reportable 01/26/22 23:28 Kim Cells Not Reportable 01/26/22 23:28 Bite Cells Not Reportable 01/26/22 23:28 Crenated Cell Not Reportable 01/26/22 23:28 Elliptocytes Not Reportable 01/26/22 23:28 Acanthocytes (Spur) Not Reportable 01/26/22 23:28 Rouleaux Not Reportable 01/26/22 23:28 Hemoglobin C Crystals Not Reportable 01/26/22 23:28 Schistocytes Not Reportable 01/26/22 23:28 Malaria parasites Not Reportable 01/26/22 23:28 Jan Bodies Not Reportable 01/26/22 23:28 Hem Pathologist Commnt No 01/26/22 23:28 ABG pH 7.586 pH Units (7.350-7.450) H 01/30/22 04:00 ABG pCO2 27.3 mm Hg 01/30/22 04:00 ABG pO2 103.6 mm Hg (80.0-90.0) H 01/30/22 04:00 ABG HCO3 25.3 mmol/L (20.0-26.0) 01/30/22 04:00 ABG O2 Saturation 98.2 % (95.0-99.0) 01/30/22 04:00 ABG O2 Content 9.1 (0.0-44) 01/30/22 04:00 ABG Base Excess 3.3 mmol/L (-2.0-3.0) H 01/30/22 04:00 ABG Hemoglobin 6.5 gm/dl (14.0-18.0) L 01/30/22 04:00 ABG Carboxyhemoglobin 0.9 % (0.0-5.0) 01/30/22 04:00 ABG Methemoglobin 0.3 % (0.0-1.5) 01/30/22 04:00 Oxyhemoglobin 97.1 % (95.0-99.0) 01/30/22 04:00 FiO2 28 % 01/30/22 04:00 Sodium 140 mmol/L (137-145) 02/01/22 04:04 Potassium 4.0 mmol/L (3.6-5.0) 02/01/22 04:04 Chloride 104.1 mmol/L (98-107) 02/01/22 04:04 Carbon Dioxide 26 mmol/L (22-30) 02/01/22 04:04 Anion Gap 14 mmol/L 02/01/22 04:04 BUN 53 mg/dL (9-20) H 02/01/22 04:04 Creatinine 3.9 mg/dL (0.8-1.3) H 02/01/22 04:04 Estimated GFR 19 ml/min 02/01/22 04:04 BUN/Creatinine Ratio 14 % 02/01/22 04:04 Glucose 82 mg/dL (75-100) 02/01/22 04:04 POC Glucose 93 mg/dL (70-105) 02/01/22 11:11 Lactic Acid 1.40 mmol/L (0.7-2.0) 01/27/22 23:25 Calcium 7.6 mg/dL (8.4-10.2) L 02/01/22 04:04 Phosphorus 5.70 mg/dL (2.5-4.5) H D 01/31/22 04:32 Magnesium 2.20 mg/dL (1.7-2.3) 01/31/22 04:32 Total Bilirubin 0.40 mg/dL (0.1-1.2) 01/26/22 23:28 AST 21 units/L (5-40) 01/26/22 23:28 ALT 19 units/L (7-56) 01/26/22 23:28 Alkaline Phosphatase 64 units/L (35-129) 01/26/22 23:28 Lactate Dehydrogenase 233 units/L (91-180) H 01/28/22 15:25 Troponin T < 0.010 ng/mL (0.00-0.029) 01/26/22 23:28 NT-Pro-B Natriuret Pep 20710 pg/mL (0-900) H 01/26/22 23:28 Total Protein 7.9 g/dL (6.3-8.2) 01/26/22 23:28 Albumin 3.9 g/dL (3.9-5) 01/26/22 23:28 Albumin/Globulin Ratio 1.0 % 01/26/22 23:28 TSH 1.090 mlU/mL (0.270-4.200) 01/31/22 18:40 Urine Color Yellow (Yellow) 01/27/22 07:45 Urine Turbidity Clear (Clear) 01/27/22 07:45 Urine pH 5.0 (5.0-7.0) 01/27/22 07:45 Ur Specific [place] 1.015 (1.003-1.030) 01/27/22 07:45 Urine Protein 100 mg/dl mg/dL (Negative) 01/27/22 07:45 Urine Glucose (UA) Negative mg/dL (Negative) 01/27/22 07:45 Urine Ketones Negative mg/dL (Negative) 01/27/22 07:45 Urine Blood Large (Negative) A 01/27/22 07:45 Urine Nitrite Negative (Negative) 01/27/22 07:45 Ur Reducing Substances Not Reportable 01/27/22 07:45 Urine Bilirubin Negative (Negative) 01/27/22 07:45 Urine Ictotest Not Reportable 01/27/22 07:45 Urine Urobilinogen 0.0 mg/dL (<2.0) 01/27/22 07:45 Ur Leukocyte Esterase Small (Negative) 01/27/22 07:45 Urine WBC (Auto) 11.0 /HPF (0.0-6.0) H 01/27/22 07:45 Urine RBC (Auto) 5.0 /HPF (0.0-6.0) 01/27/22 07:45 Urine Bacteria (Auto) 1+ /HPF (Negative) 01/27/22 07:45 Urine WBC Clumps Few /HPF 01/27/22 07:45 Urine Creatinine 144.3 mg/dL (0.1-20.0) H 01/27/22 07:45 Urine Sodium 36 mmol/L 01/27/22 07:45 Urine Total Protein 154 mg/dL (5-11.8) H 01/27/22 07:45 Coronavirus (PCR) Negative (Negative) 01/28/22 16:48 Hepatitis A IgM Ab Non-reactive (NonReactive) 01/27/22 03:31 Hep Bs Antigen Non-reactive (Negative) 01/27/22 03:31 Hep B Core IgM Ab Non-reactive (NonReactive) 01/27/22 03:31 Hepatitis C Antibody Reactive (NonReactive) A 01/27/22 03:31 Blood Type A POSITIVE 01/28/22 06:00 Antibody Screen Negative 01/28/22 06:00 Crossmatch See Detail 01/28/22 06:00 Microbiology: Microbiology 01/28/22 15:25 Peripheral/Venous Blood Culture - Preliminary NO GROWTH AFTER 72 HOURS 01/28/22 15:25 Peripheral/Venous Blood Culture - Preliminary NO GROWTH AFTER 72 HOURS Roth/IV: Voiding Method Indwelling Catheter Active Medications - Current Medications Current Medications: Generic Name Dose Route Start Last Admin Trade Name Freq PRN Reason Stop Dose Admin Acetaminophen 650 mg 01/27/22 05:44 Acetaminophen 650 Mg Rect Supp CA Q6H PRN Pain MILD(1-3)/Fever >100.5/WILLIAM Amiodarone HCl 200 mg 01/31/22 10:00 02/01/22 09:50 Amiodarone 200 Mg Tab PO 200 mg QDAY DOMINIC Administration Epoetin Connor-epbx 10,000 unit 01/27/22 02:08 Epoetin Connor-Epbx 10,000 Unit/1 Ml Vial IV PATRICK PRN hemodialysis Famotidine 20 mg 01/30/22 10:00 02/01/22 09:50 Famotidine 20 Mg Tab FEEDTUBE 20 mg DAILY DOMINIC Administration Heparin Sodium (Porcine) 5,000 unit 01/27/22 02:08 Heparin 10,000 Unit/1 Ml Vial IV PATRICK PRN hemodialysis Hydrophilic Ointment 1 applic 01/27/22 18:00 Lip Therapy Vaseline TP Q2HR PRN Dry Lips Sodium Chloride 100 mls @ 999 mls/hr 01/30/22 09:00 Nacl 0.9% IV PATRICK PRN Hypotension Insulin Human Lispro 0 unit 01/29/22 18:45 02/01/22 09:55 Insulin Lispro 100 Unit/Ml SUB-Q Not Given Q6HR [facility] Protocol Magnesium Hydroxide 30 ml 01/27/22 05:44 Magnesium Hydroxide (Mom) Oral Liqd Udc PO Q4H PRN Constipation Metoprolol Tartrate 25 mg 01/30/22 22:00 02/01/22 06:01 Metoprolol Tartrate 25 Mg Tab PO 25 mg Q8HR DOMINIC Administration Morphine Sulfate 2 mg 01/27/22 05:44 01/29/22 00:58 Morphine 2 Mg/1 Ml Inj IV 2 mg Q4H PRN Administration Pain, Moderate (4-6) Multi-Ingred Cream/Lotion/Oil/Oint 1 applic 01/27/22 18:00 Mineral Oil/Petrolatum, White Ophth Oint 3.5 Gm OU Q4HR PRN Dry Eye(s) Senna/Docusate Sodium 1 tab 01/27/22 22:00 02/01/22 09:50 Sennosides/Docusate Sodium 8.6/50 Mg Tab FEEDTUBE Not Given BID DOMINIC Sodium Chloride 10 ml 01/27/22 10:00 02/01/22 09:53 Sodium Chloride 0.9% 10 Ml Flush Syringe IV 10 ml BID DOMINIC Administration Sodium Chloride 10 ml 01/27/22 05:44 01/29/22 00:59 Sodium Chloride 0.9% 10 Ml Flush Syringe IV 10 ml PRN PRN Administration LINE FLUSH Nutrition/Malnutrition Assess - Dietary Evaluation Nutrition/Malnutrition Findings: Nutrition Notes Start: 01/28/22 12:15 Freq: Status: Active Protocol: Document 01/31/22 10:38 ROSA (Rec: 01/31/22 10:38 ROSA [id number]) Nutrition Notes Initial or Follow up Brief Note Subjective/Other Information Awaiting SAMPLING EXPERT evaluation. Nutrition Intervention Follow-Up By: 02/02/22 Additional Comments F/U: SAMPLING EXPERT SABAS alvarez
--- NOTE | 2022-02-01 11:59 | Progress Note ---
Assessment and Plan #Paroxysmal AF/AFL #ESRD on HD #Anemia, required transfusions #H/o HTN #Positive HCV antibody Patient is currently maintaining SR. Continue amiodarone. TSH / LFTs normal. HCV antibody is positive, unclear significance (? cleared past infection). Will defer to primary team. Continue metoprolol. [id number] is 2. However, due to severe transfusion-requiring anemia, anticoagulation deferred. Recommend out-patient EP follow up for long-term amiodarone management as well as possible Watchman evaluation. Subjective Date of service: 02/01/22 Principal diagnosis: Paroxysmal atrial flutter Interval history: No events. No complaints. Tele - SR Objective Vital Signs Temp Pulse Pulse Resp BP Pulse Ox Pulse Ox 02/01/22 10:00 98 02/01/22 08:17 96 02/01/22 06:04 65 18 97 02/01/22 06:02 126/74 02/01/22 06:01 65 126/74 02/01/22 00:00 71 01/31/22 23:40 71 117/70 01/31/22 23:39 98.6 F 73 20 117/70 92 01/31/22 21:31 100 01/31/22 20:00 71 18 99 01/31/22 15:29 98.6 F 60 22 130/81 95 01/31/22 15:00 67 13 120/77 01/31/22 14:51 67 20 122/74 01/31/22 14:41 70 19 122/74 01/31/22 14:31 81 19 122/74 01/31/22 14:21 76 20 122/74 97 01/31/22 14:12 82 122/74 01/31/22 14:11 81 20 122/74 96 01/31/22 14:00 83 19 122/74 96 01/31/22 13:51 81 19 111/76 96 01/31/22 13:41 82 21 111/76 95 01/31/22 13:30 112 H 21 111/76 97 01/31/22 13:21 73 19 121/78 97 01/31/22 13:20 97.7 F 68 20 114/75 98 01/31/22 13:15 73 121/78 01/31/22 13:11 71 18 124/78 98 01/31/22 13:00 68 15 124/78 99 07/09/22 12:51 76 16 118/79 98 01/31/22 12:45 71 118/79 01/31/22 12:41 73 14 113/77 98 01/31/22 12:30 74 17 113/77 96 01/31/22 12:21 71 17 125/80 98 01/31/22 12:15 69 124/79 01/31/22 12:11 69 19 125/80 97 01/31/22 12:00 98 F 69 75 18 125/80 98 - Physical Examination General: No Apparent Distress HEENT: Positive: PERRL Neck: Positive: neck supple Cardiac: Positive: Reg Rate and Rhythm Lungs: Positive: clear to auscultation Neuro: Positive: Grossly Intact Abdomen: Positive: Soft Skin: Positive: Clear Extremities: Absent: edema - Labs and Meds CBC 02/01/22 Range/Units 04:04 WBC 8.3 (4.5-11.0) K/mm3 RBC 2.98 L (3.65-5.03) M/mm3 Hgb 9.0 L (11.8-15.2) gm/dl Hct 27.2 L (35.5-45.6) % Plt Count 131 L (140-440) K/mm3 Comprehensive Metabolic Panel 02/01/22 Range/Units 04:04 Sodium 140 (137-145) mmol/L Potassium 4.0 (3.6-5.0) mmol/L Chloride 104.1 (98-107) mmol/L Carbon Dioxide 26 (22-30) mmol/L BUN 53 H (9-20) mg/dL Creatinine 3.9 H (0.8-1.3) mg/dL Glucose 82 (75-100) mg/dL Calcium 7.6 L (8.4-10.2) mg/dL - Allied health notes Allied health notes reviewed: nursing
--- NOTE | 2022-02-01 15:00 | Progress Note ---
Assessment and Plan - Patient Problems (1) Hyperkalemia Current Visit: Yes Status: Acute Plan to address problem: we will correct hyperkalemia with hemodialysis. Serum potassium levels have improved this morning. (2) Acute on chronic kidney failure Current Visit: Yes Status: Acute Plan to address problem: unclear what his baseline kidney function is but per patient's at bedside he had been seeing a patient support specialist. I am concerned that this is likely a worsening of his chronic kidney disease at this point. He has tolerated his first three treatments of HD well last week, and his mentation has significantly improved and he was able to be extubated and now has been transferred to telemetry. Will monitor his renal function for any further improvement on a daily basis. If he is requiring further treatment this week, will then plan to have permcath placed. (3) Hypotension Current Visit: Yes Status: Acute Plan to address problem: Blood pressures have improved at this time. (4) Acute respiratory failure Current Visit: Yes Status: Acute Plan to address problem: Patient has now been extubated. Stable overall respiratory status. (5) Anemia in CKD (chronic kidney disease) Current Visit: Yes Status: Acute Plan to address problem: Transfuse to maintain hemoglobin above 7. Subjective Date of service: 02/01/22 Principal diagnosis: Paroxysmal atrial flutter Interval history: No acute issues, transferred to the telemetry floor. Labs reviewed. Will monitor daily, and if patient does need further HD, will plan to have permcath placed this week. Objective - Vital Signs Vital signs: Vital Signs - 12hr 02/01/22 02/01/22 02/01/22 06:01 06:02 06:04 Pulse Rate 65 65 Respiratory 18 Rate Blood Pressure 126/74 126/74 O2 Sat by Pulse 97 Oximetry 02/01/22 02/01/22 08:17 10:00 Pulse Rate Respiratory Rate Blood Pressure O2 Sat by Pulse 96 98 Oximetry - General Appearance General appearance: appears stated age EENT: ATNC Neck: no JVD Respiratory: Present: Decreased Breath Sounds Cardiology: regular Gastrointestinal: normal Integumentary: no rash Neurologic: alert and oriented x3 Musculoskeletal: deferred Psychiatric: cooperative - Lab 02/01/22 04:04 02/01/22 04:04 Most recent lab results ABG pH 7.586 pH Units (7.350-7.450) H 01/30/22 04:00 ABG pCO2 27.3 mm Hg 01/30/22 04:00 ABG pO2 103.6 mm Hg (80.0-90.0) H 01/30/22 04:00 ABG HCO3 25.3 mmol/L (20.0-26.0) 01/30/22 04:00 ABG O2 Saturation 98.2 % (95.0-99.0) 01/30/22 04:00 Calcium 7.6 mg/dL (8.4-10.2) L 02/01/22 04:04 Phosphorus 5.70 mg/dL (2.5-4.5) H D 01/31/22 04:32 Magnesium 2.20 mg/dL (1.7-2.3) 01/31/22 04:32 Urine Creatinine 144.3 mg/dL (0.1-20.0) H 01/27/22 07:45 Urine Sodium 36 mmol/L 01/27/22 07:45 Urine Total Protein 154 mg/dL (5-11.8) H 01/27/22 07:45 - Allied health notes Allied health notes reviewed: nursing Medications & Allergies - Medications Allergies/Adverse Reactions: Allergies No Known Allergies Allergy (Verified 01/26/22 23:12) Home Medications: Home Medications Medication Instructions Recorded Confirmed Last Taken Type No Known Home Medications [No 01/27/22 01/27/22 Unknown History Reported Home Medications] Active Medications: Generic Name Dose Route Start Last Admin Trade Name Freq PRN Reason Stop Dose Admin Acetaminophen 650 mg 01/27/22 05:44 Acetaminophen 650 Mg Rect Supp SC Q6H PRN Pain MILD(1-3)/Fever >100.5/WILLIAM Amiodarone HCl 200 mg 01/31/22 10:00 02/01/22 09:50 Amiodarone 200 Mg Tab PO 200 mg QDAY DOMINIC Administration Epoetin Connor-epbx 10,000 unit 01/27/22 02:08 Epoetin Connor-Epbx 10,000 Unit/1 Ml Vial IV PATRICK PRN hemodialysis Famotidine 20 mg 01/30/22 10:00 02/01/22 09:50 Famotidine 20 Mg Tab FEEDTUBE 20 mg DAILY DOMINIC Administration Heparin Sodium (Porcine) 5,000 unit 01/27/22 02:08 Heparin 10,000 Unit/1 Ml Vial IV PATRICK PRN hemodialysis Hydrophilic Ointment 1 applic 01/27/22 18:00 Lip Therapy Vaseline TP Q2HR PRN Dry Lips Sodium Chloride 100 mls @ 999 mls/hr 01/30/22 09:00 Nacl 0.9% IV PATRICK PRN Hypotension Insulin Human Lispro 0 unit 01/29/22 18:45 02/01/22 12:04 Insulin Lispro 100 Unit/Ml SUB-Q Not Given Q6HR [facility] Protocol Magnesium Hydroxide 30 ml 01/27/22 05:44 Magnesium Hydroxide (Mom) Oral Liqd Udc PO Q4H PRN Constipation Metoprolol Tartrate 25 mg 01/30/22 22:00 02/01/22 06:01 Metoprolol Tartrate 25 Mg Tab PO 25 mg Q8HR DOMINIC Administration Morphine Sulfate 2 mg 01/27/22 05:44 01/29/22 00:58 Morphine 2 Mg/1 Ml Inj IV 2 mg Q4H PRN Administration Pain, Moderate (4-6) Multi-Ingred Cream/Lotion/Oil/Oint 1 applic 01/27/22 18:00 Mineral Oil/Petrolatum, White Ophth Oint 3.5 Gm OU Q4HR PRN Dry Eye(s) Senna/Docusate Sodium 1 tab 01/27/22 22:00 02/01/22 09:50 Sennosides/Docusate Sodium 8.6/50 Mg Tab FEEDTUBE Not Given BID DOMINIC Sodium Chloride 10 ml 01/27/22 10:00 02/01/22 09:53 Sodium Chloride 0.9% 10 Ml Flush Syringe IV 10 ml BID DOMINIC Administration Sodium Chloride 10 ml 01/27/22 05:44 01/29/22 00:59 Sodium Chloride 0.9% 10 Ml Flush Syringe IV 10 ml PRN PRN Administration LINE FLUSH
--- NOTE | 2022-02-01 15:32 | Progress Note ---
Assessment and Plan 66-year-old -[place] male with known history of chronic kidney disease brought in by family today for evaluation of worsening shortness of breath which has been ongoing for the past few days. Patient is currently intubated and sed ated and therefore most of the history was gotten from his . indicates that patient has not been following up regularly with any primary care physician or steel pourer due to insurance issues. Upon arrival in the emergency room put on hold, work-up was significant for hyperkalemia of 9.0, CO2 of 3.0, BUN of 308 and creatinine of 31. 6. BNP of 10 829. Magnesium 2.6. EKG was significant for peaked T waves. Psychology Tech on-call was notified by the ER physician and dialysis was to be i nitiated. Patient became hypotensive during the course of dialysis and had to be put on hold. [employer] and nephrology service has been promptly informed by the ER physician. Patient extubated. Patient reciving dialysis. Patient transfered to medical floor. Patient alert, weak. Resting on room air. O2 saturation 98%. Denies chest pain , shortness of breath at this time. Complaining slight cough. Patient afebrile. No leukocytosis. Blood pressure 126/74, Pulse 65 , Respirations 18. Chest xray done 01/31/22 reported Interval removal of the esophagogastric tube with increased probable bibasilar atelectasis. No other significant interval changes. Patient is on Heparin and Famotidine. Patients at bed side. Explained to her patients respiratory status. - Patient Problems (1) Acute respiratory failure Current Visit: Yes Status: Acute Plan to address problem: Patient intubated and extubated. Patient presently on room air. O2 saturation 100%. (2) Acute on chronic kidney failure Current Visit: Yes Status: Acute Plan to address problem: Patient is on dialysis. Management as per nephrology. (3) Hyperkalemia Current Visit: Yes Status: Acute Plan to address problem: Improved. Patients to days K+ 4.0 (4) Hypotension Current Visit: Yes Status: Acute Plan to address problem: Omproved. Patients to days blood pressure 126/74. Patient is on I/V fluids NSS. (5) Paroxysmal atrial flutter Current Visit: Yes Status: Acute Plan to address problem: Patient is on Amiodarone. Management as per cardiology. Subjective Date of service: 02/01/22 Principal diagnosis: Paroxysmal atrial flutter Interval history: 66-year-old -[place] male with known history of chronic kidney disease brought in by family today for evaluation of worsening shortness of breath which has been ongoing for the past few days. Patient is currently intubated and sedated and therefore most of the history was gotten from his . indicates that patient has not been following up regularly with any primary care physician or steel pourer due to insurance issues. Upon arrival in the emergency room put on hold, work-up was significant for hyperkalemia of 9.0, CO2 of 3.0, BUN of 308 and creatinine of 31. 6. BNP of 10 829. Magnesium 2.6. EKG was significant for peaked T waves. Psychology Tech on-call was notified by the ER physician and dialysis was to be initiated. Patient became hypotensive during the course of dialysis and had to be put on hold. [employer] and nephrology service has been promptly informed by the ER physician. Patient extubated. Patient reciving dialysis. Patient transfered to medical floor. Patient alert, weak. Resting on room air. O2 saturation 98%. Denies chest pain , shortness of breath at this time. Complaining slight cough. Patient afebrile. No leukocytosis. Blood pressure 126/74, Pulse 65 , Respirations 18. Chest xray done 01/31/22 reported Interval removal of the esophagogastric tube with increased probable bibasilar atelectasis. No other significant interval changes. Patient is on Heparin and Famotidine. Objective Vital Signs - 12hr 02/01/22 02/01/22 02/01/22 06:01 06:02 06:04 Pulse Rate 65 65 Respiratory 18 Rate Blood Pressure 126/74 126/74 O2 Sat by Pulse 97 Oximetry 02/01/22 02/01/22 08:17 10:00 Pulse Rate Respiratory Rate Blood Pressure O2 Sat by Pulse 96 98 Oximetry Constitutional: no acute distress, other (orally intuabted ETT at 26cm at the lip) Eyes: non-icteric ENT: oropharynx moist Neck: supple, no lymphadenopathy, other (RIJ HD catheter) Effort: mildly labored Ascultation: Bilateral: diminished breath sounds Cardiovascular: irregular rhythm, other (Tachycardia) Gastrointestinal: normoactive bowel sounds, soft, non-tender, non-distended, other (Roth catheter) Integumentary: normal Extremities: no cyanosis, no edema Neurologic: non-focal exam (moves all extemities), other (follows simple commands) Psychiatric: mood appropriate, affect normal CBC and BMP: 02/01/22 04:04 02/01/22 04:04 ABG, PT/INR, D-dimer: ABG ABG pH 7.586 pH Units (7.350-7.450) H 01/30/22 04:00 ABG pCO2 27.3 mm Hg 01/30/22 04:00 ABG pO2 103.6 mm Hg (80.0-90.0) H 01/30/22 04:00 ABG O2 Saturation 98.2 % (95.0-99.0) 01/30/22 04:00 Abnormal lab findings: Abnormal Labs 01/26/22 01/26/22 01/26/22 01:45 23:28 23:28 RBC 2.62 L Hgb 7.6 L Hct 23.5 L MCHC Plt Count Lymph % (Auto) Coal % (Auto) Lymph # (Auto) Seg Neutrophils % Seg Neuts % (Manual) 94.0 H Lymphocytes % (Manual) 2.0 L Nucleated RBC % 3.0 H Seg Neutrophils # Man 8.3 H Lymphocytes # (Manual) 0.2 L ABG pH 7.094 L* ABG pO2 162.0 H ABG HCO3 2.7 L ABG O2 Saturation ABG Base Excess -24.8 L ABG Hemoglobin 7.7 L Sodium 148 H Potassium 9.0 H* Chloride 113.1 H Carbon Dioxide 3 L* BUN 308 H Creatinine 31.6 H Glucose 104 H POC Glucose Calcium Phosphorus Magnesium Lactate Dehydrogenase NT-Pro-B Natriuret Pep Urine Blood Urine WBC (Auto) Urine Creatinine Urine Total Protein Hepatitis C Antibody Crossmatch 01/26/22 01/27/22 01/27/22 23:28 01:57 03:31 RBC Hgb Hct MCHC Plt Count Lymph % (Auto) Coal % (Auto) Lymph # (Auto) Seg Neutrophils % Seg Neuts % (Manual) Lymphocytes % (Manual) Nucleated RBC % Seg Neutrophils # Man Lymphocytes # (Manual) ABG pH ABG pO2 ABG HCO3 ABG O2 Saturation ABG Base Excess ABG Hemoglobin Sodium Potassium Chloride Carbon Dioxide BUN Creatinine Glucose POC Glucose Calcium Phosphorus Magnesium 2.60 H Lactate Dehydrogenase NT-Pro-B Natriuret Pep 46851 H Urine Blood Urine WBC (Auto) Urine Creatinine Urine Total Protein Hepatitis C Antibody Reactive A Crossmatch 01/27/22 01/27/22 01/27/22 05:30 07:45 07:45 RBC Hgb Hct MCHC Plt Count Lymph % (Auto) Coal % (Auto) Lymph # (Auto) Seg Neutrophils % Seg Neuts % (Manual) Lymphocytes % (Manual) Nucleated RBC % Seg Neutrophils # Man Lymphocytes # (Manual) ABG pH 7.312 L ABG pO2 595.3 H ABG HCO3 6.6 L ABG O2 Saturation 99.6 H ABG Base Excess -18.2 L ABG Hemoglobin 5.0 L Sodium Potassium Chloride Carbon Dioxide BUN Creatinine Glucose POC Glucose Calcium Phosphorus Magnesium Lactate Dehydrogenase NT-Pro-B Natriuret Pep Urine Blood Large A Urine WBC (Auto) 11.0 H Urine Creatinine 144.3 H Urine Total Protein 154 H Hepatitis C Antibody Crossmatch 01/27/22 01/28/22 01/28/22 Unknown 02:08 04:00 RBC 1.97 L Hgb 5.7 L* Hct 16.7 L* D MCHC Plt Count Lymph % (Auto) 6.1 L Coal % (Auto) 9.0 H Lymph # (Auto) 0.4 L Seg Neutrophils % 84.9 H Seg Neuts % (Manual) Lymphocytes % (Manual) Nucleated RBC % Seg Neutrophils # Man Lymphocytes # (Manual) ABG pH ABG pO2 ABG HCO3 ABG O2 Saturation ABG Base Excess ABG Hemoglobin Sodium 147 H Potassium 5.2 H D Chloride 111.6 H Carbon Dioxide 6 L* BUN 235 H Creatinine 21.2 H Glucose 74 L POC Glucose 60 L Calcium 8.0 L D Phosphorus Magnesium Lactate Dehydrogenase NT-Pro-B Natriuret Pep Urine Blood Urine WBC (Auto) Urine Creatinine Urine Total Protein Hepatitis C Antibody Crossmatch 01/28/22 01/28/22 01/28/22 04:00 05:05 06:00 RBC Hgb Hct MCHC Plt Count Lymph % (Auto) Coal % (Auto) Lymph # (Auto) Seg Neutrophils % Seg Neuts % (Manual) Lymphocytes % (Manual) Nucleated RBC % Seg Neutrophils # Man Lymphocytes # (Manual) ABG pH ABG pO2 197.7 H ABG HCO3 10.6 L ABG O2 Saturation 99.2 H ABG Base Excess -13.7 L ABG Hemoglobin 5.3 L Sodium Potassium Chloride Carbon Dioxide 12 L BUN 216 H Creatinine 18.6 H Glucose POC Glucose Calcium 7.1 L Phosphorus Magnesium Lactate Dehydrogenase NT-Pro-B Natriuret Pep Urine Blood Urine WBC (Auto) Urine Creatinine Urine Total Protein Hepatitis C Antibody Crossmatch See Detail 01/28/22 01/28/22 01/28/22 15:25 15:25 18:17 RBC Hgb 8.3 L Hct 24.3 L D MCHC Plt Count Lymph % (Auto) Coal % (Auto) Lymph # (Auto) Seg Neutrophils % Seg Neuts % (Manual) Lymphocytes % (Manual) Nucleated RBC % Seg Neutrophils # Man Lymphocytes # (Manual) ABG pH ABG pO2 ABG HCO3 ABG O2 Saturation ABG Base Excess ABG Hemoglobin Sodium Potassium Chloride Carbon Dioxide BUN Creatinine Glucose POC Glucose 123 H Calcium Phosphorus Magnesium Lactate Dehydrogenase 233 H NT-Pro-B Natriuret Pep Urine Blood Urine WBC (Auto) Urine Creatinine Urine Total Protein Hepatitis C Antibody Crossmatch 01/29/22 01/29/22 01/29/22 03:15 03:50 03:50 RBC 2.53 L Hgb 7.6 L Hct 21.6 L MCHC 35 H Plt Count 135 L Lymph % (Auto) Coal % (Auto) Lymph # (Auto) Seg Neutrophils % Seg Neuts % (Manual) Lymphocytes % (Manual) Nucleated RBC % Seg Neutrophils # Man Lymphocytes # (Manual) ABG pH 7.582 H ABG pO2 142.5 H ABG HCO3 19.7 L ABG O2 Saturation ABG Base Excess ABG Hemoglobin 7.4 L Sodium 135 L Potassium 3.5 L D Chloride Carbon Dioxide 21 L D BUN 105 H Creatinine 9.2 H D Glucose 164 H POC Glucose Calcium 6.9 L Phosphorus Magnesium Lactate Dehydrogenase NT-Pro-B Natriuret Pep Urine Blood Urine WBC (Auto) Urine Creatinine Urine Total Protein Hepatitis C Antibody Crossmatch 01/30/22 01/30/22 01/30/22 04:00 04:00 04:00 RBC 2.27 L Hgb 6.8 L Hct 19.9 L* MCHC Plt Count 131 L Lymph % (Auto) Coal % (Auto) Lymph # (Auto) Seg Neutrophils % Seg Neuts % (Manual) Lymphocytes % (Manual) Nucleated RBC % Seg Neutrophils # Man Lymphocytes # (Manual) ABG pH 7.586 H ABG pO2 103.6 H ABG HCO3 ABG O2 Saturation ABG Base Excess 3.3 H ABG Hemoglobin 6.5 L Sodium 133 L Potassium Chloride 93.3 L Carbon Dioxide BUN 75 H Creatinine 5.9 H Glucose 149 H POC Glucose Calcium 7.2 L Phosphorus Magnesium 1.50 L Lactate Dehydrogenase NT-Pro-B Natriuret Pep Urine Blood Urine WBC (Auto) Urine Creatinine Urine Total Protein Hepatitis C Antibody Crossmatch 01/30/22 01/30/22 01/30/22 05:48 12:48 14:30 RBC 2.86 L Hgb 8.5 L Hct 25.4 L MCHC Plt Count 134 L Lymph % (Auto) Coal % (Auto) Lymph # (Auto) Seg Neutrophils % Seg Neuts % (Manual) Lymphocytes % (Manual) Nucleated RBC % Seg Neutrophils # Man Lymphocytes # (Manual) ABG pH ABG pO2 ABG HCO3 ABG O2 Saturation ABG Base Excess ABG Hemoglobin Sodium Potassium Chloride Carbon Dioxide BUN Creatinine Glucose POC Glucose 155 H 160 H Calcium Phosphorus Magnesium Lactate Dehydrogenase NT-Pro-B Natriuret Pep Urine Blood Urine WBC (Auto) Urine Creatinine Urine Total Protein Hepatitis C Antibody Crossmatch 01/30/22 01/30/22 01/31/22 16:28 23:52 04:32 RBC Hgb Hct MCHC Plt Count Lymph % (Auto) Coal % (Auto) Lymph # (Auto) Seg Neutrophils % Seg Neuts % (Manual) Lymphocytes % (Manual) Nucleated RBC % Seg Neutrophils # Man Lymphocytes # (Manual) ABG pH ABG pO2 ABG HCO3 ABG O2 Saturation ABG Base Excess ABG Hemoglobin Sodium Potassium Chloride Carbon Dioxide BUN 57 H Creatinine 4.3 H Glucose 130 H POC Glucose 143 H 132 H Calcium 8.2 L Phosphorus 5.70 H D Magnesium Lactate Dehydrogenase NT-Pro-B Natriuret Pep Urine Blood Urine WBC (Auto) Urine Creatinine Urine Total Protein Hepatitis C Antibody Crossmatch 01/31/22 01/31/22 02/01/22 12:20 15:50 04:04 RBC 2.98 L Hgb 9.0 L Hct 27.2 L MCHC Plt Count 131 L Lymph % (Auto) Coal % (Auto) Lymph # (Auto) Seg Neutrophils % Seg Neuts % (Manual) Lymphocytes % (Manual) Nucleated RBC % Seg Neutrophils # Man Lymphocytes # (Manual) ABG pH ABG pO2 ABG HCO3 ABG O2 Saturation ABG Base Excess ABG Hemoglobin Sodium Potassium Chloride Carbon Dioxide BUN Creatinine Glucose POC Glucose 149 H 106 H Calcium Phosphorus Magnesium Lactate Dehydrogenase NT-Pro-B Natriuret Pep Urine Blood Urine WBC (Auto) Urine Creatinine Urine Total Protein Hepatitis C Antibody Crossmatch 02/01/22 04:04 RBC Hgb Hct MCHC Plt Count Lymph % (Auto) Coal % (Auto) Lymph # (Auto) Seg Neutrophils % Seg Neuts % (Manual) Lymphocytes % (Manual) Nucleated RBC % Seg Neutrophils # Man Lymphocytes # (Manual) ABG pH ABG pO2 ABG HCO3 ABG O2 Saturation ABG Base Excess ABG Hemoglobin Sodium Potassium Chloride Carbon Dioxide BUN 53 H Creatinine 3.9 H Glucose POC Glucose Calcium 7.6 L Phosphorus Magnesium Lactate Dehydrogenase NT-Pro-B Natriuret Pep Urine Blood Urine WBC (Auto) Urine Creatinine Urine Total Protein Hepatitis C Antibody Crossmatch Chest x-ray: report reviewed, image reviewed Additional Studies: CHEST 1 VIEW 01/31/2022 7:45 AM INDICATION / CLINICAL INFORMATION: follow up respiratory failure. COMPARISON: One view of the chest from 01/30/2022. FINDINGS: SUPPORT DEVICES: Unchanged right internal jugular vein Vas-Cath. The esophagogastric tube has been removed. HEART / MEDIASTINUM: Stable. LUNGS / PLEURA: There are increased bibasilar opacities. No other significant pulmonary abnormality. No significant pleural effusion. No pneumothorax. ADDITIONAL FINDINGS: No significant additional findings. IMPRESSION: 1. Interval removal of the esophagogastric tube with increased probable bibasilar atelectasis. 2. No other significant interval changes. Allied health notes reviewed: nursing
[2022-02-02] MEDS: INSULIN LISPRO 100 UNIT/ML SUB-Q SCH ×4 (00:40→18:00)
[2022-02-02] MEDS: METOPROLOL TARTRATE 25 MG TAB PO SCH ×3 (05:58→23:00)
--- NOTE | 2022-02-02 10:09 | Progress Note ---
Assessment and Plan Assessment and plan: This is a 66-year-old male with known past medical history of HTN and chronic kidney disease admitted for severe metabolic acidosis 2/2 worsen chronic kidney disease and acute hypoxic respiratory failure requiring ventilatory support. #Acute Hypoxic Respiratory Failure - most like secondary to severe acidosis - Intubated on 01/27 in the ED - 01/30 s/p extubation, stable on RA - CCM consulted, appreciate recommendations - Aspiration precaution HOB above 30 - PRN O2 supplementation as needed - Continue SPO2 monitoring for SPO2 goal above 92% #Acute on Chronic Kidney Injury #Hyperkalemia-resolved #Azotemia #Severe Metabolic Acidosis - reported that patient has not been following up regularly with any primary care physician or site operations manager due to insurance issues - Presented with K of 9.0, BUN 308, and Scr. 31.2 - Initial EKG was significant for peaked T waves. - S/p Kayexalate, IV calcium gluconate, D50, insulin and sodium bicarb in the ED. - Nephrology following, appreciated recommendation - Trialysis Cath inserted and iHD initiated - Continue HD per nephrology - Strict intake and output - Avoid nephrotoxic medications; Renally dose medications - Monitor and replace electrolytes as needed #Paroxysmal Atrial Flutter #Supraventricular Tachycardia - HR as high as 160 - [address], with no significant ST-changes - Cardiology consulted, appreciated recommendations - Per Cardio initial ECG showed narrow complex tachycardia - s/p Amiodarone gtt. SR noted on the monitor, HR 80-90s - on PO amio and BB - Heparin SubQ held due to anemia #Acute Metabolic Encephalopathy-resolved - most likely secondary to azotemia - Continue HD per Nephro - Avoid sedative agents - PRN Analgesia for CPOT greater than 3 - Maintenance of sleep-wake cycle #Anemia of Chronic Disease - most likely due to chronic kidney disease - S/p 3 units of PRBCs - H&H stable this am - No s/s of any active bleeding - Epogen with iHD per Nephro - Transfuse if Hgb less than 7 - Will hold AC for now - stool occult pending #Hypotension-improved #H/o Hypertension - s/p vasopressors - Probably 2/2 to hypovolemia, H&H dropped this am - Continue blood pressure monitor per protocol - Maintain MAP above 65 - Hold home meds for now Hospital Course to Date: 01/27: Intubated and responsive not on any sedation. Did not tolerated HD this am due to bradycardia and hypotension. Currently in SR with peak-T wave on the monitor, VSS. Patient received Kayexalate, IV calcium gluconate, D50, insulin and sodium bicarb in the ED. Stat BMP pending. Continue Bcarb gtt per CCM. Awaiting on Nephro final recommendations. Throughout discussion with patient's and son at the bedside. All questions and concerns were addressed at this time. Patient remains a FULL code status. 01/28: Stable on the vent, on low dose sedation, following commands. iHD attempted overnight, aborted due to SVT and hypotension. ST, HR in the 140 noted on the monitor this am, probably due to hypovolemia. Low H&H this am, 2units of PRBCs, repeat H&H per protocol. Will check Echo to evaluate LV function and cardiology was also consulted. K normalized and renal function improved this am. Nephrology is following. 01/29: Tolerating PST this am. Continue vent wean as tolerated for possible extubation per CCM. Off pressors this am, now on Amiodarone gtt per Cardio for A flutter. H&H stable this morning, continue to trend CBC. Plan for HD today per Nephro. 01/30: Tolerated HD overnight, required short duration of pressor during HD. Pressor is off this morning. Plan for PSV trial again today for possible extubation. Remains on Amio gtt, d/w Cardio plan to transition to D/C amio gtt today and transition on PO amio and low dose BB. Low H&H again this am, no s/s of any active bleeding. 1unit of PRBCs given overnight. Will check occult stools and hold AC-Heparin SubQ for now, continue to trend H&H. Renal function continue to improve, monitor and replete electrolytes. 01/31: s/p extubation, AAO and stable on RA this am. Remains in SR, VSS, on PO Amio and BB. Renal function continue to improved, continue HD per Nephro. Patient is stable for transfer to the floor. PT/OT/Speech ordered 02/01: Patient with saturations of 98% on room air. Heart rate controlled with amiodarone and beta-marta. Follow-up serologic studies of PARKER, double- stranded DNA, complement levels, along with ANCA vasculitis studies. Given his severe acute kidney injury without previous baseline, we started on pulse dose steroids x3 doses, with his third dose yesterday. PT evaluation recommending subacute rehab. 02/02: Patient with saturations of 98% on room air. Resp culture reveals staph aureus, GNR. Pt with tachypnea this am. Check CXR to r/o new hospital acquired pneumonia. Start empiric abx of rocephin. Heart rate controlled with amiodarone and beta-marta. Follow-up serologic studies of PARKER, double- stranded DNA, complement levels, along with ANCA vasculitis studies. Given his severe acute kidney injury without previous baseline, we started on pulse dose steroids x3 doses which has been completed. PT evaluation recommending subacute rehab. History Interval history: No new issues overnight Hospitalist Physical - Constitutional Vitals: Temp Pulse Resp BP Pulse Ox 99.3 F 65 18 122/74 96 02/01/22 22:47 02/02/22 05:59 02/01/22 22:47 02/02/22 05:59 02/02/22 05:59 General appearance: Present: no acute distress, well-nourished, obese - EENT Eyes: Present: PERRL, EOM intact ENT: hearing intact, clear oral mucosa, dentition normal - Neck Neck: Present: supple, normal ROM - Respiratory Respiratory effort: normal Respiratory: bilateral: CTA - Cardiovascular Rhythm: regular Heart Sounds: Present: S1 & S2. Absent: gallop, rub - Extremities Extremities: no ischemia, No edema, Full ROM - Abdominal General gastrointestinal: soft, non-tender, non-distended, normal bowel sounds - Integumentary Integumentary: Present: clear, warm, dry - Neurologic Neurologic: CNII-XII intact, moves all extremities HEART Score - HEART Score Troponin: Troponin T < 0.010 ng/mL (0.00-0.029) 01/26/22 23:28 Results - Labs CBC & Chem 7: 02/01/22 04:04 02/01/22 04:04 Labs: Laboratory Last Values WBC 8.3 K/mm3 (4.5-11.0) 02/01/22 04:04 RBC 2.98 M/mm3 (3.65-5.03) L 02/01/22 04:04 Hgb 9.0 gm/dl (11.8-15.2) L 02/01/22 04:04 Hct 27.2 % (35.5-45.6) L 02/01/22 04:04 MCV 91 fl (84-94) 02/01/22 04:04 MCH 30 pg (28-32) 02/01/22 04:04 MCHC 33 % (32-34) 02/01/22 04:04 RDW 14.5 % (13.2-15.2) 02/01/22 04:04 Plt Count 131 K/mm3 (140-440) L 02/01/22 04:04 Lymph % (Auto) 6.1 % (13.4-35.0) L 01/28/22 04:00 Bowie % (Auto) 9.0 % (0.0-7.3) H 01/28/22 04:00 Eos % (Auto) 0.0 % (0.0-4.3) 01/28/22 04:00 Baso % (Auto) 0.0 % (0.0-1.8) 01/28/22 04:00 Lymph # (Auto) 0.4 K/mm3 (1.2-5.4) L 01/28/22 04:00 Bowie # (Auto) 0.5 K/mm3 (0.0-0.8) 01/28/22 04:00 Eos # (Auto) 0.0 K/mm3 (0.0-0.4) 01/28/22 04:00 Baso # (Auto) 0.0 K/mm3 (0.0-0.1) 01/28/22 04:00 Add Manual Diff Complete 01/26/22 23:28 Total Counted 100 01/26/22 23:28 Seg Neutrophils % 84.9 % (40.0-70.0) H 01/28/22 04:00 Seg Neuts % (Manual) 94.0 % (40.0-70.0) H 01/26/22 23:28 Band Neutrophils % 2.0 % 01/26/22 23:28 Lymphocytes % (Manual) 2.0 % (13.4-35.0) L 01/26/22 23:28 Reactive Lymphs % (Man) 0 % 01/26/22 23:28 Monocytes % (Manual) 1.0 % (0.0-7.3) 01/26/22 23:28 Eosinophils % (Manual) 0 % (0.0-4.3) 01/26/22 23:28 Basophils % (Manual) 0 % (0.0-1.8) 01/26/22 23:28 Metamyelocytes % 0 % 01/26/22 23:28 Myelocytes % 1.0 % 01/26/22 23:28 Promyelocytes % 0 % 01/26/22 23:28 Blast Cells % 0 % 01/26/22 23:28 Nucleated RBC % 3.0 % (0.0-0.9) H 01/26/22 23:28 Seg Neutrophils # 5.0 K/mm3 (1.8-7.7) 01/28/22 04:00 Seg Neutrophils # Man 8.3 K/mm3 (1.8-7.7) H 01/26/22 23:28 Band Neutrophils # 0.2 K/mm3 01/26/22 23:28 Lymphocytes # (Manual) 0.2 K/mm3 (1.2-5.4) L 01/26/22 23:28 Abs React Lymphs (Man) 0.0 K/mm3 01/26/22 23:28 Monocytes # (Manual) 0.1 K/mm3 (0.0-0.8) 01/26/22 23:28 Eosinophils # (Manual) 0.0 K/mm3 (0.0-0.4) 01/26/22 23:28 Basophils # (Manual) 0.0 K/mm3 (0.0-0.1) 01/26/22 23:28 Metamyelocytes # 0.0 K/mm3 01/26/22 23:28 Myelocytes # 0.1 K/mm3 01/26/22 23:28 Promyelocytes # 0.0 K/mm3 01/26/22 23:28 Blast Cells # 0.0 K/mm3 01/26/22 23:28 WBC Morphology Not Reportable 01/26/22 23:28 Hypersegmented Neuts Not Reportable 01/26/22 23:28 Hyposegmented Neuts Not Reportable 01/26/22 23:28 Hypogranular Neuts Not Reportable 01/26/22 23:28 Smudge Cells Not Reportable 01/26/22 23:28 Toxic Granulation Not Reportable 01/26/22 23:28 Toxic Vacuolation Not Reportable 01/26/22 23:28 Dohle Bodies Not Reportable 01/26/22 23:28 Pelger-Huet Anomaly Not Reportable 01/26/22 23:28 Sofia Rods Not Reportable 01/26/22 23:28 Platelet Estimate Consistent w auto 01/26/22 23:28 Clumped Platelets Not Reportable 01/26/22 23:28 Plt Clumps, EDTA Not Reportable 01/26/22 23:28 Large Platelets Not Reportable 01/26/22 23:28 Giant Platelets Not Reportable 01/26/22 23:28 Platelet Satelliting Not Reportable 01/26/22 23:28 Plt Morphology Comment Not Reportable 01/26/22 23:28 RBC Morphology Not Reportable 01/26/22 23:28 Dimorphic RBCs Not Reportable 01/26/22 23:28 Polychromasia Not Reportable 01/26/22 23:28 Hypochromasia 2+ 01/26/22 23:28 Poikilocytosis Not Reportable 01/26/22 23:28 Anisocytosis Not Reportable 01/26/22 23:28 Microcytosis Not Reportable 01/26/22 23:28 Macrocytosis Not Reportable 01/26/22 23:28 Spherocytes Not Reportable 01/26/22 23:28 Pappenheimer Bodies Not Reportable 01/26/22 23:28 Sickle Cells Not Reportable 01/26/22 23:28 Target Cells Few 01/26/22 23:28 Tear Drop Cells Not Reportable 01/26/22 23:28 Ovalocytes Not Reportable 01/26/22 23:28 Helmet Cells Not Reportable 01/26/22 23:28 [place] Bodies Not Reportable 01/26/22 23:28 [place] Rings Not Reportable 01/26/22 23:28 [place] Cells Not Reportable 01/26/22 23:28 Bite Cells Not Reportable 01/26/22 23:28 Crenated Cell Not Reportable 01/26/22 23:28 Elliptocytes Not Reportable 01/26/22 23:28 Acanthocytes (Spur) Not Reportable 01/26/22 23:28 Rouleaux Not Reportable 01/26/22 23:28 Hemoglobin C Crystals Not Reportable 01/26/22 23:28 Schistocytes Not Reportable 01/26/22 23:28 Malaria parasites Not Reportable 01/26/22 23:28 Jan Bodies Not Reportable 01/26/22 23:28 Haptoglobin 186 mg/dL (43-212) 01/28/22 15:25 Hem Pathologist Commnt No 01/26/22 23:28 ABG pH 7.586 pH Units (7.350-7.450) H 01/30/22 04:00 ABG pCO2 27.3 mm Hg 01/30/22 04:00 ABG pO2 103.6 mm Hg (80.0-90.0) H 01/30/22 04:00 ABG HCO3 25.3 mmol/L (20.0-26.0) 01/30/22 04:00 ABG O2 Saturation 98.2 % (95.0-99.0) 01/30/22 04:00 ABG O2 Content 9.1 (0.0-44) 01/30/22 04:00 ABG Base Excess 3.3 mmol/L (-2.0-3.0) H 01/30/22 04:00 ABG Hemoglobin 6.5 gm/dl (14.0-18.0) L 01/30/22 04:00 ABG Carboxyhemoglobin 0.9 % (0.0-5.0) 01/30/22 04:00 ABG Methemoglobin 0.3 % (0.0-1.5) 01/30/22 04:00 Oxyhemoglobin 97.1 % (95.0-99.0) 01/30/22 04:00 FiO2 28 % 01/30/22 04:00 Sodium 140 mmol/L (137-145) 02/01/22 04:04 Potassium 4.0 mmol/L (3.6-5.0) 02/01/22 04:04 Chloride 104.1 mmol/L (98-107) 02/01/22 04:04 Carbon Dioxide 26 mmol/L (22-30) 02/01/22 04:04 Anion Gap 14 mmol/L 02/01/22 04:04 BUN 53 mg/dL (9-20) H 02/01/22 04:04 Creatinine 3.9 mg/dL (0.8-1.3) H 02/01/22 04:04 Estimated GFR 19 ml/min 02/01/22 04:04 BUN/Creatinine Ratio 14 % 02/01/22 04:04 Glucose 82 mg/dL (75-100) 02/01/22 04:04 POC Glucose 85 mg/dL (70-105) 02/01/22 22:23 Lactic Acid 1.40 mmol/L (0.7-2.0) 01/27/22 23:25 Calcium 7.6 mg/dL (8.4-10.2) L 02/01/22 04:04 Phosphorus 5.70 mg/dL (2.5-4.5) H D 01/31/22 04:32 Magnesium 2.20 mg/dL (1.7-2.3) 01/31/22 04:32 Total Bilirubin 0.40 mg/dL (0.1-1.2) 01/26/22 23:28 AST 21 units/L (5-40) 01/26/22 23:28 ALT 19 units/L (7-56) 01/26/22 23:28 Alkaline Phosphatase 64 units/L (35-129) 01/26/22 23:28 Lactate Dehydrogenase 233 units/L (91-180) H 01/28/22 15:25 Troponin T < 0.010 ng/mL (0.00-0.029) 01/26/22 23:28 NT-Pro-B Natriuret Pep 89186 pg/mL (0-900) H 01/26/22 23:28 Total Protein 7.9 g/dL (6.3-8.2) 01/26/22 23:28 Albumin 3.9 g/dL (3.9-5) 01/26/22 23:28 Albumin/Globulin Ratio 1.0 % 01/26/22 23:28 TSH 1.090 mlU/mL (0.270-4.200) 01/31/22 18:40 Urine Color Yellow (Yellow) 01/27/22 07:45 Urine Turbidity Clear (Clear) 01/27/22 07:45 Urine pH 5.0 (5.0-7.0) 01/27/22 07:45 Ur Specific [place] 1.015 (1.003-1.030) 01/27/22 07:45 Urine Protein 100 mg/dl mg/dL (Negative) 01/27/22 07:45 Urine Glucose (UA) Negative mg/dL (Negative) 01/27/22 07:45 Urine Ketones Negative mg/dL (Negative) 01/27/22 07:45 Urine Blood Large (Negative) A 01/27/22 07:45 Urine Nitrite Negative (Negative) 01/27/22 07:45 Ur Reducing Substances Not Reportable 01/27/22 07:45 Urine Bilirubin Negative (Negative) 01/27/22 07:45 Urine Ictotest Not Reportable 01/27/22 07:45 Urine Urobilinogen 0.0 mg/dL (<2.0) 01/27/22 07:45 Ur Leukocyte Esterase Small (Negative) 01/27/22 07:45 Urine WBC (Auto) 11.0 /HPF (0.0-6.0) H 01/27/22 07:45 Urine RBC (Auto) 5.0 /HPF (0.0-6.0) 01/27/22 07:45 Urine Bacteria (Auto) 1+ /HPF (Negative) 01/27/22 07:45 Urine WBC Clumps Few /HPF 01/27/22 07:45 Urine Creatinine 144.3 mg/dL (0.1-20.0) H 01/27/22 07:45 Urine Sodium 36 mmol/L 01/27/22 07:45 Urine Total Protein 154 mg/dL (5-11.8) H 01/27/22 07:45 Coronavirus (PCR) Negative (Negative) 01/28/22 16:48 Hepatitis A IgM Ab Non-reactive (NonReactive) 01/27/22 03:31 Hep Bs Antigen Non-reactive (Negative) 01/27/22 03:31 Hep B Core IgM Ab Non-reactive (NonReactive) 01/27/22 03:31 Hepatitis C Antibody Reactive (NonReactive) A 01/27/22 03:31 Blood Type A POSITIVE 01/28/22 06:00 Antibody Screen Negative 01/28/22 06:00 Crossmatch See Detail 01/28/22 06:00 Microbiology: Microbiology 01/28/22 15:25 Peripheral/Venous Blood Culture - Preliminary NO GROWTH AFTER 4 DAYS 01/28/22 15:25 Peripheral/Venous Blood Culture - Preliminary NO GROWTH AFTER 4 DAYS 01/29/22 17:55 Tracheal Aspirate Sputum Culture - Preliminary Staphylococcus Aureus Gram Negative Lamont Roth/IV: Voiding Method Indwelling Catheter Active Medications - Current Medications Current Medications: Generic Name Dose Route Start Last Admin Trade Name Freq PRN Reason Stop Dose Admin Acetaminophen 650 mg 01/27/22 05:44 Acetaminophen 650 Mg Rect Supp UT Q6H PRN Pain MILD(1-3)/Fever >100.5/WILLIAM Amiodarone HCl 200 mg 01/31/22 10:00 02/01/22 09:50 Amiodarone 200 Mg Tab PO 200 mg QDAY DOMINIC Administration Epoetin Connor-epbx 10,000 unit 01/27/22 02:08 Epoetin Connor-Epbx 10,000 Unit/1 Ml Vial IV PATRICK PRN hemodialysis Famotidine 20 mg 01/30/22 10:00 02/01/22 09:50 Famotidine 20 Mg Tab FEEDTUBE 20 mg DAILY DOMINIC Administration Heparin Sodium (Porcine) 5,000 unit 01/27/22 02:08 Heparin 10,000 Unit/1 Ml Vial IV PATRICK PRN hemodialysis Hydrophilic Ointment 1 applic 01/27/22 18:00 Lip Therapy Vaseline TP Q2HR PRN Dry Lips Sodium Chloride 100 mls @ 999 mls/hr 01/30/22 09:00 Nacl 0.9% IV PATRICK PRN Hypotension Insulin Human Lispro 0 unit 01/29/22 18:45 02/02/22 06:54 Insulin Lispro 100 Unit/Ml SUB-Q Not Given Q6HR [facility] Protocol Magnesium Hydroxide 30 ml 01/27/22 05:44 Magnesium Hydroxide (Mom) Oral Liqd Udc PO Q4H PRN Constipation Metoprolol Tartrate 25 mg 01/30/22 22:00 02/02/22 05:58 Metoprolol Tartrate 25 Mg Tab PO 25 mg Q8HR DOMINIC Administration Morphine Sulfate 2 mg 01/27/22 05:44 01/29/22 00:58 Morphine 2 Mg/1 Ml Inj IV 2 mg Q4H PRN Administration Pain, Moderate (4-6) Multi-Ingred Cream/Lotion/Oil/Oint 1 applic 01/27/22 18:00 Mineral Oil/Petrolatum, White Ophth Oint 3.5 Gm OU Q4HR PRN Dry Eye(s) Senna/Docusate Sodium 1 tab 01/27/22 22:00 02/01/22 21:50 Sennosides/Docusate Sodium 8.6/50 Mg Tab FEEDTUBE Not Given BID DOMINIC Sodium Chloride 10 ml 01/27/22 10:00 02/01/22 22:49 Sodium Chloride 0.9% 10 Ml Flush Syringe IV 10 ml BID DOMINIC Administration Sodium Chloride 10 ml 01/27/22 05:44 01/29/22 00:59 Sodium Chloride 0.9% 10 Ml Flush Syringe IV 10 ml PRN PRN Administration LINE FLUSH Nutrition/Malnutrition Assess - Dietary Evaluation Nutrition/Malnutrition Findings: Nutrition Notes Start: 01/28/22 12:15 Freq: Status: Active Protocol: Document 01/31/22 10:38 ROSA (Rec: 01/31/22 10:38 [facility] [id number]) Nutrition Notes Initial or Follow up Brief Note Subjective/Other Information Awaiting LEGAL RECORDS MANAGER evaluation. Nutrition Intervention Follow-Up By: 02/02/22 Additional Comments F/U: LEGAL RECORDS MANAGER kim, POC
[2022-02-02] MEDS: AMIODARONE 200 MG TAB PO SCH (10:45)
[2022-02-02] MEDS: SENNOSIDES/DOCUSATE SODIUM 8.6/50 MG TAB FEEDTUBE SCH ×2 (10:45→23:00)
[2022-02-02] MEDS: FAMOTIDINE 20 MG TAB FEEDTUBE SCH (10:50)
--- NOTE | 2022-02-02 11:35 | Progress Note ---
Assessment and Plan - Patient Problems (1) Hyperkalemia Current Visit: Yes Status: Acute Plan to address problem: corrected with hemodialysis (2) Acute on chronic kidney failure Current Visit: Yes Status: Acute Plan to address problem: unclear what his baseline kidney function is but per patient's he had been seeing a fountain attendant, most likely a worsening of his chronic kidney disease at this point. He has tolerated his first three treatments of HD well last week, and his mentation has significantly improved and he was able to be extubated and now has been transferred to telemetry. Will monitor his renal function for any further improvement on a daily basis. If he is requiring further treatment this week, will plan to have permcath placed. (3) Hypotension Current Visit: Yes Status: Acute Plan to address problem: Blood pressures have improved at this time. (4) Anemia in CKD (chronic kidney disease) Current Visit: Yes Status: Acute Plan to address problem: transfuse PRBC prn to target Hb> 7 Subjective Date of service: 02/02/22 Principal diagnosis: Paroxysmal atrial flutter Interval history: Patient is awake, alert, in no acute distress Objective - Vital Signs Vital signs: Vital Signs - 12hr 02/02/22 02/02/22 05:58 05:59 Pulse Rate 65 Blood Pressure 122/74 Blood Pressure 122/74 [Left] O2 Sat by Pulse 96 Oximetry - General Appearance General appearance: well-developed, well-nourished, appears stated age EENT: ATNC, PERRL, mucous membranes moist Neck: no JVD Respiratory: Present: Clear to Ascultation Cardiology: regular, S1S2 Gastrointestinal: normoactive bowel sounds Integumentary: no rash, other (no edema ) Neurologic: no focal deficit, alert and oriented x3, strength 5/5, CN 3-12 intact Psychiatric: mood/affect appropriate, cooperative - Lab 02/01/22 04:04 02/01/22 04:04 Most recent lab results ABG pH 7.586 pH Units (7.350-7.450) H 01/30/22 04:00 ABG pCO2 27.3 mm Hg 01/30/22 04:00 ABG pO2 103.6 mm Hg (80.0-90.0) H 01/30/22 04:00 ABG HCO3 25.3 mmol/L (20.0-26.0) 01/30/22 04:00 ABG O2 Saturation 98.2 % (95.0-99.0) 01/30/22 04:00 Calcium 7.6 mg/dL (8.4-10.2) L 02/01/22 04:04 Phosphorus 5.70 mg/dL (2.5-4.5) H D 01/31/22 04:32 Magnesium 2.20 mg/dL (1.7-2.3) 01/31/22 04:32 Urine Creatinine 144.3 mg/dL (0.1-20.0) H 01/27/22 07:45 Urine Sodium 36 mmol/L 01/27/22 07:45 Urine Total Protein 154 mg/dL (5-11.8) H 01/27/22 07:45 Medications & Allergies - Medications Allergies/Adverse Reactions: Allergies No Known Allergies Allergy (Verified 01/26/22 23:12) Home Medications: Home Medications Medication Instructions Recorded Confirmed Last Taken Type No Known Home Medications [No 01/27/22 01/27/22 Unknown History Reported Home Medications] Active Medications: Generic Name Dose Route Start Last Admin Trade Name Freq PRN Reason Stop Dose Admin Acetaminophen 650 mg 01/27/22 05:44 Acetaminophen [address] Q6H PRN Pain MILD(1-3)/Fever >100.5/WILLIAM Amiodarone HCl 200 mg 01/31/22 10:00 02/02/22 10:45 Amiodarone 200 Mg Tab PO 200 mg QDAY DOMINIC Administration Epoetin Connor-epbx 10,000 unit 01/27/22 02:08 Epoetin Connor-Epbx 10,000 Unit/1 Ml Vial IV PATRICK PRN hemodialysis Famotidine 20 mg 01/30/22 10:00 02/02/22 10:50 Famotidine 20 Mg Tab FEEDTUBE 20 mg DAILY DOMINIC Administration Heparin Sodium (Porcine) 5,000 unit 01/27/22 02:08 Heparin 10,000 Unit/1 Ml Vial IV PATRICK PRN hemodialysis Hydrophilic Ointment 1 applic 01/27/22 18:00 Lip Therapy Vaseline TP Q2HR PRN Dry Lips Sodium Chloride 100 mls @ 999 mls/hr 01/30/22 09:00 Nacl 0.9% IV PATRICK PRN Hypotension Insulin Human Lispro 0 unit 01/29/22 18:45 02/02/22 06:54 Insulin Lispro 100 Unit/Ml SUB-Q Not Given Q6HR DOMINIC Protocol Magnesium Hydroxide 30 ml 01/27/22 05:44 Magnesium Hydroxide (Mom) Oral Liqd Udc PO Q4H PRN Constipation Metoprolol Tartrate 25 mg 01/30/22 22:00 02/02/22 05:58 Metoprolol Tartrate 25 Mg Tab PO 25 mg Q8HR DOMINIC Administration Morphine Sulfate 2 mg 01/27/22 05:44 01/29/22 00:58 Morphine 2 Mg/1 Ml Inj IV 2 mg Q4H PRN Administration Pain, Moderate (4-6) Multi-Ingred Cream/Lotion/Oil/Oint 1 applic 01/27/22 18:00 Mineral Oil/Petrolatum, White Ophth Oint 3.5 Gm OU Q4HR PRN Dry Eye(s) Senna/Docusate Sodium 1 tab 01/27/22 22:00 02/02/22 10:45 Sennosides/Docusate Sodium 8.6/50 Mg Tab FEEDTUBE 1 tab BID DOMINIC Administration Sodium Chloride 10 ml 01/27/22 10:00 02/02/22 10:50 Sodium Chloride 0.9% 10 Ml Flush Syringe IV 10 ml BID DOMINIC Administration Sodium Chloride 10 ml 01/27/22 05:44 01/29/22 00:59 Sodium Chloride 0.9% 10 Ml Flush Syringe IV 10 ml PRN PRN Administration LINE FLUSH
--- NOTE | 2022-02-02 11:52 | Progress Note ---
Assessment and Plan - Patient Problems (1) Paroxysmal atrial flutter Current Visit: Yes Status: Acute Plan to address problem: Patient admitted with acute renal failure, hyperkalemia, sepsis and severe anemia. In the setting of severe electrolyte and acid-base imbalance, he has developed paroxysmal atrial flutter, which prompted cardiac consultation. We have stabilized sinus rhythm with intravenous amiodarone, and will switch to oral amiodarone and metoprolol. Not a candidate for antiplatelet therapy or anticoagulation due to presenting severe anemia. Notably, the echocardiogram showed normal left ventricular systolic function, ejection fraction 55%, with increased calcification of the aortic valve apparatus and transaortic mean gradient of 9.9 mmHg consistent with mild aortic stenosis. The appearance of the aortic valve suggested a possible biopr osthesis, but the patient has no evidence of thoracotomy in the chest x-ray, and no suggestion of a transaortic valve replacement in his records. Continue conservative cardiac management. Subjective Date of service: 02/02/22 Principal diagnosis: Paroxysmal atrial flutter Interval history: Patient has no new cardiac complaints, no cardiac events reported. On process supervisor, there is a stable sinus rhythm at 85. Objective Vital Signs Temp Pulse Resp BP BP Pulse Ox 02/02/22 05:59 65 122/74 96 02/02/22 05:58 122/74 02/01/22 22:49 70 134/83 02/01/22 22:47 99.3 F 68 18 134/83 98 02/01/22 22:00 70 20 96 02/01/22 21:01 99 02/01/22 17:23 98.1 F 65 16 128/68 100 02/01/22 15:32 70 - Physical Examination General: No Apparent Distress HEENT: Positive: PERRL Neck: Positive: neck supple Cardiac: Positive: Reg Rate and Rhythm, Systolic Murmur Lungs: Positive: Decreased Breath Sounds Neuro: Positive: Grossly Intact Abdomen: Positive: Soft Skin: Positive: Clear Extremities: Absent: edema - Allied health notes Allied health notes reviewed: nursing
--- NOTE | 2022-02-02 17:07 | XRay Report ---
CHEST 1 VIEW 02/02/2022 3:02 PM INDICATION / CLINICAL INFORMATION: r/o PNA. COMPARISON: February 10, 2022 FINDINGS: SUPPORT DEVICES: Stable, satisfactory device positioning. HEART / MEDIASTINUM: No significant abnormality. LUNGS / PLEURA: Increased pulmonary vascularity. Opacity in the right middle lobe adjacent right card iac border may be slightly increased. Mild increased density in left lower lung No pneumothorax. Signer Name: Jose Miguel Epstein MD Signed: 02/02/2022 5:03 PM Workstation Name: [email or web address]
[2022-02-02] MEDS ORDERED: cefTRIAXone/NS 1 GM/50 ML 1 GM/50 ML BAG IV SCH (18:00)
--- NOTE | 2022-02-02 20:42 | Progress Note ---
Assessment and Plan 66-year-old -Congolese male with known history of chronic kidney disease brought in by family today for evaluation of worsening shortness of breath which has been ongoing for the past few days. Patient is currently intubated and sed ated and therefore most of the history was gotten from his . indicates that patient has not been following up regularly with any primary care physician or delivery recruiter due to insurance issues. Upon arrival in the emergency room put on hold, work-up was significant for hyperkalemia of 9.0, CO2 of 3.0, BUN of 308 and creatinine of 31. 6. BNP of 10 829. Magnesium 2.6. EKG was significant for peaked T waves. Steerer on-call was notified by the ER physician and dialysis was to be i nitiated. Patient became hypotensive during the course of dialysis and had to be put on hold. Sash Assembler and nephrology service has been promptly informed by the ER physician. Patient extubated. Patient reciving dialysis. Patient transfered to medical floor. Patient alert, weak. Resting on room air. O2 saturation 98%. Denies chest pain , shortness of breath at this time. Complaining slight cough. Patient afebrile. No leukocytosis. Blood pressure 126/74, Pulse 65 , Respirations 18. Chest xray done 01/31/22 reported Interval removal of the esophagogastric tube with increased probable bibasilar atelectasis. No other significant interval changes. Patient is on Heparin and Famotidine. Patients at bed side. Explained to her patients respiratory status. - Patient Problems (1) Acute respiratory failure Current Visit: Yes Status: Acute Plan to address problem: Patient intubated and extubated. Patient presently on room air. O2 saturation 100%. (2) Acute on chronic kidney failure Current Visit: Yes Status: Acute Plan to address problem: Patient is on dialysis. Management as per nephrology. (3) Hyperkalemia Current Visit: Yes Status: Acute Plan to address problem: Improved. Patients to days K+ 4.0 (4) Hypotension Current Visit: Yes Status: Acute Plan to address problem: Omproved. Patients to days blood pressure 126/74. Patient is on I/V fluids NSS. (5) Paroxysmal atrial flutter Current Visit: Yes Status: Acute Plan to address problem: Patient is on Amiodarone. Management as per cardiology. Subjective Date of service: 02/02/22 Principal diagnosis: Paroxysmal atrial flutter Interval history: 66-year-old -Congolese male with known history of chronic kidney disease brought in by family today for evaluation of worsening shortness of breath which has been ongoing for the past few days. Patient is currently intubated and sedated and therefore most of the history was gotten from his . indicates that patient has not been following up regularly with any primary care physician or delivery recruiter due to insurance issues. Upon arrival in the emergency room put on hold, work-up was significant for hyperkalemia of 9.0, CO2 of 3.0, BUN of 308 and creatinine of 31. 6. BNP of 10 829. Magnesium 2.6. EKG was significant for peaked T waves. Steerer on-call was notified by the ER physician and dialysis was to be initiated. Patient became hypotensive during the course of dialysis and had to be put on hold. Sash Assembler and nephrology service has been promptly informed by the ER physician. Patient extubated. Patient reciving dialysis. Patient transfered to medical floor. Patient alert, weak. Resting on room air. O2 saturation 98%. Denies chest pain , shortness of breath at this time. Complaining slight cough. Patient afebrile. No leukocytosis. Blood pressure 126/74, Pulse 65 , Respirations 18. Chest xray done 01/31/22 reported Interval removal of the esophagogastric tube with increased probable bibasilar atelectasis. No other significant interval changes. Patient is on Heparin and Famotidine. Objective Vital Signs - 12hr 02/02/22 02/02/22 02/02/22 10:00 10:50 16:29 Temperature 99.9 F H Pulse Rate 85 71 Respiratory 20 18 Rate Blood Pressure 115/76 O2 Sat by Pulse 99 96 Oximetry Constitutional: no acute distress, other (orally intuabted ETT at 26cm at the lip) Eyes: non-icteric ENT: oropharynx moist Neck: supple, no lymphadenopathy, other (RIJ HD catheter) Effort: mildly labored Ascultation: Bilateral: diminished breath sounds Cardiovascular: irregular rhythm, other (Tachycardia) Gastrointestinal: normoactive bowel sounds, soft, non-tender, non-distended, other (Roth catheter) Integumentary: normal Extremities: no cyanosis, no edema Neurologic: non-focal exam (moves all extemities), other (follows simple commands) Psychiatric: mood appropriate, affect normal CBC and BMP: 02/01/22 04:04 02/01/22 04:04 ABG, PT/INR, D-dimer: ABG ABG pH 7.586 pH Units (7.350-7.450) H 01/30/22 04:00 ABG pCO2 27.3 mm Hg 01/30/22 04:00 ABG pO2 103.6 mm Hg (80.0-90.0) H 01/30/22 04:00 ABG O2 Saturation 98.2 % (95.0-99.0) 01/30/22 04:00 Abnormal lab findings: Abnormal Labs 01/26/22 01/26/22 01/26/22 01:45 23:28 23:28 RBC 2.62 L Hgb 7.6 L Hct 23.5 L MCHC Plt Count Lymph % (Auto) Ida % (Auto) Lymph # (Auto) Seg Neutrophils % Seg Neuts % (Manual) 94.0 H Lymphocytes % (Manual) 2.0 L Nucleated RBC % 3.0 H Seg Neutrophils # Man 8.3 H Lymphocytes # (Manual) 0.2 L ABG pH 7.094 L* ABG pO2 162.0 H ABG HCO3 2.7 L ABG O2 Saturation ABG Base Excess -24.8 L ABG Hemoglobin 7.7 L Sodium 148 H Potassium 9.0 H* Chloride 113.1 H Carbon Dioxide 3 L* BUN 308 H Creatinine 31.6 H Glucose 104 H POC Glucose Calcium Phosphorus Magnesium Lactate Dehydrogenase NT-Pro-B Natriuret Pep Urine Blood Urine WBC (Auto) Urine Creatinine Urine Total Protein Complement C3 Hepatitis C Antibody Crossmatch 01/26/22 01/27/22 01/27/22 23:28 01:57 03:31 RBC Hgb Hct MCHC Plt Count Lymph % (Auto) Ida % (Auto) Lymph # (Auto) Seg Neutrophils % Seg Neuts % (Manual) Lymphocytes % (Manual) Nucleated RBC % Seg Neutrophils # Man Lymphocytes # (Manual) ABG pH ABG pO2 ABG HCO3 ABG O2 Saturation ABG Base Excess ABG Hemoglobin Sodium Potassium Chloride Carbon Dioxide BUN Creatinine Glucose POC Glucose Calcium Phosphorus Magnesium 2.60 H Lactate Dehydrogenase NT-Pro-B Natriuret Pep 31993 H Urine Blood Urine WBC (Auto) Urine Creatinine Urine Total Protein Complement C3 Hepatitis C Antibody Reactive A Crossmatch 01/27/22 01/27/22 01/27/22 05:30 07:45 07:45 RBC Hgb Hct MCHC Plt Count Lymph % (Auto) Ida % (Auto) Lymph # (Auto) Seg Neutrophils % Seg Neuts % (Manual) Lymphocytes % (Manual) Nucleated RBC % Seg Neutrophils # Man Lymphocytes # (Manual) ABG pH 7.312 L ABG pO2 595.3 H ABG HCO3 6.6 L ABG O2 Saturation 99.6 H ABG Base Excess -18.2 L ABG Hemoglobin 5.0 L Sodium Potassium Chloride Carbon Dioxide BUN Creatinine Glucose POC Glucose Calcium Phosphorus Magnesium Lactate Dehydrogenase NT-Pro-B Natriuret Pep Urine Blood Large A Urine WBC (Auto) 11.0 H Urine Creatinine 144.3 H Urine Total Protein 154 H Complement C3 Hepatitis C Antibody Crossmatch 01/27/22 01/28/22 01/28/22 Unknown 02:08 04:00 RBC 1.97 L Hgb 5.7 L* Hct 16.7 L* D MCHC Plt Count Lymph % (Auto) 6.1 L Ida % (Auto) 9.0 H Lymph # (Auto) 0.4 L Seg Neutrophils % 84.9 H Seg Neuts % (Manual) Lymphocytes % (Manual) Nucleated RBC % Seg Neutrophils # Man Lymphocytes # (Manual) ABG pH ABG pO2 ABG HCO3 ABG O2 Saturation ABG Base Excess ABG Hemoglobin Sodium 147 H Potassium 5.2 H D Chloride 111.6 H Carbon Dioxide 6 L* BUN 235 H Creatinine 21.2 H Glucose 74 L POC Glucose 60 L Calcium 8.0 L D Phosphorus Magnesium Lactate Dehydrogenase NT-Pro-B Natriuret Pep Urine Blood Urine WBC (Auto) Urine Creatinine Urine Total Protein Complement C3 Hepatitis C Antibody Crossmatch 01/28/22 01/28/22 01/28/22 04:00 05:05 06:00 RBC Hgb Hct MCHC Plt Count Lymph % (Auto) Ida % (Auto) Lymph # (Auto) Seg Neutrophils % Seg Neuts % (Manual) Lymphocytes % (Manual) Nucleated RBC % Seg Neutrophils # Man Lymphocytes # (Manual) ABG pH ABG pO2 197.7 H ABG HCO3 10.6 L ABG O2 Saturation 99.2 H ABG Base Excess -13.7 L ABG Hemoglobin 5.3 L Sodium Potassium Chloride Carbon Dioxide 12 L BUN 216 H Creatinine 18.6 H Glucose POC Glucose Calcium 7.1 L Phosphorus Magnesium Lactate Dehydrogenase NT-Pro-B Natriuret Pep Urine Blood Urine WBC (Auto) Urine Creatinine Urine Total Protein Complement C3 Hepatitis C Antibody Crossmatch See Detail 01/28/22 01/28/22 01/28/22 15:25 15:25 15:25 RBC Hgb 8.3 L Hct 24.3 L D MCHC Plt Count Lymph % (Auto) Ida % (Auto) Lymph # (Auto) Seg Neutrophils % Seg Neuts % (Manual) Lymphocytes % (Manual) Nucleated RBC % Seg Neutrophils # Man Lymphocytes # (Manual) ABG pH ABG pO2 ABG HCO3 ABG O2 Saturation ABG Base Excess ABG Hemoglobin Sodium Potassium Chloride Carbon Dioxide BUN Creatinine Glucose POC Glucose Calcium Phosphorus Magnesium Lactate Dehydrogenase 233 H NT-Pro-B Natriuret Pep Urine Blood Urine WBC (Auto) Urine Creatinine Urine Total Protein Complement C3 69 L Hepatitis C Antibody Crossmatch 01/28/22 01/29/22 01/29/22 18:17 03:15 03:50 RBC 2.53 L Hgb 7.6 L Hct 21.6 L MCHC 35 H Plt Count 135 L Lymph % (Auto) Ida % (Auto) Lymph # (Auto) Seg Neutrophils % Seg Neuts % (Manual) Lymphocytes % (Manual) Nucleated RBC % Seg Neutrophils # Man Lymphocytes # (Manual) ABG pH 7.582 H ABG pO2 142.5 H ABG HCO3 19.7 L ABG O2 Saturation ABG Base Excess ABG Hemoglobin 7.4 L Sodium Potassium Chloride Carbon Dioxide BUN Creatinine Glucose POC Glucose 123 H Calcium Phosphorus Magnesium Lactate Dehydrogenase NT-Pro-B Natriuret Pep Urine Blood Urine WBC (Auto) Urine Creatinine Urine Total Protein Complement C3 Hepatitis C Antibody Crossmatch 01/29/22 01/30/22 01/30/22 03:50 04:00 04:00 RBC 2.27 L Hgb 6.8 L Hct 19.9 L* MCHC Plt Count 131 L Lymph % (Auto) Ida % (Auto) Lymph # (Auto) Seg Neutrophils % Seg Neuts % (Manual) Lymphocytes % (Manual) Nucleated RBC % Seg Neutrophils # Man Lymphocytes # (Manual) ABG pH ABG pO2 ABG HCO3 ABG O2 Saturation ABG Base Excess ABG Hemoglobin Sodium 135 L 133 L Potassium 3.5 L D Chloride 93.3 L Carbon Dioxide 21 L D BUN 105 H 75 H Creatinine 9.2 H D 5.9 H Glucose 164 H 149 H POC Glucose Calcium 6.9 L 7.2 L Phosphorus Magnesium 1.50 L Lactate Dehydrogenase NT-Pro-B Natriuret Pep Urine Blood Urine WBC (Auto) Urine Creatinine Urine Total Protein Complement C3 Hepatitis C Antibody Crossmatch 01/30/22 01/30/22 01/30/22 04:00 05:48 12:48 RBC Hgb Hct MCHC Plt Count Lymph % (Auto) Ida % (Auto) Lymph # (Auto) Seg Neutrophils % Seg Neuts % (Manual) Lymphocytes % (Manual) Nucleated RBC % Seg Neutrophils # Man Lymphocytes # (Manual) ABG pH 7.586 H ABG pO2 103.6 H ABG HCO3 ABG O2 Saturation ABG Base Excess 3.3 H ABG Hemoglobin 6.5 L Sodium Potassium Chloride Carbon Dioxide BUN Creatinine Glucose POC Glucose 155 H 160 H Calcium Phosphorus Magnesium Lactate Dehydrogenase NT-Pro-B Natriuret Pep Urine Blood Urine WBC (Auto) Urine Creatinine Urine Total Protein Complement C3 Hepatitis C Antibody Crossmatch 01/30/22 01/30/22 01/30/22 14:30 16:28 23:52 RBC 2.86 L Hgb 8.5 L Hct 25.4 L MCHC Plt Count 134 L Lymph % (Auto) Ida % (Auto) Lymph # (Auto) Seg Neutrophils % Seg Neuts % (Manual) Lymphocytes % (Manual) Nucleated RBC % Seg Neutrophils # Man Lymphocytes # (Manual) ABG pH ABG pO2 ABG HCO3 ABG O2 Saturation ABG Base Excess ABG Hemoglobin Sodium Potassium Chloride Carbon Dioxide BUN Creatinine Glucose POC Glucose 143 H 132 H Calcium Phosphorus Magnesium Lactate Dehydrogenase NT-Pro-B Natriuret Pep Urine Blood Urine WBC (Auto) Urine Creatinine Urine Total Protein Complement C3 Hepatitis C Antibody Crossmatch 01/31/22 01/31/22 01/31/22 04:32 12:20 15:50 RBC Hgb Hct MCHC Plt Count Lymph % (Auto) Ida % (Auto) Lymph # (Auto) Seg Neutrophils % Seg Neuts % (Manual) Lymphocytes % (Manual) Nucleated RBC % Seg Neutrophils # Man Lymphocytes # (Manual) ABG pH ABG pO2 ABG HCO3 ABG O2 Saturation ABG Base Excess ABG Hemoglobin Sodium Potassium Chloride Carbon Dioxide BUN 57 H Creatinine 4.3 H Glucose 130 H POC Glucose 149 H 106 H Calcium 8.2 L Phosphorus 5.70 H D Magnesium Lactate Dehydrogenase NT-Pro-B Natriuret Pep Urine Blood Urine WBC (Auto) Urine Creatinine Urine Total Protein Complement C3 Hepatitis C Antibody Crossmatch 02/01/22 02/01/22 04:04 04:04 RBC 2.98 L Hgb 9.0 L Hct 27.2 L MCHC Plt Count 131 L Lymph % (Auto) Ida % (Auto) Lymph # (Auto) Seg Neutrophils % Seg Neuts % (Manual) Lymphocytes % (Manual) Nucleated RBC % Seg Neutrophils # Man Lymphocytes # (Manual) ABG pH ABG pO2 ABG HCO3 ABG O2 Saturation ABG Base Excess ABG Hemoglobin Sodium Potassium Chloride Carbon Dioxide BUN 53 H Creatinine 3.9 H Glucose POC Glucose Calcium 7.6 L Phosphorus Magnesium Lactate Dehydrogenase NT-Pro-B Natriuret Pep Urine Blood Urine WBC (Auto) Urine Creatinine Urine Total Protein Complement C3 Hepatitis C Antibody Crossmatch Chest x-ray: report reviewed, image reviewed Additional Studies: CHEST 1 VIEW 02/02/2022 3:02 PM INDICATION / CLINICAL INFORMATION: r/o PNA. COMPARISON: February 10, 2022 FINDINGS: SUPPORT DEVICES: Stable, satisfactory device positioning. HEART / MEDIASTINUM: No significant abnormality. LUNGS / PLEURA: Increased pulmonary vascularity. Opacity in the right middle lobe adjacent right cardiac border may be slightly increased. Mild increased density in left lower lung No pneumothorax. Allied health notes reviewed: nursing
[2022-02-03] MEDS: INSULIN LISPRO 100 UNIT/ML SUB-Q SCH ×4 (00:41→19:05)
[2022-02-03] MEDS: METOPROLOL TARTRATE 25 MG TAB PO SCH ×3 (05:50→21:26)
[2022-02-03 09:07] LABS: Calcium 6.8 mg/dL (8.4-10.2)
[2022-02-03] MEDS: AMIODARONE 200 MG TAB PO SCH (09:29)
[2022-02-03] MEDS: FAMOTIDINE 20 MG TAB FEEDTUBE SCH (09:30)
[2022-02-03] MEDS: SENNOSIDES/DOCUSATE SODIUM 8.6/50 MG TAB FEEDTUBE SCH ×2 (09:30→21:26)
[2022-02-03] MEDS ORDERED: SODIUM CHLORIDE 0.9% 100 ML IV PRN (09:39)
--- NOTE | 2022-02-03 10:33 | Progress Note ---
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 Consulted IR for permcath placement. Cont HD on TTS schedule while inpatient. (3) Hypotension Current Visit: Yes Status: Acute Plan to address problem: Blood pressures have improved at this time. (4) Anemia in CKD (chronic kidney disease) Current Visit: Yes Status: Acute Plan to address problem: transfuse PRBC prn to target Hb> 7 Subjective Date of service: 02/03/22 Principal diagnosis: Paroxysmal atrial flutter Interval history: Patient is awake, alert, in no acute distress Objective - Vital Signs Vital signs: Vital Signs - 12hr 02/02/22 02/02/22 02/03/22 22:31 23:00 03:48 Temperature 98.5 F 98.7 F Pulse Rate 89 89 91 H Respiratory 20 16 Rate Blood Pressure 140/88 140/88 128/87 O2 Sat by Pulse 98 95 Oximetry 02/03/22 02/03/22 05:50 08:21 Temperature Pulse Rate 91 H Respiratory Rate Blood Pressure 128/87 O2 Sat by Pulse 96 Oximetry - General Appearance General appearance: well-developed, well-nourished, appears stated age EENT: ATNC, PERRL, mucous membranes moist Neck: no JVD Respiratory: Present: Clear to Ascultation Cardiology: regular, S1S2 Gastrointestinal: normoactive bowel sounds Integumentary: no rash, other (no edema ) Neurologic: no focal deficit, alert and oriented x3, strength 5/5, CN 3-12 intact Psychiatric: mood/affect appropriate, cooperative - Lab 02/01/22 04:04 02/03/22 08:17 Most recent lab results ABG pH 7.586 pH Units (7.350-7.450) H 01/30/22 04:00 ABG pCO2 27.3 mm Hg 01/30/22 04:00 ABG pO2 103.6 mm Hg (80.0-90.0) H 01/30/22 04:00 ABG HCO3 25.3 mmol/L (20.0-26.0) 01/30/22 04:00 ABG O2 Saturation 98.2 % (95.0-99.0) 01/30/22 04:00 Calcium 6.8 mg/dL (8.4-10.2) L 02/03/22 08:17 Phosphorus 5.70 mg/dL (2.5-4.5) H D 01/31/22 04:32 Magnesium 2.20 mg/dL (1.7-2.3) 01/31/22 04:32 Urine Creatinine 144.3 mg/dL (0.1-20.0) H 01/27/22 07:45 Urine Sodium 36 mmol/L 01/27/22 07:45 Urine Total Protein 154 mg/dL (5-11.8) H 01/27/22 07:45 Medications & Allergies - Medications Allergies/Adverse Reactions: Allergies No Known Allergies Allergy (Verified 01/26/22 23:12) Home Medications: Home Medications Medication Instructions Recorded Confirmed Last Taken Type No Known Home Medications [No 01/27/22 01/27/22 Unknown History Reported Home Medications] Active Medications: Generic Name Dose Route Start Last Admin Trade Name Freq PRN Reason Stop Dose Admin Acetaminophen 650 mg 01/27/22 05:44 Acetaminophen 650 Mg Rect Supp UT Q6H PRN Pain MILD(1-3)/Fever >100.5/WILLIAM Amiodarone HCl 200 mg 01/31/22 10:00 02/03/22 09:29 Amiodarone 200 Mg Tab PO 200 mg QDAY DOMINIC Administration Epoetin Connor-epbx 10,000 unit 01/27/22 02:08 Epoetin Connor-Epbx 10,000 Unit/1 Ml Vial IV PATRICK PRN hemodialysis Famotidine 20 mg 01/30/22 10:00 02/03/22 09:30 Famotidine 20 Mg Tab FEEDTUBE 20 mg DAILY DOMINIC Administration Heparin Sodium (Porcine) 5,000 unit 01/27/22 02:08 Heparin 10,000 Unit/1 Ml Vial IV PATRICK PRN hemodialysis Hydrophilic Ointment 1 applic 01/27/22 18:00 Lip Therapy Vaseline TP Q2HR PRN Dry Lips Sodium Chloride 100 mls @ 999 mls/hr 02/03/22 09:39 Nacl 0.9% IV PATRICK PRN Hypotension Ceftriaxone Sodium 2 gm in 100 mls @ 200 mls/hr 02/03/22 10:00 Rocephin/Ns 2 Gm/100 Ml IV 02/07/22 10:59 Q24H [facility] Insulin Human Lispro 0 unit 01/29/22 18:45 02/03/22 05:52 Insulin Lispro 100 Unit/Ml SUB-Q Not Given Q6HR [facility] Protocol Magnesium Hydroxide 30 ml 01/27/22 05:44 Magnesium Hydroxide (Mom) Oral Liqd Udc PO Q4H PRN Constipation Metoprolol Tartrate 25 mg 01/30/22 22:00 02/03/22 05:50 Metoprolol Tartrate 25 Mg Tab PO 25 mg Q8HR DOMINIC Administration Morphine Sulfate 2 mg 01/27/22 05:44 01/29/22 00:58 Morphine 2 Mg/1 Ml Inj IV 2 mg Q4H PRN Administration Pain, Moderate (4-6) Multi-Ingred Cream/Lotion/Oil/Oint 1 applic 01/27/22 18:00 Mineral Oil/Petrolatum, White Ophth Oint 3.5 Gm OU Q4HR PRN Dry Eye(s) Senna/Docusate Sodium 1 tab 01/27/22 22:00 02/03/22 09:30 Sennosides/Docusate Sodium 8.6/50 Mg Tab FEEDTUBE 1 tab BID DOMINIC Administration Sodium Chloride 10 ml 01/27/22 10:00 02/03/22 09:30 Sodium Chloride 0.9% 10 Ml Flush Syringe IV 10 ml BID DOMINIC Administration Sodium Chloride 10 ml 01/27/22 05:44 01/29/22 00:59 Sodium Chloride 0.9% 10 Ml Flush Syringe IV 10 ml PRN PRN Administration LINE FLUSH
--- NOTE | 2022-02-03 11:58 | Progress Note ---
Assessment and Plan Assessment and plan: This is a 66-year-old male with known past medical history of HTN and chronic kidney disease admitted for severe metabolic acidosis 2/2 worsen chronic kidney disease and acute hypoxic respiratory failure requiring ventilatory support. #Acute Hypoxic Respiratory Failure - most like secondary to severe acidosis - Intubated on 01/27 in the ED - 01/30 s/p extubation, stable on RA - CCM consulted, appreciate recommendations - Aspiration precaution HOB above 30 - PRN O2 supplementation as needed - Continue SPO2 monitoring for SPO2 goal above 92% #Acute on Chronic Kidney Injury #Hyperkalemia-resolved #Azotemia #Severe Metabolic Acidosis - reported that patient has not been following up regularly with any primary care physician or service manager due to insurance issues - Presented with K of 9.0, BUN 308, and Scr. 31.2 - Initial EKG was significant for peaked T waves. - S/p Kayexalate, IV calcium gluconate, D50, insulin and sodium bicarb in the ED. - Nephrology following, appreciated recommendation - Trialysis Cath inserted and iHD initiated - Continue HD per nephrology - Strict intake and output - Avoid nephrotoxic medications; Renally dose medications - Monitor and replace electrolytes as needed #Paroxysmal Atrial Flutter #Supraventricular Tachycardia - HR as high as 160 - [address], with no significant ST-changes - Cardiology consulted, appreciated recommendations - Per Cardio initial ECG showed narrow complex tachycardia - s/p Amiodarone gtt. SR noted on the monitor, HR 80-90s - on PO amio and BB - Heparin SubQ held due to anemia #Acute Metabolic Encephalopathy-resolved - most likely secondary to azotemia - Continue HD per Nephro - Avoid sedative agents - PRN Analgesia for CPOT greater than 3 - Maintenance of sleep-wake cycle #Anemia of Chronic Disease - most likely due to chronic kidney disease - S/p 3 units of PRBCs - H&H stable this am - No s/s of any active bleeding - Epogen with iHD per Nephro - Transfuse if Hgb less than 7 - Will hold AC for now - stool occult pending #Hypotension-improved #H/o Hypertension - s/p vasopressors - Probably 2/2 to hypovolemia, H&H dropped this am - Continue blood pressure monitor per protocol - Maintain MAP above 65 - Hold home meds for now Hospital Course to Date: 01/27: Intubated and responsive not on any sedation. Did not tolerated HD this am due to bradycardia and hypotension. Currently in SR with peak-T wave on the monitor, VSS. Patient received Kayexalate, IV calcium gluconate, D50, insulin and sodium bicarb in the ED. Stat BMP pending. Continue Bcarb gtt per CCM. Awaiting on Nephro final recommendations. Throughout discussion with patient's and son at the bedside. All questions and concerns were addressed at this time. Patient remains a FULL code status. 01/28: Stable on the vent, on low dose sedation, following commands. iHD attempted overnight, aborted due to SVT and hypotension. ST, HR in the 140 noted on the monitor this am, probably due to hypovolemia. Low H&H this am, 2units of PRBCs, repeat H&H per protocol. Will check Echo to evaluate LV function and cardiology was also consulted. K normalized and renal function improved this am. Nephrology is following. 01/29: Tolerating PST this am. Continue vent wean as tolerated for possible extubation per CCM. Off pressors this am, now on Amiodarone gtt per Cardio for A flutter. H&H stable this morning, continue to trend CBC. Plan for HD today per Nephro. 01/30: Tolerated HD overnight, required short duration of pressor during HD. Pressor is off this morning. Plan for PSV trial again today for possible extubation. Remains on Amio gtt, d/w Cardio plan to transition to D/C amio gtt today and transition on PO amio and low dose BB. Low H&H again this am, no s/s of any active bleeding. 1unit of PRBCs given overnight. Will check occult stools and hold AC-Heparin SubQ for now, continue to trend H&H. Renal function continue to improve, monitor and replete electrolytes. 01/31: s/p extubation, AAO and stable on RA this am. Remains in SR, VSS, on PO Amio and BB. Renal function continue to improved, continue HD per Nephro. Patient is stable for transfer to the floor. PT/OT/Speech ordered 02/01: Patient with saturations of 98% on room air. Heart rate controlled with amiodarone and beta-marta. Follow-up serologic studies of PARKER, double- stranded DNA, complement levels, along with ANCA vasculitis studies. Given his severe acute kidney injury without previous baseline, we started on pulse dose steroids x3 doses, with his third dose yesterday. PT evaluation recommending subacute rehab. 02/02: Patient with saturations of 98% on room air. Resp culture reveals staph aureus, GNR. Pt with tachypnea this am. Check CXR to r/o [facility] hospital acquired pneumonia. Start empiric abx of rocephin. Heart rate controlled with amiodarone and beta-marta. Follow-up serologic studies of PARKER, double- stranded DNA, complement levels, along with ANCA vasculitis studies. Given his severe acute kidney injury without previous baseline, we started on pulse dose steroids x3 doses which has been completed. PT evaluation recommending subacute rehab. 02/03: On RA. No acute compliants. pt will be going for dialysis today. Patient will need group home dialysis per nephrology and thus they have consulted IR. CM has confirmed that patient has a dialysis chair. PT assessment is conflicting, have requested for them to clarify their recommendations ([facility] vs ANITRA). History Interval history: NO acute complaints. Hospitalist Physical - Physical exam Narrative exam: General appearance: well-developed, well-nourished, appears stated age EENT: ATNC, PERRL, mucous membranes moist Neck: no JVD Respiratory: Present: Clear to Ascultation Cardiology: regular, S1S2 Gastrointestinal: normoactive bowel sounds Integumentary: no rash, other (no edema ) Neurologic: no focal deficit, alert and oriented x3, strength 5/5, CN 3-12 intact Psychiatric: mood/affect appropriate, cooperative - Constitutional Vitals: Temp Pulse Resp BP Pulse Ox 98.7 F 56 L 20 133/84 100 02/03/22 10:40 02/03/22 11:00 02/03/22 10:40 02/03/22 11:00 02/03/22 10:40 General appearance: Present: no acute distress, well-nourished, obese HEART Score - HEART Score Troponin: Troponin T < 0.010 ng/mL (0.00-0.029) 01/26/22 23:28 Results - Labs CBC & Chem 7: 02/01/22 04:04 02/03/22 08:17 Labs: Laboratory Last Values WBC 8.3 K/mm3 (4.5-11.0) 02/01/22 04:04 RBC 2.98 M/mm3 (3.65-5.03) L 02/01/22 04:04 Hgb 9.0 gm/dl (11.8-15.2) L 02/01/22 04:04 Hct 27.2 % (35.5-45.6) L 02/01/22 04:04 MCV 91 fl (84-94) 02/01/22 04:04 MCH 30 pg (28-32) 02/01/22 04:04 MCHC 33 % (32-34) 02/01/22 04:04 RDW 14.5 % (13.2-15.2) 02/01/22 04:04 Plt Count 131 K/mm3 (140-440) L 02/01/22 04:04 Lymph % (Auto) 6.1 % (13.4-35.0) L 01/28/22 04:00 [place] % (Auto) 9.0 % (0.0-7.3) H 01/28/22 04:00 Eos % (Auto) 0.0 % (0.0-4.3) 01/28/22 04:00 Baso % (Auto) 0.0 % (0.0-1.8) 01/28/22 04:00 Lymph # (Auto) 0.4 K/mm3 (1.2-5.4) L 01/28/22 04:00 [place] # (Auto) 0.5 K/mm3 (0.0-0.8) 01/28/22 04:00 Eos # (Auto) 0.0 K/mm3 (0.0-0.4) 01/28/22 04:00 Baso # (Auto) 0.0 K/mm3 (0.0-0.1) 01/28/22 04:00 Add Manual Diff Complete 01/26/22 23:28 Total Counted 100 01/26/22 23:28 Seg Neutrophils % 84.9 % (40.0-70.0) H 01/28/22 04:00 Seg Neuts % (Manual) 94.0 % (40.0-70.0) H 01/26/22 23:28 Band Neutrophils % 2.0 % 01/26/22 23:28 Lymphocytes % (Manual) 2.0 % (13.4-35.0) L 01/26/22 23:28 Reactive Lymphs % (Man) 0 % 01/26/22 23:28 Monocytes % (Manual) 1.0 % (0.0-7.3) 01/26/22 23:28 Eosinophils % (Manual) 0 % (0.0-4.3) 01/26/22 23:28 Basophils % (Manual) 0 % (0.0-1.8) 01/26/22 23:28 Metamyelocytes % 0 % 01/26/22 23:28 Myelocytes % 1.0 % 01/26/22 23:28 Promyelocytes % 0 % 01/26/22 23: Blast Cells % 0 % 01/26/22 23: Nucleated RBC % 3.0 % (0.0-0.9) H 01/26/22 23:28 Seg Neutrophils # 5.0 K/mm3 (1.8-7.7) 01/28/22 04:00 Seg Neutrophils # Man 8.3 K/mm3 (1.8-7.7) H 01/26/22 23:28 Band Neutrophils # 0.2 K/mm3 01/26/22 23:28 Lymphocytes # (Manual) 0.2 K/mm3 (1.2-5.4) L 01/26/22 23:28 Abs React Lymphs (Man) 0.0 K/mm3 01/26/22 23:28 Monocytes # (Manual) 0.1 K/mm3 (0.0-0.8) 01/26/22 23:28 Eosinophils # (Manual) 0.0 K/mm3 (0.0-0.4) 01/26/22 23:28 Basophils # (Manual) 0.0 K/mm3 (0.0-0.1) 01/26/22 23:28 Metamyelocytes # 0.0 K/mm3 01/26/22 23:28 Myelocytes # 0.1 K/mm3 01/26/22 23: Promyelocytes # 0.0 K/mm3 01/26/22 23:28 Blast Cells # 0.0 K/mm3 01/26/22 23:28 WBC Morphology Not Reportable 01/26/22 23:28 Hypersegmented Neuts Not Reportable 01/26/22 23:28 Hyposegmented Neuts Not Reportable 01/26/22 23:28 Hypogranular Neuts Not Reportable 01/26/22 23:28 Smudge Cells Not Reportable 01/26/22 23:28 Toxic Granulation Not Reportable 01/26/22 23:28 Toxic Vacuolation Not Reportable 01/26/22 23:28 Dohle Bodies Not Reportable 01/26/22 23:28 Pelger-Huet Anomaly Not Reportable 01/26/22 23:28 Sofia Rods Not Reportable 01/26/22 23:28 Platelet Estimate Consistent w auto 01/26/22 23:28 Clumped Platelets Not Reportable 01/26/22 23:28 Plt Clumps, EDTA Not Reportable 01/26/22 23:28 Large Platelets Not Reportable 01/26/22 23:28 Giant Platelets Not Reportable 01/26/22 23:28 Platelet Satelliting Not Reportable 01/26/22 23:28 Plt Morphology Comment Not Reportable 01/26/22 23:28 RBC Morphology Not Reportable 01/26/22 23:28 Dimorphic RBCs Not Reportable 01/26/22 23:28 Polychromasia Not Reportable 01/26/22 23:28 Hypochromasia 2+ 01/26/22 23:28 Poikilocytosis Not Reportable 01/26/22 23:28 Anisocytosis Not Reportable 01/26/22 23:28 Microcytosis Not Reportable 01/26/22 23:28 Macrocytosis Not Reportable 01/26/22 23:28 Spherocytes Not Reportable 01/26/22 23:28 Pappenheimer Bodies Not Reportable 01/26/22 23:28 Sickle Cells Not Reportable 01/26/22 23:28 Target Cells Few 01/26/22 23:28 Tear Drop Cells Not Reportable 01/26/22 23:28 Ovalocytes Not Reportable 01/26/22 23:28 Helmet Cells Not Reportable 01/26/22 23:28 Ly-[place]on Bodies Not Reportable 01/26/22 23:28 [place] Rings Not Reportable 01/26/22 23:28 Kim Cells Not Reportable 01/26/22 23:28 Bite Cells Not Reportable 01/26/22 23:28 Crenated Cell Not Reportable 01/26/22 23:28 Elliptocytes Not Reportable 01/26/22 23:28 Acanthocytes (Spur) Not Reportable 01/26/22 23:28 Rouleaux Not Reportable 01/26/22 23:28 Hemoglobin C Crystals Not Reportable 01/26/22 23:28 Schistocytes Not Reportable 01/26/22 23:28 Malaria parasites Not Reportable 01/26/22 23:28 Jan Bodies Not Reportable 01/26/22 23:28 Haptoglobin 186 mg/dL (43-212) 01/28/22 15:25 Hem Pathologist Commnt No 01/26/22 23:28 ABG pH 7.586 pH Units (7.350-7.450) H 01/30/22 04:00 ABG pCO2 27.3 mm Hg 01/30/22 04:00 ABG pO2 103.6 mm Hg (80.0-90.0) H 01/30/22 04:00 ABG HCO3 25.3 mmol/L (20.0-26.0) 01/30/22 04:00 ABG O2 Saturation 98.2 % (95.0-99.0) 01/30/22 04:00 ABG O2 Content 9.1 (0.0-44) 01/30/22 04:00 ABG Base Excess 3.3 mmol/L (-2.0-3.0) H 01/30/22 04:00 ABG Hemoglobin 6.5 gm/dl (14.0-18.0) L 01/30/22 04:00 ABG Carboxyhemoglobin 0.9 % (0.0-5.0) 01/30/22 04:00 ABG Methemoglobin 0.3 % (0.0-1.5) 01/30/22 04:00 Oxyhemoglobin 97.1 % (95.0-99.0) 01/30/22 04:00 FiO2 28 % 01/30/22 04:00 Sodium 134 mmol/L (137-145) L 02/03/22 08:17 Potassium 3.8 mmol/L (3.6-5.0) 02/03/22 08:17 Chloride 97.1 mmol/L (98-107) L 02/03/22 08:17 Carbon Dioxide 22 mmol/L (22-30) 02/03/22 08:17 Anion Gap 19 mmol/L 02/03/22 08:17 BUN 83 mg/dL (9-20) H 02/03/22 08:17 Creatinine 6.9 mg/dL (0.8-1.3) H D 02/03/22 08:17 Estimated GFR 10 ml/min 02/03/22 08:17 BUN/Creatinine Ratio 12 % 02/03/22 08:17 Glucose 76 mg/dL (75-100) 02/03/22 08:17 POC Glucose 74 mg/dL (70-105) 02/03/22 05:45 Lactic Acid 1.40 mmol/L (0.7-2.0) 01/27/22 23:25 Calcium 6.8 mg/dL (8.4-10.2) L 02/03/22 08:17 Phosphorus 5.70 mg/dL (2.5-4.5) H D 01/31/22 04:32 Magnesium 2.20 mg/dL (1.7-2.3) 01/31/22 04:32 Total Bilirubin 0.40 mg/dL (0.1-1.2) 01/26/22 23:28 AST 21 units/L (5-40) 01/26/22 23:28 ALT 19 units/L (7-56) 01/26/22 23:28 Alkaline Phosphatase 64 units/L (35-129) 01/26/22 23:28 Lactate Dehydrogenase 233 units/L (91-180) H 01/28/22 15:25 Troponin T < 0.010 ng/mL (0.00-0.029) 01/26/22 23:28 NT-Pro-B Natriuret Pep 95542 pg/mL (0-900) H 01/26/22 23:28 Total Protein 7.9 g/dL (6.3-8.2) 01/26/22 23:28 Albumin 3.9 g/dL (3.9-5) 01/26/22 23:28 Albumin/Globulin Ratio 1.0 % 01/26/22 23:28 TSH 1.090 mlU/mL (0.270-4.200) 01/31/22 18:40 Urine Color Yellow (Yellow) 01/27/22 07:45 Urine Turbidity Clear (Clear) 01/27/22 07:45 Urine pH 5.0 (5.0-7.0) 01/27/22 07:45 Ur Specific [place] 1.015 (1.003-1.030) 01/27/22 07:45 Urine Protein 100 mg/dl mg/dL (Negative) 01/27/22 07:45 Urine Glucose (UA) Negative mg/dL (Negative) 01/27/22 07:45 Urine Ketones Negative mg/dL (Negative) 01/27/22 07:45 Urine Blood Large (Negative) A 01/27/22 07:45 Urine Nitrite Negative (Negative) 01/27/22 07:45 Ur Reducing Substances Not Reportable 01/27/22 07:45 Urine Bilirubin Negative (Negative) 01/27/22 07:45 Urine Ictotest Not Reportable 01/27/22 07:45 Urine Urobilinogen 0.0 mg/dL (<2.0) 01/27/22 07:45 Ur Leukocyte Esterase Small (Negative) 01/27/22 07:45 Urine WBC (Auto) 11.0 /HPF (0.0-6.0) H 01/27/22 07:45 Urine RBC (Auto) 5.0 /HPF (0.0-6.0) 01/27/22 07:45 Urine Bacteria (Auto) 1+ /HPF (Negative) 01/27/22 07:45 Urine WBC Clumps Few /HPF 01/27/22 07:45 Urine Creatinine 144.3 mg/dL (0.1-20.0) H 01/27/22 07:45 Urine Sodium 36 mmol/L 01/27/22 07:45 Urine Total Protein 154 mg/dL (5-11.8) H 01/27/22 07:45 Complement C3 69 mg/dL (82-185) L 01/28/22 15:25 Complement C4 29 mg/dL (15-53) 01/28/22 15:25 Coronavirus (PCR) Negative (Negative) 01/28/22 16:48 Hepatitis A IgM Ab Non-reactive (NonReactive) 01/27/22 03:31 Hep Bs Antigen Non-reactive (Negative) 01/27/22 03:31 Hep B Core IgM Ab Non-reactive (NonReactive) 01/27/22 03:31 Hepatitis C Antibody Reactive (NonReactive) A 01/27/22 03:31 Blood Type A POSITIVE 01/28/22 06:00 Antibody Screen Negative 01/28/22 06:00 Crossmatch See Detail 01/28/22 06:00 Microbiology: Microbiology 01/28/22 15:25 Peripheral/Venous Blood Culture - Final NO GROWTH AFTER 5 DAYS 01/28/22 15:25 Peripheral/Venous Blood Culture - Final NO GROWTH AFTER 5 DAYS Roth/IV: Voiding Method Condom Catheter Active Medications - Current Medications Current Medications: Generic Name Dose Route Start Last Admin Trade Name Freq PRN Reason Stop Dose Admin Acetaminophen 650 mg 01/27/22 05:44 Acetaminophen 650 Mg Rect Supp W[place] Q6H PRN Pain MILD(1-3)/Fever >100.5/WILLIAM Amiodarone HCl 200 mg 01/31/22 10:00 02/03/22 09:29 Amiodarone 200 Mg Tab PO 200 mg QDAY [facility] Administration Epoetin Connor-epbx 10,000 unit 01/27/22 02:08 Epoetin Connor-Epbx 10,000 Unit/1 Ml Vial IV PATRICK PRN hemodialysis Famotidine 20 mg 01/30/22 10:00 02/03/22 09:30 Famotidine 20 Mg Tab FEEDTUBE 20 mg DAILY [facility] Administration Heparin Sodium (Porcine) 5,000 unit 01/27/22 02:08 Heparin 10,000 Unit/1 Ml Vial IV PATRICK PRN hemodialysis Hydrophilic Ointment 1 applic 01/27/22 18:00 Lip Therapy Vaseline TP Q2HR PRN Dry Lips Sodium Chloride 100 mls @ 999 mls/hr 02/03/22 09:39 Nacl 0.9% IV PATRICK PRN Hypotension Ceftriaxone Sodium 2 gm in 100 mls @ 200 mls/hr 02/03/22 10:00 Rocephin/Ns 2 Gm/100 Ml IV 02/08/22 10:59 Q24H [facility] Insulin Human Lispro 0 unit 01/29/22 18:45 02/03/22 05:52 Insulin Lispro 100 Unit/Ml SUB-Q Not Given Q6HR [facility] Protocol Magnesium Hydroxide 30 ml 01/27/22 05:44 Magnesium Hydroxide (Mom) Oral Liqd Udc PO Q4H PRN Constipation Metoprolol Tartrate 25 mg 01/30/22 22:00 02/03/22 05:50 Metoprolol Tartrate 25 Mg Tab PO 25 mg Q8HR [facility] Administration Morphine Sulfate 2 mg 01/27/22 05:44 01/29/22 00:58 Morphine 2 Mg/1 Ml Inj IV 2 mg Q4H PRN Administration Pain, Moderate (4-6) Multi-Ingred Cream/Lotion/Oil/Oint 1 applic 01/27/22 18:00 Mineral Oil/Petrolatum, White Ophth Oint 3.5 Gm OU Q4HR PRN Dry Eye(s) Senna/Docusate Sodium 1 tab 01/27/22 22:00 02/03/22 09:30 Sennosides/Docusate Sodium 8.6/50 Mg Tab FEEDTUBE 1 tab BID DOMINIC Administration Sodium Chloride 10 ml 01/27/22 10:00 02/03/22 09:30 Sodium Chloride 0.9% 10 Ml Flush Syringe IV 10 ml BID DOMINIC Administration Sodium Chloride 10 ml 01/27/22 05:44 01/29/22 00:59 Sodium Chloride 0.9% 10 Ml Flush Syringe IV 10 ml PRN PRN Administration LINE FLUSH Nutrition/Malnutrition Assess - Dietary Evaluation Nutrition/Malnutrition Findings: Nutrition Notes Start: 01/28/22 12:15 Freq: Status: Active Protocol: Document 02/02/22 13:28 [facility] (Rec: 02/02/22 13:32 [facility] [id number]) Nutrition Notes Initial or Follow up Reassessment Other Pertinent Diagnosis Acute on chronic renal failure , Anemia Current Diet Regular Labs/Tests Reviewed Pertinent Medications Reviewed Height 5 ft 11 in Weight 68 kg Jordan Body Weight (kg) 78.18 BMI 20.9 Weight Status Underweight Subjective/Other Information Pt passed [facility] evaluation; diet advanced and pt tolerating PO diet. Burn Absent Trauma Absent Minimum of two criteria No #1 Nutrition Diagnosis Inadequate oral intake As Evidenced by Signs and Symptoms diet advanced and pt tolerating PO intake Diagnosis Progress(for reassessment Improved documentation) Is patient on ventilator? No Is Patient Ambulatory and/or Out of Bed No REE-([facility]-confined to bed) [phone] Kcal/Kg value to use for calculation 30 Approximate Energy Requirements Using 2040 kcal/Kg Calculation Used for Recommendations Kcal/kg Additional Notes Pro needs >1.2g/kg: >82g/day Fluid needs 1-1.5L/day Nutrition Intervention Change Diet Order: Change diet order to Renal Goal #1 PO intake to meet at least 75% energy and pro needs Goal #2 Wt maintenance and/or gain Follow-Up By: 02/05/22 Additional Comments F/U: intakes, need for ONS
--- NOTE | 2022-02-03 12:20 | Progress Note ---
Assessment and Plan - Patient Problems (1) Paroxysmal atrial flutter Current Visit: Yes Status: Acute Plan to address problem: Patient admitted with acute renal failure, hyperkalemia, sepsis and severe anemia. In the setting of severe electrolyte and acid-base imbalance, he developed paroxysmal atrial flutter, which prompted cardiac consultation. Now has a stable sinus rhythm on medical therapy. Not a candidate for antiplatelet therapy or anticoagulation due to presenting severe anemia. Notably, the echocardiogram showed normal left ventricular systolic function, ejection fraction 55%, with increased calcification of the aortic valve apparatus and transaortic mean gradient of 9.9 mmHg consistent with mild aortic stenosis. The appearance of the aortic valve suggested a possible bioprosthesis, but the patient has no evidence of thoracotomy in the chest x- ray, and no suggestion of a transaortic valve replacement in his records. Continue conservative cardiac management. Subjective Date of service: 02/03/22 Principal diagnosis: Paroxysmal atrial flutter Interval history: Patient is comfortable, no cardiac complaints, on laboratory monitor currently sinus rhythm at 66. Objective Vital Signs Temp Pulse Resp BP Pulse Ox Pulse Ox 02/03/22 11:00 56 L 133/84 02/03/22 10:45 90 126/73 02/03/22 10:40 98.7 F 84 20 130/71 100 02/03/22 08:21 96 02/03/22 05:50 91 H 128/87 02/03/22 03:48 98.7 F 91 H 16 128/87 95 02/02/22 23:00 89 140/88 02/02/22 22:31 98.5 F 89 20 140/88 98 02/02/22 22:00 18 99 02/02/22 16:29 71 115/76 02/02/22 16:24 98.8 F 71 16 115/76 98 - Physical Examination General: No Apparent Distress HEENT: Positive: PERRL Neck: Positive: neck supple Cardiac: Positive: Reg Rate and Rhythm Lungs: Positive: Decreased Breath Sounds Neuro: Positive: Grossly Intact Abdomen: Positive: Soft Skin: Positive: Clear Extremities: Absent: edema - Labs and Meds Comprehensive Metabolic Panel 02/03/22 Range/Units 08:17 Sodium 134 L (137-145) mmol/L Potassium 3.8 (3.6-5.0) mmol/L Chloride 97.1 L (98-107) mmol/L Carbon Dioxide 22 (22-30) mmol/L BUN 83 H (9-20) mg/dL Creatinine 6.9 H D (0.8-1.3) mg/dL Glucose 76 (75-100) mg/dL Calcium 6.8 L (8.4-10.2) mg/dL - Allied health notes Allied health notes reviewed: nursing
[2022-02-03 13:11] LABS: Myeloperoxidase Antibody <1.0 AI (<1.0)
[2022-02-03] MEDS: cefTRIAXone/NS 2 GM/100 ML 2 GM/100 ML BAG IV SCH (19:08)
[2022-02-03 19:37] LABS: ANA Screen, IFA Negative (Negative)
--- NOTE | 2022-02-03 20:40 | Progress Note ---
Assessment and Plan 66-year-old -[place] male with known history of chronic kidney disease brought in by family today for evaluation of worsening shortness of breath which has been ongoing for the past few days. Patient is currently intubated and sed ated and therefore most of the history was gotten from his . indicates that patient has not been following up regularly with any primary care physician or director of corporate responsibility due to insurance issues. Upon arrival in the emergency room put on hold, work-up was significant for hyperkalemia of 9.0, CO2 of 3.0, BUN of 308 and creatinine of 31. 6. BNP of 10 829. Magnesium 2.6. EKG was significant for peaked T waves. Field Organizer on-call was notified by the ER physician and dialysis was to be i nitiated. Patient became hypotensive during the course of dialysis and had to be put on hold. [facility] Planer and nephrology service has been promptly informed by the ER physician. Patient extubated. Patient reciving dialysis. Patient transfered to medical floor. Patient alert, weak. Resting on room air. O2 saturation 98%. Denies chest pain , shortness of breath at this time. Complaining slight cough. Patient afebrile. No leukocytosis. Blood pressure 126/74, Pulse 65 , Respirations 18. Chest xray done 01/31/22 reported Interval removal of the esophagogastric tube with increased probable bibasilar atelectasis. No other significant interval changes. Patient is on Heparin and Famotidine. Patients at bed side. Explained to her patients respiratory status. - Patient Problems (1) Acute respiratory failure Current Visit: Yes Status: Acute Plan to address problem: Patient intubated and extubated. Patient presently on room air. O2 saturation 100%. (2) Acute on chronic kidney failure Current Visit: Yes Status: Acute Plan to address problem: Patient is on dialysis. Management as per nephrology. (3) Hyperkalemia Current Visit: Yes Status: Acute Plan to address problem: Improved. Patients to days K+ 4.0 (4) Hypotension Current Visit: Yes Status: Acute Plan to address problem: Omproved. Patients to days blood pressure 126/74. Patient is on I/V fluids NSS. (5) Paroxysmal atrial flutter Current Visit: Yes Status: Acute Plan to address problem: Patient is on Amiodarone. Management as per cardiology. Subjective Date of service: 02/03/22 Principal diagnosis: Paroxysmal atrial flutter Interval history: 66-year-old -[place] male with known history of chronic kidney disease brought in by family today for evaluation of worsening shortness of breath which has been ongoing for the past few days. Patient is currently intubated and sedated and therefore most of the history was gotten from his . indicates that patient has not been following up regularly with any primary care physician or director of corporate responsibility due to insurance issues. Upon arrival in the emergency room put on hold, work-up was significant for hyperkalemia of 9.0, CO2 of 3.0, BUN of 308 and creatinine of 31. 6. BNP of 10 829. Magnesium 2.6. EKG was significant for peaked T waves. Field Organizer on-call was notified by the ER physician and dialysis was to be initiated. Patient became hypotensive during the course of dialysis and had to be put on hold. Barrel Planer and nephrology service has been promptly informed by the ER physician. Patient extubated. Patient reciving dialysis. Patient transfered to medical floor. Patient alert, weak. Resting on room air. O2 saturation 98%. Denies chest pain , shortness of breath at this time. Complaining slight cough. Patient afebrile. No leukocytosis. Blood pressure 126/74, Pulse 65 , Respirations 18. Chest xray done 01/31/22 reported Interval removal of the esophagogastric tube with increased probable bibasilar atelectasis. No other significant interval changes. Patient is on Heparin and Famotidine. Objective Vital Signs - 12hr 02/03/22 02/03/22 02/03/22 10:00 10:40 10:45 Temperature 98.7 F Pulse Rate 84 90 Respiratory 18 20 Rate Blood Pressure 130/71 126/73 O2 Sat by Pulse 98 Oximetry O2 Sat by Pulse 100 Oximetry [ Bilateral] 02/03/22 02/03/22 02/03/22 11:00 11:30 11:45 Temperature Pulse Rate 56 L 69 72 Respiratory Rate Blood Pressure 133/84 120/73 108/81 O2 Sat by Pulse Oximetry O2 Sat by Pulse Oximetry [ Bilateral] 02/03/22 02/03/22 02/03/22 12:00 12:15 12:30 Temperature Pulse Rate 70 76 72 Respiratory Rate Blood Pressure 115/73 120/75 111/70 O2 Sat by Pulse Oximetry O2 Sat by Pulse Oximetry [ Bilateral] 02/03/22 02/03/22 02/03/22 12:45 13:00 13:15 Temperature Pulse Rate 72 61 71 Respiratory Rate Blood Pressure 103/68 115/69 114/70 O2 Sat by Pulse Oximetry O2 Sat by Pulse Oximetry [ Bilateral] 02/03/22 02/03/22 02/03/22 13:30 13:45 14:00 Temperature Pulse Rate 70 70 68 Respiratory Rate Blood Pressure 113/74 120/79 116/76 O2 Sat by Pulse Oximetry O2 Sat by Pulse Oximetry [ Bilateral] 02/03/22 02/03/22 14:15 14:30 Temperature 98.7 F Pulse Rate 67 72 Respiratory 20 Rate Blood Pressure 122/84 131/79 O2 Sat by Pulse Oximetry O2 Sat by Pulse 100 Oximetry [ Bilateral] Constitutional: no acute distress, other (orally intuabted ETT at 26cm at the lip) Eyes: non-icteric ENT: oropharynx moist Neck: supple, no lymphadenopathy, other (RIJ HD catheter) Effort: mildly labored Ascultation: Bilateral: diminished breath sounds Cardiovascular: irregular rhythm, other (Tachycardia) Gastrointestinal: normoactive bowel sounds, soft, non-tender, non-distended, other (Roth catheter) Integumentary: normal Extremities: no cyanosis, no edema Neurologic: non-focal exam (moves all extemities), other (follows simple commands) Psychiatric: mood appropriate, affect normal CBC and BMP: 02/01/22 04:04 02/03/22 08:17 ABG, PT/INR, D-dimer: ABG ABG pH 7.586 pH Units (7.350-7.450) H 01/30/22 04:00 ABG pCO2 27.3 mm Hg 01/30/22 04:00 ABG pO2 103.6 mm Hg (80.0-90.0) H 01/30/22 04:00 ABG O2 Saturation 98.2 % (95.0-99.0) 01/30/22 04:00 Abnormal lab findings: Abnormal Labs 01/26/22 01/26/22 01/26/22 01:45 23:28 23:28 RBC 2.62 L Hgb 7.6 L Hct 23.5 L MCHC Plt Count Lymph % (Auto) [place] % (Auto) Lymph # (Auto) Seg Neutrophils % Seg Neuts % (Manual) 94.0 H Lymphocytes % (Manual) 2.0 L Nucleated RBC % 3.0 H Seg Neutrophils # Man 8.3 H Lymphocytes # (Manual) 0.2 L ABG pH 7.094 L* ABG pO2 162.0 H ABG HCO3 2.7 L ABG O2 Saturation ABG Base Excess -24.8 L ABG Hemoglobin 7.7 L Sodium 148 H Potassium 9.0 H* Chloride 113.1 H Carbon Dioxide 3 L* BUN 308 H Creatinine 31.6 H Glucose 104 H POC Glucose Calcium Phosphorus Magnesium Lactate Dehydrogenase NT-Pro-B Natriuret Pep Urine Blood Urine WBC (Auto) Urine Creatinine Urine Total Protein Complement C3 Hepatitis C Antibody Crossmatch 01/26/22 01/27/22 01/27/22 23:28 01:57 03:31 RBC Hgb Hct MCHC Plt Count Lymph % (Auto) [place] % (Auto) Lymph # (Auto) Seg Neutrophils % Seg Neuts % (Manual) Lymphocytes % (Manual) Nucleated RBC % Seg Neutrophils # Man Lymphocytes # (Manual) ABG pH ABG pO2 ABG HCO3 ABG O2 Saturation ABG Base Excess ABG Hemoglobin Sodium Potassium Chloride Carbon Dioxide BUN Creatinine Glucose POC Glucose Calcium Phosphorus Magnesium 2.60 H Lactate Dehydrogenase NT-Pro-B Natriuret Pep 25830 H Urine Blood Urine WBC (Auto) Urine Creatinine Urine Total Protein Complement C3 Hepatitis C Antibody Reactive A Crossmatch 01/27/22 01/27/22 01/27/22 05:30 07:45 07:45 RBC Hgb Hct MCHC Plt Count Lymph % (Auto) [place] % (Auto) Lymph # (Auto) Seg Neutrophils % Seg Neuts % (Manual) Lymphocytes % (Manual) Nucleated RBC % Seg Neutrophils # Man Lymphocytes # (Manual) ABG pH 7.312 L ABG pO2 595.3 H ABG HCO3 6.6 L ABG O2 Saturation 99.6 H ABG Base Excess -18.2 L ABG Hemoglobin 5.0 L Sodium Potassium Chloride Carbon Dioxide BUN Creatinine Glucose POC Glucose Calcium Phosphorus Magnesium Lactate Dehydrogenase NT-Pro-B Natriuret Pep Urine Blood Large A Urine WBC (Auto) 11.0 H Urine Creatinine 144.3 H Urine Total Protein 154 H Complement C3 Hepatitis C Antibody Crossmatch 01/27/22 01/28/22 01/28/22 Unknown 02:08 04:00 RBC 1.97 L Hgb 5.7 L* Hct 16.7 L* D MCHC Plt Count Lymph % (Auto) 6.1 L [place] % (Auto) 9.0 H Lymph # (Auto) 0.4 L Seg Neutrophils % 84.9 H Seg Neuts % (Manual) Lymphocytes % (Manual) Nucleated RBC % Seg Neutrophils # Man Lymphocytes # (Manual) ABG pH ABG pO2 ABG HCO3 ABG O2 Saturation ABG Base Excess ABG Hemoglobin Sodium 147 H Potassium 5.2 H D Chloride 111.6 H Carbon Dioxide 6 L* BUN 235 H Creatinine 21.2 H Glucose 74 L POC Glucose 60 L Calcium 8.0 L D Phosphorus Magnesium Lactate Dehydrogenase NT-Pro-B Natriuret Pep Urine Blood Urine WBC (Auto) Urine Creatinine Urine Total Protein Complement C3 Hepatitis C Antibody Crossmatch 01/28/22 01/28/22 01/28/22 04:00 05:05 06:00 RBC Hgb Hct MCHC Plt Count Lymph % (Auto) [place] % (Auto) Lymph # (Auto) Seg Neutrophils % Seg Neuts % (Manual) Lymphocytes % (Manual) Nucleated RBC % Seg Neutrophils # Man Lymphocytes # (Manual) ABG pH ABG pO2 197.7 H ABG HCO3 10.6 L ABG O2 Saturation 99.2 H ABG Base Excess -13.7 L ABG Hemoglobin 5.3 L Sodium Potassium Chloride Carbon Dioxide 12 L BUN 216 H Creatinine 18.6 H Glucose POC Glucose Calcium 7.1 L Phosphorus Magnesium Lactate Dehydrogenase NT-Pro-B Natriuret Pep Urine Blood Urine WBC (Auto) Urine Creatinine Urine Total Protein Complement C3 Hepatitis C Antibody Crossmatch See Detail 01/28/22 01/28/22 01/28/22 15:25 15:25 15:25 RBC Hgb 8.3 L Hct 24.3 L D MCHC Plt Count Lymph % (Auto) [place] % (Auto) Lymph # (Auto) Seg Neutrophils % Seg Neuts % (Manual) Lymphocytes % (Manual) Nucleated RBC % Seg Neutrophils # Man Lymphocytes # (Manual) ABG pH ABG pO2 ABG HCO3 ABG O2 Saturation ABG Base Excess ABG Hemoglobin Sodium Potassium Chloride Carbon Dioxide BUN Creatinine Glucose POC Glucose Calcium Phosphorus Magnesium Lactate Dehydrogenase 233 H NT-Pro-B Natriuret Pep Urine Blood Urine WBC (Auto) Urine Creatinine Urine Total Protein Complement C3 69 L Hepatitis C Antibody Crossmatch 01/28/22 01/29/22 01/29/22 18:17 03:15 03:50 RBC 2.53 L Hgb 7.6 L Hct 21.6 L MCHC 35 H Plt Count 135 L Lymph % (Auto) [place] % (Auto) Lymph # (Auto) Seg Neutrophils % Seg Neuts % (Manual) Lymphocytes % (Manual) Nucleated RBC % Seg Neutrophils # Man Lymphocytes # (Manual) ABG pH 7.582 H ABG pO2 142.5 H ABG HCO3 19.7 L ABG O2 Saturation ABG Base Excess ABG Hemoglobin 7.4 L Sodium Potassium Chloride Carbon Dioxide BUN Creatinine Glucose POC Glucose 123 H Calcium Phosphorus Magnesium Lactate Dehydrogenase NT-Pro-B Natriuret Pep Urine Blood Urine WBC (Auto) Urine Creatinine Urine Total Protein Complement C3 Hepatitis C Antibody Crossmatch 01/29/22 01/30/22 01/30/22 03:50 04:00 04:00 RBC 2.27 L Hgb 6.8 L Hct 19.9 L* MCHC Plt Count 131 L Lymph % (Auto) [place] % (Auto) Lymph # (Auto) Seg Neutrophils % Seg Neuts % (Manual) Lymphocytes % (Manual) Nucleated RBC % Seg Neutrophils # Man Lymphocytes # (Manual) ABG pH ABG pO2 ABG HCO3 ABG O2 Saturation ABG Base Excess ABG Hemoglobin Sodium 135 L 133 L Potassium 3.5 L D Chloride 93.3 L Carbon Dioxide 21 L D BUN 105 H 75 H Creatinine 9.2 H D 5.9 H Glucose 164 H 149 H POC Glucose Calcium 6.9 L 7.2 L Phosphorus Magnesium 1.50 L Lactate Dehydrogenase NT-Pro-B Natriuret Pep Urine Blood Urine WBC (Auto) Urine Creatinine Urine Total Protein Complement C3 Hepatitis C Antibody Crossmatch 01/30/22 01/30/22 01/30/22 04:00 05:48 12:48 RBC Hgb Hct MCHC Plt Count Lymph % (Auto) [place] % (Auto) Lymph # (Auto) Seg Neutrophils % Seg Neuts % (Manual) Lymphocytes % (Manual) Nucleated RBC % Seg Neutrophils # Man Lymphocytes # (Manual) ABG pH 7.586 H ABG pO2 103.6 H ABG HCO3 ABG O2 Saturation ABG Base Excess 3.3 H ABG Hemoglobin 6.5 L Sodium Potassium Chloride Carbon Dioxide BUN Creatinine Glucose POC Glucose 155 H 160 H Calcium Phosphorus Magnesium Lactate Dehydrogenase NT-Pro-B Natriuret Pep Urine Blood Urine WBC (Auto) Urine Creatinine Urine Total Protein Complement C3 Hepatitis C Antibody Crossmatch 01/30/22 01/30/22 01/30/22 14:30 16:28 23:52 RBC 2.86 L Hgb 8.5 L Hct 25.4 L MCHC Plt Count 134 L Lymph % (Auto) [place] % (Auto) Lymph # (Auto) Seg Neutrophils % Seg Neuts % (Manual) Lymphocytes % (Manual) Nucleated RBC % Seg Neutrophils # Man Lymphocytes # (Manual) ABG pH ABG pO2 ABG HCO3 ABG O2 Saturation ABG Base Excess ABG Hemoglobin Sodium Potassium Chloride Carbon Dioxide BUN Creatinine Glucose POC Glucose 143 H 132 H Calcium Phosphorus Magnesium Lactate Dehydrogenase NT-Pro-B Natriuret Pep Urine Blood Urine WBC (Auto) Urine Creatinine Urine Total Protein Complement C3 Hepatitis C Antibody Crossmatch 01/31/22 01/31/22 01/31/22 04:32 12:20 15:50 RBC Hgb Hct MCHC Plt Count Lymph % (Auto) [place] % (Auto) Lymph # (Auto) Seg Neutrophils % Seg Neuts % (Manual) Lymphocytes % (Manual) Nucleated RBC % Seg Neutrophils # Man Lymphocytes # (Manual) ABG pH ABG pO2 ABG HCO3 ABG O2 Saturation ABG Base Excess ABG Hemoglobin Sodium Potassium Chloride Carbon Dioxide BUN 57 H Creatinine 4.3 H Glucose 130 H POC Glucose 149 H 106 H Calcium 8.2 L Phosphorus 5.70 H D Magnesium Lactate Dehydrogenase NT-Pro-B Natriuret Pep Urine Blood Urine WBC (Auto) Urine Creatinine Urine Total Protein Complement C3 Hepatitis C Antibody Crossmatch 02/01/22 02/01/22 02/03/22 04:04 04:04 08:17 RBC 2.98 L Hgb 9.0 L Hct 27.2 L MCHC Plt Count 131 L Lymph % (Auto) [place] % (Auto) Lymph # (Auto) Seg Neutrophils % Seg Neuts % (Manual) Lymphocytes % (Manual) Nucleated RBC % Seg Neutrophils # Man Lymphocytes # (Manual) ABG pH ABG pO2 ABG HCO3 ABG O2 Saturation ABG Base Excess ABG Hemoglobin Sodium 134 L Potassium Chloride 97.1 L Carbon Dioxide BUN 53 H 83 H Creatinine 3.9 H 6.9 H D Glucose POC Glucose Calcium 7.6 L 6.8 L Phosphorus Magnesium Lactate Dehydrogenase NT-Pro-B Natriuret Pep Urine Blood Urine WBC (Auto) Urine Creatinine Urine Total Protein Complement C3 Hepatitis C Antibody Crossmatch Chest x-ray: report reviewed, image reviewed Additional Studies: CHEST 1 VIEW 02/02/2022 3:02 PM INDICATION / CLINICAL INFORMATION: r/o PNA. COMPARISON: February 10, 2022 FINDINGS: SUPPORT DEVICES: Stable, satisfactory device positioning. HEART / MEDIASTINUM: No significant abnormality. LUNGS / PLEURA: Increased pulmonary vascularity. Opacity in the right middle lobe adjacent right cardiac border may be slightly increased. Mild increased density in left lower lung No pneumothorax. Allied health notes reviewed: nursing
[2022-02-04] MEDS: INSULIN LISPRO 100 UNIT/ML SUB-Q SCH ×4 (01:00→17:39)
[2022-02-04 05:10] VITALS: BP 119/76
[2022-02-04] MEDS: METOPROLOL TARTRATE 25 MG TAB PO SCH ×2 (05:55→13:57)
[2022-02-04] MEDS ORDERED: DEXTROSE 50% IN WATER (25GM) 50 ML SYRINGE IV ONE (07:30)
--- NOTE | 2022-02-04 08:37 | Progress Note ---
Assessment and Plan Assessment and plan: This is a 66-year-old male with known past medical history of HTN and chronic kidney disease admitted for severe metabolic acidosis 2/2 worsen chronic kidney disease and acute hypoxic respiratory failure requiring ventilatory support. #Acute Hypoxic Respiratory Failure - most like secondary to severe acidosis - Intubated on 01/27 in the ED - 01/30 s/p extubation, stable on RA - CCM consulted, appreciate recommendations - Aspiration precaution HOB above 30 - PRN O2 supplementation as needed - Continue SPO2 monitoring for SPO2 goal above 92% #Acute on Chronic Kidney Injury #Hyperkalemia-resolved #Azotemia #Severe Metabolic Acidosis - reported that patient has not been following up regularly with any primary care physician or facilities engineer due to insurance issues - Presented with K of 9.0, BUN 308, and Scr. 31.2 - Initial EKG was significant for peaked T waves. - S/p Kayexalate, IV calcium gluconate, D50, insulin and sodium bicarb in the ED. - Nephrology following, appreciated recommendation - Trialysis Cath inserted and iHD initiated - Continue HD per nephrology - Strict intake and output - Avoid nephrotoxic medications; Renally dose medications - Monitor and replace electrolytes as needed #Paroxysmal Atrial Flutter #Supraventricular Tachycardia - HR as high as 160 - [address], with no significant ST-changes - Cardiology consulted, appreciated recommendations - Per Cardio initial ECG showed narrow complex tachycardia - s/p Amiodarone gtt. SR noted on the monitor, HR 80-90s - on PO amio and BB - Heparin SubQ held due to anemia #Acute Metabolic Encephalopathy-resolved - most likely secondary to azotemia - Continue HD per Nephro - Avoid sedative agents - PRN Analgesia for CPOT greater than 3 - Maintenance of sleep-wake cycle #Anemia of Chronic Disease - most likely due to chronic kidney disease - S/p 3 units of PRBCs - H&H stable this am - No s/s of any active bleeding - Epogen with iHD per Nephro - Transfuse if Hgb less than 7 - Will hold AC for now - stool occult pending #Hypotension-improved #H/o Hypertension - s/p vasopressors - Probably 2/2 to hypovolemia, H&H dropped this am - Continue blood pressure monitor per protocol - Maintain MAP above 65 - Hold home meds for now Hospital Course to Date: 01/27: Intubated and responsive not on any sedation. Did not tolerated HD this am due to bradycardia and hypotension. Currently in SR with peak-T wave on the monitor, VSS. Patient received Kayexalate, IV calcium gluconate, D50, insulin and sodium bicarb in the ED. Stat BMP pending. Continue Bcarb gtt per CCM. Awaiting on Nephro final recommendations. Throughout discussion with patient's and son at the bedside. All questions and concerns were addressed at this time. Patient remains a FULL code status. 01/28: Stable on the vent, on low dose sedation, following commands. iHD attempted overnight, aborted due to SVT and hypotension. ST, HR in the 140 noted on the monitor this am, probably due to hypovolemia. Low H&H this am, 2units of PRBCs, repeat H&H per protocol. Will check Echo to evaluate LV function and cardiology was also consulted. K normalized and renal function improved this am. Nephrology is following. 01/29: Tolerating PST this am. Continue vent wean as tolerated for possible extubation per CCM. Off pressors this am, now on Amiodarone gtt per Cardio for A flutter. H&H stable this morning, continue to trend CBC. Plan for HD today per Nephro. 01/30: Tolerated HD overnight, required short duration of pressor during HD. Pressor is off this morning. Plan for PSV trial again today for possible extubation. Remains on Amio gtt, d/w Cardio plan to transition to D/C amio gtt today and transition on PO amio and low dose BB. Low H&H again this am, no s/s of any active bleeding. 1unit of PRBCs given overnight. Will check occult stools and hold AC-Heparin SubQ for now, continue to trend H&H. Renal function continue to improve, monitor and replete electrolytes. 01/31: s/p extubation, AAO and stable on RA this am. Remains in SR, VSS, on PO Amio and BB. Renal function continue to improved, continue HD per Nephro. Patient is stable for transfer to the floor. PT/OT/Speech ordered 02/01: Patient with saturations of 98% on room air. Heart rate controlled with amiodarone and beta-marta. Follow-up serologic studies of PARKER, double- stranded DNA, complement levels, along with ANCA vasculitis studies. Given his severe acute kidney injury without previous baseline, we started on pulse dose steroids x3 doses, with his third dose yesterday. PT evaluation recommending subacute rehab. 02/02: Patient with saturations of 98% on room air. Resp culture reveals staph aureus, GNR. Pt with tachypnea this am. Check CXR to r/o [facility] hospital acquired pneumonia. Start empiric abx of rocephin. Heart rate controlled with amiodarone and beta-marta. Follow-up serologic studies of PARKER, double- stranded DNA, complement levels, along with ANCA vasculitis studies. Given his severe acute kidney injury without previous baseline, we started on pulse dose steroids x3 doses which has been completed. PT evaluation recommending subacute rehab. 02/03: On RA. No acute compliants. pt will be going for dialysis today. Patient will need correction dialysis per nephrology and thus they have consulted IR. CM has confirmed that patient has a dialysis chair. PT assessment is conflicting, have requested for them to clarify their recommendations ([facility] vs [facility]ITRA). 02/04: Tunneled HD catheter placed today by IR. Plan is for HHC w/ PT vs ANITRA depending on PT eval. Patient has dialysis chair setup by SW/CM team. History Interval history: NO acute complaints. Hospitalist Physical - Physical exam Narrative exam: General appearance: well-developed, well-nourished, appears stated age EENT: ATNC, PERRL, mucous membranes moist Neck: no JVD, tunneled HD catheter noted. Respiratory: Present: Clear to Ascultation Cardiology: regular, S1S2 Gastrointestinal: normoactive bowel sounds Integumentary: no rash, other (no edema ) Neurologic: no focal deficit, alert and oriented x3, strength 5/5, CN 3-12 intact Psychiatric: mood/affect appropriate, cooperative - Constitutional Vitals: Temp Pulse Resp BP Pulse Ox 98.3 F 65 18 119/76 96 02/04/22 04:40 02/04/22 05:55 02/04/22 04:40 02/04/22 05:55 02/04/22 04:40 General appearance: Present: no acute distress, well-nourished, obese HEART Score - HEART Score Troponin: Troponin T < 0.010 ng/mL (0.00-0.029) 01/26/22 23:28 Results - Labs CBC & Chem 7: 02/04/22 09:08 02/04/22 09:08 Labs: Laboratory Last Values WBC 8.3 K/mm3 (4.5-11.0) 02/01/22 04:04 RBC 2.98 M/mm3 (3.65-5.03) L 02/01/22 04:04 Hgb 9.0 gm/dl (11.8-15.2) L 02/01/22 04:04 Hct 27.2 % (35.5-45.6) L 02/01/22 04:04 MCV 91 fl (84-94) 02/01/22 04:04 MCH 30 pg (28-32) 02/01/22 04:04 MCHC 33 % (32-34) 02/01/22 04:04 RDW 14.5 % (13.2-15.2) 02/01/22 04:04 Plt Count 131 K/mm3 (140-440) L 02/01/22 04:04 Lymph % (Auto) 6.1 % (13.4-35.0) L 01/28/22 04:00 [place] % (Auto) 9.0 % (0.0-7.3) H 01/28/22 04:00 Eos % (Auto) 0.0 % (0.0-4.3) 01/28/22 04:00 Baso % (Auto) 0.0 % (0.0-1.8) 01/28/22 04:00 Lymph # (Auto) 0.4 K/mm3 (1.2-5.4) L 01/28/22 04:00 [place] # (Auto) 0.5 K/mm3 (0.0-0.8) 01/28/22 04:00 Eos # (Auto) 0.0 K/mm3 (0.0-0.4) 01/28/22 04:00 Baso # (Auto) 0.0 K/mm3 (0.0-0.1) 01/28/22 04:00 Add Manual Diff Complete 01/26/22 23:28 Total Counted 100 01/26/22 23:28 Seg Neutrophils % 84.9 % (40.0-70.0) H 01/28/22 04:00 Seg Neuts % (Manual) 94.0 % (40.0-70.0) H 01/26/22 23:28 Band Neutrophils % 2.0 % 01/26/22 23:28 Lymphocytes % (Manual) 2.0 % (13.4-35.0) L 01/26/22 23:28 Reactive Lymphs % (Man) 0 % 01/26/22 23:28 Monocytes % (Manual) 1.0 % (0.0-7.3) 01/26/22 23:28 Eosinophils % (Manual) 0 % (0.0-4.3) 01/26/22 23: Basophils % (Manual) 0 % (0.0-1.8) 01/26/22 23: Metamyelocytes % 0 % 01/26/22 23: Myelocytes % 1.0 % 01/26/22 23: Promyelocytes % 0 % 01/26/22 23: Blast Cells % 0 % 01/26/22 23: Nucleated RBC % 3.0 % (0.0-0.9) H 01/26/22 23:28 Seg Neutrophils # 5.0 K/mm3 (1.8-7.7) 01/28/22 04:00 Seg Neutrophils # Man 8.3 K/mm3 (1.8-7.7) H 01/26/22 23:28 Band Neutrophils # 0.2 K/mm3 01/26/22 23:28 Lymphocytes # (Manual) 0.2 K/mm3 (1.2-5.4) L 01/26/22 23:28 Abs React Lymphs (Man) 0.0 K/mm3 01/26/22 23:28 Monocytes # (Manual) 0.1 K/mm3 (0.0-0.8) 01/26/22 23:28 Eosinophils # (Manual) 0.0 K/mm3 (0.0-0.4) 01/26/22 23:28 Basophils # (Manual) 0.0 K/mm3 (0.0-0.1) 01/26/22 23:28 Metamyelocytes # 0.0 K/mm3 01/26/22 23:28 Myelocytes # 0.1 K/mm3 01/26/22 23:28 Promyelocytes # 0.0 K/mm3 01/26/22 23:28 Blast Cells # 0.0 K/mm3 01/26/22 23:28 WBC Morphology Not Reportable 01/26/22 23:28 Hypersegmented Neuts Not Reportable 01/26/22 23:28 Hyposegmented Neuts Not Reportable 01/26/22 23:28 Hypogranular Neuts Not Reportable 01/26/22 23:28 Smudge Cells Not Reportable 01/26/22 23:28 Toxic Granulation Not Reportable 01/26/22 23:28 Toxic Vacuolation Not Reportable 01/26/22 23:28 Dohle Bodies Not Reportable 01/26/22 23:28 Pelger-Huet Anomaly Not Reportable 01/26/22 23:28 Sofia Rods Not Reportable 01/26/22 23:28 Platelet Estimate Consistent w auto 01/26/22 23:28 Clumped Platelets Not Reportable 01/26/22 23:28 Plt Clumps, EDTA Not Reportable 01/26/22 23:28 Large Platelets Not Reportable 01/26/22 23:28 Giant Platelets Not Reportable 01/26/22 23:28 Platelet Satelliting Not Reportable 01/26/22 23:28 Plt Morphology Comment Not Reportable 01/26/22 23:28 RBC Morphology Not Reportable 01/26/22 23:28 Dimorphic RBCs Not Reportable 01/26/22 23:28 Polychromasia Not Reportable 01/26/22 23:28 Hypochromasia 2+ 01/26/22 23:28 Poikilocytosis Not Reportable 01/26/22 23:28 Anisocytosis Not Reportable 01/26/22 23:28 Microcytosis Not Reportable 01/26/22 23:28 Macrocytosis Not Reportable 01/26/22 23:28 Spherocytes Not Reportable 01/26/22 23:28 Pappenheimer Bodies Not Reportable 01/26/22 23:28 Sickle Cells Not Reportable 01/26/22 23:28 Target Cells Few 01/26/22 23:28 Tear Drop Cells Not Reportable 01/26/22 23:28 Ovalocytes Not Reportable 01/26/22 23:28 Helmet Cells Not Reportable 01/26/22 23:28 [place] Bodies Not Reportable 01/26/22 23:28 [place] Rings Not Reportable 01/26/22 23:28 [place] Cells Not Reportable 01/26/22 23:28 Bite Cells Not Reportable 01/26/22 23:28 Crenated Cell Not Reportable 01/26/22 23:28 Elliptocytes Not Reportable 01/26/22 23:28 Acanthocytes (Spur) Not Reportable 01/26/22 23:28 Rouleaux Not Reportable 01/26/22 23:28 Hemoglobin C Crystals Not Reportable 01/26/22 23:28 Schistocytes Not Reportable 01/26/22 23:28 Malaria parasites Not Reportable 01/26/22 23:28 Jan Bodies Not Reportable 01/26/22 23:28 Haptoglobin 186 mg/dL (43-212) 01/28/22 15:25 Hem Pathologist Commnt No 01/26/22 23:28 ABG pH 7.586 pH Units (7.350-7.450) H 01/30/22 04:00 ABG pCO2 27.3 mm Hg 01/30/22 04:00 ABG pO2 103.6 mm Hg (80.0-90.0) H 01/30/22 04:00 ABG HCO3 25.3 mmol/L (20.0-26.0) 01/30/22 04:00 ABG O2 Saturation 98.2 % (95.0-99.0) 01/30/22 04:00 ABG O2 Content 9.1 (0.0-44) 01/30/22 04:00 ABG Base Excess 3.3 mmol/L (-2.0-3.0) H 01/30/22 04:00 ABG Hemoglobin 6.5 gm/dl (14.0-18.0) L 01/30/22 04:00 ABG Carboxyhemoglobin 0.9 % (0.0-5.0) 01/30/22 04:00 ABG Methemoglobin 0.3 % (0.0-1.5) 01/30/22 04:00 Oxyhemoglobin 97.1 % (95.0-99.0) 01/30/22 04:00 FiO2 28 % 01/30/22 04:00 Sodium 134 mmol/L (137-145) L 02/03/22 08:17 Potassium 3.8 mmol/L (3.6-5.0) 02/03/22 08:17 Chloride 97.1 mmol/L (98-107) L 02/03/22 08:17 Carbon Dioxide 22 mmol/L (22-30) 02/03/22 08:17 Anion Gap 19 mmol/L 02/03/22 08:17 BUN 83 mg/dL (9-20) H 02/03/22 08:17 Creatinine 6.9 mg/dL (0.8-1.3) H D 02/03/22 08:17 Estimated GFR 10 ml/min 02/03/22 08:17 BUN/Creatinine Ratio 12 % 02/03/22 08:17 Glucose 76 mg/dL (75-100) 02/03/22 08:17 POC Glucose 71 mg/dL (70-105) 02/04/22 08:28 Lactic Acid 1.40 mmol/L (0.7-2.0) 01/27/22 23:25 Calcium 6.8 mg/dL (8.4-10.2) L 02/03/22 08:17 Phosphorus 5.70 mg/dL (2.5-4.5) H D 01/31/22 04:32 Magnesium 2.20 mg/dL (1.7-2.3) 01/31/22 04:32 Total Bilirubin 0.40 mg/dL (0.1-1.2) 01/26/22 23:28 AST 21 units/L (5-40) 01/26/22 23:28 ALT 19 units/L (7-56) 01/26/22 23:28 Alkaline Phosphatase 64 units/L (35-129) 01/26/22 23:28 Lactate Dehydrogenase 233 units/L (91-180) H 01/28/22 15:25 Troponin T < 0.010 ng/mL (0.00-0.029) 01/26/22 23:28 NT-Pro-B Natriuret Pep 12445 pg/mL (0-900) H 01/26/22 23:28 Total Protein 7.9 g/dL (6.3-8.2) 01/26/22 23:28 Albumin 3.9 g/dL (3.9-5) 01/26/22 23:28 Albumin/Globulin Ratio 1.0 % 01/26/22 23:28 TSH 1.090 mlU/mL (0.270-4.200) 01/31/22 18:40 Urine Color Yellow (Yellow) 01/27/22 07:45 Urine Turbidity Clear (Clear) 01/27/22 07:45 Urine pH 5.0 (5.0-7.0) 01/27/22 07:45 Ur Specific [place] 1.015 (1.003-1.030) 01/27/22 07:45 Urine Protein 100 mg/dl mg/dL (Negative) 01/27/22 07:45 Urine Glucose (UA) Negative mg/dL (Negative) 01/27/22 07:45 Urine Ketones Negative mg/dL (Negative) 01/27/22 07:45 Urine Blood Large (Negative) A 01/27/22 07:45 Urine Nitrite Negative (Negative) 01/27/22 07:45 Ur Reducing Substances Not Reportable 01/27/22 07:45 Urine Bilirubin Negative (Negative) 01/27/22 07:45 Urine Ictotest Not Reportable 01/27/22 07:45 Urine Urobilinogen 0.0 mg/dL (<2.0) 01/27/22 07:45 Ur Leukocyte Esterase Small (Negative) 01/27/22 07:45 Urine WBC (Auto) 11.0 /HPF (0.0-6.0) H 01/27/22 07:45 Urine RBC (Auto) 5.0 /HPF (0.0-6.0) 01/27/22 07:45 Urine Bacteria (Auto) 1+ /HPF (Negative) 01/27/22 07:45 Urine WBC Clumps Few /HPF 01/27/22 07:45 Urine Creatinine 144.3 mg/dL (0.1-20.0) H 01/27/22 07:45 Urine Sodium 36 mmol/L 01/27/22 07:45 Urine Total Protein 154 mg/dL (5-11.8) H 01/27/22 07:45 PARKER Screen Negative (Negative) 01/28/22 15:25 Proteinase 3 (PR3) Ab <1.0 AI (<1.0) 01/28/22 15:25 Myeloperoxidase Ab <1.0 AI (<1.0) 01/28/22 15:25 Complement C3 69 mg/dL (82-185) L 01/28/22 15:25 Complement C4 29 mg/dL (15-53) 01/28/22 15:25 Coronavirus (PCR) Negative (Negative) 01/28/22 16:48 Hepatitis A IgM Ab Non-reactive (NonReactive) 01/27/22 03:31 Hep Bs Antigen Non-reactive (Negative) 01/27/22 03:31 Hep B Core IgM Ab Non-reactive (NonReactive) 01/27/22 03:31 Hepatitis C Antibody Reactive (NonReactive) A 01/27/22 03:31 Blood Type A POSITIVE 01/28/22 06:00 Antibody Screen Negative 01/28/22 06:00 Crossmatch See Detail 01/28/22 06:00 Microbiology: Microbiology 01/29/22 17:55 Tracheal Aspirate Sputum Culture - Preliminary Staphylococcus Aureus Gram Negative Lamont Roth/IV: Voiding Method Incontinent Active Medications - Current Medications Current Medications: Generic Name Dose Route Start Last Admin Trade Name Freq PRN Reason Stop Dose Admin Acetaminophen 650 mg 01/27/22 05:44 Acetaminophen 650 Mg Rect Supp [place] Q6H PRN Pain MILD(1-3)/Fever >100.5/WILLIAM Amiodarone HCl 200 mg 01/31/22 10:00 02/03/22 09:29 Amiodarone 200 Mg Tab PO 200 mg QDAY DOMINIC Administration Epoetin Connor-epbx 10,000 unit 01/27/22 02:08 02/03/22 13:31 Epoetin Connor-Epbx 10,000 Unit/1 Ml Vial IV 10,000 unit PATRICK PRN Administration hemodialysis Famotidine 20 mg 01/30/22 10:00 02/03/22 09:30 Famotidine 20 Mg Tab FEEDTUBE 20 mg DAILY DOMINIC Administration Heparin Sodium (Porcine) 5,000 unit 01/27/22 02:08 Heparin 10,000 Unit/1 Ml Vial IV PATRICK PRN hemodialysis Hydrophilic Ointment 1 applic 01/27/22 18:00 Lip Therapy Vaseline TP Q2HR PRN Dry Lips Sodium Chloride 100 mls @ 999 mls/hr 02/03/22 09:39 Nacl 0.9% IV PATRICK PRN Hypotension Ceftriaxone Sodium 2 gm in 100 mls @ 200 mls/hr 02/03/22 10:00 02/03/22 19:08 Rocephin/Ns 2 Gm/100 Ml IV 02/08/22 10:59 200 mls/hr Q24H DOMINIC Administration Insulin Human Lispro 0 unit 01/29/22 18:45 02/04/22 06:52 Insulin Lispro 100 Unit/Ml SUB-Q Not Given Q6HR [facility] Protocol Magnesium Hydroxide 30 ml 01/27/22 05:44 Magnesium Hydroxide (Mom) Oral Liqd Udc PO Q4H PRN Constipation Metoprolol Tartrate 25 mg 01/30/22 22:00 02/04/22 05:55 Metoprolol Tartrate 25 Mg Tab PO 25 mg Q8HR DOMINIC Administration Morphine Sulfate 2 mg 01/27/22 05:44 01/29/22 00:58 Morphine 2 Mg/1 Ml Inj IV 2 mg Q4H PRN Administration Pain, Moderate (4-6) Multi-Ingred Cream/Lotion/Oil/Oint 1 applic 01/27/22 18:00 Mineral Oil/Petrolatum, White Ophth Oint 3.5 Gm OU Q4HR PRN Dry Eye(s) Senna/Docusate Sodium 1 tab 01/27/22 22:00 02/03/22 21:26 Sennosides/Docusate Sodium 8.6/50 Mg Tab FEEDTUBE 1 tab BID DOMINIC Administration Sodium Chloride 10 ml 01/27/22 10:00 02/03/22 21:26 Sodium Chloride 0.9% 10 Ml Flush Syringe IV 10 ml BID DOMINIC Administration Sodium Chloride 10 ml 01/27/22 05:44 01/29/22 00:59 Sodium Chloride 0.9% 10 Ml Flush Syringe IV 10 ml PRN PRN Administration LINE FLUSH Nutrition/Malnutrition Assess - Dietary Evaluation Nutrition/Malnutrition Findings: Nutrition Notes Start: 01/28/22 12:15 Freq: Status: Active Protocol: Document 02/02/22 13:28 ROSA (Rec: 02/02/22 13:32 [facility] [id number] Nutrition Notes Initial or Follow up Reassessment Other Pertinent Diagnosis Acute on chronic renal failure , Anemia Current Diet Regular Labs/Tests Reviewed Pertinent Medications Reviewed Height 5 ft 11 in Weight 68 kg [place] Body Weight (kg) 78.18 BMI 20.9 Weight Status Underweight Subjective/Other Information Pt passed [employer] evaluation; diet advanced and pt tolerating PO diet. Burn Absent Trauma Absent Minimum of two criteria No #1 Nutrition Diagnosis Inadequate oral intake As Evidenced by Signs and Symptoms diet advanced and pt tolerating PO intake Diagnosis Progress(for reassessment Improved documentation) Is patient on ventilator? No Is Patient Ambulatory and/or Out of Bed No REE-([facility]-confined to bed) [phone] Kcal/Kg value to use for calculation 30 Approximate Energy Requirements Using 0 kcal/Kg Calculation Used for Recommendations Kcal/kg Additional Notes Pro needs >1.2g/kg: >82g/day Fluid needs 1-1.5L/day Nutrition Intervention Change Diet Order: Change diet order to Renal Goal #1 PO intake to meet at least 75% energy and pro needs Goal #2 Wt maintenance and/or gain Follow-Up By: 02/05/22 Additional Comments F/U: intakes, need for ONS
[2022-02-04 09:43] LABS: Calcium 6.6 mg/dL (8.4-10.2)
[2022-02-04 09:47] LABS: Hematocrit 27.1 % (35.5-45.6); Hemoglobin 8.8 gm/dl (11.8-15.2); Mean Corpuscular HGB Conc 33 % (32-34); Mean Corpuscular Volume 92 fl (84-94); Platelet Count 174 K/mm3 (140-440); Red Blood Count 2.95 M/mm3 (3.65-5.03)
[2022-02-04] MEDS: AMIODARONE 200 MG TAB PO SCH (09:58)
[2022-02-04] MEDS: FAMOTIDINE 20 MG TAB FEEDTUBE SCH (09:58)
[2022-02-04] MEDS: SENNOSIDES/DOCUSATE SODIUM 8.6/50 MG TAB FEEDTUBE SCH (10:06)
[2022-02-04] MEDS: cefTRIAXone/NS 2 GM/100 ML 2 GM/100 ML BAG IV SCH (10:06)
[2022-02-04] MEDS ORDERED: HEPARIN 10,000 UNITS/10 ML VIAL ONE (10:38)
[2022-02-04] MEDS ORDERED: LIDOCAINE (1%) 10 MG/1 ML VIAL 20 ML MDV ONE (10:38)
[2022-02-04] MEDS ORDERED: HEPARIN/NS 5000 UNIT/500ML 500 ML IR ONE (10:38)
[2022-02-04] MEDS ORDERED: SODIUM CHLORIDE 0.9% 250ML 250 ML ONE (10:50)
--- NOTE | 2022-02-04 10:50 | Consultation ---
History of Present Illness - Reason for Consult Consult date: 02/04/22 Permacath Placement Requesting physician: NEMO LOCKHART - History of Present Illness The patient is a 66-year-old male with history of chronic renal insufficiency who presented to the hospital with complaints of shortness of breath. Upon admission he was found to have exacerbation of his renal failure with hyperkalemia requiring emergent placement of a Vas-Cath for emergent dialysis. He also had oxygen saturations in the 70s and eventually required intubation where he remained on the ventilator for several days. He was eventually able to be extubated however his renal failure has not improved and he has progressed to end-stage renal disease. He is now in need of an exchange of his Vas-Cath to a permacath. He has no complaints at this time. Past History Past Medical History: atrial fib (Paroxysmal), anemia, ESRD, other Past Surgical History: No surgical history Social history: no significant social history Medications and Allergies Allergies Allergy/AdvReac Type Severity Reaction Status Date / Time No Known Allergies Allergy Verified 01/26/22 23:12 Home Medications Medication Instructions Recorded Confirmed Last Taken Type No Known Home Medications [No 01/27/22 01/27/22 Unknown History Reported Home Medications] Active Meds: Active Medications Acetaminophen (Acetaminophen 650 Mg Rect Supp) 650 mg SC Q6H PRN PRN Reason: Pain MILD(1-3)/Fever >100.5/WILLIAM Amiodarone HCl (Amiodarone 200 Mg Tab) 200 mg PO QDAY [facility] Last Admin: 02/04/22 09:58 Dose: 200 mg Epoetin Connor-epbx (Epoetin Connor-Epbx 10,000 Unit/1 Ml Vial) 10,000 unit IV PATRICK PRN PRN Reason: hemodialysis Last Admin: 02/03/22 13:31 Dose: 10,000 unit Famotidine (Famotidine 20 Mg Tab) 20 mg FEEDTUBE DAILY [facility] Last Admin: 02/04/22 09:58 Dose: 20 mg Heparin Sodium (Porcine) (Heparin 10,000 Unit/1 Ml Vial) 5,000 unit IV PATRICK PRN PRN Reason: hemodialysis Hydrophilic Ointment (Lip Therapy Vaseline) 1 applic TP Q2HR PRN PRN Reason: Dry Lips Sodium Chloride (Nacl 0.9%) 100 mls @ 999 mls/hr IV PATRICK PRN PRN Reason: Hypotension Ceftriaxone Sodium (Rocephin/Ns 2 Gm/100 Ml) 2 gm in 100 mls @ 200 mls/hr IV Q24H [facility] Stop: 02/08/22 10:59 Last Admin: 02/04/22 10:06 Dose: 200 mls/hr Insulin Human Lispro (Insulin Lispro 100 Unit/Ml) 0 unit SUB-Q Q6HR [facility]; Protocol Last Admin: 02/04/22 06:52 Dose: Not Given Magnesium Hydroxide (Magnesium Hydroxide (Mom) Oral Liqd Udc) 30 ml PO Q4H PRN PRN Reason: Constipation Metoprolol Tartrate (Metoprolol Tartrate 25 Mg Tab) 25 mg PO Q8HR [facility] Last Admin: 02/04/22 05:55 Dose: 25 mg Morphine Sulfate (Morphine 2 Mg/1 Ml Inj) 2 mg IV Q4H PRN PRN Reason: Pain, Moderate (4-6) Last Admin: 01/29/22 00:58 Dose: 2 mg Multi-Ingred Cream/Lotion/Oil/Oint (Mineral Oil/Petrolatum, White Ophth Oint 3.5 Gm) 1 applic OU Q4HR PRN PRN Reason: Dry Eye(s) Senna/Docusate Sodium (Sennosides/Docusate Sodium 8.6/50 Mg Tab) 1 tab FEEDTUBE BID [facility] Last Admin: 02/04/22 10:06 Dose: Not Given Sodium Chloride (Sodium Chloride 0.9% 10 Ml Flush Syringe) 10 ml IV BID [facility] Last Admin: 02/04/22 09:58 Dose: 10 ml Sodium Chloride (Sodium Chloride 0.9% 10 Ml Flush Syringe) 10 ml IV PRN PRN PRN Reason: LINE FLUSH Last Admin: 01/29/22 00:59 Dose: 10 ml Review of Systems All systems: negative Exam - Constitutional Vitals: Temp Pulse Resp BP Pulse Ox 98.3 F 65 18 119/76 96 02/04/22 04:40 02/04/22 05:55 02/04/22 04:40 02/04/22 05:55 02/04/22 04:40 General appearance: Present: no acute distress - Neck Neck: Present: other (Right internal jugular Vas-Cath in place) - Respiratory Respiratory effort: normal - Cardiovascular Rhythm: regular - Extremities Extremities: no ischemia, pulses intact - Abdominal General gastrointestinal: Present: soft, non-tender, non-distended Male genitourinary: Present: deferred - Rectal Rectal Exam: deferred Results - Labs CBC & Chem 7: 02/04/22 09:08 02/04/22 09:08 Labs: Abnormal lab results 02/04/22 02/04/22 02/04/22 Range/Units 06:52 09:08 09:08 RBC 2.95 L (3.65-5.03) M/mm3 Hgb 8.8 L (11.8-15.2) gm/dl Hct 27.1 L (35.5-45.6) % BUN 52 H (9-20) mg/dL Creatinine 5.1 H (0.8-1.3) mg/dL POC Glucose 66 L (70-105) mg/dL Calcium 6.6 L (8.4-10.2) mg/dL - Imaging and Cardiology Chest x-ray: image reviewed Assessment and Plan The patient is a 66-year-old male with acute on chronic renal failure who has progressed to end-stage renal disease and requires an exchange of his Vas-Cath to a permacath. He has been given the risk, benefits, and alternative procedures and has consented to the procedure.
[2022-02-04] MEDS ORDERED: fentaNYL 100 MCG/2 ML INJ ONE (11:08)
--- NOTE | 2022-02-04 11:25 | Operative Report ---
Operative Report Operative Report: Date of Procedure: 02/04/2022 Pre-operative Diagnosis: End-Stage Renal Disease Post-operative Diagnosis: Same Procedure(s): 1. Exchange of Right Internal Jugular Vas-Cath to 23 cm Glidepath Permacath over Wire 2. Radiologic Supervision with Interpretation 3. Monitored Moderate Sedation (Total Anesthesia Time: 12 Minutes) Surgeon: Albert Perea M.D. Kiss Setter Hand: None Anesthesia: Local/Monitored Moderate Sedation EBL: Minimal Counts: Correct Complications: None Condition: Stable Findings: The permacath was placed with the distal tip in the right atrium and there was no evidence of a pneumothorax at the completion of the case. Specimen: The indwelling Vas-Cath was discarded at the completion of the case. Indication: The patient is a 66-year-old male who presented with acute on chronic renal insufficiency who required emergent Vas-Cath placement for hyperkalemia and emergent hemodialysis. He now requires conversion to a permacath for discharge. He was given the risk, benefits, and alternative procedures and consented to the procedure. Description of Procedure: A manufacturing project manager film prior to the procedure demonstrated that the Vas-Cath was in position with the distal tip in the superior vena cava. The patient's right neck, chest, and indwelling catheter were then prepped and draped in normal sterile fashion. Lidocaine was then used to anesthetize the skin and soft tissue surrounding the right internal jugular Vas-Cath and then the sutures were removed. A 0.035 stiff Glidewire was advanced through the Vas-Cath and into the inferior vena cava under fluoroscopy. An exit site on the chest for the permacath was then chosen and anesthetized with lidocaine. The presumed tract was then anesthetized with lidocaine and a small stab incision was made with an 11 blade. A 23 cm Glidepath Permacath was tunneled from the exit site on the chest to the entry site on the neck and then the Vas-Cath was removed leaving the Glidewire in place. The 16 [place] peel-away SafeSheath was then advanced over the Glidewire and into the central venous system by Seldinger technique. The dilator and wire were removed and the tunneler was removed from the permacath. The permacath was then inserted into the SafeSheath and the SafeSheath was peeled away. The permacath was positioned with the distal tip in the right atrium. Both ports were aspirated and flushed and then primed with appropriate amount heparin. The catheter was then secured in position with a 2- 0 Ethilon in interrupted fashion and the neck incision was closed with a 4-0 Monocryl in interrupted subcuticular fashion. The neck incision was then dressed with Dermabond and the catheter was dressed with a sterile dressing. The final fluoroscopy demonstrated the catheter was in adequate position with the distal tip in the right atrium and there was no evidence of pneumothorax. The patient tolerated the procedure well was transported back to his room in stable condition.
--- NOTE | 2022-02-04 13:13 | Progress Note ---
Assessment and Plan - Patient Problems (1) Paroxysmal atrial flutter Current Visit: Yes Status: Acute Plan to address problem: Patient admitted with acute renal failure, hyperkalemia, sepsis and severe anemia. In the setting of severe electrolyte and acid-base imbalance, he developed paroxysmal atrial flutter, which prompted cardiac consultation. Now has a stable sinus rhythm on medical therapy. Not a candidate for antiplatelet therapy or anticoagulation due to presenting severe anemia. Notably, the echocardiogram showed normal left ventricular systolic function, ejection fraction 55%, with increased calcification of the aortic valve apparatus and transaortic mean gradient of 9.9 mmHg consistent with mild aortic stenosis. The appearance of the aortic valve suggested a possible bioprosthesis, but the patient has no evidence of thoracotomy in the chest x- ray, and no suggestion of a transaortic valve replacement in his records. Continue conservative cardiac management. Subjective Date of service: 02/04/22 Principal diagnosis: Paroxysmal atrial flutter Interval history: Patient is comfortable, no new cardiac complaints, on property assessment monitor he has a stable sinus rhythm at 73. Objective Vital Signs Temp Pulse Resp BP Pulse Ox Pulse Ox 02/04/22 12:49 98 02/04/22 12:37 96 02/04/22 05:55 65 119/76 02/04/22 04:40 98.3 F 65 18 119/76 96 02/03/22 22:00 17 98 02/03/22 21:26 84 117/81 02/03/22 21:20 99.2 F 84 17 117/81 98 02/03/22 20:38 97 02/03/22 16:19 98.6 F 79 18 99/66 95 02/03/22 14:30 98.7 F 72 20 131/79 100 02/03/22 14:15 67 122/84 02/03/22 14:00 68 116/76 02/03/22 13:45 70 120/79 02/03/22 13:30 70 113/74 02/03/22 13:15 71 114/70 - Physical Examination General: No Apparent Distress HEENT: Positive: PERRL Neck: Positive: neck supple Cardiac: Positive: Reg Rate and Rhythm Lungs: Positive: Decreased Breath Sounds Neuro: Positive: Grossly Intact Abdomen: Positive: Soft Skin: Positive: Clear Extremities: Absent: edema - Labs and Meds CBC 02/04/22 Range/Units 09:08 WBC 6.1 (4.5-11.0) K/mm3 RBC 2.95 L (3.65-5.03) M/mm3 Hgb 8.8 L (11.8-15.2) gm/dl Hct 27.1 L (35.5-45.6) % Plt Count 174 (140-440) K/mm3 Comprehensive Metabolic Panel 02/04/22 Range/Units 09:08 Sodium 137 (137-145) mmol/L Potassium 4.1 (3.6-5.0) mmol/L Chloride 98.5 (98-107) mmol/L Carbon Dioxide 27 (22-30) mmol/L BUN 52 H (9-20) mg/dL Creatinine 5.1 H (0.8-1.3) mg/dL Glucose 75 (75-100) mg/dL Calcium 6.6 L (8.4-10.2) mg/dL - Allied health notes Allied health notes reviewed: nursing
--- NOTE | 2022-02-04 15:43 | Discharge Summary ---
Providers - Providers Date of Admission: 01/27/22 05:45 Date of discharge: 02/04/22 Attending physician: CHANDANA GARZON MD 01/27/22 03:59 Consult to Physician [CONS] Stat Comment: noted/ josue Consulting Provider: LUIS CABRALES Physician Instructions: Reason For Exam: Acute on chronic kidney failure/Vas-Cath placement 01/27/22 09:55 Consult to Physician [CONS] Routine Comment: noted/ josue Consulting Provider: PRUDENCIO MASON Physician Instructions: Reason For Exam: SILVIA NEEDING HD 01/27/22 17:12 Consult to Dietitian/Nutrition [CONS] Routine Physician Instructions: Reason For Exam: Reason for Consult: Evaluate nutritional intake 01/27/22 17:16 Consult to Dietitian/Nutrition [CONS] Routine Physician Instructions: Reason For Exam: Reason for Consult: Write/Manage Tube Feeding 01/27/22 19:08 Consult to Wound/ET Nurse [CONS] Stat Reason For Exam: wound eval 01/28/22 10:54 Consult to Physician [CONS] Urgent Comment: Consulting Provider: GIRMA CHEN Physician Instructions: Reason For Exam: SVT 01/30/22 12:32 Occupational Therapy Evaluate and Treat [CONS] Routine Comment: Reason For Exam: s/p Mechanical ventilation Physical Therapy Evaluation and Treat [CONS] Routine Comment: Reason For Exam: s/p Mechanical ventilation Speech Therapy Evaluation and Treat [CONS] Routine Reason For Exam: Post extubation 01/31/22 08:25 Speech Therapy Evaluation and Treat [CONS] Routine Reason For Exam: Swallow exam on 01/31/22 02/03/22 09:41 Consult to Interventional Radiology [CONS] Routine Consulting Provider: SKYE DEL CASTILLO Reason For Exam: Permcath placement for halfway HD Place consult to:: arnoldo Notified:: office Phone number called:: [phone] Was contact made?: Yes If yes, spoke with:: jessica Amato called:: 13:29 Primary care physician: PAN CLEANER Hospitalization Reason for admission: Shortness of breath Condition: Stable Hospital course: This is a 66-year-old male with known past medical history of HTN and chronic kidney disease admitted for severe metabolic acidosis 2/2 worsen chronic kidney disease and acute hypoxic respiratory failure requiring ventilatory support. #Acute Hypoxic Respiratory Failure - most like secondary to severe acidosis - Intubated on 01/27 in the ED - 01/30 s/p extubation, stable on RA - CCM consulted, appreciate recommendations - Aspiration precaution HOB above 30 - PRN O2 supplementation as needed - Continue SPO2 monitoring for SPO2 goal above 92% #Acute on Chronic Kidney Injury #Hyperkalemia-resolved #Azotemia #Severe Metabolic Acidosis - reported that patient has not been following up regularly with any primary care physician or top stop attacher due to insurance issues - Presented with K of 9.0, BUN 308, and Scr. 31.2 - Initial EKG was significant for peaked T waves. - S/p Kayexalate, IV calcium gluconate, D50, insulin and sodium bicarb in the ED. - Nephrology following, appreciated recommendation - Trialysis Cath inserted and iHD initiated - Continue HD per nephrology - Strict intake and output - Avoid nephrotoxic medications; Renally dose medications - Monitor and replace electrolytes as needed #Paroxysmal Atrial Flutter #Supraventricular Tachycardia - HR as high as 160 - [address], with no significant ST-changes - Cardiology consulted, appreciated recommendations - Per Cardio initial ECG showed narrow complex tachycardia - s/p Amiodarone gtt. SR noted on the monitor, HR 80-90s - on PO amio and BB - Heparin SubQ held due to anemia #Acute Metabolic Encephalopathy-resolved - most likely secondary to azotemia - Continue HD per Nephro - Avoid sedative agents - PRN Analgesia for CPOT greater than 3 - Maintenance of sleep-wake cycle #Anemia of Chronic Disease - most likely due to chronic kidney disease - S/p 3 units of PRBCs - H&H stable this am - No s/s of any active bleeding - Epogen with iHD per Nephro - Transfuse if Hgb less than 7 - Will hold AC for now - stool occult pending #Hypotension-improved #H/o Hypertension - s/p vasopressors - Probably 2/2 to hypovolemia, H&H dropped this am - Continue blood pressure monitor per protocol - Maintain MAP above 65 - Hold home meds for now Hospital Course to Date: 01/27: Intubated and responsive not on any sedation. Did not tolerated HD this am due to bradycardia and hypotension. Currently in SR with peak-T wave on the monitor, VSS. Patient received Kayexalate, IV calcium gluconate, D50, insulin and sodium bicarb in the ED. Stat BMP pending. Continue Bcarb gtt per CCM. Awaiting on Nephro final recommendations. Throughout discussion with patient's and son at the bedside. All questions and concerns were addressed at this time. Patient remains a FULL code status. 01/28: Stable on the vent, on low dose sedation, following commands. iHD attempted overnight, aborted due to SVT and hypotension. ST, HR in the 140 noted on the monitor this am, probably due to hypovolemia. Low H&H this am, 2units of PRBCs, repeat H&H per protocol. Will check Echo to evaluate LV function and cardiology was also consulted. K normalized and renal function improved this am. Nephrology is following. 01/29: Tolerating PST this am. Continue vent wean as tolerated for possible extubation per CCM. Off pressors this am, now on Amiodarone gtt per Cardio for Aflutter. H&H stable this morning, continue to trend CBC. Plan for HD today per Nephro. 01/30: Tolerated HD overnight, required short duration of pressor during HD. Pressor is off this morning. Plan for PSV trial again today for possible extubation. Remains on Amio gtt, d/w Cardio plan to transition to D/C amio gtt today and transition on PO amio and low dose BB. Low H&H again this am, no s/s of any active bleeding. 1unit of PRBCs given overnight. Will check occult stools and hold AC-Heparin SubQ for now, continue to trend H&H. Renal function continue to improve, monitor and replete electrolytes. 01/31: s/p extubation, AAO and stable on RA this am. Remains in SR, VSS, on PO Amio and BB. Renal function continue to improved, continue HD per Nephro. Patient is stable for transfer to the floor. PT/OT/Speech ordered 02/01: Patient with saturations of 98% on room air. Heart rate controlled with amiodarone and beta-marta. Follow-up serologic studies of PARKER, double- stranded DNA, complement levels, along with ANCA vasculitis studies. Given his severe acute kidney injury without previous baseline, we started on pulse dose steroids x3 doses, with his third dose yesterday. PT evaluation recommending subacute rehab. 02/02: Patient with saturations of 98% on room air. Resp culture reveals staph aureus, GNR. Pt with tachypnea this am. Check CXR to r/o new hospital acquired pneumonia. Start empiric abx of rocephin. Heart rate controlled with amiodarone and beta-marta. Follow-up serologic studies of PARKER, double- stranded DNA, complement levels, along with ANCA vasculitis studies. Given his severe acute kidney injury without previous baseline, we started on pulse dose steroids x3 doses which has been completed. PT evaluation recommending subacute rehab. 02/03: On RA. No acute compliants. pt will be going for dialysis today. 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 CM has confirmed that patient has a dialysis chair. PT assessment is conflicting, have requested for them to clarify their recommendations ([facility] vs [facility]). 02/04: Tunneled HD catheter placed today by IR. Plan is for [facility] w/ PT as patient is declining subacute rehab, this has been set up by SW. Patient has dialysis chair setup by SW as well. Discharge home with intructions to follow up with PCP. Advised to follow up with OP nephrology doctor. Rx for metoprolol e-scribed to pharmacy. Disposition: 30 STILL A PATIENT Final Discharge Diagnosis (Prints w/discharge instructions): Acute hypoxic respiratory failure, ESRD requiring dialysis, noncompliance, paroxysmal atrial fibrillation Time spent for discharge: 35 Core Measure Documentation - Palliative Care Palliative Care/ Comfort Measures: Not Applicable - Core Measures Any of the following diagnoses?: none Exam - Physical Exam Narrative exam: General appearance: well-developed, well-nourished, appears stated age EENT: ATNC, PERRL, mucous membranes moist Neck: no JVD, tunneled HD catheter noted. Respiratory: Present: Clear to Ascultation Cardiology: regular, S1S2 Gastrointestinal: normoactive bowel sounds Integumentary: no rash, other (no edema ) Neurologic: no focal deficit, alert and oriented x3, strength 5/5, CN 3-12 intact Psychiatric: mood/affect appropriate, cooperative - Constitutional Vitals: Temp Pulse Resp BP Pulse Ox 98.3 F 69 18 119/76 98 02/04/22 04:40 02/04/22 13:57 02/04/22 04:40 02/04/22 05:55 02/04/22 12:49 Plan Follow up with: PRIMARY CAREMD [Primary Care Provider] - 3-5 Days NEMO LOCKHART MD [Staff Physician] - 7 Days Prescriptions: Metoprolol [Lopressor TAB] 25 mg PO Q8HR 30 Days #90 tablet
== END 2022-02-04 18:00 | disposition home health service (06) | DRG 208 ==
LOC: ED 22:58 → CC1 01-27 05:45 → 3A 01-31 15:26
PROVIDERS: ADMIT Internal Medicine Geriatric Medicine; ATTEND Internal Medicine
PROC: 05HN33Z Insertion of Infusion Device into Left Internal Jugular Vein, Percutaneous Approach (ICD-10-PCS; 2022-01-27)
PROC: B544ZZA Ultrasonography of Left Jugular Veins, Guidance (ICD-10-PCS; 2022-01-27)
PROC: 05HM33Z Insertion of Infusion Device into Right Internal Jugular Vein, Percutaneous Approach (ICD-10-PCS; 2022-01-27)
PROC: B543ZZA Ultrasonography of Right Jugular Veins, Guidance (ICD-10-PCS; 2022-01-27)
PROC: 4A033R1 Measurement of Arterial Saturation, Peripheral, Percutaneous Approach (ICD-10-PCS; 2022-01-27)
PROC: 5A1D70Z Performance of Urinary Filtration, Intermittent, Less than 6 Hours Per Day (ICD-10-PCS; 2022-01-27)
PROC: 05PY33Z Removal of Infusion Device from Upper Vein, Percutaneous Approach (ICD-10-PCS; 2022-01-27)
PROC: 5A1945Z Respiratory Ventilation, 24-96 Consecutive Hours (ICD-10-PCS; principal; 2022-01-28)
PROC: 0BH17EZ Insertion of Endotracheal Airway into Trachea, Via Natural or Artificial Opening (ICD-10-PCS; 2022-01-28)
PROC: 30233N1 Transfusion of Nonautologous Red Blood Cells into Peripheral Vein, Percutaneous Approach (ICD-10-PCS; 2022-01-28)
PROC: 5A1D70Z Performance of Urinary Filtration, Intermittent, Less than 6 Hours Per Day (ICD-10-PCS; 2022-01-28)
PROC: 5A1D70Z Performance of Urinary Filtration, Intermittent, Less than 6 Hours Per Day (ICD-10-PCS; 2022-01-30)
PROC: 5A1D70Z Performance of Urinary Filtration, Intermittent, Less than 6 Hours Per Day (ICD-10-PCS; 2022-02-03)
PROC: 0JH63XZ Insertion of Tunneled Vascular Access Device into Chest Subcutaneous Tissue and Fascia, Percutaneous Approach (ICD-10-PCS; 2022-02-04)
PROC: 02H633Z Insertion of Infusion Device into Right Atrium, Percutaneous Approach (ICD-10-PCS; 2022-02-04)
PROC: B5181ZA Fluoroscopy of Superior Vena Cava using Low Osmolar Contrast, Guidance (ICD-10-PCS; 2022-02-04)
PROC: B548ZZA Ultrasonography of Superior Vena Cava, Guidance (ICD-10-PCS; 2022-02-04)
DX: J96.01 Acute respiratory failure with hypoxia (principal); G93.41 Metabolic encephalopathy; N18.6 End stage renal disease; E87.2 Acidosis; I47.1 Supraventricular tachycardia; N17.9 Acute kidney failure, unspecified; Z20.822 Contact with and (suspected) exposure to COVID-19; E87.5 Hyperkalemia; D63.1 Anemia in chronic kidney disease; I48.0 Paroxysmal atrial fibrillation; I95.9 Hypotension, unspecified
CPT/HCPCS: 36415; 36558; 36600; 71045; 74018; 76770; 77001; 80048; 80053; 80074; 81001; 82140; 82570; 82803; 82962; 83010; 83615; 83735; 83880; 84100; 84156; 84300; 84443; 84484; 85007; 85014; 85018; 85025; 85027; 86021; 86038; 86160; 86225; 86235; 86850; 86900; 86901; 86920; 87040; 87070; 87076; 87086; 87186; 87205; 93005; 93306; 94002; 94003; 94760; G0378; J2354; J3490; J7060; Q9967; C1750; C1769; C8929; J0282; J0610; J0696; J0885; J1644; J1815; J2270; J2704; J2930; J3010; J3475; J7030; J7040; J7050; P9016; U0003